=== PATIENT | female | born 1940 | race Caucasian/White ===

== ENCOUNTER → 2017-04-25 07:55 | Outpatient (CLI) | payer MEDICARE, OTHER, SELFPAY ==
--- NOTE | 2017-04-25 08:30 | RAD_ITS ---
PROCEDURE: Fluoroscopic guided Hip Injection DATE: April 25, 2017. INDICATION: Female, 77 years old. Chronic left hip pain. PHYSICIAN: Shade Lara M.D. MEDICATIONS: 6 mg of betamethasone and 3 cc of 1% lidocaine. 2% Lidocaine administered subcutaneously for local anesthesia. ACCESS SITE: Left hip. NEEDLE: 22-gauge spinal needle. FLUOROSCOPY TIME (if supplied): (0:23) minutes/seconds FINDINGS: The risks, benefits, and alternatives to the procedure were explained to the patient. The specific risks of bleeding, infection, and neurovascular injury were detailed and accepted. Witnessed informed consent was obtained. A 22-gauge spinal needle was positioned under right graphic fluoroscopic localization. Approximately 2 cc of Isovue-300 instilled for localization purposes. Medication was then injected. The patient tolerated the procedure well without any immediate complications. The patient was placed supine with head elevated and returned to the floor in stable condition. RAD/Fluoroscopy 1 Hr or Less IMPRESSION: 1. Successful fluoroscopic guided hip injection. Electronically Signed: Shade Lara MD at 9:02 EST Tel [phone], Service support ,
== END ==
PROVIDERS: Family Provider Internal Medicine; PCP Internal Medicine; Visit Provider Specialist
DX: M16.12 Unilateral primary osteoarthritis, left hip (principal); G89.29 Other chronic pain
CPT/HCPCS: 20610; 77002; 76000; J0702

== ENCOUNTER 2017-05-22 08:48 | Day surgery (SDC) | payer MEDICARE, OTHER, SELFPAY ==
[2017-05-22] VITALS (7 sets, daily range): BP systolic 95–115; BP diastolic 58–70; PULSE 67–83; RESP 16–18; TEMP 36.3–36.6; O2SAT 97–100; BMI 26.2
--- NOTE | 2017-05-22 10:11 | PCM.OPRPT ---
Problem List (1) Change in bowel habit Status: Acute Report of Operation Date of Procedure: 05/22/17 Pre-Operative Diagnosis: Change of bowel habit/severe constipation Post-Operative Diagnosis: Severe sigmoid diverticulosis Surgery/Procedure Performed:: Flexible sigmoidoscopy and rigid anoscopy Description of Surgical Findings:: Timeout and informed consent was obtained. 77-year-old female was taken to the endoscopy room. Because of multiple drug allergies she had monitored anesthesia care. She was placed in the left lateral decubitus position. In 2015 she had a complete colonoscopy. That was extraordinarily difficult secondary to her extensive diverticular disease. On this occasion we elected to perform a flexible sigmoidoscopy and anoscopy an attempt to explain her abdominal pain severe constipation and rectal pressure. Digital rectal exam performed. Very normal anal tone. No mass lesions. No blood. No palpable masses. Flexible colonoscope inserted in the rectum advanced to approximately 60 cm. There was severe tortuosity of the sigmoid colon and very extensive diverticular disease of the sigmoid and descending colon. I advanced the scope all the way to the splenic flexure at that point acute angulation was going to be technically difficult to transgress. As I had previously listed in the past that are her colonoscopy had been extraordinarily difficult I elected not to proceed with further attempt at this time due to the acute angulation and severe diverticular disease. I withdrew the scope. The tortuosity made inspection of the bowel wall difficult I did not see any gross lesions. The scope was retroflexed within the rectum minimal hemorrhoidal changes noted excess fluid and air was aspirated free. I then placed a rigid sigmoidoscope and took a very careful inspection of the anal rectal tissue. No significant abnormalities other than mild hemorrhoids. Impression Severe sigmoid and descending diverticulosis with severe tortuosity. No mass lesions or obstruction identified. No evidence for acute inflammation. Mild internal hemorrhoids. The patient is age 77. We will continue to recommend conservative measures for her constipation. If these do not resolve her issue then could consider a laparoscopic sigmoid colectomy or a laparoscopic left colectomy in order to treat her progressively severe constipation. Cc: Dr. Case Previous colonoscopy 2015. Next screening colonoscopy 2025. Simone Jeffers M.D., F.A.C.S. Scope was inserted 0959. This was a flexible sigmoidoscopy. Procedure was completed at 1008. Type of Anesthesia:: MAC Anesthesiologist: Eric Abel
== END 2017-05-22 11:05 | disposition home or self-care (01) ==
LOC: EN 08:49 → AC 08:51
PROVIDERS: Family Provider Internal Medicine; PCP Internal Medicine; Visit Provider Surgery
PROC: 0DJD8ZZ Inspection of Lower Intestinal Tract, Via Natural or Artificial Opening Endoscopic (ICD-10-PCS; CPT 45378; principal; 2017-05-22 09:55)
DX: K57.30 Diverticulosis of large intestine without perforation or abscess without bleeding (principal); K62.89 Other specified diseases of anus and rectum; K59.00 Constipation, unspecified; K64.8 Other hemorrhoids; I10 Essential (primary) hypertension; E04.1 Nontoxic single thyroid nodule; E03.9 Hypothyroidism, unspecified; L40.50 Arthropathic psoriasis, unspecified; E55.9 Vitamin D deficiency, unspecified; M85.80 Other specified disorders of bone density and structure, unspecified site; K21.9 Gastro-esophageal reflux disease without esophagitis; Z78.0 Asymptomatic menopausal state; Z79.82 Long term (current) use of aspirin; Z79.899 Other long term (current) drug therapy; Z96.641 Presence of right artificial hip joint; Z96.652 Presence of left artificial knee joint
CPT/HCPCS: 45330; J7120

== ENCOUNTER → 2017-07-19 13:10 | Outpatient (CLI) | payer MEDICARE, OTHER, SELFPAY ==
--- NOTE | 2017-07-19 13:14 | CT_ITS ---
STUDY: CT SOFT TISSUE NECK WITH CONTRAST REASON FOR EXAM: Female, 77 years old. Tender right-sided neck mass. RADIATION DOSAGE (If Supplied By Facility): CTDIvol = ( 15.59 ) mGy, DLP = ( 408.68 ) mGycm TECHNIQUE: The patient was scanned in a multi-detector CT scanner. High resolution transaxial imaging was performed following intravenous administration of 75 ml of Isovue 300 contrast material. Sagittal and coronal images were reconstructed. Individualized dose optimization techniques were used for this CT. COMPARISON: None. FINDINGS: Normal bilateral parotid glands. Normal bilateral hygiene assistant spaces. Normal bilateral parapharyngeal spaces. Normal bilateral carotid spaces. Normal bilateral sublingual and submandibular glands and spaces. Normal visualized nasopharynx. Normal retropharyngeal space. Normal perivertebral space. Normal visualized bilateral faucial tonsils. The visualized tongue, tongue base and oropharynx are normal. Shotty anterior cervical lymph nodes bilaterally. The largest lymph node on the right is 1.0 x 1.9 x 1.0 cm. The largest lymph node on the left is 1.9 x 0.8 x 0.5 cm. Small posterior cervical lymph nodes. Minimal submandibular lymph nodes. There is an asymmetrically large right external jugular vein on the surface of the sternocleidomastoid muscle. There is tortuosity of the carotid arteries. There is no aneurysm of the carotid arteries or stenosis. Normal epiglottis, bilateral vallecula and hypopharynx. The pre-epiglottic and paraglottic adipose spaces are normal. Normal visualized bilateral piriform sinuses, aryepiglottic folds, vocal cords, and arytenoid-cricoid articulations. Normal subglottic trachea. 3 mm densely calcified nodule of the right thyroid. Normal visualized pulmonary apices. Normal visualized paranasal sinuses. There is multilevel degenerative changes of the cervical spine. CT/Soft Tissue Neck WITH Contrast IMPRESSION: Shotty anterior cervical adenopathy bilaterally. Largest lymph node on the right is 1.0 x 1.9 x 1.0 cm. The largest lymph node on the left is 1.9 x 0.8 x 0.5 cm. Otherwise normal kaitlyn morphology. 3 mm densely calcified nodule of the right thyroid. Otherwise unremarkable thyroid. Asymmetrically large right external jugular vein. Carotid artery tortuosity without aneurysm or stenosis. Electronically Signed: Kiya Stover MD at 17:00 EDT , Service support ,
== END ==
PROVIDERS: Family Provider Internal Medicine; PCP Internal Medicine; Visit Provider Otolaryngology
DX: R22.1 Localized swelling, mass and lump, neck (principal)
CPT/HCPCS: 70491; Q9967

== ENCOUNTER → 2017-12-31 10:05 | Outpatient (CLI) | payer MEDICARE, OTHER, SELFPAY ==
--- NOTE | 2017-12-31 10:34 | BI_ITS ---
MAMMOGRAPHY - BILATERAL SCREENING REASON FOR EXAM: Female, 77 years old. Routine annual screening examination. PERTINENT HISTORY: Grandmother with breast cancer. Aunt with breast cancer. Remote left stereotactic breast biopsy and right excisional breast biopsy. TECHNIQUE: Digital bilateral breast kera (3D mammographic acquisition) in the CC and MLO projections. 2-D mediolateral oblique (MLO) and craniocaudad (CC) views of both breasts were obtained. CAD: Full Field Digital Mammography with Computer Added Detection was performed. COMPARISON: Comparison is made with prior study dated December 27, 2016 and December 27, 2015. FINDINGS: Breast Composition: The breasts are heterogeneously dense, which may obscure small masses. There are no dominant masses or suspicious calcifications. A tissue clip marker is once again seen in the deep upper outer portion of the left breast. Another tissue clip marker is seen in the deep slightly inferior medial portion of the left breast. This is unchanged. No other significant abnormalities are identified. There has been no significant change since the prior study. BI/SCREENING MAMM (CAD), BILAT IMPRESSION: Stable bilateral screening mammogram. Yearly follow-up mammogram recommended. (A) ASSESSMENT CATEGORY: BIRADS Category 2: Benign. A letter regarding these results will be sent to the patient by the facility within 30 days. Approximately 10% of breast cancers are not detected by mammography. A normal mammogram should not delay biopsy of a clinically suspicious abnormality. [id number] Electronically Signed: Shade Lara MD at 13:29 EST Tel [phone], Service support ,
== END ==
PROVIDERS: Family Provider Internal Medicine; PCP Internal Medicine
DX: Z12.31 Encounter for screening mammogram for malignant neoplasm of breast (principal)
CPT/HCPCS: 77063; 77067

== ENCOUNTER → 2018-06-25 20:03 | Outpatient (CLI) | payer MEDICARE, OTHER, SELFPAY | PROVIDERS: Family Provider Internal Medicine; PCP Internal Medicine | DX: G47.10 Hypersomnia, unspecified (principal); R53.83 Other fatigue | CPT/HCPCS: 95810 ==

== ENCOUNTER → 2018-08-22 15:39 | Outpatient (CLI) | payer MEDICARE, OTHER, SELFPAY ==
[2017-05-22 09:07] VITALS: BMI 26.2
== END ==
PROVIDERS: Family Provider Internal Medicine; PCP Internal Medicine; Referring Provider Specialist; Visit Provider Specialist
DX: S80.02XA Contusion of left knee, initial encounter (principal); X58.XXXA Exposure to other specified factors, initial encounter; Y93.9 Activity, unspecified; Y92.9 Unspecified place or not applicable; Y99.9 Unspecified external cause status
CPT/HCPCS: 87070; 87075; 87205

== ENCOUNTER → 2018-09-27 20:02 | Outpatient (CLI) | payer MEDICARE, OTHER, SELFPAY | PROVIDERS: Family Provider Internal Medicine; PCP Internal Medicine; Referring Provider Psychiatry & Neurology Neurology; Visit Provider Psychiatry & Neurology Neurology | DX: G47.33 Obstructive sleep apnea (adult) (pediatric) (principal) | CPT/HCPCS: 95811 ==

== ENCOUNTER 2019-01-01 08:30 | Outpatient (RCR) | payer MEDICARE, OTHER, SELFPAY ==
--- NOTE | 2018-12-04 16:04 | HP.PTEVAL_ITS ---
Patient's Visit Information VALENTIN BANGURA is a 78 year old F referred to Physical Therapy by Urban De Oliveira MD with a diagnosis of R shoulder pain. Date of Evaluation: 12/04/18 Physical Therapist: Wilfredo Mcnair PT, ATC - Visit Plan Frequency: 2-3x /Week Duration: 4 Weeks Plan: R shoulder strengthneing (rot cuff), stretching, scap stab ex's, UBE, DTR, US, and HEP - Subjective Findings: Pt reports she has had R shoulder pain for 2 weeks. Pt was carrying clothes on a metal ceiling hanger when her R shoulder became very sore. Pt reports her pain is located on the anterior aspect of her R shoulder. Pt reports she is R hand charlene nant. Pt denies any clicking/popping/locking up at this time. Pt reports she has had tingling and numbness in R had in the past, but none this date. No sleep difficulty at this time. Pt reports she has had xrays, but notes no sig findings as a result. 0/10 pain at rest, 6/10 at worst. Heavy lifting causes the most pain. - Pain R shoulder Pain Intensity (Out of 10): 0 Pain Intensity Range: 6 - Objective Neuro: B UE sensation is WNL to light touch. B bicepital reflex= 2/3. Palpation: Pt is tender along the LHB tendon. No obvious deformity. ROM: L shoulder flex= 160, abd= 155, ER= 65, IR= WNL. R shoulder flex= 140, abd= 125, ER= 65, IR= WNL. MMT: R shoulder is grossly 4-/5 and painful with all testing. L shoulder is 5/5. Special tests: no pos tests this date - Goals Goal 1:: Decrease R shoulder pain x 50% to aid with IADL's Goal Time Frame: 2-4 Weeks Goal 2:: Increase R shoujlder abd and flex ROM x 20 degrees to aid with overhead lifting activity Goal Time Frame: 4-6 Weeks Goal 3:: Increase R shoulder strength x 1 grade to aid with IADL's Goal Time Frame: 4-6 Weeks Goal 4:: I with HEP Goal Time Frame: 2-4 Weeks - Rehabilitation Potential Physical Therapy Diagnosis: Pt has R shoulder pain, weakness, and limited ROM secondary to R biceps tendonitis Rehabilitation Potential: Good - Anticipated Interventions Patient/Client Instruction: Educate patient on: Condition, Plan of Care For the Purpose of:: To improve self management Therapeutic Exercise to Include: Strength training, Endurance training, Flexib ilty training, Active ROM, Scapular Strength/Stabilization For the Purpose of:: To decrease pain, To increase ROM, To improve muscle performance and motor function Cryotherapy (ice pack, ice massage): Yes Ultrasound (thermal/non thermal): Yes For the Purpose of:: To decrease pain Thank you for the opportunity to evaluate your patient. For Medicare and Medicare HMO plans, please review the plan of care and approve it. It will need to be FAXED BACK to us at [phone] for Medicare purposes. For Medicare only, by signing this I certify the plan of care. Please let me know if there are questions or concerns regarding this plan of care. Physician Signature: Date:
--- NOTE | 2019-01-01 09:10 | HP.PTDCSUM ---
HP - PT D/C Summary It has been my pleasure to treat VALENTIN BANGURA under orders from Urban De Oliveira MD, for the diagnosis of R shoulder pain for a total of 8 visit(s). Discharge Date: Please see the following information for a summary of their discharge status. - Subjective Subjective: Pt reports she is I with HEP, but the pain has not changed - Pain R shoulder Pain Intensity (Out of 10): 4 - Objective Objective/Function: R shoulder pain 06/05. R shoulder ROM: flex= 155, abd= 165. R shoulder MMT: flex= 5/5, abd/ER/IR= 4/5. I with HEP. Pt has improved with both strength and ROM, but pain has remained unchanged - Goals Goal 1:: Decrease R shoulder pain x 50% to aid with IADL's Goal Progress: Not Progressing Goal 2:: Increase R shoujlder abd and flex ROM x 20 degrees to aid with overhead lifting activity Goal Progress: Progressing Goal 3:: Increase R shoulder strength x 1 grade to aid with IADL's Goal Progress: Goal Met Goal 4:: I with HEP Goal Progress: Goal Met - Plan Plan: Discontinue, RTD secondary to lack of progress with pain. - D/C Information If there are questions or concerns regarding this patient's physical therapy, please feel free to call me at [phone]. Thank you for the referral of this patient. Sincerely, Wilfredo Mcnair, PT, ATC
== END 2019-01-01 15:37 | disposition home or self-care (01) ==
LOC: PT 08:30
PROVIDERS: Family Provider Internal Medicine; PCP Internal Medicine; Referring Provider Specialist; Visit Provider Specialist
DX: M25.511 Pain in right shoulder (principal); S43.491D Other sprain of right shoulder joint, subsequent encounter
CPT/HCPCS: 97110; 97161; 97530

== ENCOUNTER → 2019-01-04 08:16 | Outpatient (CLI) | payer MEDICARE, OTHER, SELFPAY ==
[2017-05-22 09:07] VITALS: BMI 26.2
--- NOTE | 2019-01-04 08:21 | BI_ITS ---
MAMMOGRAPHY - BILATERAL SCREENING REASON FOR EXAM: Female, 78 years old. Routine annual screening examination. PERTINENT HISTORY: Sister with breast cancer. Grandmother with breast cancer. Aunts with breast cancer. TECHNIQUE: Digital bilateral breast shaina (3D mammographic acquisition) in the CC and MLO projections. 2-D mediolateral oblique (MLO) and craniocaudad (CC) views of both breasts were obtained. CAD: Full Field Digital Mammography with Computer Added Detection was performed. COMPARISON: Comparison is made with prior study dated December 31, 2017 and December 27, 2016. FINDINGS: Breast Composition: The breasts are heterogeneously dense, which may obscure small masses. There are no dominant masses or suspicious calcifications. 2 tissue markers are once again seen in the left breast. One is located in the deep upper outer portion of the left breast. The second is seen slightly inferior medial portion of the left breast. No other significant abnormalities are identified. There has been no significant change since the prior study. BI/SCREEN MAMM (CAD) W/SHAINA BILAT IMPRESSION: Stable bilateral screening mammogram. Yearly follow-up mammogram recommended. (A) ASSESSMENT CATEGORY: BIRADS Category 2: Benign. A letter regarding these results will be sent to the patient by the facility within 30 days. Approximately 10% of breast cancers are not detected by mammography. A normal mammogram should not delay biopsy of a clinically suspicious abnormality. [id number] Electronically Signed: Shade Lara, at 8:35 EST , Service support ,
== END ==
PROVIDERS: Family Provider Internal Medicine; PCP Internal Medicine; Referring Provider Obstetrics & Gynecology; Visit Provider Obstetrics & Gynecology
DX: Z12.31 Encounter for screening mammogram for malignant neoplasm of breast (principal)
CPT/HCPCS: 77063; 77067

== ENCOUNTER 2019-03-14 09:00 | Outpatient (RCR) | payer MEDICARE, OTHER, SELFPAY ==
--- NOTE | 2019-03-14 09:38 | HP.PTDCSUM ---
HP - PT D/C Summary It has been my pleasure to treat VALENTIN BANGURA under orders from Urban De Oliveira MD, for the diagnosis of R IT band syndrome for a total of 5 visit(s). Discharge Date: Please see the following information for a summary of their discharge status. - Subjective Subjective: R knee is very unstable today. Almost needed a cane today - Pain R lateral leg Pain Intensity (Out of 10): 2 - Overall Improvement % Improvement: 0 - Objective Objective/Function: R knee pain 2/10 currently, increases to 7/10 at worst. R knee ROM: 0-130 degrees. R knee MMT: 5/5 throughout. Pt is not making progress with pain, and continues to become progressively less stable with L knee. - Goals Goal 1:: Decrease R LE pain x 50% to aid with sleep Goal 2:: Increase R LE strength x 1 grade to aid with stair negotiation Goal 3:: I with HEP - Plan Plan: Discontinue, RTD - D/C Information If there are questions or concerns regarding this patient's physical therapy, please feel free to call me at [phone]. Thank you for the referral of this patient. Sincerely, Wilfredo Mcnair, PT, ATC
== END 2019-03-14 19:00 | disposition home or self-care (01) ==
LOC: PT 09:00
PROVIDERS: Family Provider Internal Medicine; PCP Internal Medicine; Referring Provider Specialist; Visit Provider Specialist
DX: M76.31 Iliotibial band syndrome, right leg (principal); M70.61 Trochanteric bursitis, right hip
CPT/HCPCS: 97110; 97140; 97161; 97164

== ENCOUNTER 2019-07-11 19:54 | Emergency (ER) | payer MEDICARE, OTHER, SELFPAY ==
[2019-07-11 19:55] VITALS: BP 154/83; PULSE 102; RESP 18; TEMP 36.5; O2SAT 96; BMI 28.3
--- NOTE | 2019-07-11 20:17 | ED.VISSUMM ---
- ER Visit Summary Date of Service: 07/11/19 Chief Complaint: Right leg pain and redness History of Present Illness: The patient is a 79 F who presents with pain and redness to her right leg that is been getting worse since yesterday. Patient had a recent total knee replacement 4 days ago. Patient states she has been doing well after this. Patient states she was ambulating with a cane. Patient states her pain is aching but stabbing at times. Patient states her pain is worse with movement and weightbearing. Patient denies any paresthesias or weakness. Patient admits to a low-grade fever of 99. Patient denies any discharge or drainage. Physical Examination: Vital signs are stable. Patient is afebrile. Patient is in no acute distress. Skin is warm dry. There is some mild erythema and warmth along the medial aspect of the distal thigh. There is some tenderness over the left knee and lower leg. There is some edema noted. There is no discharge or drainage from the incision. Range of motion was from 0 to approximately 20 degrees without pain. Sensation was intact light touch bilaterally in the lower extremities. Strength is 5/5 bilaterally in the lower extremities. Pedal pulses are equal bilaterally. Test Results: BC shows a mild anemia with a hemoglobin of 11.6 and hematocrit of 36.2. Basic metabolic profile showed a slightly elevated creatinine of 1.22 and a slightly elevated glucose of 123. X-rays of the right knee were obtained. There is soft tissue swelling but no evidence of osteomyelitis. Venous duplex of the right lower extremity was obtained. There is no evidence of DVT. Emergency Department Course and Treatment: Patient was given a dose of Ancef here. Patient was feeling better on reevaluation. Case was discussed with Dr. Johnson. He recommended discharging the patient home with antibiotics. Patient was given a prescription for Keflex. Patient was instructed to follow-up with Dr. De Oliveira in 3 to 5 days. Patient understood and was agreeable with the plan. All questions were answered. Disposition: Discharge home Impression: 1. Cellulitis right lower extremity This note was generated with [employer] software. It may contain incorrect words, spelling, and punctuation that were not noted in review of the chart prior to signing ED Disposition - Plan for ED Patient: Disposition: Home or Assisted Living Diagnosis: Cellulitis of right lower extremity Instructions: ED Cellulitis Prescriptions: Cephalexin [Keflex] 500 mg PO Q6 #40 cap Prescription Printed Referrals: Brinda Case MD [Primary Care Provider] - Urban De Oliveira MD [STAFF PHYSICIAN] - 3-5 Days
[2019-07-11] MEDS: Cefazolin 1 GM/50 ML BAG IV (20:50)
[2019-07-11 21:00] LABS: Absolute Lymphocyte Count 1.72 X10^3/uL (0.83-4.51); Absolute Neutrophil Count 6.4 X10^3/uL (2.0-7.7); Basophil# 0.05 X10^3/uL; Basophil% 0.5 % (0-1); Eosinophil# 0.75 X10^3/uL; Eosinophils% 7.8 % (0-5); Hematocrit 36.2 % (37-47); Hemoglobin 11.6 g/dL (12.0-15.0); Lymphocyte # 1.72 X10^3/ul (4.0); Lymphocyte % 17.9 % (19-41); Mean Corpuscular Hgb 29.3 pg (27.0-32.0); Mean Corpuscular Volume 91.4 fL (81-99); Mean Platelet Vol. 9.1 fl (6.2-12.0); Monocyte# 0.65 X10^3/uL; Monocyte% 6.8 % (0-10); NRBC Flagged by Analyzer 0 % (0-5); Neutrophil % 66.7 % (47-70); Platelet Count 302 K/mm3 (150-450); RBC Distribution Width CV 13.2 % (11.6-14.6); Red Blood Count 3.96 M/mm3 (4.2-5.4); White Blood Count 9.6 K/mm3 (4.4-11.0)
--- NOTE | 2019-07-11 21:00 | RAD_ITS ---
STUDY: X-RAY - RIGHT KNEE REASON FOR EXAM: Female, 79 years old. Total Rt knee replacement this past Sunday07/07/19. Increased swelling today. TECHNIQUE: 4 view(s) of the knee. COMPARISON: None. FINDINGS: Post surgical changes status post prosthesis placement which appears to be in anatomic alignment and position. Surgical nils are seen in the soft tissues. Prepatellar soft tissue swelling is observed... No evidence for acute fracture. No definitive evidence for osteomyelitis. RAD/Knee 4 or More Views IMPRESSION: Status post knee prosthesis placement. Diffuse soft tissue thickening without definitive evidence for acute osteomyelitis however if concern for infection three-phase bone scan or MRI would be useful for further evaluation Electronically Signed: Javed Newman MD at 21:31 EDT , Service support ,
[2019-07-11 21:18] LABS: Anion Gap 5 (5-15); BUN 15 mg/dL (7-18); BUN/Creat Ratio 12.3 RATIO (10-20); Calcium,Total 9.1 mg/dL (8.5-10.1); Chloride 105 mmol/L (98-107); Creatinine, Serum 1.22 mg/dL (0.55-1.02); EST Glomerular Filtration Rate 45 mL/min (>60); Est Glom Filt Rate - Afr Amer 55 mL/min (>60); Estimated Creatinine Clearance 30.06 ml/min; Glucose 123 mg/dL (74-106); Potassium 4.2 mmol/L (3.5-5.1); Sodium Level 139 mmol/L (136-145)
--- NOTE | 2019-07-11 21:21 | US_ITS ---
STUDY: VENOUS DOPPLER ULTRASOUND - RIGHT LOWER EXTREMITY REASON FOR EXAM: Female, 79 years old. RIGHT LEG PAIN TOTAL KNEE REPLACEMENT 07/07/2019 TECHNIQUE: Ultrasound evaluation of the deep vein system to include carranza-scale imaging and compression was performed. Carranza-scale imaging and Doppler sonographic evaluation, including duplex spectral analysis and qualitative color flow sonography, was performed. COMPARISON: None. FINDINGS: Less than optimal visualization of the calf veins due to edema. Common Femoral Vein: Normal compression, spontaneity and augmentation. Normal color Doppler. Common Femoral Vein/Greater Saphenous Junction: Normal compression, spontaneity and augmentation. Normal color Doppler. Deep Femoral Vein: Normal compression, spontaneity and augmentation. Normal color Doppler. Femoral Proximal: Normal compression, spontaneity and augmentation. Normal color Doppler. Femoral Middle: Normal compression, spontaneity and augmentation. Normal color Doppler. Femoral Distal: Normal compression, spontaneity and augmentation. Normal color Doppler. Popliteal Vein: Normal compression, spontaneity and augmentation. Normal color Doppler. Posterior Tibial Vein: Normal compression, spontaneity and augmentation. Normal color Doppler. Peroneal Vein: Normal compression, spontaneity and augmentation. Normal color Doppler. US/Venous Duplex Imag/Limited/Uni IMPRESSION: No definitive evidence for deep venous Doppler ultrasound of the lower extremity given less than optimal visualization of the calf veins. Electronically Signed: Javed Newman MD at 22:24 EDT , Service support ,
[2019-07-11] MEDS: 0.9% Normal Saline 1,000 ML 1000 ML IV (22:16)
[2019-07-11 22:18] LABS: Erythrocyte Sedimentation Rate 33 mm/hr (0-30)
[2019-07-11 22:28] VITALS: BP 123/68; PULSE 75; RESP 16; O2SAT 98
== END 2019-07-11 22:50 | disposition home or self-care (01) ==
LOC: ED 22:39
PROVIDERS: Emergency Provider Emergency Medicine; PCP Internal Medicine
DX: L03.115 Cellulitis of right lower limb (principal); E03.9 Hypothyroidism, unspecified; Z79.82 Long term (current) use of aspirin; Z79.899 Other long term (current) drug therapy
CPT/HCPCS: 73564; 80048; 85025; 85652; 86140; 87040; 93971; 96361; 96365; 99283; J7030; J7050

== ENCOUNTER → 2019-07-31 14:27 | Outpatient (CLI) | payer MEDICARE, OTHER, SELFPAY ==
[2019-07-11 19:55] VITALS: BMI 28.3
[2019-07-31 17:29] LABS: Absolute Lymphocyte Count 2.08 X10^3/uL (0.83-4.51); Basophil% 1.3 % (0-1); Eosinophil# 0.69 X10^3/uL; Eosinophils% 9.2 % (0-5); Hematocrit 39.8 % (37-47); Hemoglobin 12.2 g/dL (12.0-15.0); Lymphocyte # 2.08 X10^3/ul (4.0); Lymphocyte % 27.8 % (19-41); Mean Corp Hgb Conc 30.7 g/dL (32-36); Mean Corpuscular Hgb 28.6 pg (27.0-32.0); Mean Corpuscular Volume 93.2 fL (81-99); Mean Platelet Vol. 8.9 fl (6.2-12.0); Monocyte# 0.57 X10^3/uL; Monocyte% 7.6 % (0-10); NRBC Flagged by Analyzer 0 % (0-5); Neutrophil # 4.02 X10^3/uL (2.7-7.7); Platelet Count 453 K/mm3 (150-450); RBC Distribution Width CV 13.2 % (11.6-14.6); RBC Distribution Width SD 45.1 fl (35.1-43.9); Red Blood Count 4.27 M/mm3 (4.2-5.4); White Blood Count 7.5 K/mm3 (4.4-11.0)
[2019-07-31 17:37] LABS: Erythrocyte Sedimentation Rate 8 mm/hr (0-30)
[2019-07-31 17:41] LABS: CRP 8.51 mg/L (0.0-3.0)
== END ==
PROVIDERS: PCP Internal Medicine; Referring Provider Specialist; Visit Provider Specialist
DX: L03.115 Cellulitis of right lower limb (principal)
CPT/HCPCS: 36415; 85025; 85652; 86140

== ENCOUNTER → 2019-08-13 15:18 | Outpatient (CLI) | payer MEDICARE, OTHER, SELFPAY ==
--- NOTE | 2019-08-13 15:23 | RAD_ITS ---
STUDY: X-RAY - RIGHT FOOT CLINICAL: Female, 79 years old. PAIN TECHNIQUE: 3 view(s) of the foot. COMPARISON: None. FINDINGS: Normal talus, calcaneus, and tarsal bones. There are mild degenerative changes of the midfoot. Normal metatarsi. There is degenerative arthrosis of the metatarsophalangeal joint of the hallux with a hallux valgus deformity. Normal interphalangeal joint of the great toe. Normal phalanges of the great toe. Normal second through fifth metatarsophalangeal joints. There are degenerative changes of the interphalangeal joints of the lesser toes. The soft tissue structures are unremarkable. RAD/Foot min 3 Views IMPRESSION: Degenerative changes. Electronically Signed: Naina Wlid MD at 16:54 EDT Tel , Service support ,
== END ==
PROVIDERS: PCP Internal Medicine; Referring Provider Podiatrist; Visit Provider Podiatrist
DX: M77.41 Metatarsalgia, right foot (principal)
CPT/HCPCS: 73630

== ENCOUNTER → 2020-01-06 08:29 | Outpatient (CLI) | payer MEDICARE, OTHER, SELFPAY ==
--- NOTE | 2020-01-06 08:30 | BI_ITS ---
MAMMOGRAPHY - BILATERAL SCREENING REASON FOR EXAM: Female, 79 years old. Routine annual screening examination. PERTINENT HISTORY: Sister with breast cancer. Grandmother with breast cancer. Aunts with breast cancer. Remote left stereotactic breast biopsy and right excisional breast biopsies. TECHNIQUE: Digital bilateral breast shaina (3D mammographic acquisition) in the CC and MLO projections. 2-D mediolateral oblique (MLO) and craniocaudad (CC) views of both breasts were obtained. CAD: Full Field Digital Mammography with Computer Added Detection was performed. COMPARISON: Comparison is made with prior study dated 01/04/2019 and 12/31/2017. FINDINGS: Breast Composition: The breasts are heterogeneously dense, which may obscure small masses. There are no dominant masses or suspicious calcifications. 2 tissue clip markers are once again seen in the left breast. No other significant abnormalities are identified. There has been no significant change since the prior study. BI/SCREEN MAMM (CAD) W/SHAINA BILAT IMPRESSION: Stable bilateral screening mammogram. Yearly follow-up mammogram recommended. (A) ASSESSMENT CATEGORY: BIRADS Category 2: Benign. A letter regarding these results will be sent to the patient by the facility within 30 days. Approximately 10% of breast cancers are not detected by mammography. A normal mammogram should not delay biopsy of a clinically suspicious abnormality. [id number] Electronically Signed: Shade Lara, at 10:07 EST , Service support ,
== END ==
PROVIDERS: PCP Internal Medicine; Referring Provider Obstetrics & Gynecology; Visit Provider Obstetrics & Gynecology
DX: Z12.31 Encounter for screening mammogram for malignant neoplasm of breast (principal); Z80.3 Family history of malignant neoplasm of breast
CPT/HCPCS: 77063; 77067

== ENCOUNTER 2020-01-19 09:30 | Outpatient (RCR) | payer MEDICARE, OTHER, SELFPAY ==
--- NOTE | 2019-09-18 10:49 | HP.PTREVAL ---
Dr. Urban De Oliveira MD, It has been my pleasure to treat VALENTIN BANGURA over the last 18 visits for R TKA. Please see the progress note below for an update on the physical therapy plan of care! Subjective: i am sore all over today Objective/Function: R knee pain 2/10. R knee ROM: 0-3-120. R knee girth at joint line: 39 cm. R knee MMT: 4+/5. Pt is I with HEP. x goals achieved Plan Plan: Recheck pt in 4 weeks, or discharge Goals Goal 1:: Decrease R knee pain x 50% to aid with sleep Goal Time Frame: 4-6 Weeks Goal Progress: Goal Met Goal 2:: Increase R knee ROM x 50 degrees to aid with gait pattern Goal Time Frame: 4-6 Weeks Goal Progress: Goal Met Goal 3:: Increase R knee strength x 1 grade toa id with stair negotiation Goal Time Frame: 4-6 Weeks Goal Progress: Goal Met Goal 4:: I with HEP Goal Time Frame: 4-6 Weeks Goal Progress: Goal Met Anticipated Interventions Patient/Client Instruction: Educate patient on: Condition, Plan of Care For the Purpose of:: To improve self management Therapeutic Exercise to Include: Strength training, Endurance training, Balance training, Flexibilty training, Gait and locomotor training, Passive ROM, Active ROM, Dynamic Lumbar Stabilization For the Purpose of:: To decrease pain, To increase ROM, To improve muscle performance and motor function Cryotherapy (ice pack, ice massage): Yes For the Purpose of:: To decrease pain Please do not hesitate to contact me at [phone] by phone or if you have questions or concerns regarding this new plan of care! Sincerely, Wilfredo Mcnair, PT, ATC
--- NOTE | 2019-09-18 10:55 | HP.PTEVAL_ITS ---
Patient's Visit Information VALENTIN BANGURA is a 79 year old F referred to Physical Therapy by Dr. Urban De Oliveira MD with a diagnosis of R TKA. Date of Evaluation: 07/10/19 Physical Therapist: Wilfredo Mcnair PT, ATC - Visit Plan Frequency: 2-3x /Week Duration: 4-6 Weeks Plan: Recheck pt in 4 weeks, or discharge - Subjective DOS: 07/07/2019. Pt reports she had a R TKA performed at that time. Pt reports she has had R knee pain for a very long time. Pt reports she was scheduled to have her surgery prior to this but had to delay it secondary to COVID-19. Pt reports she is very sore and stiff today. Pt reports she notices her R knee is more straight now. Pt reports not tingling or numbness in R LE this date, but reports she has tingling in her feet. Pt reports sleep difficulty secondary to pain at this time. Pt reports she has not attempted to go up stairs at this time but notes she does have them in her house. Pt reports she is limited with all IADL's at this time. 3/10 pain at rest, 9/10 at worst (with any movement) - Pain R knee Pain Intensity (Out of 10): 2 Pain Intensity Range: 9 - Objective Neuro: B LE sensation is WNL to light touch. B achilles reflex= 1/3. Observation: Pt has mild redness on the medial aspect of R knee. No obvious signs of infection at this time. ROM: L knee 0-113 degrees. R knee 0-15-68. MMT: L knee 5/5 throughout. R knee 3/5 and painful. Girth at joint line: L knee 36 cm, R knee 42 cm - Goals Goal 1:: Decrease R knee pain x 50% to aid with sleep Goal Time Frame: 4-6 Weeks Goal 2:: Increase R knee ROM x 50 degrees to aid with gait pattern Goal Time Frame: 4-6 Weeks Goal 3:: Increase R knee strength x 1 grade toa id with stair negotiation Goal Time Frame: 4-6 Weeks Goal 4:: I with HEP Goal Time Frame: 4-6 Weeks - Rehabilitation Potential Physical Therapy Diagnosis: R knee pain, weakness, and limited ROM secondary to R TKA Rehabilitation Potential: Good - Anticipated Interventions Patient/Client Instruction: Educate patient on: Condition, Plan of Care For the Purpose of:: To improve self management Therapeutic Exercise to Include: Strength training, Endurance training, Balance training, Flexibilty training, Gait and locomotor training, Passive ROM, Active ROM, Dynamic Lumbar Stabilization For the Purpose of:: To decrease pain, To increase ROM, To improve muscle performance and motor function Cryotherapy (ice pack, ice massage): Yes For the Purpose of:: To decrease pain Thank you for the opportunity to evaluate your patient. For Medicare and Medicare HMO plans, please review the plan of care and approve it. It will need to be FAXED BACK to us at [phone] for Medicare purposes. For Medicare only, by signing this I certify the plan of care. Please let me know if there are questions or concerns regarding this plan of care. Physician Signature: Date:
--- NOTE | 2019-10-03 07:46 | HP.OTEVAL_ITS ---
Patient's Visit Information VALENTIN BANGURA is a 79 year old F, referred to Occupational Therapy by Dr. Urban De Oliveira MD, with a diagnosis of right tendonitis. Date of Evaluation: 09/29/19 Occupational Therapist: Lelia Qureshi, GODFREYR/Fam, CHT - Subjective This 79 year old female was seen for OT eval was dx with right wrist tenosynov itis. pt states she had right wrist pain started in July one month following a right TKR. pt had injection last and pt has felt better- pt states her wrist is not hurting - ROM Wrist: right 70/60 left 65/60 Opposition: right 10 left 10 - Strength Hogshead Weigher: right 45# left 35# Lateral Pinch: right 11# left 10# Tripod Pinch: right 10# left 10# - Quick DASH-Disab of Arm,Shoulder& Hand Quick DASH Score: 52.2725 - Goals Goal:: pt will demo a increase in right change management specialist strength by 15# or greater to return pt to PLOF by d/c Goal:: pt will demo right wrist ROM equal to unaffected UE to return pt to PLOF with ADLs and IADL by d/c Goal:: Pt will report pain no greater than 1/10 with use of affected hand with BADLs and IADLs by d/c. Goal:: Pt will demo understanding of joint protection and ergonomics when performing BADLs and IADLs by d/c. Pt will demo understanding of adaptive Equipment use to decrease stress on joints to allow pt to perform BADSL and IADLS at HELENE level. - Rehabilitation General Assessment: pts pain has inproved since the cortisone injection, but contineus to demo with limited right wrist and girp strenght. this limitation has increased need of assist with ADLs and IADLs. pt demo a need for skilled OT services 1-2x week for 4 weeks to return pt to PLOF. Today therapist ed. pt on need of brace for heavy work, ice/heat PRN will initiate eccentric strengthening at pt kush and progress to PRE. pt ed. on joint protection and ergo. of wrist and ad. eq. to assist with ADLs and IADls to limit stress on joints/tendons. pt demo understanding and agree to POC. Rehabilitation Potential: Good - Anticipated Interventions Modalities, Orthoses, Joint Protection/Energy Conservation, Ergonomic Education, Home Program - Visit Plan Frequency: 1x/Week Duration: 2 Weeks TEXT: Thank you for the opportunity to evaluate your patient. For Medicare and Medicare HMO plans, please review the plan of care and approve it. It will need to be FAXED BACK to us at [phone] for Medicare purposes. Please let me know if there are questions or concerns regarding this plan of care. Physician Signature: Date:
--- NOTE | 2019-11-18 15:10 | HP.PTREVAL ---
Dr. Urban De Oliveira MD, It has been my pleasure to treat VALENTIN BANGURA over the last 20 visits for R TKA. Please see the progress note below for an update on the physical therapy plan of care! Subjective: I am still in a lot of pain this date Objective/Function: R knee pain 5/10 with ambulation. R knee ROM: 0-4-123. R knee MMT: R knee flex= 4+/5, ext= 5/5. Gait: Pt was able to ambulate 640 feet until needing to rest Plan Plan: Cont with LE strengthening and gait training revolving around gym exercise routine. Goals Goal 1:: Decrease R knee pain x 50% to aid with sleep Goal Time Frame: 4-6 Weeks Goal Progress: Goal Met Goal 2:: Increase R knee ROM x 50 degrees to aid with gait pattern Goal Time Frame: 4-6 Weeks Goal Progress: Goal Met Goal 3:: Increase R knee strength x 1 grade toa id with stair negotiation Goal Time Frame: 4-6 Weeks Goal Progress: Goal Met Goal 4:: I with HEP Goal Time Frame: 4-6 Weeks Goal Progress: Goal Met Goal 5:: I with gym routine to aid with continued improvements in strength and decreased pain. Goal Time Frame: 2-4 Weeks Goal Progress: Progressing Anticipated Interventions Patient/Client Instruction: Educate patient on: Condition, Plan of Care For the Purpose of:: To improve self management Therapeutic Exercise to Include: Strength training, Endurance training, Balance training, Flexibilty training, Gait and locomotor training, Passive ROM, Active ROM, Dynamic Lumbar Stabilization For the Purpose of:: To decrease pain, To increase ROM, To improve muscle performance and motor function Cryotherapy (ice pack, ice massage): Yes For the Purpose of:: To decrease pain Please do not hesitate to contact me at [phone] by phone or if you have questions or concerns regarding this new plan of care! Sincerely, Wilfredo Mcnair, PT, ATC
--- NOTE | 2019-12-18 13:09 | HP.PTREVAL ---
Dr. Urban De Oliveira MD, It has been my pleasure to treat VALENTIN BANGURA over the last 28 visits for R TKA. Please see the progress note below for an update on the physical therapy plan of care! Subjective: No pain this date Objective/Function: R knee ROM 0-125 degrees. Pain ranges from 0/10-5/10. MMT: 4/5 throughout. Pt is progressing well toward Rx goals Plan Plan: Cont with R LE strengthening Goals Goal 1:: Decrease R knee pain x 50% to aid with sleep Goal Time Frame: 4-6 Weeks Goal Progress: Goal Met Goal 2:: Increase R knee ROM x 50 degrees to aid with gait pattern Goal Time Frame: 4-6 Weeks Goal Progress: Goal Met Goal 3:: Increase R knee strength x 1 grade toa id with stair negotiation Goal Time Frame: 4-6 Weeks Goal Progress: Goal Met Goal 4:: I with HEP Goal Time Frame: 4-6 Weeks Goal Progress: Goal Met Goal 5:: I with gym routine to aid with continued improvements in strength and decreased pain. Goal Time Frame: 2-4 Weeks Goal Progress: Progressing Goal 6:: Increase R knee strength to 5/5 toa id with IADL's Goal Time Frame: 2-4 Weeks Goal Progress: Progressing Anticipated Interventions Patient/Client Instruction: Educate patient on: Condition, Plan of Care For the Purpose of:: To improve self management Therapeutic Exercise to Include: Strength training, Endurance training, Balance training, Flexibilty training, Gait and locomotor training, Passive ROM, Active ROM, Dynamic Lumbar Stabilization For the Purpose of:: To decrease pain, To increase ROM, To improve muscle performance and motor function Cryotherapy (ice pack, ice massage): Yes For the Purpose of:: To decrease pain Please do not hesitate to contact me at [phone] by phone or if you have questions or concerns regarding this new plan of care! Sincerely, Wilfredo Mcnair, PT, ATC
--- NOTE | 2020-01-19 11:27 | HP.PTDCSUM ---
It has been my pleasure to treat VALENTIN BANGURA referred by Dr. Urban De Oliveira MD, with the diagnosis of R TKA for a total of 35 visit(s). Discharge Date: Please see the following information for a summary of their discharge status. Subjective: I dont have pain anymore R knee Pain Intensity (Out of 10): 0 % Improvement: 95 Objective/Function: R knee pain 0/10. R knee ROM: 0-124 degrees. R knee MMT: 5/5 throughout. Pt is I with HEP. Rx goals achieved Goal 1:: Decrease R knee pain x 50% to aid with sleep Goal Progress: Goal Met Goal 2:: Increase R knee ROM x 50 degrees to aid with gait pattern Goal Progress: Goal Met Goal 3:: Increase R knee strength x 1 grade toa id with stair negotiation Goal Progress: Goal Met Goal 4:: I with HEP Goal Progress: Goal Met Goal 5:: I with gym routine to aid with continued improvements in strength and decreased pain. Goal Progress: Goal Met Goal 6:: Increase R knee strength to 5/5 toa id with IADL's Goal Progress: Goal Met Plan: Discharge If there are questions or concerns regarding this patient's physical therapy, please feel free to call me at [phone]. Thank you for the referral of this patient. Sincerely, Wilfredo Mcnair, PT, ATC
== END 2020-01-19 19:00 | disposition home or self-care (01) ==
LOC: PT 09:30
PROVIDERS: PCP Internal Medicine; Referring Provider Specialist; Visit Provider Specialist
DX: M65.311 Trigger thumb, right thumb (principal)
CPT/HCPCS: 97110; 97140; 97161; 97164; 97166; 97530

== ENCOUNTER → 2020-05-19 12:19 | Outpatient (CLI) | payer MEDICARE, OTHER, SELFPAY ==
--- NOTE | 2020-05-19 14:00 | NEURO ---
NCS and/or EMG Patient Report Ordering Doctor: Robert Kaur DATE OF SERVICE: 05/19/20 Jennie Sánchez presents for electrodiagnostic testing of the left lower and left upper limb. She reports of burning sensation along with numbness and tingling in the hands and feet. Electrodiagnostic findings: Left median motor nerve demonstrates normal distal latency, amplitude and conduction velocity. Left ulnar motor responses within normal limits, including conduction across the elbow. Normal left peroneal and tibial motor studies. Left median, left ulnar, left tibial and left peroneal F waves are within normal limits H reflex normal bilaterally. There is prolonged distal latency of the left median sensory response at the wrist. Normal ulnar and radial sensory responses. There is a prolonged left sural latency. Normal left superficial peroneal and left medial plantar response. On needle EMG, all muscles tested in the left upper and left lower limb showed no evidence of denervation with normal motor unit action potentials. Electrodiagnostic impression: This is an abnormal study. 1. Electrodiagnostic findings demonstrate a left-sided median mononeuropathy. This is consistent with a mild left carpal tunnel syndrome. 2. Electrodiagnostic findings suggestive for a mild left sural neuropathy. 3. There is no electrodiagnostic evidence to suggest the presence of peripheral polyneuropathy. If there are any further questions, please do not hesitate to contact me.
== END ==
PROVIDERS: PCP Internal Medicine; Referring Provider Psychiatry & Neurology Sleep Medicine; Visit Provider Psychiatry & Neurology Sleep Medicine
DX: G62.9 Polyneuropathy, unspecified (principal); E04.1 Nontoxic single thyroid nodule; Z83.3 Family history of diabetes mellitus; R60.0 Localized edema
CPT/HCPCS: 95886; 95913

== ENCOUNTER 2020-05-21 15:05 | Emergency (ER) | payer MEDICARE, OTHER, SELFPAY ==
[2020-05-21 15:07] VITALS: BP 144/117; PULSE 100; RESP 15; TEMP 36.4; O2SAT 98; BMI 27.1
[2020-05-21] MEDS: 0.9% Normal Saline 1,000 ML 1000 ML IV (15:36)
[2020-05-21 15:49] LABS: Anion Gap 9 (5-15); BUN 19 mg/dL (7-18); BUN/Creat Ratio 21.1 RATIO (10-20); Calcium,Total 9.9 mg/dL (8.5-10.1); Chloride 105 mmol/L (98-107); EST Glomerular Filtration Rate 64 mL/min (>60); Est Glom Filt Rate - Afr Amer 78 mL/min (>60); Estimated Creatinine Clearance 40.09 ml/min; Glucose 99 mg/dL (74-106); Potassium 3.1 mmol/L (3.5-5.1); Sodium Level 141 mmol/L (136-145)
[2020-05-21 15:57] LABS: Absolute Neutrophil Count 4.3 X10^3/uL (2.0-7.7); Basophil# 0.04 X10^3/uL; Basophil% 0.6 % (0-1); Eosinophil# 0.17 X10^3/uL; Eosinophils% 2.5 % (0-5); Hematocrit 44.3 % (37-47); Hemoglobin 14.2 g/dL (12.0-15.0); Lymphocyte % 25.4 % (19-41); Mean Corp Hgb Conc 32.1 g/dL (32-36); Mean Corpuscular Hgb 27.9 pg (27.0-32.0); Mean Platelet Vol. 8.9 fl (6.2-12.0); Monocyte# 0.45 X10^3/uL; Monocyte% 6.7 % (0-10); NRBC Flagged by Analyzer 0 % (0-5); Neutrophil # 4.32 X10^3/uL (2.7-7.7); Neutrophil % 64.7 % (47-70); Platelet Count 298 K/mm3 (150-450); RBC Distribution Width CV 14.7 % (11.6-14.6); RBC Distribution Width SD 47.5 fl (35.1-43.9); Red Blood Count 5.09 M/mm3 (4.2-5.4); White Blood Count 6.7 K/mm3 (4.4-11.0)
--- NOTE | 2020-05-21 16:12 | ED.DCSUM_ITS ---
- ER Visit Summary Date of Service: 05/21/20 Chief Complaint: Vomiting/diarrhea History of Present Illness: The patient is a [address] Case. She reports that she has vomiting and diarrhea that began 2 days ago. She vomited multiple x2 days ago. She did vomit yesterday. She is vomited once today. She reports that she is having approximately 3 episodes of diarrhea per day. No blood in her stools or black tarry stools. Patient denies sick contacts. Has not been camping out of the country. No possible bad food exposure. Does not drink well water. No recent antibiotic use. Patient denies any abdominal pain. She denies any dysuria or frequency. She denies fever or chills. Physical Examination: Vitals: Stable. Afebrile. General: Well-nourished and well-developed. Head: Normocephalic atraumatic. Neck: Supple, no lymphadenopathy. No JVD. Nontender. Cardiovascular: Regular rate and rhythm. No murmurs. Respiratory: No respiratory distress. Clear to auscultation bilaterally. Abdominal: Soft, nontender, nondistended, normal bowel sounds. No guarding, rebound, or peritoneal signs. Back: Nontender. Extremities: Nontender, no edema. Skin: Normal color, no rash. Neurologic: Alert and oriented ?3. Cranial nerves II through XII are intact. Normal strength and sensation. Psych: Normal affect. Test Results: CBC is normal. Chem-7 shows potassium of 3.1 and BUN of 19. Emergency Department Course and Treatment: Patient had an IV placed. She was given 2 L of normal saline. She is given Zofran IV and potassium p.o. She did give a stool sample here and her C. difficile is still pending. Treatment Plan: Patient would like to go home to wait for the results of her C. difficile. She will be contacted with the results of this. Enteric pathogen will not come back today. She will be discharged with Zofran and potassium. Instructed to follow-up with her primary care physician in 1 to 2 days if not improving. Return to the emergency department for any worsening symptoms. Disposition: To home in improved and stable condition. Impression: 1. Vomiting/diarrhea. 2. Hypokalemia. This note was generated with myinfoQation software. It may contain incorrect words, spelling, and punctuation that were not noted in review of the chart prior to signing ED Disposition - Plan for ED Patient: Instructions: ED Vomiting and Diarrhea ... Prescriptions: Potassium Chloride Oral Tablet [K-Dur] 40 meq PO DAILY #10 tab Transmission Status: Received by JAM BOLIVAR RD Ondansetron [Zofran Odt] 4 mg PO Q8H PRN PRN #10 tablet PRN Reason: Nausea Transmission Status: Received by JAM BOLIVAR RD Referrals: Brinda Case MD [Primary Care Provider] - 1-2 Days if not improving
--- NOTE | 2020-05-21 17:02 | ED.RN ---
PT CALLED FOR UPDATE. VERBAL PERMISSION FROM PT OBTAINED PRIOR TO SPEAKING WITH ABOUT PT CARE VIA PHONE CALL.
[2020-05-21] MEDS: Ondansetron 4 MG/2 ML Vial IV (17:06)
[2020-05-21] MEDS: 0.9% Normal Saline 1,000 ML 999 ML IV (17:14)
[2020-05-21 17:17] VITALS: BP 137/77; PULSE 92; RESP 16; O2SAT 98
[2020-05-21] MEDS: Potassium Chloride Oral Soln 20 MEQ/15 ML UDC 40 MEQ PO (17:28)
[2020-05-21 18:31] VITALS: BP 136/95; PULSE 85; RESP 16; RESP 18; O2SAT 98
== END 2020-05-21 18:40 | disposition home or self-care (01) ==
LOC: ED 15:51
PROVIDERS: Emergency Provider Emergency Medicine; PCP Internal Medicine
DX: R11.10 Vomiting, unspecified (principal); R19.7 Diarrhea, unspecified; E87.6 Hypokalemia
CPT/HCPCS: 80048; 85025; 87493; 87506; 96361; 96374; 99285; J7030; A4216; J2405

== ENCOUNTER 2020-06-10 11:00 | Outpatient (RCR) | payer MEDICARE, OTHER, SELFPAY ==
--- NOTE | 2020-03-03 08:10 | HP.OTEVAL_ITS ---
Patient's Visit Information VALENTIN BANGURA is a 79 year old F, referred to Occupational Therapy by BARRIE TYLER, with a diagnosis of right DeQuervain's tenosynovitis. Date of Evaluation: 03/02/20 Occupational Therapist: Lelia Qureshi, OTR/Fam, CHT - Subjective This 79 year old female was seen for OT eval with a dx of Dequervain's Tenosynovitis. Pt has sx on 02/13/2020. pt reports no pain and full use of her right hand with ADLS and IADLs. pt states she feels her wrist is swollen but this is due to her arthritis issues. Pt would like to know what she needs to do to prevent scar adhesions. - ROM Wrist: right 60/45 left 50/55 ROM Comments: right RD/UD 15/[address]/UD 15/30 - Strength Skein Straightener: right 30# left 30# Lateral Pinch: right 10# left 8# Tripod Pinch: right 10# left 8# - Quick DASH-Disab of Arm,Shoulder& Hand Quick DASH Score: 43.1800 - Goals Goal:Daily scar massage when approriate: Yes Goal:Full use of affected hand in daily activities including: Yes Goal:Decrease scar hypersensitivity: Yes - Rehabilitation General Assessment: Pt is currently 2 weeks and 4 days s/p from sx and demo full ROM and strength. Pt demo with edema and slight scar adhesions. Pt would benefit from skilled OT services to ed pt on scar mtg, use of scar gel and edmea control demetri. Today theapist ed. pt and pt demo understanding and agree to HEP POC and follow up in 3- 4 weeks. Pt to call and schedule if pt has increase pain or swelling. Rehabilitation Potential: Good - Anticipated Interventions A/AAROM/PROM, Scar Care, Triggerpoint Release, Desensitization, Modalities, Joint Protection/Energy Conservation, Ergonomic Education - Visit Plan Frequency: Monthly Duration: 2 Months TEXT: Thank you for the opportunity to evaluate your patient. For Medicare and Medicare HMO plans, please review the plan of care and approve it. It will need to be FAXED BACK to us at [phone] for Medicare purposes. Please let me know if there are questions or concerns regarding this plan of care. Physician Signature: Date:
--- NOTE | 2020-03-24 10:46 | HP.OTDCSUM ---
It has been my pleasure to treat VALENTIN BANGURA under orders from BARRIE TYLER, for the diagnosis of right DeQuervain's tenosynovitis for a total of 2 visit(s). Please see the following information for a summary of their discharge status. % Improvement: 90 Objective/Function: pt demo with right wrist ROM at 70/60. pt demo a increase in ROM -. right harvesting manager 35# a increase from 30#. pt demo good scar mobility. NO scar motion with thumb ROM indicating no scar adhesions. Patient Goals: Use Hand/Wrist/Arm Normally Again Goal:Daily scar massage when approriate: Yes Goal:Full use of affected hand in daily activities including: Yes Goal:Decrease scar hypersensitivity: Yes Plan: D/C Discharge Comments: Pt was seen for OT eval and one follow up visit following a right wrist Dequervain's Tenosynovitis sx on 02/13/20. pt has regains her wrist ROM and strength and reports she has returned to IND. with ADLs and IADls. pt met goals in OT and is D/C from OT. If there are questions or concerns regarding this patient's occupational therapy, please fell free to call me at [phone]. Thank you for the referral of this patient. Sincerely, Lelia Qureshi, OTR/L, CHT
--- NOTE | 2020-03-24 14:05 | HP.PTEVAL_ITS ---
Patient's Visit Information VALENTIN BANGURA is a 80 year old F referred to Physical Therapy by BARRIE TYLER with a diagnosis of DDD. Date of Evaluation: 03/24/20 Physical Therapist: Wilfredo Mcnair, PT, ATC - Visit Plan Frequency: 2-3x /Week Duration: 4-6 Weeks Plan: B LE stretching and strengthening, balance and proprio, core stab ex's, gait training, and HEP - Subjective Pt reports she has had LBP chronically. Pt notes her pain has had an insidious onset in nature. Pt reports she has had a recent Xray, which revealed DDD throughout lumbar spine noting severe degenerative changes L1-S1. Pt reports she has had body pain throughout her entire body. Pt notes she has tingling in her feet which is painful and along the outside of her feet. Pt reports she has been diagnosed with polyneuropathy. Pt reports she has had a recent cortisone inection which did help to ease her LE pain. Pt reports she doesnt necessarily have a lot of back pain today, she just notes her legs are sore and she feels stiff. Pt reports she has significant difficulty with standing to sit secondary to pain. Pt also notes she has difficulty with sleeping if she doesnt take her pain meds secondary to pain. 0/10 at rest, 9/10 pain at worst (sitting to stand) - Pain LB and LE's Pain Intensity (Out of 10): 0 Pain Intensity Range: 9 - Objective Neuro: B LE sensation is WNL to light touch. B patellar reflex= 1/3. Palpation: Pt is sore along B greater trocanteric bursa. No obvious deformities. MMT: B hips are grossly 4/5 throughout. B knees are grossly 5.5 throughout. L/S ROM: WNL with all ROM except for extension which is severely limited. Gait: Pt is able to ambulate 340 feet until feeling too sore in hips and having to rest. Special testing: Pos trendelenberg test - Goals Goal 1:: Decrease LB and LE pain x 50 to aid with sleep Goal Time Frame: 4-6 Weeks Goal 2:: Increase core strength x 1 grade to aid with restoring a more painfree gait cycle Goal Time Frame: 4-6 Weeks Goal 3:: Increase B Hip strength x 1 grade to aid with sit to stand transfers Goal Time Frame: 4-6 Weeks Goal 4:: I with HEP Goal Time Frame: 4-6 Weeks - Rehabilitation Potential Physical Therapy Diagnosis: Pt has LE weakness, core weakness, and intolerance for ambulation secondary to L/S DDD Rehabilitation Potential: Good - Anticipated Interventions Patient/Client Instruction: Educate patient on: Condition, Plan of Care For the Purpose of:: To improve self management Therapeutic Exercise to Include: Strength training, Endurance training, Balance training, Gait and locomotor training, Dynamic Lumbar Stabilization For the Purpose of:: To decrease pain, To increase ROM, To improve muscle performance and motor function Thank you for the opportunity to evaluate your patient. For Medicare and Medicare HMO plans, please review the plan of care and approve it. It will need to be FAXED BACK to us at [phone] for Medicare purposes. For Medicare only, by signing this I certify the plan of care. Please let me know if there are questions or concerns regarding this plan of care. Physician Signature: Date:
--- NOTE | 2020-05-04 10:23 | HP.PTEVAL2 ---
Patient's Visit Information VALENTIN BANGURA is a 80 year old F referred to Physical Therapy by Dr. Jameson Robertson DO with a diagnosis of B shoulder impingement. Date of Evaluation: 05/04/20 Physical Therapist: Wilfredo Mcnair, PT, ATC - Visit Plan Frequency: 2-3x /Week Duration: 4-6 Weeks Plan: B dshoulder strengthening (rot cuff), scap stab ex's, overhead pulleys, UBE, and HEP. CP for pain - Subjective Subjective: Pt reports chronic B shoulder pain for decades, but the pain has worsened over the last 6 months when she was taken off medications. Pt reports she had injections 2 weeks ago which has really helped to decrease her pain. R shoulder pain had been worse than the left, but over the last several months they have been equal. Pt is R hand dominant. Pt notes she has sleep difficulty secondary to pain. Pt reports PMHx of B rotator cuff repair in the late nineties. Pt reports she is hving difficulty with yard activites due to shoulder pain. Pt reports she will occasionally feel a hot flash which will make her hands and feet tingle. Otherwise, no UE tingling or numbness. Pt has recently started taking a vit B sullplement which has eliminated the tingling. 0/10 pain in shoulders at rest since injections, 8/10 pain at worst (when she lifted a trash can the other day). - Pain B shoulders Intensity: 0 Pain Intensity Range: 8 - Objective Objective: Neuro: B UE sensation is WNL to light touch. B bicepital reflex= 2/3. Palpation: Pt is very tender along the supraspinatus region and LHB tendon. No obvious deformity. ROM: L shoulder flex= 160, abd= 150, ER= 65, IR WNL. R shoulder flex= 155, abd= 150, ER= 65, IR WNL. MMT: B shoulder IR 5/5, ER= 4-/5, abd and flex= 4/5. Special tests: minor pain with empty can and speeds test - Goals Goal 1:: Decrease B shoulder pain x 50% to aid with sleep Goal Time Frame: 4-6 Weeks Goal 2:: Increase B shoulder strength x 1-2 grades to aid with IADL's Goal Time Frame: 4-6 Weeks Goal 3:: Increase B shoulder flex and abd ROM x 15 degrees to aid with overhead activity Goal Time Frame: 4-6 Weeks Goal 4:: I with hep Goal Time Frame: 4-6 Weeks - Rehabilitation Potential Physical Therapy Diagnosis: Pt has B shoulder weakness, pain, and limited ROM secondary to B shoulder impingement Rehabilitation Potential: Good - Anticipated Interventions Patient/Client Instruction: Educate patient on: Condition, Plan of Care For the Purpose of:: To improve self management Therapeutic Exercise to Include: Strength training, Endurance training, Active ROM, Scapular Strength/Stabilization For the Purpose of:: To decrease pain, To increase ROM, To improve muscle performance and motor function Cryotherapy (ice pack, ice massage): Yes For the Purpose of:: To decrease pain Thank you for the opportunity to evaluate your patient. For Medicare and Medicare HMO plans, please review the plan of care and approve it. It will need to be FAXED BACK to us at [phone] for Medicare purposes. For Medicare only, by signing this I certify the plan of care. Please let me know if there are questions or concerns regarding this plan of care. Physician Signature: Date:
--- NOTE | 2020-05-11 10:00 | HP.PTREVAL ---
Dr. Jameson Robertson, DO, It has been my pleasure to treat VALENTIN BANGURA over the last 10 visits for DDD. Please see the progress note below for an update on the physical therapy plan of care! Subjective: Pt reports no pain today and believes its due to her steriod shot injections both her back and shoulders. I notice that functional activites at home like stairs are easier to do. Objective/Function: Pt reports occasional L hip pain, none today. R hip MMT: 5/5 throughout, L hip is grossly 4+/5. Gait: Pt still displays a trandelenburg gait pattern indicatin core weakness still present. Pt is progressing well toward Rx goals Plan Plan: B LE stretching and strengthening, balance and proprio, core stab ex's, gait training, and HEP Goals Goal 1:: Decrease LB and LE pain x 50 to aid with sleep Goal Time Frame: 4-6 Weeks Goal Progress: Goal Met Goal 2:: Increase core strength x 1 grade to aid with restoring a more painfree gait cycle Goal Time Frame: 4-6 Weeks Goal Progress: Progressing Goal 3:: Increase B Hip strength x 1 grade to aid with sit to stand transfers Goal Time Frame: 4-6 Weeks Goal 4:: I with HEP Goal Time Frame: 4-6 Weeks Anticipated Interventions Patient/Client Instruction: Educate patient on: Condition, Plan of Care For the Purpose of:: To improve self management Therapeutic Exercise to Include: Strength training, Endurance training, Balance training, Gait and locomotor training, Dynamic Lumbar Stabilization For the Purpose of:: To decrease pain, To increase ROM, To improve muscle performance and motor function Please do not hesitate to contact me at [phone] by phone or if you have questions or concerns regarding this new plan of care! Sincerely, Wilfredo Mcnair, PT, ATC
--- NOTE | 2020-06-10 12:16 | HP.PTDCS(2) ---
It has been my pleasure to treat VALENTIN BANGURA referred by Dr. Jameson Robertson DO, with the diagnosis of B shoulder impingement for a total of 8 visit(s). Discharge Date: Please see the following information for a summary of their discharge status. Subjective: Pt. is having a L hip replacement on 07/14/2020. My shoulders are hanging in there. They arent 100% but are doing well. % Improvement: 75 Objective/Function/Assessment: Pt tolerated sessionw well today and was able to do extra sets of her exercises. ROM: L shoulder flex: 0-0-152 degrees R shoulder flex: 0-0-158 L shoulder abd: 0-0-158 R shoulder abd: 0-0-160 degrees. MMT: L shoulder flex: 5/5 R shoulder flex: 5/5 L shoulder abd: 5/5 R shoulder abd: 5-/5 L IR: 5/5 L ER: 5-/5 R IR: 5/5 R ER: 5-/5. Pain: can sleep through the night but only after getting the injections Patient Goals: Improve Mobility, Improve Function, Decrease Pain, Sleep Normal Goal 1:: Decrease B shoulder pain x 50% to aid with sleep Goal Progress: Goal Met Goal 2:: Increase B shoulder strength x 1-2 grades to aid with IADL's Goal Progress: Goal Met Goal 3:: Increase B shoulder flex and abd ROM x 15 degrees to aid with overhead activity Goal Progress: Progressing Goal 4:: I with hep Goal Progress: Goal Met Plan: Increase shoulder girdle strength and maintain pain free ROM bilaterally. Cont to progress as tolerated. If there are questions or concerns regarding this patient's physical therapy, please feel free to call me at [phone]. Thank you for the referral of this patient. Sincerely, Wilfredo Mcnair, PT, ATC
== END 2020-06-10 13:12 | disposition home or self-care (01) ==
LOC: PT 11:00
PROVIDERS: PCP Internal Medicine; Referring Provider Internal Medicine Rheumatology; Visit Provider Internal Medicine Rheumatology
DX: M65.4 Radial styloid tenosynovitis [de Quervain] (principal); M75.41 Impingement syndrome of right shoulder; M75.42 Impingement syndrome of left shoulder
CPT/HCPCS: 97110; 97161; 97164; 97165; 97166; 97530

== ENCOUNTER 2020-07-14 12:30 | Observation (INO) | payer MEDICARE, OTHER, SELFPAY ==
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
[2020-07-14] VITALS (13 sets, daily range): BP systolic 99–122; BP diastolic 47–86; PULSE 60–100; RESP 16–18; TEMP 35.9–36.6; O2SAT 96–100; BMI 25.1
[2020-07-14] MEDS: Lactated Ringers 1,000 ML 100 ML IV ×2 (12:12→14:15)
[2020-07-14] MEDS: Celecoxib 200 MG Capsule 400 MG PO (12:24)
[2020-07-14] MEDS: Gabapentin 600 MG Tablet PO (12:24)
[2020-07-14] MEDS: Acetaminophen 500 MG Tablet 1000 MG PO ×2 (12:25→22:12)
[2020-07-14] MEDS: Lactated Ringers 1,000 ML 999 ML IV ×2 (12:26→16:07)
--- NOTE | 2020-07-14 12:34 | OP.PCM_ITS ---
Report of Operation Date of Procedure: 07/14/20 Pre-Operative Diagnosis: Left hip primary osteoarthritis Post-Operative Diagnosis: Left hip primary osteoarthritis Surgery/Procedure Performed:: Left minimally invasive direct anterior hip replacement Description of Surgical Findings:: Stable hip with equal leg lengths Surgeon: Urban De Oliveira java golden gate developer: Donovan Valenzuela Type of Anesthesia: Spinal Special Medications: 2 g Ancef, 1 g TXA at incision, 1 g TXA closure, 10 mg Decadron, joint cocktail (5 mg Duramorph, 30 mL of 0.5% Ropivicaine, 1000 units of epinephrine, 30 mg of Toradol) Specimen's removed: Bony cuts Estimated Blood Loss (mL): 400 Fluids Replaced: 1700 mL crystalloid Description of Procedure: Components used: 1. Accolade 2 Reymundo femoral stem size 5, 132 ? 2. Alpha trident 2 acetabular shell size 48 mm 3. Alpha X3 polyethylene D 4. Alpha Biolox delta 36 mm, minus 5 mm femoral head Brief history operative indications: 80yo female who failed conservative measures for their hip osteoarthritis. X- rays were consistent with osteoarthritis including joint space narrowing, osteophyte formation and subchondral cysts. Total hip replacement was discussed with the patient with risks and benefits including but not limited to blood loss, DVTs, PEs, neurovascular damage, dislocation, general risks of anesthesia including loss of life. Patient demonstrated an understanding medical clearance is obtained the patient was consented for surgery. Procedure: On the date of procedure the patient's L hip was marked in the preoperative area. Patient was then taken back to the operating room where anesthesia assumed control of the C-spine and airway and administered anesthetic. Patient was transferred to the operating table and placed in the supine position. The hips were placed at the break of the bed and a sacral bump was placed. L The lower extremity was then prepped out in a sterile fashion using chlorhexidine while the surgeon scrubbed. The PA was vital in the positioning of the patient. Upon reentering the room the left lower extremity was draped in the standard orthopedic fashion and the incision was marked. A timeout was called and everyone agreed upon the side, the site, the procedure be performed, antibody given, and patient's identity. At this time incision was made through skin, subcutaneous tissue, and fat down to fascia. The fascia was then incised and the TFL was retracted laterally. A retractor was placed on the lateral border of the femoral neck. Attention was directed to the inferior portion of the approach and all crossing vessels were identified and appropriately coagulated. A retractor was then placed on the medial portion of the femoral neck. The anterior capsule was then cleared of all soft tissue and then H shaped capsulotomy was made. The retractors were then placed inside the capsule. The femoral neck was identified and a cleanup cut was made. At this time a power corkscrew was used to remove the femoral head. Attention was then turned toward the acetabulum where the soft tissues were appropriately retracted and the acetabulum was sequentially reamed to 48 mm. A 48 mm cup was then selected and impacted into place. Acetabular liner was impacted into place and locking mechanism was verified. The position of the acetabular cup was then verified under live fluoroscopy. Attention was then turned to the femur. Soft tissue releases on the medial and lateral femoral neck were appropriately done, the leg was externally rotated and lateralized. A Skinner retractor was placed medially and proximally to the greater trochanter this allowed appropriate visualization and exposure of the femoral canal. Rongeour was then used to remove excess lateral bone. A canal finder and entry broach were used to open the proximal canal. Once we verified we were down the femoral canal we subsequently broached up to a size 5 femur. The appropriate neck was placed in the previously selected head was trialed with a -5 mm neck. Traction was pulled and the hip was reduced with internal rotation. Once it was appropriately reduced and stability was checked. There was minimal shuck, equal leg lengths and appropriate stability with hyperextension and external rotation as well as with 90? flexion and internal rotation. Fluoroscopy was then also used to verify the position of the components and leg lengths using the contralateral side for comparison. The trial components were then dislocated the proximal femur was again exposed and the components were removed from the wound. The final components were verified and opened. The wound was copiously irrigated out with normal saline. The acetabulum was checked for any residual debris. The final components were placed and impacted. Traction and internal rotation were again used to reduce the hip. After adequate reduction the hip remained stable with appropriate leg lengths. The final components were once again checked with live fluoroscopy and were found to be satisfactory. The wound was then copiously irrigated with normal saline once more, and hemostasis was obtained. Closure was then done using #1 Vicryl runner to close the fascia. A 2-0 vicryl interuppted sutures were used to close the subcutaneous skin. A 3-0 Monocryl and Steri-Strips were used for final skin closure. A Silverlon dressing was placed. Patient was awakened by anesthesia and transferred to the [facility]. Patient was then transferred to the PACU for recovery. Postoperative plan: Patient will get 24 hours postop antibiotics. Patient will get in-house physical therapy and will be weight-bear as tolerated. Patient will follow up in office in 2 weeks for a wound check and x-rays. Aspirin 81 mg twice daily. Complications No intraoperative complications Admit VTE Documentation VTE Present on Admission: No VTE Mechan Device Prophylaxis: SCD's and Thigh High JOSE Hose VTE Pharm Prophylaxis ordered?: Yes
[2020-07-14 12:40] LABS: Bedside Glucose 84 mg/dL (70-110)
[2020-07-14] MEDS: Cefazolin 2 GM in 0.9% Normal Saline 100 ML IV (13:39)
--- NOTE | 2020-07-14 14:15 | RAD_ITS ---
STUDY: X-RAY - PELVIS AND LEFT HIP REASON FOR EXAM: Left hip arthroplasty. TECHNIQUE: 3 intraoperative images of the pelvis and hip. COMPARISON: Radiographs 08/11/2013. FINDINGS: There is a left hip arthroplasty without evidence of complication. 6.1 seconds of fluoroscopy time was used. Electronically Signed: Jere Mccracken MD at 9:09 EDT Tel , Service support , RAD/Hip 1 view with Pelvis
--- NOTE | 2020-07-14 14:15 | FEM_PTH ---
PATIENT: VALENTIN BANGURA LOC: [facility]3 U#:[id number] AGE/SX: 80/F ROOM: KS314 RE07/14/[address]: Dr. Urban De Oliveira MD : 1940 BED: 1 DIS: 07/15/2020 SPEC #: [id number] RECD: 07/15/20 11:22 STATUS: EARLENE REJs #: [id number] BENITO: 07/14/20 14:[address]: Urban De Oliveira DEPT: SURGICAL PATHOLOGY RECD BY: Elizabeth Max ENTERED: 07/15/20 13:02 SP TYPE: FEM HEAD OTHR DR: Dr. Brinda Case MD Tissues: Femoral region, NOS Procedures: Decalcification bone/plaque Surgery Specimen Level V HEADER OPERATION: ERAS, total hip anterior approach PRE-OP DIAGNOSIS: Left hip primary osteoarthritis TISSUE SUBMITTED: Bone and tissue left hip MICROSCOPIC DIAGNOSIS Bone and soft tissue of left hip, total hip resection: Consistent with severe degenerative joint disease. Synovium with chronic inflammation. AM:jenny 07/21/2020 MICROSCOPIC DESCRIPTION Slides are reviewed. GROSS DESCRIPTION Received is one container labeled with the patient's name and designated bone and soft tissue hip, left. The specimen consists of a schmidt femoral head measuring 4.5 x 4.5 x 4 cm. Also present in the specimen container is a detached piece of bone most likely portion of femoral neck measuring 5 x 2.5 x 2 cm. The articular surface displays prominent osteophyte formation, eburnation and bone erosion. Also present in the specimen container are multiple irregular fragments soft tissue measuring in aggregate 10 x 9 x 3 cm. The specimen predominantly consists of bone reaming. Communications Field Technician sections are submitted in two cassettes after decalcification. / SJ:jenny 07/15/20 TC:5 CPT: 41439, 23649
[2020-07-14] MEDS: dexAMETHasone 10 MG/ML Vial IV (14:35)
--- NOTE | 2020-07-14 16:00 | RAD_ITS ---
STUDY: X-RAY - PELVIS AND LEFT HIP REASON FOR EXAM: Female, 80 years old. Post Op -- AP both hips on single carmelo/lateral of op hip PACU TECHNIQUE: 2 views of the pelvis and hip. COMPARISON: Pelvic x-ray dated AUGUST 11, 2013 FINDINGS: Status post surgical resection of the left femoral head and neck. The proximal one third femoral prosthetic component is well placed within the intramedullary cavity as well as the acetabular cup. Both prosthetic components demonstrate good bony contact and alignment. Expected postoperative changes of the overlying soft tissues including gas and swelling. Surgical nils are also present. Stable right hip prosthesis. RAD/Hip Min 2 Views (Portable) IMPRESSION: Status post total left hip arthroplasty Electronically Signed: Mejia Melchor MD at 16:36 EDT , Service support ,
[2020-07-14 16:21] LABS: Bedside Glucose 104 mg/dL (70-110)
[2020-07-14] MEDS: Lactated Ringers 1,000 ML 125 ML IV (16:35)
[2020-07-14] MEDS: proMETHazine 25 MG/ML Syringe 12.5 MG IM (18:42)
[2020-07-14] MEDS: Budesonide Respules 0.5 MG/2 ML AMPUL.NEB. INHALATION (19:13)
[2020-07-14] MEDS: Cefazolin 1 GM/50 ML BAG IV (22:11)
[2020-07-14] MEDS: Senna/Docusate Sodium 1 Tablet 2 TABLET PO (22:12)
[2020-07-14] MEDS: Celecoxib 200 MG Capsule PO (22:12)
[2020-07-14] MEDS: Aspirin 81 MG TAB.CHEW PO (22:12)
[2020-07-15] VITALS (7 sets, daily range): BP systolic 92–109; BP diastolic 37–59; PULSE 58–89; RESP 16–18; TEMP 36.6–37.1; O2SAT 96–100
[2020-07-15] MEDS: Acetaminophen 500 MG Tablet 1000 MG PO ×2 (05:58→13:11)
[2020-07-15] MEDS: Cefazolin 1 GM/50 ML BAG IV (05:59)
[2020-07-15] MEDS: Levothyroxine 75 MCG Tablet PO (05:59)
[2020-07-15 06:27] LABS: Hematocrit 29.4 % (37-47); Hemoglobin 9.4 g/dL (12.0-15.0); Mean Corpuscular Volume 90.7 fL (81-99); Mean Platelet Vol. 8.9 fl (6.2-12.0); Platelet Count 259 K/mm3 (150-450); RBC Distribution Width CV 13.9 % (11.6-14.6); RBC Distribution Width SD 45.9 fl (35.1-43.9); Red Blood Count 3.24 M/mm3 (4.2-5.4); White Blood Count 13.8 K/mm3 (4.4-11.0)
[2020-07-15 06:50] LABS: Anion Gap 3 (5-15); BUN 13 mg/dL (7-18); BUN/Creat Ratio 15.4 RATIO (10-20); Calcium,Total 8.9 mg/dL (8.5-10.1); Chloride 107 mmol/L (98-107); Creatinine, Serum 0.84 mg/dL (0.55-1.02); EST Glomerular Filtration Rate 69 mL/min (>60); Est Glom Filt Rate - Afr Amer 84 mL/min (>60); Estimated Creatinine Clearance 40.98 ml/min; Glucose 116 mg/dL (74-106); Potassium 4.1 mmol/L (3.5-5.1); Sodium Level 138 mmol/L (136-145)
--- NOTE | 2020-07-15 07:09 | PN.ORTHO_ITS ---
Subjective Subjective The patient was sitting in bedside chair upon examination. Patient denies any chest pain, shortness of breath, dizziness, lightheadedness, nausea or vomiting, or calf pain. Pain is controlled on medications for the left hip surgery. Patient also reports having posterior left hip/buttock pain. She does have hist ory of severe degenerative disc disease of the lumbar spine. She denies any numbness and tingling down her leg. She states she has increased pain in this area when trying to get up. She did have a spinal with her surgery yesterday. Patient also did have some nausea yesterday which was improved with medications Objective Data Objective Data Vital Signs: Vital Signs Temp Pulse Resp BP Pulse Ox 97.8 F 68 18 109/37 L 98 07/15/20 06:05 07/15/20 06:05 07/15/20 06:05 07/15/20 06:05 07/15/20 06:05 Oxygen Flow Rate (L/min) 2 Oxygen Delivery Method Room Air Weight: 62.3 kg Body Mass Index (BMI) 25.1 Intake & Output: Intake and Output for Last 24 Hours 07/13/20 07/14/20 07/15/20 23:59 23:59 23:59 Intake Total 4983.5 / 4983.5 1050 / 1050 Output Total 100 / 100 500 / 500 Balance 4883.5 / 4883.5 550 / 550 Lab / Micro Data Result Diagrams: 07/15/20 06:20 07/15/20 06:20 Labs: Laboratory Results - last 24 hr 07/14/20 07/14/20 07/14/20 12:22 12:23 16:17 WBC RBC Hgb Hct MCV MCH MCHC RDW Std Deviation RDW Coeff of Tuan Plt Count MPV Sodium Potassium Chloride Carbon Dioxide Anion Gap BUN Creatinine Estim Creat Clear Calc Est GFR (MDRD) Af Amer Est GFR (MDRD) Non-Af BUN/Creatinine Ratio Glucose Calcium Magnesium 2.0 POC Glucose 84 104 07/15/20 07/15/20 06:20 06:20 WBC 13.8 H RBC 3.24 L Hgb 9.4 L Hct 29.4 L MCV 90.7 MCH 29.0 MCHC 32.0 RDW Std Deviation 45.9 H RDW Coeff of Tuan 13.9 Plt Count 259 MPV 8.9 Sodium 138 Potassium 4.1 Chloride 107 Carbon Dioxide 28.0 Anion Gap 3 L BUN 13 Creatinine 0.84 Estim Creat Clear Calc 40.98 Est GFR (MDRD) Af Amer 84 Est GFR (MDRD) Non-Af 69 BUN/Creatinine Ratio 15.4 Glucose 116 H Calcium 8.9 Magnesium POC Glucose Micro: Microbiology 07/01/20 12:09 Interface Orders Nasal Screen MRSA/MSSA - Final Radiography Diagnostic Testing: Radiology Impression Hip X-Ray 07/14/20 16:00 IMPRESSION: Status post total left hip arthroplasty Electronically Signed: Mejia Melchor MD at 16:36 EDT , Service support , Physical Exam Narrative Vital signs stable and afebrile. Patient is able to plantarflex and dorsiflex actively. Sensation is intact to light touch to saphenous, sural, superficial and deep peroneal, and tibial distribution. Dressing is clean dry and intact. Patient does report pain in the posterior hip/buttock region and low back Negative Homans bilaterally, negative signs and symptoms of DVT. Const alert, oriented x3 and no apparent distress Assessment & Plan Assessment/Plan (1) History of total left hip arthroplasty: (2) Degenerative arthritis of lumbar spine: QUALIFIERS: Spinal osteoarthritis complication: without myelopathy or radiculopathy Qualified Code(s): M47.816 - Spondylosis without myelopathy or radiculopathy, lumbar region PLAN: 1. S/P left direct anterior total hip arthroplasty POD #1 2. Continue Pain Medications: Tylenol and Celebrex. Patient does not tolerate narcotics very well. There is tramadol on board for as needed pain. She states she usually gets significant nausea/vomiting with narcotics 3. DVT Prophylaxis: Take 81 mg aspirin twice daily for 4 weeks postoperatively for DVT prophylaxis 4. PT/OT: Weightbearing as tolerated 5. H & H: 9.4/29.4, asymptomatic. Postoperative anemia secondary to acute blood loss from surgery without any intra operative complications. 6. Encouraged Incentive Spirometry 7. Reactive leukocytosis: Currently 13.8, afebrile. Patient did receive Decadron intraoperatively 8. History of severe lumbar degenerative disc disease: This pain has been increased since the surgery. She is getting posterior hip/buttock pain. She did undergo a spinal for surgery. Patient denies any numbness and tingling. No loss of bowel or bladder control. Discussed with the patient that this will most likely need to be worked up on an outpatient basis. No current red flags. Discussed with patient that the surgery and laying down with the surgery can increase low back pain. 9. Disposition: Plan at this time will see how patient does with formal physical therapy today in the hospital. If she is doing very well and the pain is controlled plan may be for possible discharge home today. Patient may require an additional stay. Would like physical therapy to also be careful with her lumbar degenerative disc disease and exercises. Prescriptions will be E scribed to her primary pharmacy. She will follow-up per postop instructions. Patient will also be given a prescription for Zofran to take on an as-needed basis if she is having any nausea/vomiting. I have reviewed the [place] Automated Rx Reporting System (OARRS) report for this patient for refill pattern and other prescriber involvement as part of the appropriate surveillance for the provision of acute and chronic controlled medications. The report was requested and reviewed on the date of this entry and was considered in the prescribing process.
[2020-07-15] MEDS: Budesonide Respules 0.5 MG/2 ML AMPUL.NEB. INHALATION (07:11)
--- NOTE | 2020-07-15 07:17 | PCM.DC ---
Discharge Instructions Diet Discharge Diet: No restrictions Activity Discharge Activity: May Not Drive and May not drive while taking narcotic pain medications. May shower in (days): 1 (only if incision is dry and without drainage. Do NOT soak/submerge in tub/pool/peterson/stream/hot tub.)) Ice area for (Minutes): 20 (Every 1-2 hours while [address] barrier between ice and skin.) Weight Bearing Status: Weight bearing as tolerated Keep extremity elevated above heart level: Operative Extremity Dressing / Incision Call your doctor if your incision/area has: Continuous Slow Oozing, Sudden Increased Bleeding, Increased Pain/ Swelling, Increased Redness and Foul Smelling Discharge Call your doctor if you observe: Fever of 101 or Higher, Shortness of breath, Chest pain, Calf discomfort and Uncontrolled pain Remove Dressing in: 4 days (Okay to remove dressing on July 19, 2020) Additional Dressing/Incision Instructions:: Follow [facility] Post-op Instructions. Once postoperative dressing has been removed, only use gentle soap and water over the incision. Do not use any ointments, Neosporin, salves, alcohol pads over the incision for 6 weeks postoperatively. Do not submerge underwater for 6 weeks postoperatively. Continue with JOSE hose/elastic stockings for 2 weeks postoperatively. May remove at nighttime but needs to be placed back on the leg during the day. Do NOT use alcohol with narcotic pain medication. Do NOT make important decisions while taking narcotic medication. If you have problems with taking your medication (rash, itching, nausea, etc.) call the office at once. Follow Up Care Test Results: Test results from this visit will be discussed in further detail at your follow-up appointment, if applicable. Discharge Plan Admission Admit Date/Time: 07/14/20 12:30 Attending Provider: Urban De Oliveira Primary Care Provider: Brinda Case Discharge Orders/Prescriptions Prescriptions: New acetaminophen 500 mg Tablet 1,000 mg PO Q8 Qty: 100 RF: 0 tramadol 50 mg Tablet 50 - 100 mg PO Q6H PRN PRN (Reason: Pain Score 4-10) 7 Days Qty: 36 RF: 0 aspirin 81 mg Tablet,Chewable 81 mg PO BIDCM Qty: 60 RF: 0 ondansetron HCl [Zofran] 4 mg tablet 4 mg PO Q8H Qty: 30 RF: 0 Continued diclofenac sodium [Voltaren] 1 % gel 2 g TOPICAL BID RF: 0 cyclobenzaprine 10 mg tablet 10 mg PO PRN PRN (Reason: Pain) RF: 0 lansoprazole [Prevacid] 15 MG capsule 30 mg PO DAILY PRN PRN (Reason: Indigestion) RF: 0 sumatriptan succinate [Imitrex] 50 MG tablet 50 mg PO .X1 PRN RF: 0 levothyroxine 88 MCG tablet 75 mcg PO DAILY RF: 0 triamcinolone acetonide [Nasacort] 1 SPRAY aerosol,spray 1 spray NASAL DAILY RF: 0 epinastine 1 DROP drops 1 drp EACH EYE BID RF: 0 polyethylene glycol 3350 17 GM packet 17 gm PO DAILY PRN PRN (Reason: Constipation) RF: 0 beclomethasone dipropionate 80 mcg/actuation HFA aerosol inhaler 2 puff inhalation DAILY RF: 0 Otezla 30 MG tablet 30 mg PO BID RF: 0 celecoxib [Celebrex] 200 MG capsule 200 mg PO BID RF: 0 estradiol 0.01 % (0.1 mg/gram) Cream 1 applic VAGINAL DAILY RF: 0 Discontinued aspirin [Adult Aspirin Regimen] 81 mg tablet,delayed release (DR/EC) 81 mg PO DAILY RF: 0 acetaminophen 650 MG tablet extended release 650 mg PO Q8 PRN (Reason: Pain) RF: 0 Referrals / Follow Up: Brinda Case MD [Primary Care Provider] - Disposition Disposition (needs filled in before D/C Order can be placed): Home, self care
[2020-07-15] MEDS: Celecoxib 200 MG Capsule PO (07:50)
[2020-07-15] MEDS: Famotidine 20 MG Tablet PO (07:50)
[2020-07-15] MEDS: Aspirin 81 MG TAB.CHEW PO (07:50)
--- NOTE | 2020-07-15 10:55 | CASEMGMT ---
KELLI LANG Face to Face with patient for initial transition planning/care coordination assessment. RN CM introduced self and role at [facility]. Patient sitting in chair, alert and oriented. Patient willing to participate in assessment and is able to answer all questions appropriately. Care providers, pharmacy, and demographics verified. Patient wishes to discharge home and is setup with [facility] for outpatient therapy. Patient states she has no further needs or concerns at this time. CM to follow for discharge planning needs that may arise. 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 One step to enter the home. Patient was independent at home prior to surgery. Patient states she has daughter staying with her through the weekend. Transportation: daughter, [facility] D[facility]/HHC: Patient states she has shower chair, cane, walker, raised toilet, grab bars, and bipap at home. Patient denies previous HHC or SNF. Patient is setup with [facility] for outpatient therapy starting Sunday. Disposition Plan: Patient to discharge home with out patient therapy, family support, and follow-up plans in place. Kirsten HUBER, RN, CM
--- NOTE | 2020-07-15 12:58 | CASEMGMT ---
RN RICKEY NOTE: Intro role of CM to patient and [facility]LL form explained re: Observation status for treatment of Left anterior hip replacement. Explained hospitalization will be paid per her insurance policy for Outpatient billing and condition will continue to be evaluated for Inpt necessity. Also let pt know that [facility] sends paper in the billing packet with their phone number if questions arise. Discussed Pharmacy section of [facility]LL form and self administered medication guideline. Pt verbalizes understanding and does not have further questions. Form signed, copy made and placed in chart, and original given to pt. Ryan HUBER RN CM
[2020-07-15] MEDS: 0.9% Saline Lock 10 ML Syringe IV (15:27)
== END 2020-07-15 16:40 | disposition home or self-care (01) ==
LOC: MS3 07-15 07:25 → SDC 07-15 08:43 → MS3 07-15 08:43
PROVIDERS: Admitting Provider Specialist; PCP Internal Medicine; Referring Provider Specialist; Visit Provider Specialist
PROC: (CPT 27284; principal; 2020-07-14 13:50)
DX: M16.12 Unilateral primary osteoarthritis, left hip (principal); G47.30 Sleep apnea, unspecified; K58.9 Irritable bowel syndrome, unspecified; I10 Essential (primary) hypertension; I47.1 Supraventricular tachycardia; G43.909 Migraine, unspecified, not intractable, without status migrainosus; M47.816 Spondylosis without myelopathy or radiculopathy, lumbar region; L40.50 Arthropathic psoriasis, unspecified; K21.9 Gastro-esophageal reflux disease without esophagitis; E03.9 Hypothyroidism, unspecified; M35.00 Sjogren syndrome, unspecified; Z79.899 Other long term (current) drug therapy; Z79.82 Long term (current) use of aspirin
CPT/HCPCS: 01214; 27130; 73501; 73502; 76000; 80048; 82962; 83735; 85027; 87081; 88307; 88311; 94640; 94762; 96361; 96365; 96366; 96372; 97110; 97162; 97166; 97530; 97535; 99218; 99251; C1776; J7040; J7120; A4216; G0378; G0379; G0463; J2405; J3475

== ENCOUNTER 2020-10-11 12:30 | Outpatient (RCR) | payer MEDICARE, OTHER, SELFPAY ==
[2020-07-14 18:26] VITALS: BMI 25.1
--- NOTE | 2020-07-19 12:19 | HP.PTEVAL_ITS ---
Patient's Visit Information VALENTIN BANGURA is a 80 year old F referred to Physical Therapy by Jessee Valenzuela PA-C with a diagnosis of L DESIRAE 07/14/20 anterior. Date of Evaluation: 07/19/20 Physical Therapist: Wilfredo Mcnair, PT, ATC - Visit Plan Frequency: 2-3x /Week Duration: 4-6 Weeks Plan: L hip stretching and strengthening, balance and proprio, core stab ex's, nustep, and HEP - Subjective DOS: 07/14/20. Pt reports she had a R DESIRAE anterior approach performed. Pt reports she is glad she had the surgery at this time as she was bone on bone prior. Pt reports her pain today is getting better overall. Pt notes sleep difficulty at this time secondary to pain. Pt reports she is able to put her shoes and socks on at this time. Pt reports her major limitation at this time is having to lift her L leg upwards. Pt reports she has stairs at home, but has not needed to negotiate them at this time. Pt reports no tingling or numbness in L LE at this time. Pt notes she has been walking around her house with the use of a quad cane. 2/10 pain at rest, 10/10 pain at worst (with bed transfers) - Pain L hip Pain Intensity (Out of 10): 2 Pain Intensity Range: 10 - Objective Neuro: B LE sensation is WNL to light touch. ROM: R hip flex= 65, ext= 0; L hip flex= 45, ext= 0. MMT: R hip flex= 13.5, ext= 16.5; L hip flex= 3.4, ext= 10.9. Gait: Pt is able to ambulate 340 feet with WW and CGAx1 until needing to rest secondary to fatigue. TU sec - Goals Goal 1:: Increase L hip strength x 5-10 #'s to aid with stair negotiation Goal Time Frame: 4-6 Weeks Goal 2:: Decrease L hip pain x 50% to aid with sleep Goal Time Frame: 4-6 Weeks Goal 3:: Pt will be able to ambulate greater than 600 feet with LRD to aid with community ambulation Goal Time Frame: 4-6 Weeks Goal 4:: I with HEP Goal Time Frame: 4-6 Weeks - Rehabilitation Potential Physical Therapy Diagnosis: Pt has L hip pain, weakness, and limited ROM secondary to L DESIRAE Rehabilitation Potential: Good - Anticipated Interventions Patient/Client Instruction: Educate patient on: Condition, Plan of Care For the Purpose of:: To improve self management Therapeutic Exercise to Include: Strength training, Endurance training, Balance training, Flexibilty training, Dynamic Lumbar Stabilization For the Purpose of:: To decrease pain, To increase ROM, To improve muscle performance and motor function Cryotherapy (ice pack, ice massage): Yes For the Purpose of:: To decrease pain Thank you for the opportunity to evaluate your patient. For Medicare and Medicare HMO plans, please review the plan of care and approve it. It will need to be FAXED BACK to us at [phone] for Medicare purposes. For Medicare only, by signing this I certify the plan of care. Please let me know if there are questions or concerns regarding this plan of care. Physician Signature: Date:
--- NOTE | 2020-09-13 10:34 | HP.PTREVAL_ITS ---
Jessee Valenzuela PA-C, It has been my pleasure to treat VALENTIN BANGURA over the last 11 visits for L DESIRAE 07/14/20 anterior. Please see the progress note below for an update on the physical therapy plan of care! Subjective: I have been through a whirlwind time since seeing you last. Pt notes she has cardiac issues that she is dealing with. Objective/Function: L hip flex= 20#F, ext= 11#F. L hip pain 03/07. Pt is able to ambulate 680 feet without difficulty. 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 Goals Goal 1:: Increase L hip strength x 5-10 #'s to aid with stair negotiation Goal Time Frame: 4-6 Weeks Goal Progress: Goal Met Goal 2:: Decrease L hip pain x 50% to aid with sleep Goal Time Frame: 4-6 Weeks Goal Progress: Goal Met Goal 3:: Pt will be able to ambulate greater than 600 feet with LRD to aid with community ambulation Goal Time Frame: 4-6 Weeks Goal Progress: Goal Met Goal 4:: I with HEP Goal Time Frame: 4-6 Weeks Goal Progress: Goal Met Anticipated Interventions Patient/Client Instruction: Educate patient on: Condition, Plan of Care For the Purpose of:: To improve self management Therapeutic Exercise to Include: Strength training, Endurance training, Balance training, Flexibilty training, Dynamic Lumbar Stabilization For the Purpose of:: To decrease pain, To increase ROM, To improve muscle performance and motor function Cryotherapy (ice pack, ice massage): Yes For the Purpose of:: To decrease pain Please do not hesitate to contact me at [phone] by phone or if you have questions or concerns regarding this new plan of care! Sincerely, Wilfredo Mcnair, PT, ATC
== END 2020-10-11 19:00 | disposition home or self-care (01) ==
LOC: PT 12:30
PROVIDERS: PCP Internal Medicine; Referring Provider Physician Assistant Surgical; Visit Provider Physician Assistant Surgical
DX: M16.12 Unilateral primary osteoarthritis, left hip (principal)
CPT/HCPCS: 97110; 97116; 97161; 97164; 97530

== ENCOUNTER → 2020-10-12 08:30 | Outpatient (CLI) | payer MEDICARE, OTHER, SELFPAY ==
[2020-09-30 10:52] VITALS: BMI 25.4
--- NOTE | 2020-10-12 08:32 | ECHOD_ITS ---
Reason For Study: Arrhythmia Procedure This was a 2D Doppler, Color Flow transthoracic echocardiogram. The exam was of adequate technical quality. Exam performed in department. Left Ventricle Normal LV size. Left ventricular systolic function is normal. The estimated ejection fraction is 55 %. Diastolic function is indeterminate. No regional wall motion abnormalities noted. Right Ventricle Normal RV size. Normal systolic function. Atria Normal left atrium. Normal right atrium. No doppler evidence for ASD. Mitral Valve There is no mitral annular calcification. Mild diffuse mitral valve thickening. Mild mitral valve prolapse, posterior leaflet. Mild-Moderate (1-2+) mitral valve insufficiency. Tricuspid Valve Normal tricuspid valve. Mild to moderate (1-2+) tricuspid valve insufficiency. Right ventricular systolic pressure estimated to be 27 mmHg. Aortic Valve Trisinus/trileaflet aortic valve. Mild diffuse aortic valve thickening. Pulmonic Valve The pulmonic valve is not well visualized. Great Vessels Normal sized aortic root. Pericardium/Pleural Trivial pericardial effusion. There are no echocardiographic indications of cardiac tamponade. MMode/2D Measurements & Calculations LVIDd: 4.7 cm IVSd: 1.3 cm Ao root diam: 3.3 cm LVIDs: 3.6 cm LVPWd: 1.1 cm RVDd: 3.1 cm FS: 22.1 % LAV(MOD-bp): 37.1 ml LA A4 area: 16.7 cm2 RA A4 area: 13.7 cm2 LAV(MOD-bp) Indexed: 23.4 ml/m2 LAV(MOD-sp2): 31.8 ml LAV(MOD-sp4): 41.9 ml Time Measurements MV dec time: 0.26 sec Doppler Measurements & Calculations MV E max jairo: 70.1 cm/sec Lat Peak E' Jairo: 3.7 cm/sec Med Peak E' Jairo: 12.4 cm/sec MV A max jairo: 104.4 cm/sec E/E' lat: 18.9 E/E' med: 5.7 MV E/A: 0.67 MV V2 max: 117.2 cm/sec MV P1/2t max jairo: 85.4 cm/sec Ao V2 max: 114.5 cm/sec MV max P.5 mmHg MV P1/2t: 100.8 msec Ao max P.2 mmHg MV V2 mean: 57.4 cm/sec MV dec slope: 248.0 cm/sec2 MV mean P.6 mmHg MVA(P1/2t): 2.2 cm2 MV V2 VTI: 34.0 cm LV V1 max: 78.7 cm/sec PA V2 max: 67.7 cm/sec TR max jairo: 242.4 cm/sec LV V1 max P.5 mmHg TR max P.5 mmHg ECHO/Echo Complete Interpretation Summary Left ventricular systolic function is normal. The estimated ejection fraction is 55 %. Mild mitral valve prolapse, posterior leaflet Mild diffuse mitral valve thickening. Mild-Moderate (1-2+) mitral valve insufficiency. Mild to moderate (1-2+) tricuspid valve insufficiency. Mild diffuse aortic valve thickening. Trivial pericardial effusion. There are no echocardiographic indications of cardiac tamponade. Right ventricular systolic pressure estimated to be 27 mmHg. Diastolic function is indeterminate. Ordering Physician: Bong Cortez Referring Physician: Brinda Case M.D. Performed By: Chris Caban RCS
== END ==
PROVIDERS: PCP Internal Medicine; Referring Provider Internal Medicine Cardiovascular Disease; Visit Provider Internal Medicine Cardiovascular Disease
DX: Q24.4 Congenital subaortic stenosis (principal); I10 Essential (primary) hypertension; I34.0 Nonrheumatic mitral (valve) insufficiency; I34.1 Nonrheumatic mitral (valve) prolapse; I44.1 Atrioventricular block, second degree; I47.1 Supraventricular tachycardia; I47.2 Ventricular tachycardia; I49.3 Ventricular premature depolarization; R55 Syncope and collapse
CPT/HCPCS: 93306

== ENCOUNTER 2020-10-26 07:56 | Day surgery (SDC) | payer MEDICARE, OTHER, SELFPAY ==
[2020-09-30 10:52] VITALS: BMI 25.4
--- NOTE | 2020-10-08 08:19 | RAD_ITS ---
INDICATION: VT EXAMINATION/TECHNIQUE: X-RAY - XR Chest 2 Views COMPARISON: PA and lateral views of the chest dated 12/21/2011. FINDINGS: LINES/DEVICES: None. LUNGS: No consolidation, edema or effusion. No pneumothorax. MEDIASTINUM AND CARDIOVASCULAR STRUCTURES: Cardiac silhouette not enlarged. Central airways and mediastinal contour are unremarkable. BONES AND SOFT TISSUES: Dense degenerative endplate sclerosis and osteophytosis. Note of a surgical clip base of the right neck. RAD/Chest PA and Lateral IMPRESSION: No radiographic evidence of acute cardiopulmonary disease. Electronically Signed: John Suazo DO at 20:37 EDT Tel , Service support ,
[2020-10-08 08:38] LABS: Absolute Lymphocyte Count 1.95 X10^3/uL (0.83-4.51); Absolute Neutrophil Count 3.7 X10^3/uL (2.0-7.7); Basophil# 0.04 X10^3/uL; Basophil% 0.6 % (0-1); Eosinophil# 0.27 X10^3/uL; Eosinophils% 4.2 % (0-5); Hematocrit 43.8 % (37-47); Hemoglobin 13.5 g/dL (12.0-15.0); Lymphocyte # 1.95 X10^3/ul (0.83-4.51); Lymphocyte % 30.3 % (19-41); Mean Corp Hgb Conc 30.8 g/dL (32-36); Mean Corpuscular Hgb 27.1 pg (27.0-32.0); Mean Corpuscular Volume 87.8 fL (81-99); Mean Platelet Vol. 9.1 fl (6.2-12.0); Monocyte# 0.44 X10^3/uL; Monocyte% 6.8 % (0-10); NRBC Flagged by Analyzer 0 % (0-5); Neutrophil # 3.73 X10^3/uL (2.7-7.7); Neutrophil % 57.9 % (47-70); Platelet Count 346 K/mm3 (150-450); RBC Distribution Width SD 44.6 fl (35.1-43.9); Red Blood Count 4.99 M/mm3 (4.2-5.4); White Blood Count 6.4 K/mm3 (4.4-11.0)
[2020-10-08 09:02] LABS: Anion Gap 2 (5-15); BUN 24 mg/dL (7-18); BUN/Creat Ratio 25.3 RATIO (10-20); Calcium,Total 10.2 mg/dL (8.5-10.1); Chloride 106 mmol/L (98-107); Creatinine, Serum 0.95 mg/dL (0.55-1.02); EST Glomerular Filtration Rate 60 mL/min (>60); Est Glom Filt Rate - Afr Amer 73 mL/min (>60); Glucose 92 mg/dL (74-106); Sodium Level 141 mmol/L (136-145)
[2020-10-08 09:13] LABS: Prothrombin Time (Protime)PT. 12.5 SECONDS (11.7-14.9)
[2020-10-08 09:14] LABS: Partial Thromboplast Time 32.9 Seconds (24.1-36.2)
[2020-10-25 08:29] VITALS: BMI 25.4
--- NOTE | 2020-10-25 17:10 | PCM.HP.BLA ---
History and Physical Date of Admission: 10/26/20 [facility] [id number] [place], [place] [id number] OFFICE VISITDate of Service: 10/14/20 MR#:[id number]: VALENTIN BANGURARep #:[id number] Provider: DAILY Mina RoofAge/Sex: 80/F [facility] HPI History of Present Illness Details: This is a 80-year-old white female who presents today for outpatient cardiovascular consultation based upon concerns of syncope and an underlying abnormal [facility] event monitor suggesting findings of PACs, PVCs, second-degree AV block Mobitz 2, PSVT, and PVT, superimposed upon a history of mitral valve prolapse and mitral and tricuspid valve insufficiency. She states she has been followed by [facility] cardiology for quite some time. It appears her last outpatient cardiovascular visit was on 06-21-2020. Based upon that evaluation there was a comment SVT, labile hypertension, and ROBERT. She was seen in preoperative evaluation. It appeared they did not believe she required additional evaluation or care at that time. Patient expresses concerns regarding symptoms and waiting for heart catheterization 10/26/2020. She was asked to present to the office to help answer questions as well as review previous test. She states episodes of chest twinge. This occurred after going from her restroom to sitting on the edge of her bed (6 feet away). This lasted for few minutes. This was sharp. She states her hand was feeling something. She states SOB at rest, but more noticeable with activity. She does acknowledge multiple medication concerns due to history of psoriatic arthritis. Intake Vital Signs 10/14/20 10:27 Height 5 ft 1 in Weight: 135 lb BMI 25.4 BP 135/82 H Blood Pressure Location Lt brachial Position Sitting Respiration 18 Pulse 76 Pulse Source Monitor Pulse Oximetry (%) 99 Intake Visit Reasons: PER M.S. Emissions Repair Technician Required: No Accompanied by: None Is patient in pain?: Yes Allergies adhesive Allergy (Verified 10/14/20 10:28) Rash benzocaine Allergy (Verified 10/14/20 10:28) Other estrogens, conjugated [From Premarin] Allergy (Verified 10/14/20 10:28) Shortness of breath gluten Allergy (Verified 10/14/20 10:28) Other hydroxychloroquine sulfate [From Plaquenil] Allergy (Verified 10/14/20 10:28) Rash lanolin Allergy (Verified 10/14/20 10:28) Rash meloxicam [From Mobic] Allergy (Verified 10/14/20 10:28) Other minocycline [Minocycline] Allergy (Verified 10/14/20 10:28) Other palm oil Allergy (Verified 10/14/20 10:28) Hives codeine Adverse Reaction (Verified 10/14/20 10:28) Nausea/Vom/Diarrhea esomeprazole magnesium [From Nexium] Adverse Reaction (Verified 10/14/20 10:28) Other metoprolol Adverse Reaction (Verified 10/14/20 10:) NEEDS FOLLOW-UP omeprazole [From Prilosec] Adverse Reaction (Verified 10/14/20 10:28) Other omeprazole magnesium [From Prilosec] Adverse Reaction (Verified 10/14/20 10:28) Other sulindac [From Clinoril] Adverse Reaction (Verified 10/14/20 10:28) Rash Narcotics Adverse Reaction (Uncoded 07/14/20 12:14) Vomiting Opiods Adverse Reaction (Uncoded 07/14/20 12:14) Vomiting PFSH Medical History (Reviewed 10/14/20 @ 13:47 by Lino Barragan PACKAGING MATERIALS INSPECTOR, PACKAGING MATERIALS INSPECTOR-C) BiPAP (biphasic positive airway pressure) dependence Cervical spondylosis 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 Degenerative disc disease Elevated serum creatinine Esophageal reflux Family history of breast cancer in female Fatty infiltration of liver GERD (gastroesophageal reflux disease) Hearing loss, left Hearing loss, right Hypertension Hypothyroidism Inflammatory arthritis Irregular heart beat Mobitz type 2 second degree AV block Multiple thyroid nodules MVP (mitral valve prolapse) Non-rheumatic mitral regurgitation ROBERT treated with BiPAP Osteopenia Post-menopausal Premature ventricular contraction Psoriatic arthritis Psoriatic arthritis Sicca syndrome Sleep apnea SVT (supraventricular tachycardia) Syncope Ventricular tachycardia Vitamin D deficiency Wears glasses Surgical History (Reviewed 10/14/20 @ 13:47 by Lino Barragan PACKAGING MATERIALS INSPECTOR, PACKAGING MATERIALS INSPECTOR-C) History of total left hip arthroplasty Hx of carpal tunnel repair Hx of hand surgery Hx of parathyroidectomy Hx of total knee replacement S/P arthroscopic knee surgery S/P cataract surgery S/P colonoscopy S/P tonsillectomy Status post right hip replacement Status post total knee replacement, left Family History (Reviewed 10/14/20 @ 13:47 by Lino Barragan PACKAGING MATERIALS INSPECTOR, PACKAGING MATERIALS INSPECTOR-C) Mother CHF (congestive heart failure) Hypertension Graves disease Father Diabetes Hypertension Social History Smoking Status: Never smoker second hand exposure: No alcohol intake: never substance use type: does not use caffeine: Yes what type of physical activity do you participate in: none frequency: does not exercise seatbelt use: always ROS Const Const: Negative for fatigue, weakness, body ache, fever(s) or chills ENT ENT: Negative for dizziness or Nosebleed/epistaxis Cardio Chest Pain: Yes Palpitations: No Edema: None Muscle aches with walking: None Resp Respiratory: Positive for SOB with activity; Negative for SOB at rest, SOB orthopnea\SOB lying down, Cough or paroxysmal nocturnal dyspnea GI GI: Negative nausea, vomiting blood/hematemesis, bright, red blood in stools or black,tarry stools : Negative for hematuria or frequent nighttime urination/ nocturia Musc Musc: Negative for muscle aches/ myalgia Skin Skin: Negative non-healing lesions or rash Neuro Neuro: Negative for dizziness, lightheadedness, near syncope, syncope, orthostatic symptoms or weakness Endo Endo: Negative for fatigue Allergy Allergy/Immunology: Negative for rash Cardiology Exam Const Appearance: cooperative, healthy appearing, comfortable and no acute distress Nutritional Appearance: average body habitus and well nourished Orientation: alert, awake and oriented x3 Head Head: normal to inspection Ears: hearing grossly normal bilaterally Nose: external nose normal Face and Sinus: face symmetric Mouth: oral mucosae normal Eyes General: appearance normal, both eyes and all related structures Eyelids: eyelids normal EOM: EOM intact bilaterally Neck Neck: normal visual inspection and no JVD Carotids: normal carotid upstroke Chest Chest inspection: normal inspection of the chest, symmetric chest movement and normal respiratory effort; Negative cough Auscultation: Bilateral: Clear to Auscultation Cardio Rate: regular rate Rhythm: regular rhythm and ectopic beats Heart sounds: S1 normal and S2 normal; Negative rub, gallop or murmur GI GI: normal to inspection Neuro General: patient alert, patient awake, patient oriented x3 and CN's II-XI intact bilaterally Skin Skin: no rashes or lesions noted Extremities Pulses: Normal: Right Posterior Tibial Pulse, Left Posterior Tibial Pulse, Right Radial Pulse and Left Radial Pulse Lower Extremity Edema: None: Bilateral Psych Psychological: normal affect Assessment and Plan Assessment and Plan (1) Ventricular tachycardia: Status: Acute Orders: Orders: 12 Lead EKG performed by [facility] Today Gi Barragan PACKAGING MATERIALS INSPECTOR, PACKAGING MATERIALS INSPECTOR-C: Patient's 14-day monitor with [facility] system showed paroxysmal supraventricular tachycardia and one episode of paroxysmal ventricular tachycardia lasting 19 beats. She did not tolerate beta-norma therapy previously. No atrial fibrillation was noted. It is unclear if patient's symptoms are related to ventricular tachycardia or other dysrhythmia. She is scheduled to undergo a heart catheterization on 10/26/2020 to further rule out coronary artery disease component. Her EKG today in office continue to show sinus rhythm with frequent PACs and thus her symptoms may be ectopy related. At this time, she is agreeable to continue ongoing observation and continue with heart catheterization. She will also be referred to radial drill operator for input regarding 14-day event monitor findings. She was reassured given her most recent echocardiogram result findings showing a preserved ejection fraction and no wall motion abnormalities. Her valvular disease. Stable compared to previous echocardiogram. (2) Syncope: Status: Acute Qualifiers: Syncope type: unspecified Qualified Code(s): R55 - Syncope and collapse Orders: Orders: 12 Lead EKG performed by [facility] Today Gi - Lino Barragan PACKAGING MATERIALS INSPECTOR, PACKAGING MATERIALS INSPECTOR-C: The exact etiology of this is unclear. Her 14-day monitor may lead to possible rhythm component. She will proceed with heart catheterization to rule out coronary artery disease component. Her heart rate and blood pressure are well controlled today. She is not on blood pressure or rate limiting medication. At this time, we will continue to monitor. Based on heart catheterization and electrophysiology recommendation, further recommendation be made. Plan Details Additional Comments: Thank you for allowing us to participate in the patients plan of care, if you have any questions please do not hesitate to call. This note was generated using a voice recognition system and there may be incorrect words, spelling or punctuation that were not noted when reviewing the office note prior to saving. Coding Level of Care Code Off vis,est,level 3 Diagnoses Ventricular tachycardia I47.2 Syncope R55 Syncope type: unspecified Coding Level of Care Code Off vis,est,level 3 Diagnoses Ventricular tachycardia I47.2 Syncope R55 Syncope type: unspecified Supplemental Info Supplemental Information Echocardiogram from 10/12/2020: Interpretation Summary Left ventricular systolic function is normal. The estimated ejection fraction is 55 %. Mild mitral valve prolapse, posterior leaflet Mild diffuse mitral valve thickening. Mild-Moderate (1-2+) mitral valve insufficiency. Mild to moderate (1-2+) tricuspid valve insufficiency. Mild diffuse aortic valve thickening. Trivial pericardial effusion. There are no echocardiographic indications of cardiac tamponade. Right ventricular systolic pressure estimated to be 27 mmHg. Diastolic function is indeterminate. She did have another [facility] primary care visit on 08-06-2020. This led to her 14-day event monitor. According to the event monitor report she had evidence of sinus rhythm, PACs, PVCs, second-degree AV block Mobitz 2, PSVT, and episodes of PVT lasting up to approximately 19 beats in duration. It appears that she has undergone previous [facility] noninvasive evaluation as well in the past. This included an echocardiogram performed in August 2019. At that time per the report the left ventricle was normal with an LVEF being reported at 65% with mild left atrial enlargement and mild to moderate MR and mild TR. She also had a pharmacologic stress nuclear imaging study performed through the [facility] system in January 2011. At that time she had no evidence of ischemia or infarction. Her left ventricle was thought to be normal. She states she had undergone diagnostic cardiac catheterization many years ago. To the best of her knowledge it was performed in [place], [place]. She states it was unremarkable at the time. Labs: No Data to Display Diagnostics: Electrocardiogram Echocardiogram Chest X-Ray Pulmonary: No Data to Display 10/14/20 [id number]<Electronically signed by Lino Barragan NP, NP-C>Date Lino AMBROSIO Cosigner Signature:Date (if applicable) CC: Dr. Brinda Case MD ~ Assessment & Plan Addt'l Comments I have re-examined the patient. There are no clinical changes since date of exam.
--- NOTE | 2020-10-26 10:26 | CL.D_ITS ---
Patient Name: VALENTIN BANGURA Study Date: 10/26/2020 Performing: Bong Cortez MD Ht: 61.02 inches 155 cm : 1940 Wt: 134.48 lbs 61 kg Age: 80 Gender: female BSA: 1.6 PROCEDURE(S) PERFORMED PF58-AQL/COR/LV CLINICAL PROFILE AND INDICATIONS Indications: Cardiac Arrythmia, Valvular Disease, Syncope Heart Failure: None Stress/Imaging Stress/Image Study Performed: No Angina Classification Anginal Classification w/in 2 Weeks: No symptoms CAD Presentations: Other: syncope CONCLUSIONS Elevated Left Ventricular End Diastolic Pressure (mild) Normal LV size, wall motion,and systolic function LVEF: by LV gram 65 % Single vessel CAD of the LAD: mild luminal irregularities Aortic Root Calcified Mitral Valve Prolapse Moderate RECOMMENDATIONS Risk factor modification Medical therapy EP consultation: for cardiac dysrhythmia DESCRIPTION OF PROCEDURE The patient arrived to the procedure lab. The risks and benefits of the procedure as well as a full d escription of our services here and current unavailability of surgical backup were fully explained to the patient and/or their significant other prior to the catheterization. The Timeout was completed, verifying the correct patient and procedure. The patient's procedural site was prepped and draped in the usual fashion. Local anesthetic was given subcutaneously to right radial region with Lidocaine 2% . Using a modified Seldinger technique, arterial access was obtained via the right radial artery, a 6 Fr sheath was inserted. Left Coronary Artery selective angiography was performed in multiple views u sing a 5 Fr. 4.0 [place] catheter. Right Coronary Artery selective angiography was then performed in mu ltiple views using a 5 Fr. 4.0 [place] catheter. Left Ventriculography was performed in HENRY projection using a 5 Fr. Pigtail catheter. LV to AO pullback pressures were then recorded.The arterial sheath was pulled and a TR Band was applied for hemostasis CORONARY ANGIOGRAPHY DOMINANCE: Left Dominant LEFT HEART ASSESSMENT Left Ventricular Ejection Fraction: by LV Gram 65 % Normal LV wall motion Elevated Left Ventricular End Diastolic Pressure LVEDP: 17 mmHg LEFT MAIN: Angiographically normal LEFT ANTERIOR DESCENDING ARTERY: MID LAD: Mild luminal irregularities CIRCUMFLEX ARTERY: Angiographically normal RIGHT CORONARY ARTERY: Angiographically normal VALVE FINDINGS: Mitral Valve Prolapse Moderate AORTIC ROOT: Calcified COMPLICATIONS No Complications PROCEDURE MEDICATIONS Versed 1 mg IV Versed 1 mg IV Oxygen: 2 L/min via nasal cannula Heparin given IA 10/26/2020 09:26:20 Verapamil 2.5mg, Ntg 100mcgs, 3000 units of Heparin given IA 10/26/2020 09:26:20 SUMMARY OF HEMODYNAMIC DATA Time AIR REST ECG 08:19:28 Art 153/57 (87) 09:34:56 AO 106/60 (80) SA 09:41:48 LV 133/-9, 18 09:48:13 LV 130/-7, 17 09:48:17 LV 129/-5, 21 09:49:06 LV 130/-9, 17 09:49:12 LVp 131/-7, 17 09:49:21 AOp 133/53 (88) 09:49:26 Signed By Bong Cortez MD On 10/26/2020 10:25:46 Bong Cortez MD
== END 2020-10-26 12:21 | disposition home or self-care (01) ==
LOC: CLSP 07:57
PROVIDERS: PCP Internal Medicine; Referring Provider Internal Medicine Cardiovascular Disease; Visit Provider Internal Medicine Cardiovascular Disease
DX: I25.10 Atherosclerotic heart disease of native coronary artery without angina pectoris (principal); I08.1 Rheumatic disorders of both mitral and tricuspid valves; I47.2 Ventricular tachycardia; G47.33 Obstructive sleep apnea (adult) (pediatric); L40.50 Arthropathic psoriasis, unspecified; K21.9 Gastro-esophageal reflux disease without esophagitis; I10 Essential (primary) hypertension; Q24.4 Congenital subaortic stenosis; I44.1 Atrioventricular block, second degree; I34.0 Nonrheumatic mitral (valve) insufficiency; R55 Syncope and collapse; I49.3 Ventricular premature depolarization; I34.1 Nonrheumatic mitral (valve) prolapse
CPT/HCPCS: 36415; 71046; 80048; 85025; 85610; 85730; 93458; 99152; 99153; J7040; Q9967; C1769; C1894

== ENCOUNTER 2020-11-11 10:57 | Day surgery (SDC) | payer MEDICARE, OTHER, SELFPAY ==
[2020-11-09 16:23] LABS: Mucous, Urine 0 SEEN /hpf (<or=2+)
[2020-11-09 17:11] LABS: Color, Urine Yellow (Yellow); Glucose, Dipstick Normal (Normal); Ketone-Dipstick Negative (Negative); Leukocyte Esterase-Dipstick 500 /ul (Negative); Nitrite-Dipstick Negative (Negative); Occult Blood-Urine Negative /ul (Negative); Protein-Dipstick Negative (Negative); Urine Bilirubin Dipstick Negative (Negative); Urine Clarity Clear (Clear); Urine Urobilinogen Normal (Normal)
[2020-11-09 17:19] LABS: Hematocrit 40.3 % (37-47); Hemoglobin 12.9 g/dL (12.0-15.0); Mean Corpuscular Hgb 27.6 pg (27.0-32.0); Mean Corpuscular Volume 86.1 fL (81-99); Mean Platelet Vol. 9.4 fl (6.2-12.0); Platelet Count 268 K/mm3 (150-450); Prothrombin Time (Protime)PT. 12.5 SECONDS (11.7-14.9); RBC Distribution Width CV 14.9 % (11.6-14.6); RBC Distribution Width SD 47.1 fl (35.1-43.9); Red Blood Count 4.68 M/mm3 (4.2-5.4); White Blood Count 7.8 K/mm3 (4.4-11.0)
[2020-11-09 17:32] LABS: Anion Gap 4 (5-15); BUN 25 mg/dL (7-18); Calcium,Total 9.3 mg/dL (8.5-10.1); Chloride 106 mmol/L (98-107); Creatinine, Serum 1.56 mg/dL (0.55-1.02); EST Glomerular Filtration Rate 34 mL/min (>60); Est Glom Filt Rate - Afr Amer 41 mL/min (>60); Glucose 91 mg/dL (74-106); Sodium Level 139 mmol/L (136-145)
[2020-11-09 17:35] LABS: Bacteria 1+ /hpf (None Seen); Red Blood Cells-Urine 0-5 SEEN /hpf (0-5); Squamous Epithelial Cells - UA 5-10 SEEN /hpf (5-10); White Blood Cells 10-25 SEEN /hpf (0-5)
[2020-11-10 09:11] VITALS: BMI 25.4
--- NOTE | 2020-11-10 09:42 | HP.PCM_ITS ---
History and Physical Date of Admission: 11/11/20 [facility] [id number] [place], [place] [id number] OFFICE VISITDate of Service: 10/14/20 MR#:[id number]: VALENTIN BANGURARep #:[id number] Provider: DAILY Mina RoofAge/Sex: 80/F [facility] HPI HPI History of Present Illness Details: This is a 80-year-old white female who presents today for outpatient cardiovascular consultation based upon concerns of syncope and an underlying abnormal [facility] event monitor suggesting findings of PACs, PVCs, second-degree AV block Mobitz 2, PSVT, and PVT, superimposed upon a history of mitral valve prolapse and mitral and tricuspid valve insufficiency. She states she has been followed by [facility] cardiology for quite some time. It appears her last outpatient cardiovascular visit was on 06-21-2020. Based upon that evaluation there was a comment SVT, labile hypertension, and ROBERT. She was seen in preoperative evaluation. It appeared they did not believe she required additional evaluation or care at that time. Patient expresses concerns regarding symptoms and waiting for heart catheterization 10/26/2020. She was asked to present to the office to help answer questions as well as review previous test. She states episodes of chest twinge. This occurred after going from her restroom to sitting on the edge of her bed (6 feet away). This lasted for few minutes. This was sharp. She states her hand was feeling something. She states SOB at rest, but more noticeable with activity. She does acknowledge multiple medication concerns due to history of psoriatic arthritis. Intake Vital Signs 10/14/20 10:27 Height 5 ft 1 in Weight: 135 lb BMI 25.4 BP 135/82 H Blood Pressure Location Lt brachial Position Sitting Respiration 18 Pulse 76 Pulse Source Monitor Pulse Oximetry (%) 99 Intake Visit Reasons: PER M.S. Personnel Associate Required: No Accompanied by: None Is patient in pain?: Yes Allergies adhesive Allergy (Verified 10/14/20 10:28) Rash benzocaine Allergy (Verified 10/14/20 10:28) Other estrogens, conjugated [From Premarin] Allergy (Verified 10/14/20 10:28) Shortness of breath gluten Allergy (Verified 10/14/20 10:28) Other hydroxychloroquine sulfate [From Plaquenil] Allergy (Verified 10/14/20 10:28) Rash lanolin Allergy (Verified 10/14/20 10:28) Rash meloxicam [From Mobic] Allergy (Verified 10/14/20 10:28) Other minocycline [Minocycline] Allergy (Verified 10/14/20 10:28) Other palm oil Allergy (Verified 10/14/20 10:28) Hives codeine Adverse Reaction (Verified 10/14/20 10:28) Nausea/Vom/Diarrhea esomeprazole magnesium [From Nexium] Adverse Reaction (Verified 10/14/20 10:28) Other metoprolol Adverse Reaction (Verified 10/14/20 10:) NEEDS FOLLOW-UP omeprazole [From Prilosec] Adverse Reaction (Verified 10/14/20 10:28) Other omeprazole magnesium [From Prilosec] Adverse Reaction (Verified 10/14/20 10:28) Other sulindac [From Clinoril] Adverse Reaction (Verified 10/14/20 10:28) Rash Narcotics Adverse Reaction (Uncoded 07/14/20 12:14) Vomiting Opiods Adverse Reaction (Uncoded 07/14/20 12:14) Vomiting PFSH Medical History (Reviewed 10/14/20 @ 13:47 by Lino Barragan FAMILY REUNIFICATION SPECIALIST, FAMILY REUNIFICATION SPECIALIST-C) BiPAP (biphasic positive airway pressure) dependence Cervical spondylosis 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 Degenerative disc disease Elevated serum creatinine Esophageal reflux Family history of breast cancer in female Fatty infiltration of liver GERD (gastroesophageal reflux disease) Hearing loss, left Hearing loss, right Hypertension Hypothyroidism Inflammatory arthritis Irregular heart beat Mobitz type 2 second degree AV block Multiple thyroid nodules MVP (mitral valve prolapse) Non-rheumatic mitral regurgitation ROBERT treated with BiPAP Osteopenia Post-menopausal Premature ventricular contraction Psoriatic arthritis Psoriatic arthritis Sicca syndrome Sleep apnea SVT (supraventricular tachycardia) Syncope Ventricular tachycardia Vitamin D deficiency Wears glasses Surgical History (Reviewed 10/14/20 @ 13:47 by Lino Barragan FAMILY REUNIFICATION SPECIALIST, FAMILY REUNIFICATION SPECIALIST-C) History of total left hip arthroplasty Hx of carpal tunnel repair Hx of hand surgery Hx of parathyroidectomy Hx of total knee replacement S/P arthroscopic knee surgery S/P cataract surgery S/P colonoscopy S/P tonsillectomy Status post right hip replacement Status post total knee replacement, left Family History (Reviewed 10/14/20 @ 13:47 by Lino Barragan FAMILY REUNIFICATION SPECIALIST, FAMILY REUNIFICATION SPECIALIST-C) Mother CHF (congestive heart failure) Hypertension Graves disease Father Diabetes Hypertension Social History Smoking Status: Never smoker second hand exposure: No alcohol intake: never substance use type: does not use caffeine: Yes what type of physical activity do you participate in: none frequency: does not exercise seatbelt use: always ROS Const Const: Negative for fatigue, weakness, body ache, fever(s) or chills ENT ENT: Negative for dizziness or Nosebleed/epistaxis Cardio Chest Pain: Yes Palpitations: No Edema: None Muscle aches with walking: None Resp Respiratory: Positive for SOB with activity; Negative for SOB at rest, SOB orthopnea\SOB lying down, Cough or paroxysmal nocturnal dyspnea GI GI: Negative nausea, vomiting blood/hematemesis, bright, red blood in stools or black,tarry stools : Negative for hematuria or frequent nighttime urination/ nocturia Musc Musc: Negative for muscle aches/ myalgia Skin Skin: Negative non-healing lesions or rash Neuro Neuro: Negative for dizziness, lightheadedness, near syncope, syncope, orthostatic symptoms or weakness Endo Endo: Negative for fatigue Allergy Allergy/Immunology: Negative for rash Cardiology Exam Const Appearance: cooperative, healthy appearing, comfortable and no acute distress Nutritional Appearance: average body habitus and well nourished Orientation: alert, awake and oriented x3 Head Head: normal to inspection Ears: hearing grossly normal bilaterally Nose: external nose normal Face and Sinus: face symmetric Mouth: oral mucosae normal Eyes General: appearance normal, both eyes and all related structures Eyelids: eyelids normal EOM: EOM intact bilaterally Neck Neck: normal visual inspection and no JVD Carotids: normal carotid upstroke Chest Chest inspection: normal inspection of the chest, symmetric chest movement and normal respiratory effort; Negative cough Auscultation: Bilateral: Clear to Auscultation Cardio Rate: regular rate Rhythm: regular rhythm and ectopic beats Heart sounds: S1 normal and S2 normal; Negative rub, gallop or murmur GI GI: normal to inspection Neuro General: patient alert, patient awake, patient oriented x3 and CN's II-XI intact bilaterally Skin Skin: no rashes or lesions noted Extremities Pulses: Normal: Right Posterior Tibial Pulse, Left Posterior Tibial Pulse, Right Radial Pulse and Left Radial Pulse Lower Extremity Edema: None: Bilateral Psych Psychological: normal affect Assessment and Plan Assessment and Plan (1) Ventricular tachycardia: Status: Acute Orders: Orders: 12 Lead EKG performed by [facility] Today Gi Barragan FAMILY REUNIFICATION SPECIALIST, FAMILY REUNIFICATION SPECIALIST-C: Patient's 14-day monitor with [facility] system showed paroxysmal supraventricular tachycardia and one episode of paroxysmal ventricular tachycardia lasting 19 beats. She did not tolerate beta-norma therapy previously. No atrial fibrillation was noted. It is unclear if patient's symptoms are related to ventricular tachycardia or other dysrhythmia. She is scheduled to undergo a heart catheterization on 10/26/2020 to further rule out coronary artery disease component. Her EKG today in office continue to show sinus rhythm with frequent PACs and thus her symptoms may be ectopy related. At this time, she is agreeable to continue ongoing observation and continue with heart catheterization. She will also be referred to manager nursing for input regarding 14-day event monitor findings. She was reassured given her most recent echocardiogram result findings showing a preserved ejection fraction and no wall motion abnormalities. Her valvular disease. Stable compared to previous echocardiogram. (2) Syncope: Status: Acute Qualifiers: Syncope type: unspecified Qualified Code(s): R55 - Syncope and collapse Orders: Orders: 12 Lead EKG performed by [facility] Today Gi - Lino Barragan FAMILY REUNIFICATION SPECIALIST, FAMILY REUNIFICATION SPECIALIST-C: The exact etiology of this is unclear. Her 14-day monitor may lead to possible rhythm component. She will proceed with heart catheterization to rule out coronary artery disease component. Her heart rate and blood pressure are well controlled today. She is not on blood pressure or rate limiting medication. At this time, we will continue to monitor. Based on heart catheterization and electrophysiology recommendation, further recommendation be made. Plan Details Additional Comments: Thank you for allowing us to participate in the patients plan of care, if you have any questions please do not hesitate to call. This note was generated using a voice recognition system and there may be incorrect words, spelling or punctuation that were not noted when reviewing the office note prior to saving. Coding Level of Care Code Off vis,est,level 3 Diagnoses Ventricular tachycardia I47.2 Syncope R55 Syncope type: unspecified Coding Level of Care Code Off vis,est,level 3 Diagnoses Ventricular tachycardia I47.2 Syncope R55 Syncope type: unspecified Supplemental Info Supplemental Information Echocardiogram from 10/12/2020: Interpretation Summary Left ventricular systolic function is normal. The estimated ejection fraction is 55 %. Mild mitral valve prolapse, posterior leaflet Mild diffuse mitral valve thickening. Mild-Moderate (1-2+) mitral valve insufficiency. Mild to moderate (1-2+) tricuspid valve insufficiency. Mild diffuse aortic valve thickening. Trivial pericardial effusion. There are no echocardiographic indications of cardiac tamponade. Right ventricular systolic pressure estimated to be 27 mmHg. Diastolic function is indeterminate. She did have another [facility] primary care visit on 08-06-2020. This led to her 14-day event monitor. According to the event monitor report she had evidence of sinus rhythm, PACs, PVCs, second-degree AV block Mobitz 2, PSVT, and episodes of PVT lasting up to approximately 19 beats in duration. It appears that she has undergone previous [facility] noninvasive evaluation as well in the past. This included an echocardiogram performed in August 2019. At that time per the report the left ventricle was normal with an LVEF being reported at 65% with mild left atrial enlargement and mild to moderate MR and mild TR. She also had a pharmacologic stress nuclear imaging study performed through the [facility] system in January 2011. At that time she had no evidence of ischemia or infarction. Her left ventricle was thought to be normal. She states she had undergone diagnostic cardiac catheterization many years ago. To the best of her knowledge it was performed in [place], [place]. She states it was unremarkable at the time. Labs: No Data to Display Diagnostics: Electrocardiogram Echocardiogram Chest X-Ray Pulmonary: No Data to Display 10/14/20 4813<Electronically signed by Lino Barragan NP, NP-C>Date Lino AMBROSIO Cosigner Signature:Date (if applicable) CC: Dr. Brinda Case MD ~ Addendum: The patient has undergone additional cardiovascular evaluation at [facility]. An echocardiogram on 10-12-2020 was noted as: Interpretation Summary Left ventricular systolic function is normal. The estimated ejection fraction is 55 %. Mild mitral valve prolapse, posterior leaflet Mild diffuse mitral valve thickening. Mild-Moderate (1-2+) mitral valve insufficiency. Mild to moderate (1-2+) tricuspid valve insufficiency. Mild diffuse aortic valve thickening. Trivial pericardial effusion. There are no echocardiographic indications of cardiac tamponade. Right ventricular systolic pressure estimated to be 27 mmHg. Diastolic function is indeterminate. A cardiac catheterization on 10-26-2020 was noted as: CONCLUSIONS Elevated Left Ventricular End Diastolic Pressure (mild) Normal LV size, wall motion,and systolic function LVEF: by LV gram 65 % Single vessel CAD of the LAD: mild luminal irregularities Aortic Root Calcified Mitral Valve Prolapse Moderate RECOMMENDATIONS Risk factor modification Medical therapy EP consultation: for cardiac dysrhythmia DESCRIPTION OF PROCEDURE The patient arrived to the procedure lab. The risks and benefits of the procedure as well as a full description of our services here and current unavailability of surgical backup were fully explained to the patient and/or their significant other prior to the catheterization. The Timeout was completed, verifying the correct patient and procedure. The patient's procedural site was prepped and draped in the usual fashion. Local anesthetic was given subcutaneously to right radial region with Lidocaine 2%. Using a modified Seldinger technique, arterial access was obtained via the right radial artery, a 6Fr sheath was inserted. Left Coronary Artery selective angiography was performed in multiple views using a 5 Fr. 4.0 Hermitage catheter. Right Coronary Artery selective angiography was then performed in multiple views using a 5 Fr. 4.0 Hermitage catheter. Left Ventriculography was performed in HENRY projection using a 5 Fr. Pigtail catheter. LV to AO pullback pressures were then recorded.The arterial sheath was pulled and a TR Band was applied for hemostasis CORONARY ANGIOGRAPHY DOMINANCE: Left Dominant LEFT HEART ASSESSMENT Left Ventricular Ejection Fraction: by LV Gram 65 % Normal LV wall motion Elevated Left Ventricular End Diastolic Pressure LVEDP: 17 mmHg LEFT MAIN: Angiographically normal LEFT ANTERIOR DESCENDING ARTERY: MID LAD: Mild luminal irregularities CIRCUMFLEX ARTERY: Angiographically normal RIGHT CORONARY ARTERY: Angiographically normal VALVE FINDINGS: Mitral Valve Prolapse Moderate AORTIC ROOT: Calcified The patient underwent [facility] electrophysiology consultation on 11-09-2020. Per the [facility] electrophysiology evaluation the patient was recommended, based upon her diagnosis of syncope and underlying conduction system disease, for dual-chamber permanent pacemaker placement. This is scheduled to be performed on 11-11-[address] [facility] by Dr. Araiza from [facility] electrophysiology. Assessment & Plan Addt'l Comments I have re-examined the patient. There are no clinical changes since date of exam.
--- NOTE | 2020-11-11 13:37 | OP.PCM_ITS ---
Operative Report Date of Procedure: 11/11/20 Diagnosis: Abrupt recurrent syncope with MObitz II block Preoperative diagnosis implantation of dual chamber pacemaker Postoperative diagnosis same as above After informed consent and IV antibiotics the patient was brought to the [place] catheterization laboratory. The leftr side of the chest was prepped and draped in the usual sterile manner. The patient was sedated with intermittent boluses of IV Versed and fentanyl as well as subcutaneous 1% lidocaine. An incision was made inferior to the clavicle to accommodate the size of the hardware device. The pocket was created using blunt and Bovie dissection. Hemostasis was obtained. Using the Seldinger technique the axillary vein was cannulated twice and a guidewire was advanced under fluoroscopic guidance. Over the guidewire a sheath was advanced. Through this sheath, the electrode was positioned under fluoroscopic guidance into the right ventricle and then the right atrium and both were actively fixated. Once actively fixated, the leads were tested to check for proper sensing, capture threshold, impedance and to exclude diaphragmatic stimulation. Once the leads were implanted and all electrical parameters were confirmed to be functioning normally with appropriate values, the leads were then sutured to the pectoralis muscle with 2-0 silk on the Silastic collar ?2. The sponge and needle count were correct. Hemostasis was obtained. Antibiotic solution was used to flush the pocket. The new device was brought to the field. The lead was placed in the appropriate position of the header of the device and were secured by the setscrews and confirmed by the tug test. The device and the leads were then placed in the pocket. Pocket was closed with a deep layer of running 2-0 Vicryl, superficial layer of running 4-0 Vicryl and skin with Steri- Strips that were covered with a rolled 4 x 4's and Tegaderm. The patient left the lab with the device programmed to chronic parameters. There were no complications. Implanted system is a dual Embedded [employer] pacermaker - MRI conditional Lead and device serial and model numbers are available in the chart documents provided by the device company scheduling representative procedure summary.
--- NOTE | 2020-11-11 15:50 | RAD_ITS ---
History: do within 2-4 hours of procedure EXAMINATION/TECHNIQUE: XR Chest 1 View: Portable COMPARISON: October 08, 2020 FINDINGS: LINES/DEVICES: Interval placement of atrial and ventricular pacemaker wires. LUNGS: No consolidation, edema or effusion. No pneumothorax. MEDIASTINUM AND CARDIOVASCULAR STRUCTURES: Cardiac silhouette not enlarged. Central airways and mediastinal contour are unremarkable. BONES AND SOFT TISSUES: Unremarkable. RAD/Chest 1 View (Portable) IMPRESSION: No radiographic evidence of acute cardiopulmonary disease. Satisfactory pacemaker wire placement. at 1811 Reported and signed by: Anson Mc MD Electronically Signed: Anson Mc MD at 18:10 EDT Tel , Service support ,
--- NOTE | 2020-11-11 19:06 | PN.CARD_ITS ---
Subjective Subjective The patient is now status post permanent pacemaker placement. She appears to be resting comfortably at this time. Objective Data Vital Signs: Weight: 135 lb Body Mass Index (BMI) 25.4 Lab / Micro Data Result Diagrams: 11/09/20 16:22 11/09/20 16:22 Cardiology Labs/Tests Operative Report Date of Procedure: 11/11/20 Diagnosis: Abrupt recurrent syncope with MObitz II block Preoperative diagnosis implantation of dual chamber pacemaker Postoperative diagnosis same as above After informed consent and IV antibiotics the patient was brought to the [place] catheterization laboratory. The leftr side of the chest was prepped and draped in the usual sterile manner. The patient was sedated with intermittent boluses of IV Versed and fentanyl as well as subcutaneous 1% lidocaine. An incision was made inferior to the clavicle to accommodate the size of the hardware device. The pocket was created using blunt and Bovie dissection. Hemostasis was obtained. Using the Seldinger technique the axillary vein was cannulated twice and a guidewire was advanced under fluoroscopic guidance. Over the guidewire a sheath was advanced. Through this sheath, the electrode was positioned under fluoroscopic guidance into the right ventricle and then the right atrium and both were actively fixated. Once actively fixated, the leads were tested to check for proper sensing, capture threshold, impedance and to exclude diap hragmatic stimulation. Once the leads were implanted and all electrical parameters were confirmed to be functioning normally with appropriate values, the leads were then sutured to the pectoralis muscle with 2-0 silk on the Silastic collar ?2. The sponge and needle count were correct. Hemostasis was obtained. Antibiotic solution was used to flush the pocket. The new device was brought to the field. The lead was placed in the appropriate position of the header of the device and were secured by the setscrews and confirmed by the tug test. The device and the leads were then placed in the pocket. Pocket was closed with a deep layer of running 2-0 Vicryl, superficial layer of running 4-0 Vicryl and skin with Steri- Strips that were covered with a rolled 4 x 4's and Tegaderm. The patient left the lab with the device programmed to chronic parameters. There were no complications. Implanted system is a dual [employer] pacermaker - MRI conditional Lead and device serial and model numbers are available in the chart documents provided by the device company livestock sales representative procedure summary. 11/11/20 1341 <Electronically signed by Jaylen Araiza MD> Physical Exam Const alert, oriented x3, no apparent distress and healthy appearing Orientation / Consciousness: awake HEENT normocephalic, head/scalp atraumatic and hearing grossly normal bilaterally Eyes PERRL and EOMs intact bilaterally Neck full ROM, supple and no JVD Chest Chest Narrative: Surgical dressing: Dry Chest: left pectoral incision Resp normal respiratory effort and clear to auscultation bilaterally Cardio regular rate, regular rhythm, S1 normal heart sound and S2 normal heart sound GI normal to inspection, nondistended, normoactive bowel sounds Extremity no pedal edema Skin no rashes or lesions noted Psych mental status grossly normal Assessment & Plan Assessment/Plan (1) Syncope: QUALIFIERS: Syncope type: unspecified Qualified Code(s): R55 - Syncope and collapse PLAN: The patient has had syncope. She has had Mobitz 2 second-degree AV block. She has been evaluated by electrophysiology. She has been recommended for further evaluation with permanent pacemaker placement. (2) Mobitz type 2 second degree AV block: PLAN: The patient has been found on her previous studies to have evidence of Mobitz 2 second-degree AV block. There is concern this is a contributing factor to her syncope. She was recommended for further evaluation with permanent pacemaker placement. (3) S/P placement of cardiac pacemaker: PLAN: The patient did undergo permanent pacemaker placement earlier this day. She appears to be resting comfortably at this time. She will continue to be monitored overnight. She will have appropriate laboratory studies, ECG, radiologic studies, and pacemaker follow-up in the a.m. Hopefully if she remains stable she will be able to be released home tomorrow for continued outpatient cardiovascular follow-up. Addt'l Comments This note was generated using a voice recognition system and there may be incorrect words, spelling or punctuation that were not noted when reviewing the office note prior to saving.
--- NOTE | 2020-11-12 07:00 | RAD_ITS ---
STUDY: X-RAY CHEST REASON FOR EXAM: Female, 80 years old. EXPR VW -- S/P PACEMAKER INSERT TECHNIQUE: Single AP portable view of the chest. COMPARISON: 11/12/2020 FINDINGS: Left subclavian dual-lead pacemaker which is unchanged. The lungs are clear and expanded. There is no demonstrated pleural abnormality. There is moderate cardiac enlargement. Normal mediastinum and pedro. Normal visualized pulmonary arteries. Normal visualized aortic arch and descending thoracic aorta. Normal visualized thoracic spine. Normal visualized ribs, clavicles, and shoulders. There is no demonstrated abnormality of the visualized soft tissue structures of the upper abdomen. RAD/Chest 1 View IMPRESSION: No active disease. Electronically Signed: Nicholas Barrett MD at 9:24 EDT Tel , Service support ,
[2020-11-12 07:14] LABS: Absolute Neutrophil Count 8.8 X10^3/uL (2.0-7.7); Basophil# 0.04 X10^3/uL; Basophil% 0.3 % (0-1); Eosinophil# 0.02 X10^3/uL; Eosinophils% 0.2 % (0-5); Hematocrit 37.6 % (37-47); Hemoglobin 11.8 g/dL (12.0-15.0); Lymphocyte % 20.4 % (19-41); Mean Corp Hgb Conc 31.4 g/dL (32-36); Mean Corpuscular Hgb 27.2 pg (27.0-32.0); Mean Corpuscular Volume 86.6 fL (81-99); Mean Platelet Vol. 9.5 fl (6.2-12.0); Monocyte# 0.83 X10^3/uL; Monocyte% 6.8 % (0-10); NRBC Flagged by Analyzer 0 % (0-5); Neutrophil % 71.9 % (47-70); Platelet Count 237 K/mm3 (150-450); RBC Distribution Width CV 15.2 % (11.6-14.6); RBC Distribution Width SD 47.9 fl (35.1-43.9); Red Blood Count 4.34 M/mm3 (4.2-5.4); White Blood Count 12.2 K/mm3 (4.4-11.0)
--- NOTE | 2020-11-12 08:40 | RAD_ITS ---
STUDY: X-RAY CHEST REASON FOR EXAM: Female, 80 years old. Post permanant Pacemaker -- inspiration/expiration. Arms Down. Wet read to MD TECHNIQUE: PA and lateral views of the chest. COMPARISON: 11/11/2020 FINDINGS: Left subclavian dual-lead pacemaker which is unchanged. The lungs are clear and expanded. There is no demonstrated pleural abnormality. There is moderate cardiac enlargement. Normal mediastinum and pedro. Normal visualized pulmonary arteries. There is atherosclerotic tortuosity of the aortic arch and descending thoracic aorta. Normal visualized thoracic spine. Normal visualized ribs, clavicles, and shoulders. There is no demonstrated abnormality of the visualized soft tissue structures of the upper abdomen. RAD/Chest PA and Lateral IMPRESSION: No active disease. Electronically Signed: Nicholas Barrett MD at 9:26 EDT Tel , Service support ,
--- NOTE | 2020-11-12 08:41 | PCM.DC ---
Discharge Instructions Diet Discharge Diet: Low fat / Low cholesterol Activity Discharge Activity: - (Please follow post pacemaker written instructions) Lifting Restrictions: Please follow post pacemaker written instructions Dressing / Incision Call your doctor if your incision/area has: Continuous Slow Oozing, Sudden Increased Bleeding, Increased Pain/ Swelling, Increased Redness, Foul Smelling Discharge and Swelling at the incision site Call your doctor if you observe: Fever of 101 or Higher, Shortness of breath, Fainting spells, Chest pain, Increased palpitations (irregular heartbeat) and Uncontrolled pain Additional Dressing/Incision Instructions:: Please follow post pacemaker written instructions Follow Up Care Please Follow Up With: Melida Rose When: 11/18/2020 @ 10:30 AM Test Results: Test results from this visit will be discussed in further detail at your follow-up appointment, if applicable. Discharge Plan Admission Primary Reason for Your Visit: Permanent pacemaker placement Attending Provider: Bong Cortez Primary Care Provider: Brinda Case Discharge Orders/Prescriptions Prescriptions: No Action cyclobenzaprine 10 mg tablet 10 mg PO PRN PRN (Reason: Pain) RF: 0 diclofenac sodium [Voltaren] 1 % gel 2 g TOPICAL BID RF: 0 aspirin 81 mg tablet,chewable 81 mg PO DAILY RF: 0 halobetasol propionate 0.05 % cream 1 applic topical DAILY RF: 0 acetaminophen 325 mg tablet 650 mg PO BID PRN (Reason: Pain, Mild) RF: 0 Systane (propylene glycol) 0.4-0.3 % drops 1 drp ophthalmic (eye) DAILY RF: 0 levothyroxine 75 mcg tablet 75 mcg PO DAILY RF: 0 diphenhydramine HCl [Allergy Relief(diphenhydramin)] 25 mg tablet 50 mg PO .COMPLEX Qty: 4 RF: 0 famotidine [Pepcid] 20 mg tablet 20 mg PO .COMPLEX Qty: 2 RF: 0 prednisone 20 mg tablet 60 mg PO .COMPLEX Qty: 9 RF: 0 lansoprazole [Prevacid] 15 MG capsule 30 mg PO DAILY PRN PRN (Reason: Indigestion) RF: 0 sumatriptan succinate [Imitrex] 50 MG tablet 50 mg PO .X1 PRN RF: 0 beclomethasone dipropionate 80 mcg/actuation HFA aerosol inhaler 2 puff inhalation DAILY RF: 0 Otezla 30 mg tablet 30 mg PO BID RF: 0 celecoxib [Celebrex] 200 MG capsule 200 mg PO BID RF: 0 estradiol 0.01 % (0.1 mg/gram) cream 1 applic VAGINAL .3XW RF: 0 sulfamethoxazole-trimethoprim [Bactrim DS] 800-160 mg tablet 1 tab PO BID Qty: 6 RF: 0 Referrals / Follow Up: Brinda Case MD [Primary Care Provider] - Bong Cortez MD [STAFF PHYSICIAN] - Disposition Disposition (needs filled in before D/C Order can be placed): Home, Self Care
[2020-11-12 08:55] VITALS: BP 137/84; PULSE 60; RESP 16; TEMP 36.7; O2SAT 98
--- NOTE | 2020-11-12 09:02 | DS.PCM_ITS ---
Providers Primary Care Physician: Dr. Brinda Case MD Reason For Visit: SYNCOPE Diagnosis Discharge Diagnosis (1) Syncope: Status: Acute Code(s): R55 - Syncope and collapse Qualifiers: Syncope type: unspecified Qualified Code(s): R55 - Syncope and collapse (2) Mobitz type 2 second degree AV block: Status: Acute Code(s): I44.1 - Atrioventricular block, second degree (3) S/P placement of cardiac pacemaker: Status: Acute Code(s): Z95.0 - Presence of cardiac pacemaker Medications at Discharge Home Medications lansoprazole [Prevacid] 30 mg PO DAILY PRN PRN 07/31/13 sumatriptan succinate [Imitrex] 50 mg PO .X1 PRN 07/31/13 cyclobenzaprine 10 mg tablet 10 mg PO PRN PRN tab 05/09/17 beclomethasone dipropionate 2 puff INHALATION DAILY 07/11/19 celecoxib [Celebrex] 200 mg PO BID 05/21/20 acetaminophen 325 mg tablet 650 mg PO BID PRN tab 09/28/20 halobetasol propionate 0.05 % topical cream 1 applic TOPICAL DAILY 09/28/20 peg 400-propylene glycol 0.4 %-0.3 % eye drops 1 drp OPHTHALMIC (EYE) DAILY 09/28/20 apremilast 30 mg tablet 30 mg PO BID tab 09/30/20 aspirin 81 mg chewable tablet 81 mg PO DAILY tab 09/30/20 diclofenac sodium 1 % topical gel 2 g TOPICAL BID 09/30/20 estradiol 1 applic VAGINAL .3XW g 09/30/20 levothyroxine 75 mcg tablet 75 mcg PO DAILY 09/30/20 diphenhydramine HCl 25 mg tablet 50 mg PO .COMPLEX #4 tab 11/10/20 famotidine 20 mg tablet 20 mg PO .COMPLEX #2 tab 11/10/20 prednisone 20 mg tablet 60 mg PO .COMPLEX #9 tab 11/10/20 sulfamethoxazole 800 mg-trimethoprim 160 mg tablet 1 tab PO BID #6 tab 11/10/20 Hospital Course Procedures - (Permanent pacemaker placement) Summary of Care Provided Minutes Spent on Discharge: 45 Hospital Course: The patient presented to [facility] based upon concerns of syncope and underlying conduction system disease with second-degree AV block Mobitz 2 for permanent pacemaker placement. She underwent permanent p acemaker placement on 11-11-[address] Araiza of [facility]. She was monitored overnight. She appeared to be symptomatically and hemodynamically stable. On this day was felt she could be released home for continued outpatient cardiovascular follow-up. Physical Exam Const alert, oriented x3 and no apparent distress General Appearance: cooperative, comfortable, well kempt and well developed HEENT normocephalic, head/scalp atraumatic and hearing grossly normal bilaterally Eyes PERRL, EOMs intact bilaterally and conjunctivae normal Neck full ROM Chest Chest: left pectoral incision Resp normal respiratory effort Effort and Inspection: symmetric chest movement Auscultation: clear to auscultation bilaterally Cardio regular rate, regular rhythm, S1 normal heart sound and S2 normal heart sound GI normal to inspection, nondistended, normoactive bowel sounds Extremity no pedal edema Skin Skin Narrative: Left pectoral area: Surgical dressing: Intact Neuro oriented x3, moves all extremities, no focal motor deficits and no sensory deficits noted Psych mental status grossly normal Weight / BMI Weight Weight: 135 lb Body Mass Index (BMI) 25.4 ABG / Lab / Microbiology Data Result Diagrams: 11/12/20 07:00 11/09/20 16:22 Laboratory: Laboratory Results - last 24 hr 11/12/20 07:00: WBC 12.2 H, RBC 4.34, Hgb 11.8 L, Hct 37.6, MCV 86.6, MCH 27.2, MCHC 31.4 L, RDW Std Deviation 47.9 H, RDW Coeff of Tuan 15.2 H, Plt Count 237, MPV 9.5, Immature Gran % (Auto) 0.400, Neut % (Auto) 71.9 H, Lymph % (Auto) 2 0.4, [place] % (Auto) 6.8, Eos % (Auto) 0.2, Baso % (Auto) 0.3, Absolute Neuts (auto) 8.8 H, Absolute Lymphs (auto) 2.50, Nucleated RBC % 0 ECG: Sinus rhythm/PACs; no acute ECG changes Chest x-ray: Preliminary evaluation: Permanent pacemaker placement: No obvious acute post pacemaker placement adverse events/findings (final report pending) Post PPM implant check: Reported as RV threshold high at 2.0 V / 0.4 ms with recommendations for a subsequent wound check/PPM check on 11-18-2020 at 10:30 AM D/C Instructions Discharge Diet: Low fat / Low cholesterol Call your doctor if your incision/area has: Continuous Slow Oozing, Sudden Increased Bleeding, Increased Pain/ Swelling, Increased Redness, Foul Smelling Discharge and Swelling at the incision site Call your doctor if you observe: Fever of 101 or Higher, Shortness of breath, Fainting spells, Chest pain, Increased palpitations (irregular heartbeat) and Uncontrolled pain Additional Dressing/Incision Instructions: Please follow post pacemaker written instructions Please Follow Up With: Melida Rose When: 11/18/2020 @ 10:30 AM Meaningful Use Info Meaningful Use Diagnoses (Choose all that apply): None applicable Discharge Plan Admission Primary Reason for Your Visit: Permanent pacemaker placement Attending Provider: Bong Cortez Primary Care Provider: Brinda Case Discharge Orders/Prescriptions Prescriptions: No Action cyclobenzaprine 10 mg tablet 10 mg PO PRN PRN (Reason: Pain) RF: 0 diclofenac sodium [Voltaren] 1 % gel 2 g TOPICAL BID RF: 0 aspirin 81 mg tablet,chewable 81 mg PO DAILY RF: 0 halobetasol propionate 0.05 % cream 1 applic topical DAILY RF: 0 acetaminophen 325 mg tablet 650 mg PO BID PRN (Reason: Pain, Mild) RF: 0 Systane (propylene glycol) 0.4-0.3 % drops 1 drp ophthalmic (eye) DAILY RF: 0 levothyroxine 75 mcg tablet 75 mcg PO DAILY RF: 0 diphenhydramine HCl [Allergy Relief(diphenhydramin)] 25 mg tablet 50 mg PO .COMPLEX Qty: 4 RF: 0 famotidine [Pepcid] 20 mg tablet 20 mg PO .COMPLEX Qty: 2 RF: 0 prednisone 20 mg tablet 60 mg PO .COMPLEX Qty: 9 RF: 0 lansoprazole [Prevacid] 15 MG capsule 30 mg PO DAILY PRN PRN (Reason: Indigestion) RF: 0 sumatriptan succinate [Imitrex] 50 MG tablet 50 mg PO .X1 PRN RF: 0 beclomethasone dipropionate 80 mcg/actuation HFA aerosol inhaler 2 puff inhalation DAILY RF: 0 Otezla 30 mg tablet 30 mg PO BID RF: 0 celecoxib [Celebrex] 200 MG capsule 200 mg PO BID RF: 0 estradiol 0.01 % (0.1 mg/gram) cream 1 applic VAGINAL .3XW RF: 0 sulfamethoxazole-trimethoprim [Bactrim DS] 800-160 mg tablet 1 tab PO BID Qty: 6 RF: 0 Referrals / Follow Up: Brinda Case MD [Primary Care Provider] - Bong Cortez MD [STAFF PHYSICIAN] - Disposition Disposition (needs filled in before D/C Order can be placed): Home, Self Care
== END 2020-11-12 09:45 | disposition home or self-care (01) ==
PROVIDERS: PCP Internal Medicine; Referring Provider Internal Medicine Cardiovascular Disease; Visit Provider Internal Medicine Cardiovascular Disease
DX: I44.1 Atrioventricular block, second degree (principal); I47.1 Supraventricular tachycardia; I47.2 Ventricular tachycardia; I34.1 Nonrheumatic mitral (valve) prolapse; I25.10 Atherosclerotic heart disease of native coronary artery without angina pectoris; I10 Essential (primary) hypertension; E03.9 Hypothyroidism, unspecified; E55.9 Vitamin D deficiency, unspecified; L40.50 Arthropathic psoriasis, unspecified; K21.9 Gastro-esophageal reflux disease without esophagitis; G47.33 Obstructive sleep apnea (adult) (pediatric); Z95.0 Presence of cardiac pacemaker; Z79.82 Long term (current) use of aspirin; Z79.899 Other long term (current) drug therapy
CPT/HCPCS: 33208; 36415; 71045; 71046; 80048; 81001; 85025; 85027; 85610; 93005; 99152; 99153; J7040; J7050; C1894; J2405

== ENCOUNTER → 2021-01-19 13:34 | Outpatient (CLI) | payer MEDICARE, OTHER, SELFPAY ==
--- NOTE | 2021-01-19 13:36 | BI_ITS ---
MAMMOGRAPHY - BILATERAL SCREENING 3-D TOMOSYNTHESIS REASON FOR EXAM: Female, 80 years old. Routine screening PERTINENT HISTORY: Significant family history: Grandmother, sister, aunt TECHNIQUE: 2-D mammograms and 3-D Tomosynthesis of the breast (s) were performed. CAD was performed. COMPARISON: 01/06/2020 FINDINGS: The breast composition is heterogeneously dense that can obscure small breast masses. Scattered benign calcifications are seen. No dense spiculated masses or suspicious microcalcifications are identified. No architectural distortion is identified. There is no skin thickening or retraction. There has been no significant change since the prior study. BI/SCRN MAMM (CAD)W/SHAINA BILAT IMPRESSION: No mammographic signs of malignancy. Routine yearly mammograms recommended. ASSESSMENT CATEGORY: BIRADS Category 2: Benign. A letter regarding these results will be sent to the patient by the facility within 30 days. FOLLOW UP RECOMMENDATION: Yearly follow up mammogram recommended. (A) Approximately 10% of breast cancers are not detected by mammography. A normal mammogram should not delay biopsy of a clinically suspicious abnormality. Electronically Signed: Yaya Flores MD at 14:28 EST , Service support ,
== END ==
PROVIDERS: PCP Internal Medicine; Referring Provider Obstetrics & Gynecology; Visit Provider Obstetrics & Gynecology
DX: Z12.31 Encounter for screening mammogram for malignant neoplasm of breast (principal); Z80.3 Family history of malignant neoplasm of breast
CPT/HCPCS: 77063; 77067

== ENCOUNTER → 2021-01-21 12:39 | Outpatient (CLI) | payer MEDICARE, OTHER, SELFPAY ==
[2021-01-21 13:15] LABS: CREATININE FINGERSTICK 0.7 mg/dL (0.55-1.02); EGFR FINGERSTICK > 60.0000 mL/min (>60)
--- NOTE | 2021-01-21 13:15 | CT_ITS ---
INDICATION: TINNITUS EXAMINATION: CT BRAIN WITH AND WITHOUT CONTRAST - CT Head or Brain WO/W Contrast Injection TECHNIQUE: Multiple axial images were obtained of the brain with and without IV contrast. A radiation dose optimization technique was used for this scan. IV Contrast dosage and agent: COMPARISON: None. FINDINGS: BRAIN PARENCHYMA: No intra- or extra-axial hemorrhage. No evidence of acute infarct. No intracranial mass or mass effect. There is preservation of the pereira/white matter interface. POST CONTRAST SEQUENCES: Mild arterial atherosclerotic disease in the supraclinoid internal cerebral arteries. Otherwise, the [place] of [place] is patent with no flow limiting stenosis. The right anterior inferior cerebellar artery appears to enter the right internal auditory canal (series 3, 50). CSF SPACES: Appropriate for age. No hydrocephalus. Basal cisterns are patent. BONES/SOFT TISSUES: No acute calvarial fracture. SINUSES/MASTOID AIR CELLS: Patent. ORBITS: Unremarkable. CT/CTA Head W/WO Contrast IMPRESSION: 1. Right anterior inferior cerebellar artery appears to enter the right internal auditory canal. 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 2. No other acute findings in the remainder of the exam. Electronically Signed: Amadou Tellez MD at 14:44 EST Tel , Service support ,
== END ==
PROVIDERS: PCP Internal Medicine; Referring Provider Otolaryngology; Visit Provider Otolaryngology
DX: H93.A1 Pulsatile tinnitus, right ear (principal)
CPT/HCPCS: 70496; Q9967

== ENCOUNTER 2021-01-27 12:00 | Outpatient (RCR) | payer MEDICARE, OTHER, SELFPAY ==
--- NOTE | 2020-12-21 11:06 | HP.PTEVAL ---
Patient's Visit Information VALENTIN BANGURA is a 80 year old F referred to Physical Therapy by Dr. Urban De Oliveira MD with a diagnosis of L IT band syndrome. Date of Evaluation: 12/21/20 Physical Therapist: Wilfredo Mcnair, PT, ATC - Visit Plan Frequency: 2x /Week Duration: 4-6 Weeks Plan: L LE strengthening, core stab ex's, balance and proprio, nustep, and HEP - Subjective Pt had a L DESIRAE performed . Pt began PT afterwards and was doing well until she began to experience syncope and falling episodes. Pt reports after seeing a credit and collection manager, she had to have a pace make installed. Pt reports she is feeling much better to regards to her cardiac issues, but notes she still feels weak in her L hip at this time. Pt denies any tingling or numbness in L LE at this time. Pt reports she still has pain secondary to IT band syndrome. Pt reports she is always the most sore in the morning that she attributes to her psoriatic arthritis. Pt reports she has been on a restriction of lifting no more that 10# until she sees the next . No tingling or numbness in L LE. Pt reports she has been limited with going on walks at night like she used to secondary to pain and weakness in L hip. 0/10 pain while she is sitting down, 8/10 with sit to stand transfers. Occasional sleep difficulty secondary to pain - Pain L hip Pain Intensity (Out of 10): 0 Pain Intensity Range: 8 - Objective Neuro: B LE sensation is WNL to light touch. B patellar reflex= 2/3. ROM: B LE's are WFL at this time. MMT: R LE is grossly 4/5 while L LE is 4-/5 throughout. Gait: Pt ambulates with trendelengurg gait pattern at this time. Mild limp of the L LE. SLS: Pt displays obvious trendelenburg stance with L LE indicating core weakness throughout - Balance/Special Test Scores Lower Extremity Functional Score: 30 - Goals Goal 1:: Decrease L hip pain to aid with sit to stand transfers Goal Time Frame: 4-6 Weeks Goal 2:: Increase L hip strength x 1 grade to aid with increasing tolerance for ambulation Goal Time Frame: 4-6 Weeks Goal 3:: Increase core strength x 1 grade to aid with restoring a more normalized gait pattern Goal Time Frame: 4-6 Weeks Goal 4:: I with HEP Goal Time Frame: 4-6 Weeks - Rehabilitation Potential Physical Therapy Diagnosis: Pt has L hip weakness, pain, and limited flexibility secondary to L IT band syndrome Rehabilitation Potential: Excellent - Anticipated Interventions Patient/Client Instruction: Educate patient on: Condition, Plan of Care For the Purpose of:: To improve self management Therapeutic Exercise to Include: Strength training, Endurance training, Balance training, Gait and locomotor training, Active ROM, Dynamic Lumbar Stabilization For the Purpose of:: To decrease pain, To increase ROM, To improve muscle performance and motor function Cryotherapy (ice pack, ice massage): Yes For the Purpose of:: To decrease pain Thank you for the opportunity to evaluate your patient. For Medicare and Medicare HMO plans, please review the plan of care and approve it. It will need to be FAXED BACK to us at [phone] for Medicare purposes. For Medicare only, by signing this I certify the plan of care. Please let me know if there are questions or concerns regarding this plan of care. Physician Signature: Date:
--- NOTE | 2021-01-27 13:16 | HP.PTDCSUM ---
It has been my pleasure to treat VALENTIN BANGURA referred by Dr. Urban De Oliveira MD, with the diagnosis of L IT band syndrome for a total of 9 visit(s). Discharge Date: Please see the following information for a summary of their discharge status. Subjective: Pt reports her L hip has improved a lot since beginning PT L hip Pain Intensity (Out of 10): 5 % Improvement: 50 Objective/Function: Pain: L hip pain is now 5/10. Pt now ambulates this a normalized gait pattern. Pt is I with HEP. Pt is able to ambulate 340 feet until requesting to sit and rest Goal 1:: Decrease L hip pain to aid with sit to stand transfers Goal Progress: Goal Met Goal 2:: Increase L hip strength x 1 grade to aid with increasing tolerance for ambulation Goal Progress: Goal Met Goal 3:: Increase core strength x 1 grade to aid with restoring a more normalized gait pattern Goal Progress: Goal Met Goal 4:: I with HEP Goal Progress: Goal Met Plan: Discharge to [facility] at this time If there are questions or concerns regarding this patient's physical therapy, please feel free to call me at [phone]. Thank you for the referral of this patient. Sincerely, Wilfredo Mcnair, PT, ATC Balance/Gait/Functional tests - Balance/Special Test Scores Lower Extremity Functional Score: 49
== END 2021-01-27 13:34 | disposition home or self-care (01) ==
LOC: PT 12:00
PROVIDERS: PCP Internal Medicine; Referring Provider Specialist; Visit Provider Specialist
DX: M76.32 Iliotibial band syndrome, left leg (principal)
CPT/HCPCS: 97110; 97161; 97164

== ENCOUNTER → 2021-12-14 | Outpatient (CLI) | payer MEDICARE, OTHER, SELFPAY ==
--- NOTE | 2021-12-14 07:50 | ECHOD_ITS ---
Reason For Study: MITRAL VALVE PROLAPSE Procedure This was a 2D Doppler, Color Flow transthoracic echocardiogram. The study was technically difficult. Exam performed in department. Left Ventricle Normal LV size. Left ventricular systolic function is normal. The estimated ejection fraction is 55 %. No evidence for diastolic dysfunction. No regional wall motion abnormalities noted. Right Ventricle Normal right ventricle. ICD or pacer leads identified within the right ventricle. Normal systolic function. Atria Normal left atrium. Normal right atrium. ICD or pacer leads identified within the right atrium. No doppler evidence for ASD. Mitral Valve There is no mitral annular calcification. Mild mitral valve prolapse, posterior leaflet. Mild (1+) mitral valve insufficiency. Tricuspid Valve Normal tricuspid valve. Mild tricuspid valve insufficiency. Right ventricular systolic pressure estimated to be 25 mmHg. Aortic Valve Trisinus/trileaflet aortic valve. Normal aortic valve. Trivial aortic valve insufficiency. Pulmonic Valve The pulmonic valve is not well visualized. Great Vessels Normal aortic root. Pericardium/Pleural Trivial pericardial effusion. There are no echocardiographic indications of cardiac tamponade. MMode/2D Measurements & Calculations LVIDd: 5.1 cm IVSd: 0.78 cm Ao root diam: 2.9 cm LVIDs: 3.7 cm LVPWd: 0.78 cm RVDd: 2.8 cm FS: 28.3 % LAV(MOD-bp): 36.0 ml LVAd ap4: 32.2 cm2 SV(MOD-sp4): 62.2 ml LAV(MOD-bp) Indexed: 22.5 ml/m2 LVLd ap4: 7.5 cm LAV(MOD-sp2): 32.7 ml EDV(MOD-sp4): 112.4 ml LAV(MOD-sp4): 38.2 ml EDV(sp4-el): 117.8 ml LVAs ap4: 20.4 cm2 LVLs ap4: 6.9 cm ESV(MOD-sp4): 50.2 ml ESV(sp4-el): 51.5 ml EF(MOD-sp4): 55.4 % EF(sp4-el): 56.3 % SV(sp4-el): 66.3 ml LA A4 area: 15.5 cm2 LA dimension(2D): 3.1 cm RA A4 area: 12.4 cm2 Time Measurements MV dec time: 0.20 sec Doppler Measurements & Calculations MV E max jairo: 49.2 cm/sec Lat Peak E' Jairo: 3.6 cm/sec Med Peak E' Jairo: 5.0 cm/sec MV A max jairo: 92.6 cm/sec E/E' lat: 13.7 E/E' med: 9.8 MV E/A: 0.53 Ao V2 max: 115.5 cm/sec LV V1 max: 75.5 cm/sec PA V2 max: 65.6 cm/sec Ao max P.3 mmHg LV V1 max P.3 mmHg TR max jairo: 234.5 cm/sec TR max P.0 mmHg ECHO/Echo Complete Interpretation Summary Left ventricular systolic function is normal. The estimated ejection fraction is 55 %. Mild mitral valve prolapse, posterior leaflet Mild (1+) mitral valve insufficiency. Mild tricuspid valve insufficiency. Trivial aortic valve insufficiency. Trivial pericardial effusion. There are no echocardiographic indications of cardiac tamponade. Right ventricular systolic pressure estimated to be 25 mmHg. No evidence for diastolic dysfunction. ICD or pacer leads identified within the right atrium ICD or pacer leads identified within the right ventricle. Ordering Physician: Umu Villagran Referring Physician: GINI AGUILAR Performed By: Jennifer Virgen RDCS
== END | disposition home or self-care (01) ==
LOC: CVS 07:49
PROVIDERS: PCP Internal Medicine; Referring Provider Nurse Practitioner Gerontology; Visit Provider Nurse Practitioner Gerontology
DX: I34.1 Nonrheumatic mitral (valve) prolapse (principal); I34.0 Nonrheumatic mitral (valve) insufficiency
CPT/HCPCS: 93306

== ENCOUNTER → 2022-01-05 | Outpatient (CLI) | payer MEDICARE, OTHER, SELFPAY ==
--- NOTE | 2022-01-05 13:55 | CT_ITS ---
EXAM: CT MAXILLOFACIAL WITHOUT INTRAVENOUS CONTRAST CLINICAL INDICATION: CHRONIC SINUSITIS TECHNIQUE: Helically acquired images were obtained of the face without intravenous contrast. This CT exam was performed using one or more of the following dose reduction techniques: automated exposure control, adjustment of the mA and/or kV according to patient size, and/or use of iterative reconstruction technique. This report was created using [employer] report generation technology. COMPARISON: None. FINDINGS: BONES/JOINTS: Normal. No displaced fracture. No discrete lytic or blastic abnormalities. SOFT TISSUES: Normal. No focal subcutaneous swelling. No discrete fluid collections. ORBITS: Normal. Both globes are unremarkable. Extraocular muscles are normal. Retrobulbar fat appears unremarkable. SINUSES: Left ethmoid air cell opacification. Paranasal sinuses are otherwise clear. No billy bullosa. MASTOID AIR CELLS: Unremarkable as visualized. Clear. DENTAL: No acute findings. No periodontal osseous erosion. NASAL CAVITY/SEPTUM: Nasal septum is mildly deviated to the right of midline. CT/Sinus/Facial Bone IMPRESSION: Focal left ethmoid air cell opacification. Nasal septal deviation Electronically Signed: Anson Mc MD at 14:51 EST ,
== END | disposition home or self-care (01) ==
LOC: CT 13:44
PROVIDERS: PCP Internal Medicine; Visit Provider Otolaryngology
DX: J32.8 Other chronic sinusitis (principal)
CPT/HCPCS: 70486

== ENCOUNTER → 2022-01-25 | Outpatient (CLI) | payer MEDICARE, OTHER, SELFPAY ==
--- NOTE | 2022-01-25 08:51 | BI_ITS ---
MAMMOGRAPHY - BILATERAL SCREENING REASON FOR EXAM: Female, 81 years old. Routine annual screening examination. PERTINENT HISTORY: Grandmother with breast cancer. Aunts with breast cancer. History of prior right excisional breast biopsy and left stereotactic breast biopsies. TECHNIQUE: Digital bilateral breast shaina (3D mammographic acquisition) in the CC and MLO projections. 2-D mediolateral oblique (MLO) and craniocaudad (CC) views of both breasts were obtained. CAD: Full Field Digital Mammography with Computer Added Detection was performed. COMPARISON: Comparison is made with prior study dated 01/19/2021 and 01/06/2020. FINDINGS: Breast Composition: The breasts are heterogeneously dense, which may obscure small masses. There are no dominant masses or suspicious calcifications. Once again, 2 tissue markers are seen in the left breast in the upper and lower aspects. A pacemaker battery pack is seen in the left axillary region. No other significant abnormalities are identified. There has been no significant change since the prior study. BI/SCRN MAMM (CAD)W/SHAINA BILAT IMPRESSION: Stable bilateral screening mammogram. Yearly follow-up mammogram recommended. (A) ASSESSMENT CATEGORY: BIRADS Category 2: Benign. A letter regarding these results will be sent to the patient by the facility within 30 days. Approximately 10% of breast cancers are not detected by mammography. A normal mammogram should not delay biopsy of a clinically suspicious abnormality. [id number] Electronically Signed: Shade Lara MD at 9:39 EST ,
== END | disposition home or self-care (01) ==
LOC: OPBI 08:50
PROVIDERS: PCP Internal Medicine; Visit Provider Obstetrics & Gynecology
DX: Z12.31 Encounter for screening mammogram for malignant neoplasm of breast (principal)
CPT/HCPCS: 77063; 77067

== ENCOUNTER → 2022-01-26 | Outpatient (CLI) | payer MEDICARE, OTHER, SELFPAY ==
--- NOTE | 2022-01-26 10:59 | MRI_ITS ---
STUDY: MRI LUMBAR SPINE WITHOUT CONTRAST REASON FOR EXAM: Female, 81 years old. SPINAL STENOSIS. Leg weakness with lying down. TECHNIQUE: Standardized fat and water weighted pulse sequences were obtained in the sagittal and axial planes. COMPARISON: No relevant priors. FINDINGS: No fracture or acute osseous abnormality. Sagittal alignment anatomic. Mild left scoliosis centered at L3. Mildly heterogenous marrow signal probably blood marrow reconversion or other benign etiology. Multilevel disc space loss and degenerative endplate irregularity and signal changes. Pseudoarticulation between the spinous processes of L3-4 and L4-5 and associated degenerative changes. CONUS terminates the level of the L2 superior endplate with normal contour and signal. At L1-2, diffuse disc bulge and moderate facet degeneration causes only mild spinal canal narrowing. Disc and osteophyte extend into and moderately narrows the left foramen. Only mild right foraminal narrowing. At L2-3, diffuse disc bulge with underlying osteophytes and moderate bilateral facet degeneration with degenerative buckling of the ligamentum flavum causes only mild narrowing of the spinal canal and foramina. At L3-4, larger diffuse disc bulge and marked bilateral facet degeneration with degenerative buckling of the ligamentum flavum causes moderate narrowing of the spinal canal with crowding of the cauda equina. Disc and osteophyte extend into and, combining with scoliotic curvature, cause moderate to severe narrowing of the right foramen with mild mass effect upon the exiting right L4 nerve root. At L4-5, diffuse disc bulge and moderate bilateral facet degeneration causes only mild narrowing of the spinal canal and foramina. At L5-S1, diffuse disc bulge and mild facet degeneration causes only mild narrowing of the spinal canal. Disc and osteophyte extend into and causes mild right and moderate left foraminal narrowing with mild mass effect upon the exiting left L5 nerve root. The paraspinal soft tissues show no acute finding. 2.9 cm cyst in the liver is benign and does not require follow-up. MRI/Spine Lumbar (Routine) IMPRESSION: Extensive multilevel degenerative changes. Diffuse severe disc and facet degeneration throughout the lumbar spine could cause discogenic or facet type pain. Pseudoarticulation between the spinous processes at L4-5 and L5-S1 can also cause pain (Durham''s disease). Potential sources for radiculopathy include L3-4 where there is moderate spinal canal narrowing with crowding of the cauda equina and moderate narrowing of the right foramen with some mass effect upon the exiting right L4 nerve root. At L5-S1 there is moderate narrowing of the exiting left L5 nerve root in the left foramen. Electronically Signed: To Mckeon MD at 0:33 EST ,
[2022-01-26 12:17] VITALS: BP 126/71; PULSE 82; RESP 14; O2SAT 95
[2022-01-26 12:32] VITALS: BP 117/63; PULSE 84; RESP 16; O2SAT 93
== END | disposition home or self-care (01) ==
LOC: MRI 10:50
PROVIDERS: PCP Internal Medicine; Visit Provider Orthopaedic Surgery
DX: M48.061 Spinal stenosis, lumbar region without neurogenic claudication (principal); M51.36 Other intervertebral disc degeneration, lumbar region; M47.816 Spondylosis without myelopathy or radiculopathy, lumbar region
CPT/HCPCS: 72148

== ENCOUNTER → 2022-02-21 | Outpatient (CLI) | payer MEDICARE, OTHER, SELFPAY | END | disposition home or self-care (01) | LOC: LABSPEC 15:22 | PROVIDERS: PCP Internal Medicine; Referring Provider Otolaryngology Otolaryngology/Facial Plastic Surgery; Visit Provider Otolaryngology Otolaryngology/Facial Plastic Surgery | DX: J32.8 Other chronic sinusitis (principal) | CPT/HCPCS: 87070; 87077; 87186; 87205 ==

== ENCOUNTER 2022-02-22 11:00 | Outpatient (RCR) | payer MEDICARE, OTHER, SELFPAY ==
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
--- NOTE | 2022-05-25 11:10 | HP.PT.NRP ---
VALENTIN BANGURA was seen in my office for initial evaluation on 02/01/22. The following Plan of Care was established for this patient: Initial Frequency: 2-3x /Week Initial Duration: 4-6 Weeks Patient/Client Instruction: Educate patient on: Condition, Plan of Care, Risk Factors For the Purpose of:: To improve self management Therapeutic Exercise to Include: Strength training, Body mechanics, Postural training, Flexibilty training, Gait and locomotor training, Neuromotor development, In an aquatic setting, Dynamic Lumbar Stabilization For the Purpose of:: To decrease pain, To improve muscle performance and motor function, To increase tolerance to activity/condition/position, To improve ability of physical actions for home/community/work/leisure, To improve gait and locomotor functions This patient was last seen in our office 03/01/22. Pertinent comments regarding their Physical therapy will appear below: This patient has not returned to Physical Therapy and is appropriate to return to MD for further follow-up as needed. At this point I will be discontinuing this patient from physical therapy. I would be happy to see this patient again in the future if found appropriate by the physician. Thank you! Shila Medina, PT, Cert MDT Balance/Gait/Functional tests - Balance/Special Test Scores Oswestry Low Back Score: 21 TUG Test Time Seconds: 13.28 Tug Test: <20 sec.=mostly independent 30 Second Chair Rise Test Seconds: 9
== END 2022-02-22 19:00 | disposition home or self-care (01) ==
LOC: PT 11:00
PROVIDERS: PCP Internal Medicine; Referring Provider Orthopaedic Surgery; Visit Provider Orthopaedic Surgery
DX: M48.061 Spinal stenosis, lumbar region without neurogenic claudication (principal); M47.816 Spondylosis without myelopathy or radiculopathy, lumbar region
CPT/HCPCS: 97162; 97530

== ENCOUNTER 2024-08-24 23:22 | Emergency (ER) | payer MEDICARE, OTHER, SELFPAY ==
[2024-08-24 23:23] VITALS: BP 97/81; PULSE 66; RESP 13; TEMP 36.6; O2SAT 100; BMI 25.4
[2024-08-24 23:30] VITALS: BP 107/57
[2024-08-24 23:38] VITALS: BP 107/57; BP 115/64; BP 120/59; PULSE 72; PULSE 85
--- NOTE | 2024-08-25 00:15 | CT_ITS ---
PROCEDURE: BRAIN/HEAD WITHOUT CONTRAST 08/25/2024 REASON FOR EXAM: DIZZINESS TECHNIQUE: BRAIN/HEAD WITHOUT CONTRAST Coronal and Sagittal reconstruction series were provided. One or more dose reduction techniques were used (e.g., Automated exposure control, adjustment of the mA and/or kV according to patient size, use of iterative reconstruction technique. RADIATION DOSE SUMMARY: CTDlvol: 45 mGy DLP: 813 mGycm COMPARISON: No FINDINGS: Diffuse atrophy. Very mild white matter change. No acute abnormal brain densities. No intracranial hemorrhage. No hydrocephalus or midline shift. No acute scalp or skull pathology. Bilateral lens replacement. Small sinus opacification. Clear mastoid air cells and middle ear cavities. CT/Brain/Head without Contrast IMPRESSION: No acute intracranial findings. Reading Location: [place] [id number]
--- NOTE | 2024-08-25 00:15 | EKG12_ITS ---
Test Reason : DYSRHYTHMIA Blood Pressure : */* mmHG Vent. Rate : 69 BPM Atrial Rate : 69 BPM P-R Int : 196 ms QRS Dur : 104 ms QT Int : 450 ms P-R-T Axes : 38 -62 65 degrees QTcB Int : 482 ms Normal sinus rhythm Left axis deviation Low voltage QRS Incomplete right bundle branch block Abnormal ECG Confirmed by BURAK LESLIE, LEANNE ([id number]), supervising editor news reel ZAK ADAMES ([id number]) on 08/26/2024 6:36:08 AM Referred By: Confirmed By: LEANNE SUMNER MD
--- NOTE | 2024-08-25 00:17 | EDS_ITS ---
HPI History of Present Illness Chief Complaint: Dizziness Detail of Chief Complaint: Dizziness Informant: patient Narrative Narrative: Patient presents with dizziness that started around 8 PM. Patient states that she had eaten dinner and 1 sat watching TV. She tried to stand up and felt slightly dizzy. She sat back down for about 10 minutes and try to stand up again and felt dizzy. She thinks maybe things were spinning. The third time she tried to get up to go to the bed and felt like she might pass out. She got nauseated and felt like she might pass out but did not. Patient has a pacemaker. She denied any palpitations or racing heart. She had a tinges of chest discomfort when she moves her right arm but then that resolved. She is visiting here from [place] and is scheduled to go back tomorrow. She flew here last week. 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 Degenerative disc disease Elevated serum creatinine Esophageal reflux Family history of breast cancer in female Fatty infiltration of liver GERD (gastroesophageal reflux disease) Hearing loss, left Hearing loss, right Hypertension Hypothyroidism Inflammatory arthritis Irregular heart beat Mobitz type 2 second degree AV block Multiple thyroid nodules Non-rheumatic mitral regurgitation Nonrheumatic mitral (valve) prolapse ROBERT treated with BiPAP (~12/08/21) Osteopenia Post-menopausal Premature ventricular contraction Presence of permanent cardiac pacemaker (~11/11/20) Psoriatic arthritis Psoriatic arthritis Sicca syndrome Sleep apnea SVT (supraventricular tachycardia) Syncope Ventricular tachycardia Vitamin D deficiency Wears glasses Home Medications ?Medication ?Instructions ?Recorded ?Last Taken ?Type sumatriptan succinate 50 mg tablet 50 mg PO .X1 PRN mi graine 07/31/13 Unknown History (Imitrex) cyclobenzaprine 10 mg tablet 10 mg PO PRN PRN Pain Unknown History celecoxib 200 mg capsule (Celebrex) 200 mg PO BID 04/27 08/16 Unknown History acetaminophen 325 mg tablet 650 mg PO BID PRN Pain, Mi ld 09/28/20 Unknown History halobetasol propionate 0.05 % 1 applic topical DAILY 0 09/28/20 Unknown History topical cream peg 400-propylene glycol 0.4 %-0.3 1 drp ophthalmic (e ye) DAILY 09/28/20 Unknown History % eye drops (Systane (propylene glycol)) apremilast 30 mg tablet (Otezla) 30 mg PO BID 09/30/20 Unknown History aspirin 81 mg chewable tablet 81 mg PO DAILY 09/30/20 10/26/20 History diclofenac sodium 1 % topical gel 2 g topical BID 07/16 Unknown History (Voltaren) estradiol 0.01% (0.1 mg/gram) 1 applic vaginal .3XW Unknown History vaginal cream famotidine 20 mg tablet (Pepcid) 20 mg PO DAILY Unknown History beclomethasone dipropionate 80 2 inh inhalation DAILY PRN 01/26/21 Unknown History mcg/actuation nasal HFA inhaler levothyroxine 50 mcg tablet 50 mcg PO DAILY 01/26/22 U nknown History verapamil 120 mg tablet,extended 120 mg PO DAILY #90 t abs 01/30/22 Unknown Rx release spironolactone 25 mg tablet 25 mg PO DAILY 08/08/22 Un known History meclizine 25 mg tablet 25 mg PO TID PRN dizziness # 14 tabs 08/25/24 Unknown Rx ondansetron 4 mg disintegrating 4 mg PO Q8H PRN PRN Na usea #10 tabs 08/25/24 Unknown Rx tablet Allergy/AdvReac Type Severity Reaction Status Date / Time adhesive Allergy Rash Verified 08/24/24 23:27 benzocaine Allergy Other Verified 08/24/24 23:27 estrogens, conjugated (From Allergy Shortness Verified 08/24/24 23:27 Premarin) of breath gluten Allergy Other Verified 08/24/24 23:27 hydroxychloroquine sulfate Allergy Rash Verified 08/24/24 23:27 (From Plaquenil) lanolin Allergy Rash Verified 08/24/24 23:27 meloxicam (From Mobic) Allergy Other Verified 08/24/24 23:27 minocycline (Minocycline) Allergy Other Verified 08/24/24 23:27 palm oil Allergy Hives Verified 08/24/24 23:27 codeine AdvReac Nausea/Vom/ Verified 08/24/24 23:27 Diarrhea esomeprazole magnesium (From AdvReac Other Verified 08/24/24 23:27 Nexium) metoprolol AdvReac Rash-itch, Verified 08/24/24 23:27 [place] omeprazole (From Prilosec) AdvReac Other Verified 08/24/24 23:27 omeprazole magnesium (From AdvReac Other Verified 08/24/24 23:27 Prilosec) Opioids - Morphine Analogues AdvReac Vomiting Verified 08/24/24 23:27 sulindac (From Clinoril) AdvReac Rash Verified 08/24/24 23:27 Family History (Reviewed 08/08/22 @ 11:25 by Lino Barragan OCCUPATIONAL THERAPIST PER DIEM, OCCUPATIONAL THERAPIST PER DIEM-C) Mother CHF (congestive heart failure) Hypertension Graves disease Father Diabetes Hypertension Surgical History (Reviewed 08/08/22 @ 11:25 by Lino Barragan OCCUPATIONAL THERAPIST PER DIEM, OCCUPATIONAL THERAPIST PER DIEM-C) History of left heart catheterization (LHC) (~10/26/20) History of total left hip arthroplasty Hx of carpal tunnel repair Hx of hand surgery Hx of parathyroidectomy Hx of total knee replacement S/P arthroscopic knee surgery S/P cataract surgery S/P colonoscopy S/P placement of cardiac pacemaker (~11/11/20) S/P tonsillectomy Status post right hip replacement Status post total knee replacement, left Social History Smoking Status: Never smoker second hand exposure: No alcohol intake: never substance use type: does not use caffeine: Yes what type of physical activity do you participate in: none frequency: does not exercise seatbelt use: always ROS ROS ED Review of Systems ROS Unobtainable: other Constitutional Constitutional ED: Reports lethargy; Denies chills, fever(s), sweats or weight loss Eyes Eyes: Denies blurry vision, change in vision or diplopia ENT ENT ED: Denies rhinorrhea or sore throat Cardiovascular Cardiovascular: Denies chest pain, orthopnea or racing heartbeat Respiratory/Chest Respiratory/Chest: Denies cough, dyspnea, dyspnea on exertion, orthopnea or sputum Gastrointestinal Gastrointestinal: Denies abdominal pain, diarrhea, nausea or vomiting Genitourinary Genitourinary ED: Denies dysuria, hematuria or urinary frequency Musculoskeletal Musculoskeletal: Denies arthralgias, back pain, myalgias or neck pain Integumentary Denies abscess, Abrasions or rash Neurologic Neurologic: Reports other Details: Dizziness ; Denies headache(s) or weakness Psychiatric Psychiatric: Denies anxiety, depression or suicidal thoughts Endocrine Endocrinology: Denies polydipsia, polyphagia or polyuria Hematologic/Lymphatic Hematologic/Lymphatic: Denies easy bleeding, easy bruising or lymphadenopathy Allergic/Immunologic Allergic/Immunologic ED: Denies mouth swelling, tongue swelling or urticaria EXAM Physical Exam Const Vital Signs: 08/24/24 23:23 08/24/24 23:30 08/24/24 23:38 Temperature 97.9 F Temperature Source Oral Pulse Rate 66 Pulse Rate [Sitting (for 1 minute prior to obtaining)] 72 Pulse Rate [Standing (for 1 minute prior to obtaining)] 85 Respiratory Rate 13 Blood Pressure 97/81 H 107/57 L Blood Pressure [Lying] 107/57 L Blood Pressure [Sitting (for 1 minute prior to obtaining)] 115/64 Blood Pressure [Standing (for 1 minute prior to obtaining)] 120/59 L Blood Pressure Mean 86 73 Blood Pressure Mean [Lying] 73 Blood Pressure Mean [Sitting (for 1 minute prior to obtaining)] 81 Blood Pressure Mean [Standing (for 1 minute prior to obtaining)] 79 Pulse Ox 100 Oxygen Delivery Method Room Air 08/25/24 01:22 Temperature Temperature Source Pulse Rate 72 Pulse Rate [Sitting (for 1 minute prior to obtaining)] Pulse Rate [Standing (for 1 minute prior to obtaining)] Respiratory Rate 15 Blood Pressure 106/57 L Blood Pressure [Lying] Blood Pressure [Sitting (for 1 minute prior to obtaining)] Blood Pressure [Standing (for 1 minute prior to obtaining)] Blood Pressure Mean 73 Blood Pressure Mean [Lying] Blood Pressure Mean [Sitting (for 1 minute prior to obtaining)] Blood Pressure Mean [Standing (for 1 minute prior to obtaining)] Pulse Ox 93 Oxygen Delivery Method Room Air Positive well nourished and well developed General Appearance ED: well developed and NAD HEENT Reports TM's clear and moist mucous membranes normocephalic and atraumatic; Negative for trauma or tenderness Tympanic Membrane ED: Yes TM's clear Eyes PERRL and EOMs intact bilaterally General Eye ED: Negative for pale conjunctiva or scleral icterus Neck no lymphadenopathy, supple and no JVD General: Negative for tenderness Chest Wall inspection of chest normal and palpation of chest normal Chest: Negative for tenderness Resp normal respiratory effort and clear to auscultation bilaterally Effort and Inspection: Negative for respiratory distress or pain with movement Auscultation: Negative for rhonchi, wheezes or diminished lung sounds Cardio regular rate, regular rhythm, S1 normal heart sound, S2 normal heart sound and no murmurs Peripheral Pulses: pulses 2+ throughout GI normal to inspection, nondistended, normoactive bowel sounds, soft to palpation, non-tender, non-distended and no masses Back/Spine no CVA tenderness and no thoracic nor lumbar tenderness Extremity normal to inspection General Extremety ED: Negative for edema General Extremity: Negative for edema Neuro oriented x3, CN's II-XII intact bilaterally, no sensory deficits noted and gait normal Neuro Narrative: [id number] and [id number] testing within normal limits, negative Romberg, negative pronator drift. Patient was Hallpike and there was no nystagmus but she was nauseated with sitting up. Sensorium / Orientation: awake, alert, oriented to person, oriented to place and oriented to time Motor Exam: strength 5/5 throughout and strength abnormal Psych mental status grossly normal Skin no rashes or lesions noted and no wounds MDM MDM MDM Narrative Medical decision making narrative: Patient presents with dizziness and some symptoms of vertigo that are made worse with standing. Clinically looks well on arrival. EKG obtained on arrival shows sinus rhythm with rate of 69 bpm with incomplete right bundle branch block and no acute ST segment changes. CBC with differential shows a white count of 7.8 with hemoglobin 12.5 and platelet count of 299. Chemistries unremarkable. Troponin was normal at 8. Urinalysis was normal. CT scan of the brain without contrast was unremarkable. While in department she received Antivert and Zofran. Patient's symptoms essentially resolved. She was able to walk to the bathroom without difficulty. She had orthostatic vital signs on arrival that were negative. At this point I suspect likely peripheral vertigo as the etiology of her symptoms. Will write her a prescription for Antivert and Zofran. Advised to follow-up with her primary care physician within next 3 to 5 days Lab Data Attestation: I reviewed the patient's lab results. Labs: Laboratory Results - last 24 hr 08/24/24 08/25/24 23:35 01:04 WBC 7.8 RBC 3.96 L Hgb 12.5 Hct 36.5 L MCV 92.2 MCH 31.6 MCHC 34.2 RDW Std Deviation 48.4 H RDW Coeff of Tuan 14.6 Plt Count 299 MPV 9.4 Immature Gran % (Auto) 0.400 Neut % (Auto) 63.8 Lymph % (Auto) 28.2 [place] % (Auto) 5.0 Eos % (Auto) 1.8 Baso % (Auto) 0.8 Absolute Neuts (auto) 5.0 Absolute Lymphs (auto) 2.20 Nucleated RBC % 0 D-Dimer Quant (PE/DVT) 0.45 Sodium 140 Potassium 3.5 Chloride 101 Carbon Dioxide 22.5 Anion Gap 17 H BUN 20 H Creatinine 1.00 Estim Creat Clear Calc 35.72 L Est GFR (MDRD) Non-Af 56 L BUN/Creatinine Ratio 19.6 Glucose 94 Calcium 10.1 Troponin T High Sens 8 Urine Color Yellow Urine Clarity Clear Urine pH 7.0 Ur Specific [place] 1.010 Urine Protein 15 H Urine Glucose (UA) Normal Urine Ketones 15 H Urine Occult Blood Negative Urine Nitrite Negative Urine Bilirubin Negative Urine Urobilinogen Normal Ur Leukocyte Esterase Negative Urine RBC 0 SEEN Urine WBC 0-5 SEEN Ur Squamous Epith Cells 0 SEEN Urine Bacteria RARE Urine Mucus 0 SEEN Radiography Diagnostic Testing: Clinical Impression(s) from Imaging Studies Brain CT 08/25/24 00:15 IMPRESSION: No acute intracranial findings. Reading Location: [place] [id number] EKG Initial EKG: Attestation: I personally reviewed and interpreted this EKG as follows: Comments: Sinus rhythm with rate of 69 bpm with incomplete right bundle branch block Discharge Plan Triage Chief Complaint: Dizziness ED Provider: Amanda Lewis Dx/Rx/DC Orders Clinical Impression: BPV (benign positional vertigo) Instructions: BPPV Prescriptions: New meclizine 25 mg tablet 25 mg PO TID PRN (Reason: dizziness) Qty: 14 0RF ondansetron 4 mg tablet,disintegrating 4 mg PO Q8H PRN PRN (Reason: Nausea) Qty: 10 0RF No Action cyclobenzaprine 10 mg tablet 10 mg PO PRN PRN (Reason: Pain) diclofenac sodium [Voltaren] 1 % gel 2 g TOPICAL BID aspirin 81 mg tablet,chewable 81 mg PO DAILY halobetasol propionate 0.05 % cream 1 applic topical DAILY acetaminophen 325 mg tablet 650 mg PO BID PRN (Reason: Pain, Mild) Systane (propylene glycol) 0.4-0.3 % drops 1 drp ophthalmic (eye) DAILY famotidine [Pepcid] 20 mg tablet 20 mg PO DAILY levothyroxine 50 mcg tablet 50 mcg PO DAILY spironolactone 25 mg tablet 25 mg PO DAILY sumatriptan succinate [Imitrex] 50 MG tablet 50 mg PO .X1 PRN Patient Comments: migraine Otezla 30 mg tablet 30 mg PO BID beclomethasone dipropionate 80 mcg/actuation HFA aerosol inhaler 2 inh inhalation DAILY PRN celecoxib [Celebrex] 200 MG capsule 200 mg PO BID estradiol 0.01 % (0.1 mg/gram) cream 1 applic VAGINAL .3XW verapamil 120 mg tablet extended release 120 mg PO DAILY Qty: 90 3RF Primary Care Provider: Brinda Case Referrals: Brinda Case MD [Primary Care Provider] - Activity Restrictions/Additional Instructions: Follow-up with your primary care physician within next 3 to 5 days Print Language: Italian Disposition Disposition: Home, Self Care
[2024-08-25 00:46] LABS: Basophil# 0.06 X10^3/uL; Basophil% 0.8 % (0-1); Eosinophil# 0.14 X10^3/uL; Eosinophils% 1.8 % (0-5); Hematocrit 36.5 % (37-47); Hemoglobin 12.5 g/dL (12.0-15.0); Lymphocyte % 28.2 % (19-41); Mean Corp Hgb Conc 34.2 g/dL (32-36); Mean Corpuscular Hgb 31.6 pg (27.0-32.0); Mean Corpuscular Volume 92.2 fL (81-99); Mean Platelet Vol. 9.4 fl (6.2-12.0); Monocyte# 0.39 X10^3/uL; NRBC Flagged by Analyzer 0 % (0-5); Neutrophil # 4.98 X10^3/uL (2.7-7.7); Neutrophil % 63.8 % (47-70); Platelet Count 299 K/mm3 (150-450); RBC Distribution Width CV 14.6 % (11.6-14.6); RBC Distribution Width SD 48.4 fl (35.1-43.9); Red Blood Count 3.96 M/mm3 (4.2-5.4); White Blood Count 7.8 K/mm3 (4.4-11.0)
[2024-08-25 00:50] LABS: D-Dimer Quantitative (DVT/PE) 0.45 FEU/ug/m (0.27-0.49)
[2024-08-25] MEDS: Ondansetron 4 MG/2 ML Vial IV (00:57)
[2024-08-25] MEDS: 0.9% Normal Saline (1000mL) 1,000 ML 150 ML IV (00:57)
[2024-08-25] MEDS: Meclizine HCl 25 MG Tablet PO (01:00)
[2024-08-25 01:04] LABS: Anion Gap 17 (5-15); BUN 20 mg/dL (4-19); BUN/Creat Ratio 19.6 RATIO (10-20); Calcium,Total 10.1 mg/dL (7.6-11.0); Carbon Dioxide 22.5 mmol/L (21.0-32.0); Chloride 101 mmol/L (98-108); EST Glomerular Filtration Rate 56 (>60); Estimated Creatinine Clearance 35.72 ml/min (50-250); Glucose 94 mg/dL (70-99); Potassium 3.5 mmol/L (3.3-5.1); Sodium Level 140 mmol/L (133-145)
[2024-08-25 01:10] LABS: Mucous, Urine 0 SEEN /hpf (<or=2+); Red Blood Cells-Urine 0 SEEN /hpf (0-5); Squamous Epithelial Cells - UA 0 SEEN /hpf (5-10)
[2024-08-25 01:15] LABS: Troponin T High Sensitivity 8 ng/L (<=14)
[2024-08-25 01:22] VITALS: BP 106/57; PULSE 72; RESP 15; O2SAT 93
--- OUTSIDE RECORDS SUMMARY | 2024-08-25 01:29 | XMS RPT_ITS | CCD ---
Author Organization [facility] CliniSyal Care Team Providers Care City 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 Name Role Phone Simone Jeffers MD Unavailable [phone] JENNIFER MARGARITA Unavailable Unavailable JENNIFER, MARGARITA Unavailable Unavailable TALAMPAS, GINI Unavailable Unavailable JENNIFER, MARGARITA Unavailable Unavailable JENNIFER, MARGARITA Unavailable Unavailable TALAMPAS, GINI Unavailable Unavailable Melissa, Adán K Unavailable Unavailable Melissa, Adán K Unavailable Unavailable No Doctor Assigned, Nodr Unavailable Unavail able Gentry Liu Unavailable Unavailable Melissa, Adán Gtz Unavailable Unavailable Talampas, Gini Unavailable Unavailable JAYLEN TO Attending Unavailable LAUREN, GINI Primary Care Unavailable BONG CORTEZ Referring Unavailable Nikos Cordova MD Unavailable Gini Aguilar MD Primary Care Provider Vincent Cruz MD, William J Unavailable Gini Aguilar MD Primary Care Provider Vincent Cruz MD, William J Unavailable Dr. Gini Aguilar Primary Care Provider Dr. Gini Aguilar Referring Provider Dr. Bong Cortez Attending Provider Tyshawn PERKINS, DAILY Sanz Attending Provider Vincent Cruz MD, William J Unavailable Dr. Gini Aguilar Primary Care Provider Dr. Gini Aguilar Referring Provider Dr. Bong Cortez Attending Provider Tyshawn FORM TAMPER OPERATOR, FORM TAMPER OPERATORRaphaelC Umu Attending Provider Gini Aguilar MD Primary Care Provider Vincent Cruz MD, Robert Malin Unavailable Melida Rose Attending Provider Unavailable Yung FORM TAMPER OPERATOR, FORM TAMPER OPERATOR-C Lino Mina Attending Provider Dr. Gini Aguilar Primary Care Provider Dr. Gini Aguilar Referring Provider Dana, Dr. Woody Attending Provider Lauren, Dr. Gini Monique Primary Care Provider Lauren, Dr. Gini Monique Referring Provider Dana, Dr. Woody Attending Provider Yung FORM TAMPER OPERATOR, DAILY Mina Attending Provider Melida Rose Attending Provider Unavailable Gini Aguilar Primary Care Provider [phone] Gini Aguilar Primary Care Provider [phone] EL PEREZ Attending Unavailable GINI AGUILAR Primary Care Unavailable Dennis Bowens MD Primary Care Provider NATHALIE BOURNE Referring Unavailable DENNIS BOWENS Primary Care Unavailable DENNIS BOWENS Primary Care Unavailable Amanda Lewis Attending Unavailable Gini Aguilar Primary Care Unavailable Allergies Allergy Classification Reported Allergen(s) Allergy Type Date of Onset Reaction(s) Facility (20 sources) Adhesive Tape; Translations: [ADHESIVE TAPE (ROSINS)] Propensity to adverse reactions (disorder) 04-10-19 06 Rash [facility] Repository (20 sources) benzocaine; Translations: [BENZOCAINE] Drug Allergy 08-19-19 06 Intolerance [facility] Repository (20 sources) codeine; Translations: [CODEINE] Drug Allergy 04-05-19 12 GI Upset [facility]ository (20 sources) EPINEPHrine; Translations: [EPINEPHRINE] Drug Allergy 12-15-19 05 [facility] (20 sources) esomeprazole; Translations: [ESOMEPRAZOLE MAGNESIUM] Drug Allergy 09-13-19 11 Other: See Comments [facility] (20 sources) hydroxychloroquine; Translations: [HYDROXYCHLOROQUINE SULFATE] Drug Allergy 12-15-19 05 Rash [facility] (20 sources) lanolin; Translations: [LANOLIN] Drug Allergy 12-15-19 05 rash [facility] (20 sources) meloxicam; Translations: [MELOXICAM] Drug Allergy 01-05-20 05 Other [facility] (20 sources) minocycline; Translations: [MINOCYCLINE] Drug Allergy 12-15-19 05 dizzy, Other [facility] (20 sources) omeprazole; Translations: [OMEPRAZOLE MAGNESIUM] Drug Allergy 09-13-19 11 Other: See Comments [facility] (20 sources) pantoprazole; Translations: [PANTOPRAZOLE SODIUM] Drug Allergy 09-13-19 11 Other: See Comments [facility] (20 sources) Seasonal allergy; Translations: [SEASONAL ALLERGIES] Propensity to adverse reactions (disorder) 04-01-19 15 Other: See Comments [facility] (20 sources) sulindac; Translations: [SULINDAC] Drug Allergy 12-15-19 05 Rash [facility] (20 sources) CONJUGATED ESTROGENS; Translations: [CONJUGATED ESTROGENS] Propensity to adverse reactions (disorder) 12-15-19 05 [facility] (20 sources) OPIOIDS - MORPHINE ANALOGUES; Translations: [OPIOIDS - MORPHINE ANALOGUES] Propensity to adverse reactions (disorder) 09-25-19 14 Vomiting [facility] Repository (10 sources) SHEEP/OVINE CONTAINING PRODUCTS; Translations: [SHEEP/OVINE CONTAINING PRODUCTS] Propensity to adverse reactions (disorder) 01-05-20 05 [facility] (2 sources) OTHER; Translations: [OTHER] Propensity to adverse reactions (disorder) 01-05-20 05 [facility] (4 sources) Adhesive Tape; Translations: [TAPE] allergy to substance 12-18-19 14 [facility] Work Phone: (2 sources) Codeine Drug Allergy 12-18-19 14 vomiting [facility] Work Phone: (2 sources) Esomeprazole Drug Allergy 12-18-19 14 [facility] Work Phone: (2 sources) Estrogens, Conjugated (LONG-TERM) Drug Allergy 12-18-19 14 wheeze [facility] Work Phone: (2 sources) Hydroxychloroquine Drug Allergy 12-18-19 14 liver reaction [facility] Work Phone: (2 sources) meloxicam Drug Allergy 12-18-19 14 liver reaction [facility] Work Phone: (2 sources) Omeprazole Drug Allergy 12-18-19 14 [facility] Work Phone: (5 sources) Opioid Agonists drug allergy 04-01-19 16 Vomiting [facility] Work Phone: (2 sources) Seasonal allergy; Translations: [SEASONAL] allergy to substance 12-18-19 14 [facility] Work Phone: (2 sources) Sulindac Drug Allergy 12-18-19 14 liver reaction [facility] Work Phone: (20 sources) Metoprolol; Translations: [METOPROLOL] Drug Allergy 11-11-19 20 Rash, GI Upset [facility] Work Phone: (20 sources) Palm Oil; Translations: [PALM OIL] Drug Allergy 05-18-19 21 Intolerance [facility] (20 sources) horse serum [Other] Propensity to adverse reactions 01-05-20 05 [facility] Work Phone: (6 sources) Adhesive agent; Translations: [adhesive] Allergy to substance 12-09-19 22 Rash [facility] (5 sources) Estrogens, Conjugated (LONG-TERM) Drug Allergy 12-09-19 22 Shortness of breath [facility] (7 sources) Omeprazole Drug Allergy 09-13-19 11 Other [facility] (5 sources) Wheat gluten extract Drug Allergy 12-09-19 22 Other [facility] (3 sources) Opiods Propensity to adverse reactions 12-09-19 22 Vomiting [facility] Work Phone: (18 sources) Sheep/Ovine/Mina Containing Products; Translations: [SHEEP/OVINE/MINA CONTAINING PRODUCTS] Propensity to adverse reactions 01-05-20 05 [facility] Work Phone: (2 sources) Esomeprazole Drug Allergy 09-13-19 11 [facility] [employer] (2 sources) Gluten Allergy to substance 01-02-20 [facility] (2 sources) Hydroxychloroquine Drug Allergy 12-15-19 05 [facility] (2 sources) Meperidine Drug Allergy 01-02-20 [facility] (2 sources) nabumetone Drug Allergy 06-28-19 23 [facility] (2 sources) pantoprazole Drug Allergy 09-13-19 11 [facility] (2 sources) Hydrogenated Palm Oil Glycerides Allergy to substance 05-18-19 [facility] [employer] (1 source) Estrogens, Conjugated (LONG-TERM) Drug Allergy 08-25-19 [facility] Repository (1 source) Gluten Drug allergy (disorder) 08-25-19 [facility] Repository (1 source) Omeprazole Drug Allergy 08-25-19 [facility] Repository (1 source) palm oil Drug allergy (disorder) 08-25-19 [facility] Repository Medications Current Medications Medication Drug Class(es) Dates Sig (Normalized) Sig (Original) acetaminophen 325 mg oral tablet (20 sources) Start: 09-28-2020 take 650 mg by mouth twice daily Acetaminophen Active 650 MG PO TWICE A DAY September 28, 2020 12:00am Start: 07-15-2020 End: 09-28-2020 take 3000 mg by mouth every eight hours Acetaminophen Discontinued 1000 MG PO EVERY 8 HOURS July 15, 2020 12:00am September 28, 2020 1:19pm Do not take more than 3000 mg Tylenol in a 24-hour period. Start: 08-13-2013 End: 07-15-2020 take 650 mg by mouth every eight hours Acetaminophen Discontinued 650 MG PO EVERY 8 HOURS May 17, 2017 11:23am July 15, 2020 7:19am take 650 mg by mouth twice daily ACETAMINOPHEN (TYLENOL 8 HOUR ORAL) Take 650 mg by mouth twice daily. 0 Active Comment on above: Take 650 mg by mouth twice daily. apremilast 30 mg oral tablet (20 sources) Start: 09-30-2020 take 1 tablet by mouth twice daily Apremilast (Otezla) 30 mg tablet Active 30 MG PO TWICE A DAY September 30, 2020 11:00am Start: 09-28-2020 End: 09-30-2020 take 1 tablet by mouth once daily Apremilast (Otezla) 30 mg tablet Discontinued 30 MG PO DAILY September 28, 2020 1:18pm September 30, 2020 11:04am Start: 08-28-2019 take 2 tablets by mo uth once daily, then take 1 tablet by mouth in the morning, then take 1 tablet by mouth in the evening OTEZLA 30 mg tablet Take 2 tablets by mouth once daily. Takes 1 tablet in am and 1 tablet in pm 0 08/28/2019 Active Start: 12-17-2013 End: 09-28-2020 take 1 tablet by mouth twice daily Apremilast (Otezla) 30 MG tablet Discontinued 30 MG PO TWICE A DAY July 11, 2019 12:00am September 28, 2020 1:22pm apremilast (Otez la) 30 MG tablet every 12 hours. 0 Active Comment on above: Take 2 tablets by mo uth once daily. Take 2 tablets by mo uth once daily. Takes 1 tablet in am and 1 tablet in pm aspirin 81 mg chewable tablet (20 sources) Platelet Aggregation Inhibitor, Nonsteroidal Anti-inflammatory Drug Start: 09-30-2020 take 81 mg by mouth once daily Aspirin Active 81 MG PO DAILY September 30, 2020 11:01am Start: 07-15-2020 End: 09-30-2020 take 81 mg by mouth twice daily at mealtime Aspirin Discontinued 81 MG PO TWICE DAILY WITH MEALS 60 July 15, 2020 12:00am September 30, 2020 11:04am Take 81 mg aspirin twice daily for 4 weeks postoperatively for DVT prophylaxis Start: 05-09-2017 End: 07-15-2020 take 1 tablet by mouth once daily Aspirin (Adult Aspirin Regimen) 81 mg tablet,delayed release (DR/EC) Discontinued 81 MG PO DAILY May 09, 2017 12:00am July 15, 2020 7:19am Start: 07-31-2013 End: 08-13-2013 take 81 mg by mouth once daily Aspirin Discontinued 81 MG PO DAILY@0800 July 31, 2013 12:00am August 13, 2013 11:13am Start: 12-14-2004 ASPIRIN 81 MG TAB Take one (1) tablet daily . 0 12/14/2004 Active Comment on above: Take one (1) tablet daily . beclomethasone dipropionate 0.08 mg/actuat metered dose nasal spray (20 sources) Corticosteroid Start: 08-02-19 take 2 spray(s) nasal route once daily Qnasl 80 MCG/ACT aerosol solution Administer 2 sprays into each nostril daily. 0 08/01/2022 Active Start: 12-30-2020 End: 01-26-2021 Beclomethasone Dipropionate Active 2 INH INHALATION DAILY January 26, 2021 11:32am Start: 07-11-2019 End: 12-30-2020 take 1 puff(s) by inhalation once daily Beclomethasone Dipropionate Discontinued 2 PUFF INHALATION DAILY July 11, 2019 12:00am December 30, 2020 11:30am Comment on above: Use in each nostril. diclofenac sodium 0.01 mg/mg topical gel (20 sources) Nonsteroidal Anti-inflammatory Drug Start: 10-14-2019 VOLTAREN 1 % GEL as needed as directed DICLOFENAC SODIUM [id number] Xenia Pradhan LPN Start: 08-15-2017 diclofenac sod ium (VOLTAREN) 1 % topical gel Apply moderate amount to painful areas on hands (2g) & knees (4g) up to three times daily as needed. Don't exceed a total of 32g daily. 1 Tube 11 08/15/2017 Active Start: 05-09-2017 End: 09-30-2020 apply 2 g topically twice daily Diclofenac Sodium (Vol tushar) 1 % gel Active 2 GM TOPICAL TWICE A DAY September 30, 2020 11:02am Comment on above: Apply moderate amoun t to painful areas on hands (2g) & knees (4g) up to three times daily as needed. Don't exceed a total of 32g daily. fluticasone propionate 0.05 mg/actuat metered dose nasal spray (2 sources) Corticosteroid Start: 06-02-202 3 take 2 spray(s) nasal route once daily fluticasone (Flonase) 50 MCG/ACT nasal spray Administer 2 sprays into each nostril daily. 0 07/28/2022 Active folic acid 1 mg oral tablet (18 sources) Start: 3 take 1 tablet by mouth once daily folic acid (Folvite) 1 MG tablet take 2 tablets by mouth once daily 0 05/10/2022 Active Start: 12-27-2021 take 2 tablets by [facility] once daily folic acid 1 mg tablet Take 2 tablets by mouth once daily. 180 tablet 3 12/27/2021 Active Comment on above: Take 2 tablets by [facility] once daily. halobetasol propionate 0.5 mg/ml topical cream (20 sources) Corticosteroid Start: 09-28-2020 Halobetasol Propionate Active 1 APPLIC TOPICAL DAILY September 28, 2020 12:00am Start: 08-22-2017 Halobetasol Pr opionate (ULTRAVATE) 0.05 % cream Apply selectively to spots//plaques of eczema and possible psoriasis on elbows and hands twice per day for up to 4-6 weeks or less as needed until clear and then try to stop or taper off to a bland emollient cream such as CeraVe cream or Cetaphil cream applied twice per day to other dry skin. 15 g 3 08/22/2017 Active Comment on above: Apply selectively to spots//plaques of eczema and possible psoriasis on elbows and hands twice per day for up to 4-6 weeks or less as needed until clear and then try to stop or taper off to a bland emollient cream such as CeraVe cream or Cetaphil cream applied twice per day to other dry skin. polyethylene glycol 400 4 mg/ml / propylene glycol 3 mg/ml ophthalmic solution (20 sources) Start: 09-28-2020 Peg 400-Propylene Glycol (Systane (Propylene Glycol)) 0.4-0.3 % drops Active 1 DRP OPHTHALMIC DAILY September 28, 2020 12:00am Start: 12-17-2013 SYSTANE SOLN b oth eyes as needed as directed POLYETHYL GLYCOL-PROPYL GLYCOL SOLN [id number] Xenia Pradhan LPN Start: 04-10-2005 SYSTANE 0.4 %- 0.3 % EYE DROPS daily as directed 0 0 04/10/2005 Active Comment on above: daily as directed predniSONE 5 mg oral tablet (20 sources) Start: 12-08-2021 take 2.5 mg by mouth every other day Prednisone Active 2.5 MG PO every other day December 08, 2021 12:00am Start: 11-23-2021 End: 06-26-2022 take 2.5 mg by mouth every other day predniSONE (DELTASONE) 5 mg tablet Take 2.5 mg by mouth every other day. 0 11/23/2021 06/26/2022 Discontinued Start: 10-06-2020 End: 12-30-2020 take 3 tablets by mouth once daily Prednisone Discontinued 60 MG PO .COMPLEX October 06, 2020 4:47pm November 10, 2020 10:13am Take 3 tablets PO at noon the day before your heart cath Take 3 tablets PO at bedtime the night before your cath. Take 3 tablets PO the morning of your cath predniSONE (Delt asone) 5 MG tablet 1-2 tabs 0 Active Comment on above: Take 2.5 mg by mouth every other day. Completed/Discontinued Medications Medication Drug Class(es) Dates Sig (Normalized) Sig (Original) benzonatate 100 mg oral capsule (20 sources) Non-narcotic Antitussive Start: 02-05-2018 take 1 capsule by mouth every eight hours as needed benzonatate (TESSALON PERLE) 100 mg capsule Take 1 capsule by mouth three times daily as needed. 21 capsule 2 02/05/2018 Active Comment on above: Take 1 capsule by [facility] three times daily as needed. CALCIUM CARBONATE-VITAMIN D TABS (6 sources) Vitamin D Start: 12-17-2013 CALCIUM CARBONATE-VITAMIN D TABS 1 tablet daily CALCIUM CARBONATE-VITAMIN D TABS [id number] Xenia Pradhan LPN Start: 07-31-2013 End: 05-09-2017 Calcium Carbonate-Vitamin D3 Discontinued 1 EACH PO TWICE A DAY July 31, 2013 12:00am May 09, 2017 12:40pm CALCIUM CARBONATE-VITAMIN D TABS (1 source) Start: 12-17-2013 CALCIUM CARBONATE-VITAMIN D TABS 1 tablet daily CALCIUM CARBONATE-VITAMIN D TABS [id number] Xenia Pradhan LPN celecoxib 200 mg oral capsule (20 sources) Nonsteroidal Anti-inflammatory Drug Start: 05-21-2020 celecoxib (CELEBREX) 200 mg capsule Indications: Primary osteoarthritis of right knee , Generalized osteoarthrosis , Psoriatic arthritis (HCC) Take 1 capsule by mouth as directed. one or 2 times daily. 180 capsule 3 05/24/2021 Active Start: 12-17-2013 CELEBREX 200 M G CAPS 1 capsule 1-2 times daily CELECOXIB [id number] Xenia Carolynn UNIX ARCHITECT Start: 08-13-2013 End: 05-09-2017 take 200 mg by mouth twice daily at mealtime Celecoxib Discontinued 200 MG PO TWICE DAILY WITH MEALS 60 August 13, 2013 12:00am May 09, 2017 12:40pm Start: 07-31-2013 End: 08-13-2013 take 200 mg by mouth once daily Celecoxib Discontinued 200 MG PO DAILY July 31, 2013 12:00am August 13, 2013 11:14am Comment on above: Take 1 capsule by [facility] as directed. one or 2 times daily. Cimetidine (20 sources) Histamine-2 Receptor Antagonist cimetidine (TAGAMET ORAL) Take by mouth. 0 Active Comment on above: Take by mouth. clobetasol propionate 0.5 mg/ml topical cream (2 sources) Corticosteroid Start: 014 CLOBETASOL PROPIONATE 0.05 % CREA as directed CLOBETASOL PROPIONATE [id number] Xenia Carolynn [employer] COMPOUNDED PRESCRIPTION (20 sources) Start: 016 COMPOUNDED PRESCRIPTION Citracal slow release 1200 (2 caplets daily = 1000 IU vitamin D, 1200 mg calcium, 80 mg magnesium) 0 11/24/2015 Active Comment on above: Citracal slow releas e 1200 (2 caplets daily = 1000 IU vitamin D, 1200 mg calcium, 80 mg magnesium) cyclobenzaprine hydrochloride 10 mg oral tablet (20 sources) Muscle Relaxant Start: 018 take 0.5-1 tablets by mouth twice daily as needed cyclobenzaprine (FLEXERIL) 10 mg tablet Indications: Neck pain, chronic Take 0.5-1 tablets by mouth twice daily as needed. 60 tablet 1 11/26/2018 Active Comment on above: Take 0.5-1 tablets b y mouth twice daily as needed. diphenhydrAMINE hydrochloride 25 mg oral tablet (15 sources) Histamine-1 Receptor Antagonist Start: 021 End: 021 take 2 tablets by mouth at bedtime Diphenhydramine Hcl (Allergy Relief(Diphenhydramin )) 25 mg tablet Discontinued 50 MG PO .COMPLEX 4 October 06, 2020 4:48pm November 10, 2020 10:13am Take 2 tablets PO at bedtime the night before heart cath Take 2 tablets PO the morning of your heart cath epinastine hydrochloride 0.5 mg/ml ophthalmic solution (7 sources) Histamine-1 Receptor Inhibitor, Adrenergic Receptor Agonist Start: 014 End: 021 Epinastine Discontinued 1 DRP EACH EYE TWICE A DAY July 31, 2013 12:00am September 28, 2020 1:22pm estradiol 0.1 mg/ml vaginal cream (20 sources) Estrogen Start: 023 estradiol (Estrace) 0.1 MG/GM vaginal cream Start: 02-04-2021 End: 08-09-2022 estradiol (ESTRACE) 0.01 % ( 0.1 mg/gram) vaginal cream Indications: Vaginal atrophy APPLY A PEA-SIZED AMOUNT TO LOWER VAGINA AT BEDTIME 3 TIMES PER WEEK 42.5 g 1 08/10/2022 Active Start: 09-30-2020 Estradiol Acti ve 1 APPLIC VAGINAL .3XW September 30, 2020 11:02am Start: 06-30-2020 End: 09-30-2020 Estradiol Discontinued 1 BANDAR LIC VAGINAL DAILY June 30, 2020 12:00am September 30, 2020 11:04am Start: 12-17-2013 ESTRADIOL CREA 3 times a week ESTRADIOL CREA [id number] Xenia Pradhan LPN Comment on above: APPLY A PEA-SIZED AM OUNT TO LOWER VAGINA AT BEDTIME 3 TIMES PER WEEK famotidine 20 mg oral tablet (20 sources) Histamine-2 Receptor Antagonist Start: 1 End: take 1 tablet by mouth at bedtime Famotidine (Pepcid) 20 mg tablet Discontinued 20 MG PO .COMPLEX 2 October 06, 2020 4:48pm November 10, 2020 10:13am Take 1 tablet PO at bedtime the night before your heart cath; Take 1 tablet PO the morning of your heart cath famotidine (PEPC ID ORAL) Take by mouth. 0 Active Comment on above: Take by mouth. 4 ml golimumab 12.5 mg/ml injection (9 sources) Tumor Necrosis Factor Norma Start: 12-08-2021 End: 01-26-2022 Golimumab (Simponi Aria) 12.5 mg/mL solution Discontinued MG .Route December 08, 2021 12:00am January 26, 2022 11:05am Every 2 months Start: 09-24-2021 End: 04-25-2022 golimumab (SIMPONI ARIA INTR AVENOUS) Start: 09-24-2021 golimumab (SIM PONI ARIA INTRAVENOUS) hydroCHLOROthiazide 25 mg oral tablet (5 sources) Thiazide Diuretic Start: 07-31-2013 End: 05-09-2017 take 25 mg by mouth once daily Hydrochlorothiazide Discontinued 25 MG PO DAILY July 31, 2013 12:00am May 09, 2017 12:43pm ivermectin 10 mg/ml topical cream (20 sources) Antiparasitic, Pediculicide Start: 02-04-2020 SOOLANTRA 1 % CREA apply to face as needed for rosacea IVERMECTIN [id number] Nikos Cordova MD ivermectin (SOOL ANTRA TOPICAL) Apply to affected area. 0 Active Comment on above: Apply to affected ar ea. 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 Adjust dose as indicated by labs. Take on empty stomach. 180 tablet 1 10/16/2022 Active Start: 09-04-2022 End: 10-11-2022 SYNTHROID 50 mcg tablet Has been taking 1/4 pill daily along with 25 mcg tablet once daily 0 09/04/2022 10/11/2022 Discontinued (Dosage adjustment) Start: 08-02-2022 End: 10-09-2022 take 1 tablet by mouth once daily for thyroid dysfunction levothyroxine (SYNTHROID) 25 mcg tablet Take 1 tablet by mouth once daily. Take on empty stomach. For thyroid. 90 tablet 3 08/02/2022 10/09/2022 Discontinued Start: 05-24-2021 End: 08-02-2022 take 1 tablet by mouth once daily SYNTHROID 50 mcg tablet Take 1 tablet by mouth once daily. 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 (taking 50mcg Sunday through Sunday) 90 tablet 3 05/29/2021 06/26/2022 Discontinued Start: 09-28-2020 End: 09-30-2020 take 75 ug by mouth once daily Levothyroxine Discontin ued 75 MCG PO DAILY September 28, 2020 12:00am September 30, 2020 11:04am Start: 12-17-2013 SYNTHROID 75 M CG TABS 1 tablet daily LEVOTHYROXINE SODIUM [id number] Xenia Pradhan LPN Start: 07-31-2013 End: 09-28-2020 take 75 ug by mouth once daily Levothyroxine Discontin ued 75 MCG PO DAILY July 31, 2013 12:00am September 28, 2020 1:17pm Comment on above: Take 1 tablet by [facility] once daily. Sunday through Sunday Take 1 tablet by [facility] every Sunday. (taking 50mcg Sunday through Sunday) Take 1 tablet by [facility] once daily. Sunday through Sunday or as directed Take 1 tablet by [facility] once daily. Take on empty stomach. For thyroid. Has been taking 1/4 pill daily along with 25 mcg tablet once daily Take 25 mcg daily ex cept 2 days per week take 50 mcg (may take 2 pills on Sunday and Sunday and 1 pill the other 5 days of the week). Adjust dose as indicated by labs. Take on empty stomach. methotrexate 2.5 mg oral tablet (5 sources) Folate Analog Metabolic Inhibitor Start: End: take 10 mg by mouth every week Methotrexate Sodium Discontinued 10 MG PO Q7D July 31, 2013 12:00am August 13, 2013 11:15am metoprolol tartrate 25 mg oral tablet (1 source) beta-Adrenergic Norma Start: METOPROLOL TARTRATE 25 MG TABS one tablet daily METOPROLOL TARTRATE [id number] Nikos Cordova MD metroNIDAZOLE 0.01 mg/mg topical gel (5 sources) Nitroimidazole Antimicrobial Start: End: Metronidazole (Metrogel) 1 % gel Discontinued 1 APPLIC TOPICAL DAILY September 28, 2020 12:00am September 30, 2020 11:03am Multivitamin capsule (20 sources) take 1 capsule by mouth once daily Multivitamin capsule Take 1 capsule by mouth once daily. 0 Active Comment on above: Take 1 capsule by mo [facility] once daily. Drug Treatment Unknown - unknown (2 sources) No information available. ondansetron 4 mg oral tablet (5 sources) Serotonin-3 Receptor Antagonist Start: End: take 1 tablet by mouth every eight hours Ondansetron Hcl (Zofran) 4 mg tablet Discontinued 4 MG PO Q8H 30 July 15, 2020 12:00am September 28, 2020 1:22pm polyethylene glycol 3350 29109 mg powder for oral solution (5 sources) Osmotic Laxative Start: End: take 17 g by mouth once daily as needed Polyethylene Glycol 3350 Discontinued 17 GM PO DAILY NEEDED May 17, 2017 12:00am September 28, 2020 1:22pm rivaroxaban 10 mg oral tablet (5 sources) Factor Xa Inhibitor Start: End: take 10 mg by mouth once daily Rivaroxaban Discontinued 10 MG PO DAILY@0600 20 August 13, 2013 12:00am May 09, 2017 12:41pm spironolactone 25 mg oral tablet (16 sources) Aldosterone Antagonist Start: take 1 tablet by mouth once daily spironolactone (ALDACTONE) 25 mg tablet Indications: Bilateral lower extremity edema Take 1 tablet by mouth once daily. 90 tablet 3 04/25/2022 Active Comment on above: Take 1 tablet by paul once daily. sulfamethoxazole 800 mg / trimethoprim 160 mg oral tablet (5 sources) Dihydrofolate Reductase Inhibitor Antibacterial, Sulfonamide Antimicrobial Start: End: take 1 tablet by mouth twice daily Sulfamethoxazole-Tri methoprim (Bactrim Ds) 800-160 mg tablet Discontinued 1 TABLET PO TWICE A DAY November 10, 2020 12:00am December 30, 2020 11:30am 1 tablet by mouth twice daily for 3 days SUMAtriptan 50 mg oral tablet (20 sources) Serotonin-1b and Serotonin-1d Receptor Agonist Start: 014 End: take 1 tablet by mouth every two hours SUMAtriptan (IMITREX) 50 mg tablet Indications: Encounter for long-term current use of medication Take 1 tablet by mouth. at onset of migraine. Repeat after 2 hours if needed. 27 tablet 3 03/13/2022 Active Comment on above: Take 1 tablet by paul . at onset of migraine. Repeat after 2 hours if needed. traMADol hydrochloride 50 mg oral tablet (10 sources) Opioid Agonist Start: End: take 50-100 mg by mouth every six hours as needed Tramadol Discontinued 50 - 100 MG PO EVERY 6 HOURS NEEDED 36 July 15, 2020 12:00am September 28, 2020 1:22pm Start: 08-13-2013 End: 05-09-2017 take 50-100 mg by mouth every six hours as needed Tramadol Discontinued 50 - 100 MG PO EVERY 6 HOURS NEEDED August 13, 2013 12:00am May 09, 2017 12:41pm triamcinolone acetonide 1 mg/ml topical lotion (7 sources) Corticosteroid Start: 12-17-2013 TRIAMCINOLONE ACETONIDE 0.1 % LOTN applies 2 times a day as needed TRIAMCINOLONE ACETONIDE [id number] Xenia Flores BAHMAN Start: 07-31-2013 End: 09-28-2020 Triamcinolone Acetonide (Anders acort) 1 SPRAY aerosol,spray Discontinued 1 SPRAY NASAL DAILY July 31, 2013 12:00am September 28, 2020 1:22pm Turmeric Root Extract (5 sources) Start: 09-28-2020 End: 09-30-2020 take 500 mg by mouth twice daily Turmeric Root Extract Discontinued 500 MG PO TWICE A DAY September 27, 2020 11:00pm September 30, 2020 10:04am Start: 09-28-2020 End: 09-30-2020 take 500 mg by mouth twice daily Turmeric Root Extract Discontinued 500 MG PO TWICE A DAY September 28, 2020 12:00am September 30, 2020 11:04am verapamil hydrochloride 120 mg extended release oral tablet (20 sources) Calcium Channel Norma Start: 01-14-2021 End: 01-14-2021 take 120 mg by mouth once daily Verapamil Discontinued 120 MG PO DAILY January 14, 2021 5:28pm January 14, 2021 5:29pm Start: 01-14-2021 End: 01-30-2022 take 1 tablet by mouth once daily verapamil SR (CALAN SR, ISOPTIN SR) 120 mg CR tablet Take 120 mg by mouth once daily. 0 09/26/2021 Active Comment on above: Take 120 mg by mouth once daily. 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] 05-22-2017 Chronic Cardiac dysrhythmias (20 sources) Supraventricular tachycardia; Translations: [Supraventricular tachycardia] Onset: 0 09-01-2019 Chronic Cataract (2 sources) Cataract; Translations: [Unspecified cataract] Onset: 7 01-01-2017 Chronic Chronic kidney disease (20 sources) Chronic kidney disease stage 3A ; Translations: [Stage 3a chronic kidney disease] Onset: 2 05-20-2021 Chronic Complications of surgical procedures or medical care (6 sources) History of subtotal thyroidectomy; Translations: [Postprocedural hypothyroidism] 09-30-2020 Chronic Conditions associated with dizziness or vertigo (2 sources) Dizziness; Translations: [Dizziness and giddiness] 02-03-2022 Episodic Conduction disorders (20 sources) H/O: cardiac pacemaker in situ; Translations: [Presence of cardiac pacemaker] Onset: 1 07-21-2021 Chronic Esophageal disorders (20 sources) Gastroesophageal reflux disease; Translations: [Gastro-esophageal reflux disease without esophagitis] Onset: 8 11-04-2007 Chronic Essential hypertension (8 sources) Hypertensive disorder; Translations: [Essential (primary) hypertension] Onset: 7 01-01-2017 Chronic Headache; including migraine (1 source) Headache disorder; Translations: [Other complicated headache syndrome] Episodic Heart valve disorders (20 sources) Mitral valve prolapse; Translations: [Nonrheumatic mitral (valve) prolapse] 01-04-2016 Chronic Immunizations and screening for infectious disease (7 sources) Patient encounter status; Translations: [Encounter for immunization] Episodic Malaise and fatigue (1 source) Fatigue; Translations: [Other fatigue] Episodic Menopausal disorders (1 source) Atrophy of vagina; Translations: [Postmenopausal atrophic vaginitis] Chronic Nonspecific chest pain (9 sources) Chest pain; Translations: [Chest pain, unspecified] Episodic Nutritional deficiencies (20 sources) Vitamin D deficiency; Translations: [Vitamin D deficiency, unspecified] Onset: 6 05-24-2015 Chronic Osteoarthritis (20 sources) Osteoarthritis; Translations: [Degenerative joint disease involving multiple joints] Onset: 7 01-01-2017 Chronic Other connective tissue disease (5 sources) History of repair of hip joint; Translations: [Presence of right artificial hip joint] 09-28-2020 Chronic Other connective tissue disease (5 sources) History of total knee arthroplasty; Translations: [Presence of left artificial knee joint] 09-28-2020 Chronic Other connective tissue disease (5 sources) History of total hip arthroplasty; Translations: [Presence of left artificial hip joint] 09-28-2020 Chronic Other gastrointestinal disorders (20 sources) Irritable bowel syndrome with diarrhea; Translations: [Irritable bowel syndrome with diarrhea] Onset: 8 11-13-2017 Chronic Other gastrointestinal disorders (2 sources) Alteration in bowel elimination; Translations: [Change in bowel habit] Episodic Other gastrointestinal disorders (3 sources) Altered bowel function; Translations: [Change in bowel habit] 05-22-2017 Episodic Other inflammatory condition of skin (4 sources) Psoriasis with arthropathy; Translations: [Arthropathic psoriasis, unspecified] Onset: 5 01-01-2017 Chronic Other inflammatory condition of skin (20 sources) Psoriatic arthritis; Translations: [Arthropathic psoriasis, unspecified] Onset: 2 02-13-2012 Chronic Other inflammatory condition of skin (20 sources) Psoriasis; Translations: [Psoriasis, unspecified] Onset: 8 11-13-2017 Chronic Other liver diseases (20 sources) Chronic nonalcoholic liver disease; Translations: [Other specified diseases of liver] Onset: 6 11-04-2007 Chronic Other liver diseases (5 sources) Steatosis of liver; Translations: [Fatty (change of) liver, not elsewhere classified] 05-22-2017 Chronic Other nervous system disorders (3 sources) Carpal tunnel syndrome; Translations: [Carpal tunnel syndrome, right upper limb] Onset: 5 01-12-2015 Chronic Other non-traumatic joint disorders (1 source) Pain in right hip joint; Translations: [Pain in right hip] 08-11-2022 Episodic Other non-traumatic joint disorders (2 sources) Pain in right hip; Translations: [Pain in right hip] Onset: 3 Episodic Other nutritional; endocrine; and metabolic disorders (1 source) History of primary hyperparathyroidism; Translations: [Personal history of other endocrine, nutritional and metabolic disease] 08-14-2022 Episodic Other screening for suspected conditions (not mental disorders or infectious disease) (5 sources) Serum creatinine raised; Translations: [Other specified abnormal findings of blood chemistry] 05-22-2017 Episodic Other skin disorders (7 sources) Skin lesion; Translations: [Disorder of the skin and subcutaneous tissue, unspecified] Episodic Residual codes; unclassified (20 sources) Obstructive sleep apnea syndrome; Translations: [Obstructive sleep apnea (adult) (pediatric)] Onset: 9 04-02-2019 Chronic Residual codes; unclassified (2 sources) Obstructive sleep apnea (adult) (pediatric); Translations: [Obstructive sleep apnea (adult) (pediatric)] Onset: 3 Chronic Residual codes; unclassified (5 sources) History of colonoscopy; Translations: [Other specified postprocedural states] 09-28-2020 Episodic Residual codes; unclassified (2 sources) Bilateral lower limb edema; Translations: [Localized edema] Episodic Skin and subcutaneous tissue infections (5 sources) Cellulitis of lower limb; Translations: [Cellulitis of right lower limb] 07-12-2019 Episodic Spondylosis; intervertebral disc disorders; other back problems (10 sources) Cervical spondylosis; Translations: [Spondylosis without myelopathy or radiculopathy, cervical region] 05-22-2017 Chronic Syncope (12 sources) Syncope; Translations: [Syncope and collapse] Episodic Systemic lupus erythematosus and connective tissue disorders (20 sources) Sjogren's syndrome; Translations: [Sicca syndrome, unspecified] Onset: 5 01-01-2017 Chronic Thyroid disorders (20 sources) Hypothyroidism; Translations: [Hypothyroidism, unspecified] Onset: 6 01-01-2017 Chronic Unclassified (7 sources) Family history of malignant neoplasm of breast; Translations: [Family history of malignant neoplasm of breast] Onset: 7 01-01-2017 Episodic Unclassified (1 source) Unknown / UNK(Unknown) Onset: 8 Unclassified (1 source) Localized swelling, mass and lump, neck / R22.1(ICD-10) Onset: 8 Unclassified (1 source) Facial pain; Translations: [Facial pain] Onset: 4 Past or Other Problems Problem Classification Problem Date Documented Date Episodic/Chronic Heart valve disorders (2 sources) Heart murmur; Translations: [Cardiac murmur, unspecified] Onset: 7 01-01-2017 Episodic Other aftercare (20 sources) Long-term current use of immunosuppressive drug; Translations: [Other assisted (current) drug therapy] Onset: 7 09-26-2016 Episodic Other bone disease and musculoskeletal deformities (20 sources) Osteopenia; Translations: [Other specified disorders of bone density and structure, unspecified site] Onset: 7 11-21-2017 Episodic Other circulatory disease (20 sources) Labile systemic arterial hypertension; Translations: [Other specified symptoms and signs involving the circulatory and respiratory systems] Onset: 0 12-22-2019 Episodic Other connective tissue disease (2 sources) Radial styloid tenosynovitis; Translations: [Radial styloid tenosynovitis [de Quervain]] Onset: 0 10-16-2019 Episodic Other connective tissue disease (2 sources) Tendon contracture; Translations: [Contracture of muscle, unspecified site] Onset: 6 12-02-2015 Episodic Other connective tissue disease (2 sources) Triggering of digit; Translations: [Trigger finger, right middle finger] Onset: 5 01-12-2015 Episodic Unclassified (2 sources) Problem Results Test Name Value Interpretation Reference Range Facility CRP SerPl-mCncon 10-08-2023 CRP [Mass/Vol] mg/L Normal <0.9 [facility] Comment on above: Order Comment: Iveth sotelo Type: BLOOD SPECIMEN Ordering Facility: External Submitter Address: , , Performed By: #### 3 016-3, 1987-06, 0, 3023-08 #### [facility] CLIA [id number] [address] [place] [address] [place] ESR Westergren method (Bld) [Velocity]on 10-08-2023 ESR (Bld) [Velocity] 10 mm/h Normal 0-20 [facility] Comment on above: Order Comment: Iveth sotelo Type: BLOOD SPECIMEN Ordering Facility: External Submitter Address: , , Performed By: #### 4 537-7 #### [facility] IA [id number] [address] [place] [address] [place] T3Free SerPl-mCncon 10-08-19 24 Free T3 [Mass/Vol] 2.9 pg/mL Normal 2.3-4.1 [facility] Comment on above: Order Comment: Iveth sotelo Type: BLOOD SPECIMEN Ordering Facility: External Submitter Address: , , Performed By: #### 3 016-3, 1987-06, 0, 3023-08 #### [facility] CLIA [id number] [address] [place] [address] [place] T4 Free SerPl-mCncon 024 Free T4 [Mass/Vol] 1.4 ng/dL Normal 0.9-1.7 [facility] Comment on above: Order Comment: Iveth sotelo Type: BLOOD SPECIMEN Ordering Facility: External Submitter Address: , , Performed By: #### 3 016-3, 1987-06, , 3023-08 #### [facility] CLIA [id number] [facility] [place] [address] [place] THYROID STIMULATING IMMUNOGL OBULIN BLOODon 10-08-2023 Thyroid stimulating immunoglobulins actual/normal (S) [Relative mass conc] % Normal <0.55 [facility] Comment on above: Order Comment: Iveth sotelo Type: BLOOD SPECIMENOrdering Facility: External Submitter Address: , , Result Comment: Thyr oid Stimulating Immunoglobulin test is used as an aid in diagnosis of autoimmune hyperthyroidism especially in patients with Grave's orbitopathy and dermopathy. Low positive TSH receptor stimulating antibody levels may occasionally be found in patients with autoimmune hypothyroidism. Clinical correlation is required. Performed By: #### T SIGIM ####[facility] [id number] [address] [place] TSI QUALITATIVE Negative Normal Negative [facility] Comment on above: Order Comment: Iveth sotelo Type: BLOOD SPECIMENOrdering Facility: External Submitter Address: , , Performed By: #### T SIGIM ####[facility] [id number] [place] [address] [place] TSH SerPl-aCncon 10-08-2023 TSH Qn 0.951 m[IU]/L Normal 0.270-4.200 [facility] Comment on above: Order Comment: Iveth sotelo Type: BLOOD SPECIMEN Ordering Facility: External Submitter Address: , , Performed By: #### 3 016-3, 1987-06, , 3023-08 #### [facility] CLIA [id number] [facility] Rafa 03-29-2023 CNPN Telephone (INTMWS) -------- JENNIE BANGURA ([id number]) 1940 F Date Time Provider Department 03/29/23 DENNIS BOWENS INTMWS During your visit today, we recorded the following information about you: Loretta De La Rosa LPN 03/29/2023 4:45 PM Signed Spoke with patient and she has a new doctor where she lives now. I have put the new doctor in. She also has a Structural [employer] E[employer] Dr. Ashley Eastman. Pt reports she thinks she will be okay till her apt in May to get refills on Synthroid. She wanted to Thank you for everything. No call back needed. BAHMAN Alexandra Laurie Lynn, LPN 04/03/2023 9:45 AM Signed Closed encounter. 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 CLINORIL (SULINDAC) 12/14/2004 Comments: liver reaction, rash and very ill CODEINE 04/05/2011 8 - GI Upset EPINEPHRINE 12/14/2004 Comments: bradycardia horse serum [Other] 01/04/2005 Comments: wheezing LANOLIN 12/14/2004 Comments: allergy to sheep=rash MINOCYCLINE 12/14/2004 Comments: vertigo MOBIC (MELOXICAM) 01/04/2005 Comments: liver reaction NEXIUM (ESOMEPRAZOLE MAGNESIUM) 09/12/2010 14 - Other: See Comments Comments: Headaches; only tolerates Prevacid OPIOIDS - MORPHINE ANALOGUES 09/24/2013 11 - Vomiting Comments: Can tolerate Ultram PALM OIL 05/17/2020 5 - Intolerance PLAQUENIL (HYDROXYCHLOROQUINE SUL*12/14/2004 Comments: liver reaction, rash and very ill PREMARIN (CONJUGATED ESTROGENS) 12/14/2004 Comments: allergy to horses=wheezing PRILOSEC (OMEPRAZOLE MAGNESIUM) 09/12/2010 14 - Other: See Comments Comments: headaches; only tolerates Prevacid PROTONIX (PANTOPRAZOLE SODIUM) 09/12/2010 14 - Other: See Comments Comments: headache; only tolerates Prevacid SHEEP/OVINE/MINA CONTAINING PRODU*01/04/2005 Comments: rash Date Reviewed: 06/26/2022 Reviewed by: Mayda Garvin LPN - Fully Assessed Reason for Visit: Patient Update [1234] Prescriptions as of 04/03/2023 - SYNTHROID 25 mcg tablet Take 25 mcg daily except 2 days per week take 50 mcg (may take 2 pills on Sunday and Sunday and 1 pill the other 5 days of the week). Adjust dose as indicated by labs. Take on empty stomach. - estradiol (ESTRACE) 0.01 % (0.1 mg/gram) vaginal cream APPLY A PEA-SIZED AMOUNT TO LOWER VAGINA AT BEDTIME 3 TIMES PER WEEK - spironolactone (ALDACTONE) 25 mg tablet Take 1 tablet by mouth once daily. - SUMAtriptan (IMITREX) 50 mg tablet Take 1 tablet by mouth. at onset of migraine. Repeat after 2 hours if needed. - folic acid 1 mg tablet Take 2 tablets by mouth once daily. - verapamil SR (CALAN SR, ISOPTIN SR) 120 mg CR tablet Take 120 mg by mouth once daily. - cimetidine (TAGAMET ORAL) Take by mouth. - celecoxib (CELEBREX) 200 mg capsule Take 1 capsule by mouth as directed. one or 2 times daily. - famotidine (PEPCID ORAL) Take by mouth. - Multivitamin capsule Take 1 capsule by mouth once daily. - ivermectin (SOOLANTRA TOPICAL) Apply to affected area. - OTEZLA 30 mg tablet Take 2 tablets by mouth once daily. Takes 1 tablet in am and 1 tablet in pm - cyclobenzaprine (FLEXERIL) 10 mg tablet Take 0.5-1 tablets by mouth twice daily as needed. - benzonatate (TESSALON PERLE) 100 mg capsule Take 1 capsule by mouth three times daily as needed. - Halobetasol Propionate (ULTRAVATE) 0.05 % cream Apply selectively to spots//plaques of eczema and possible psoriasis on elbows and hands twice per day for up to 4-6 weeks or less as needed until clear and then try to stop or taper off to a bland emollient cream such as CeraVe cream or Cetaphil cream applied twice per day to other dry skin. - diclofenac sodium (VOLTAREN) 1 % topical gel Apply moderate amount to painful areas on hands (2g) AND knees (4g) up to three times daily as needed. Don't exceed a total of 32g daily. - ACETAMINOPHEN (TYLENOL 8 HOUR ORAL) Take 650 mg by mouth twice daily. - beclomethasone dipropionate 80 mcg/actuation Use in each nostril. - COMPOUNDED PRESCRIPTION Citracal slow release 1200 (2 caplets daily = 1000 IU vitamin D, 1200 mg calcium, 80 mg magnesium) - SYSTANE 0.4 %-0.3 % EYE DROPS daily as directed - ASPIRIN 81 MG TAB Take one (1) tablet daily . Problem List As Of Date 03/29/2023 Noted Resolved Sicca syndrome (HCC) [M35.00] 05/20/2021 Congenital subaortic stenosis [Q24.4] 08/12/2018 MVP (mitral valve prolapse) [I34.1] Essential hypertension [I10] 11/06/2018 Hypothyroidism [E03.9] 03/16/2005 Cervical spondylosis without myelopathy [M47.81*04/03/2005 11/06/2018 Cervicalgia [M54.2] 0 (more content not included)... Normal [facility] Rafa 03-23-2023 ROHITN Telephone (INTMWS) -------- JENNIE BANGURA ([id number]) 1940 F Date Time Provider Department 03/23/23 GINI AGUILAR INTMWS During your visit today, we recorded the following information about you: Araceli ClayhBAHMAN 03/23/2023 4:[address] [facility] [place] calling asking for orders to be faxed for thyroid testing for the patient. Patient thought she had standing orders for the lab work. Patient said she does not have Endocrinology appt until May. Hoping PCP would give her orders for every 2 months. Pending orders if wanted, needs diagnosis checked. Fax number for [facility] in [place] is [phone]. Patient aware PCP is seeing patients can not get this taken care right away. Will have to return to get lab work done at later time. Last labs were done in December. Please advise Gini Aguilar MD 03/23/2023 6:14 PM Signed I have standing orders here. We sent a one time order in December. Standing order printed to fax Linnea Montanez MA 03/26/2023 12:17 PM Signed Faxed as requested. 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 CLINORIL (SULINDAC) 12/14/2004 Comments: liver reaction, rash and very ill CODEINE 04/05/2011 8 - GI Upset EPINEPHRINE 12/14/2004 Comments: bradycardia horse serum [Other] 01/04/2005 Comments: wheezing LANOLIN 12/14/2004 Comments: allergy to sheep=rash MINOCYCLINE 12/14/2004 Comments: vertigo MOBIC (MELOXICAM) 01/04/2005 Comments: liver reaction NEXIUM (ESOMEPRAZOLE MAGNESIUM) 09/12/2010 14 - Other: See Comments Comments: Headaches; only tolerates Prevacid OPIOIDS - MORPHINE ANALOGUES 09/24/2013 11 - Vomiting Comments: Can tolerate Ultram PALM OIL 05/17/2020 5 - Intolerance PLAQUENIL (HYDROXYCHLOROQUINE SUL*12/14/2004 Comments: liver reaction, rash and very ill PREMARIN (CONJUGATED ESTROGENS) 12/14/2004 Comments: allergy to horses=wheezing PRILOSEC (OMEPRAZOLE MAGNESIUM) 09/12/2010 14 - Other: See Comments Comments: headaches; only tolerates Prevacid PROTONIX (PANTOPRAZOLE SODIUM) 09/12/2010 14 - Other: See Comments Comments: headache; only tolerates Prevacid SHEEP/OVINE/MINA CONTAINING PRODU*01/04/2005 Comments: rash Date Reviewed: 06/26/2022 Reviewed by: Mayda Garvin LPN - Fully Assessed Reason for Visit: Orders [681] thyroid lab orders [Other] Primary Visit Diagnosis: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 Adjust dose as indicated by labs. Take on empty stomach. - estradiol (ESTRACE) 0.01 % (0.1 mg/gram) vaginal cream APPLY A PEA-SIZED AMOUNT TO LOWER VAGINA AT BEDTIME 3 TIMES PER WEEK - spironolactone (ALDACTONE) 25 mg tablet Take 1 tablet by mouth once daily. - SUMAtriptan (IMITREX) 50 mg tablet Take 1 tablet by mouth. at onset of migraine. Repeat after 2 hours if needed. - folic acid 1 mg tablet Take 2 tablets by mouth once daily. - verapamil SR (CALAN SR, ISOPTIN SR) 120 mg CR tablet Take 120 mg by mouth once daily. - cimetidine (TAGAMET ORAL) Take by mouth. - celecoxib (CELEBREX) 200 mg capsule Take 1 capsule by mouth as directed. one or 2 times daily. - famotidine (PEPCID ORAL) Take by mouth. - Multivitamin capsule Take 1 capsule by mouth once daily. - ivermectin (SOOLANTRA TOPICAL) Apply to affected area. - OTEZLA 30 mg tablet Take 2 tablets by mouth once daily. Takes 1 tablet in am and 1 tablet in pm - cyclobenzaprine (FLEXERIL) 10 mg tablet Take 0.5-1 tablets by mouth twice daily as needed. - benzonatate (TESSALON PERLE) 100 mg capsule Take 1 capsule by mouth three times daily as needed. - Halobetasol Propionate (ULTRAVATE) 0.05 % cream Apply selectively to spots//plaques of eczema and possible psoriasis on elbows and hands twice per day for up to 4-6 weeks or less as needed until clear and then try to stop or taper off to a bland emollient cream such as CeraVe cream or Cetaphil cream applied twice per day to other dry skin. - diclofenac sodium (VOLTAREN) 1 % topical gel Apply moderate amount to painful areas on hands (2g) AND k (more content not included)... [facility] JENNIE BANGURA ([id number]) 1940 F Date Time Provider Department 01/04/23 GINI AGUILAR INTMWS During your visit today, we recorded the following information about you: Yoli Rasmussen RN 01/04/2023 4:03 PM Signed Patient calls and states that she had thyroid labs done at [facility] in [place]. Patient wanted provider aware of this so provider can look for results. 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 CLINORIL (SULINDAC) 12/14/2004 Comments: liver reaction, rash and very ill CODEINE 04/05/2011 8 - GI Upset EPINEPHRINE 12/14/2004 Comments: bradycardia horse serum [Other] 01/04/2005 Comments: wheezing LANOLIN 12/14/2004 Comments: allergy to sheep=rash MINOCYCLINE 12/14/2004 Comments: vertigo MOBIC (MELOXICAM) 01/04/2005 Comments: liver reaction NEXIUM (ESOMEPRAZOLE MAGNESIUM) 09/12/2010 14 - Other: See Comments Comments: Headaches; only tolerates Prevacid OPIOIDS - MORPHINE ANALOGUES 09/24/2013 11 - Vomiting Comments: Can tolerate Ultram PALM OIL 05/17/2020 5 - Intolerance PLAQUENIL (HYDROXYCHLOROQUINE SUL*12/14/2004 Comments: liver reaction, rash and very ill PREMARIN (CONJUGATED ESTROGENS) 12/14/2004 Comments: allergy to horses=wheezing PRILOSEC (OMEPRAZOLE MAGNESIUM) 09/12/2010 14 - Other: See Comments Comments: headaches; only tolerates Prevacid PROTONIX (PANTOPRAZOLE SODIUM) 09/12/2010 14 - Other: See Comments Comments: headache; only tolerates Prevacid SHEEP/OVINE/MINA CONTAINING PRODU*01/04/2005 Comments: rash Date Reviewed: 06/26/2022 Reviewed by: Mayda Garvin LPN - Fully Assessed Reason for Visit: Results [95] Prescriptions as of 01/08/2023 - SYNTHROID 25 mcg tablet Take 25 mcg daily except 2 days per week take 50 mcg (may take 2 pills on Sunday and Sunday and 1 pill the other 5 days of the week). Adjust dose as indicated by labs. Take on empty stomach. - estradiol (ESTRACE) 0.01 % (0.1 mg/gram) vaginal cream APPLY A PEA-SIZED AMOUNT TO LOWER VAGINA AT BEDTIME 3 TIMES PER WEEK - spironolactone (ALDACTONE) 25 mg tablet Take 1 tablet by mouth once daily. - SUMAtriptan (IMITREX) 50 mg tablet Take 1 tablet by mouth. at onset of migraine. Repeat after 2 hours if needed. - folic acid 1 mg tablet Take 2 tablets by mouth once daily. - verapamil SR (CALAN SR, ISOPTIN SR) 120 mg CR tablet Take 120 mg by mouth once daily. - cimetidine (TAGAMET ORAL) Take by mouth. - celecoxib (CELEBREX) 200 mg capsule Take 1 capsule by mouth as directed. one or 2 times daily. - famotidine (PEPCID ORAL) Take by mouth. - Multivitamin capsule Take 1 capsule by mouth once daily. - ivermectin (SOOLANTRA TOPICAL) Apply to affected area. - OTEZLA 30 mg tablet Take 2 tablets by mouth once daily. Takes 1 tablet in am and 1 tablet in pm - cyclobenzaprine (FLEXERIL) 10 mg tablet Take 0.5-1 tablets by mouth twice daily as needed. - benzonatate (TESSALON PERLE) 100 mg capsule Take 1 capsule by mouth three times daily as needed. - Halobetasol Propionate (ULTRAVATE) 0.05 % cream Apply selectively to spots//plaques of eczema and possible psoriasis on elbows and hands twice per day for up to 4-6 weeks or less as needed until clear and then try to stop or taper off to a bland emollient cream such as CeraVe cream or Cetaphil cream applied twice per day to other dry skin. - diclofenac sodium (VOLTAREN) 1 % topical gel Apply moderate amount to painful areas on hands (2g) AND knees (4g) up to three times daily as needed. Don't exceed a total of 32g daily. - ACETAMINOPHEN (TYLENOL 8 HOUR ORAL) Take 650 mg by mouth twice daily. - beclomethasone dipropionate 80 mcg/actuation Use in each nostril. - COMPOUNDED PRESCRIPTION Citracal slow release 1200 (2 caplets daily = 1000 IU vitamin D, 1200 mg calcium, 80 mg magnesium) - SYSTANE 0.4 %-0.3 % EYE DROPS daily as directed - ASPIRIN 81 MG TAB Take one (1) tablet daily . 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 Normal [facility] CNPNon 12-27-2022 CNPN Telephone (INTMWS) -------- JENNIE BANGURA ([id number]) 1940 F Date Time Provider Department 12/27/22 GINI AGUILAR INTMWS During your visit today, we recorded the following information about you: Loretta De La Rosa LPN 12/27/2022 3:47 PM Signed Pt called in and she is getting lab work done at [facility] where they live. Results will come to Dr. Aguilar. PH: [phone] FAX: [phone] Done. Also updated pharmacy at pt's request. Fannie Fernandez LPN, RN 01/01/2023 3:14 PM Signed Patient is calling to request thyroid lab orders be sent to [facility]. . KELLI Hurtado Liza D, MD 01/01/2023 6:20 PM Signed Printed orders Fax to number below In case results cannot be seen on Epic or Care Everywhere, requested results be faxed Gini Aguilar MD 01/01/2023 6:20 PM Signed Addended by: GINI AGUILAR on: 01/01/2023 06:20 PM Modules accepted: Orders Ana Luisa Kincaid LPN 01/02/2023 11:28 AM Signed Printed orders have been faxed to [facility]. Ana Luisa Kincaid LPN 01/02/2023 11:30 AM Signed Patient aware of same. 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 CLINORIL (SULINDAC) 12/14/2004 Comments: liver reaction, rash and very ill CODEINE 04/05/2011 8 - GI Upset EPINEPHRINE 12/14/2004 Comments: bradycardia horse serum [Other] 01/04/2005 Comments: wheezing LANOLIN 12/14/2004 Comments: allergy to sheep=rash MINOCYCLINE 12/14/2004 Comments: vertigo MOBIC (MELOXICAM) 01/04/2005 Comments: liver reaction NEXIUM (ESOMEPRAZOLE MAGNESIUM) 09/12/2010 14 - Other: See Comments Comments: Headaches; only tolerates Prevacid OPIOIDS - MORPHINE ANALOGUES 09/24/2013 11 - Vomiting Comments: Can tolerate Ultram PALM OIL 05/17/2020 5 - Intolerance PLAQUENIL (HYDROXYCHLOROQUINE SUL*12/14/2004 Comments: liver reaction, rash and very ill PREMARIN (CONJUGATED ESTROGENS) 12/14/2004 Comments: allergy to horses=wheezing PRILOSEC (OMEPRAZOLE MAGNESIUM) 09/12/2010 14 - Other: See Comments Comments: headaches; only tolerates Prevacid PROTONIX (PANTOPRAZOLE SODIUM) 09/12/2010 14 - Other: See Comments Comments: headache; only tolerates Prevacid SHEEP/OVINE/MINA CONTAINING PRODU*01/04/2005 Comments: rash Date Reviewed: 06/26/2022 Reviewed by: Mayda Garvin LPN - Fully Assessed Reason for Visit: fax lab orders to outside [Other] Primary Visit Diagnosis: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 Adjust dose as indicated by labs. Take on empty stomach. - estradiol (ESTRACE) 0.01 % (0.1 mg/gram) vaginal cream APPLY A PEA-SIZED AMOUNT TO LOWER VAGINA AT BEDTIME 3 TIMES PER WEEK - spironolactone (ALDACTONE) 25 mg tablet Take 1 tablet by mouth once daily. - SUMAtriptan (IMITREX) 50 mg tablet Take 1 tablet by mouth. at onset of migraine. Repeat after 2 hours if needed. - folic acid 1 mg tablet Take 2 tablets by mouth once daily. - verapamil SR (CALAN SR, ISOPTIN SR) 120 mg CR tablet Take 120 mg by mouth once daily. - cimetidine (TAGAMET ORAL) Take by mouth. - celecoxib (CELEBREX) 200 mg capsule Take 1 capsule by mouth as directed. one or 2 times daily. - famotidine (PEPCID ORAL) Take by mouth. - Multivitamin capsule Take 1 capsule by mouth once daily. - ivermectin (SOOLANTRA TOPICAL) Apply to affected area. - OTEZLA 30 mg tablet Take 2 tablets by mouth once daily. Takes 1 tablet in am and 1 tablet in pm - cyclobenzaprine (FLEXERIL) 10 mg tablet Take 0.5-1 tablets by mouth twice daily as needed. - benzonatate (TESSALON PERLE) 100 mg capsule Take 1 capsule by mouth three times daily as needed. - Halobetasol Propionate (ULTRAVATE) 0.05 % cream Apply selectively to spots//plaques of eczema and possible psoriasis on elbows and hands twice per day for up to 4-6 weeks or less as needed until clear and then try to stop or taper off to a bland emollient cream such as CeraVe cream or Cetaphil cream applied twice per day to other dry skin. - diclofenac sodium (VOLTAREN) 1 % topical gel Apply moderate amount to painful areas on hands (2g) AND knees (4g) up to three times daily as needed. Don't exceed a total of 32g daily. - ACETAMINOPHEN (TY (more content not included)... Normal [facility] CNPNon 11-14-2022 CNPN Telephone (INTMWS) -------- JENNIE BANGURA ([id number]) 1940 F Date Time Provider Department 11/14/22 GINI AGUILAR INTMWS During your visit today, we recorded the following information about you: Ama Deluna RN 11/14/2022 3:34 PM Signed Patient reports she and her have moved to [place] to be with their daughter. States she has found a new PCP, however would like Dr. Aguilar to still assist her with her thyroid until she can see Endo there, for the immediate time being, if agreeable. Patient also states she had wonderful care by Dr. Aguilar and it will take 10 people to replace her. KELLI Zelaya Liza D, MD 11/23/2022 5:36 PM Signed Noted. Can continue to help manage her care till establishes with chainstitch pants outseamer. Is there anything she needs at this time? Appreciate her kind words. Dara Bowen RN 11/24/2022 9:23 AM Signed Phoned patient and given provider's message below. Patient reports she has plenty of synthroid right now, but will call back if needing anything. Reports she has appt with endo in [place] in April. Wants pcp to know the 25 mcg day and 50 mcg 2 days a week is doing well for her. Wanted pcp to know her will be having large hernia repair in Nov. 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 No needs at this time, but wants pcp to know she appreciates you. Gini Aguilar MD 11/24/2022 6:13 PM Signed Glad she is doing well from thyroid standpoint. Wish she hadn't needed hospitalized for the anaphylactic reaction--okay if needing prednisone for now. Noted having surgery. Will give refills if/when needed prior to appointment with chainstitch pants outseamer. 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 CLINORIL (SULINDAC) 12/14/2004 Comments: liver reaction, rash and very ill CODEINE 04/05/2011 8 - GI Upset EPINEPHRINE 12/14/2004 Comments: bradycardia horse serum [Other] 01/04/2005 Comments: wheezing LANOLIN 12/14/2004 Comments: allergy to sheep=rash MINOCYCLINE 12/14/2004 Comments: vertigo MOBIC (MELOXICAM) 01/04/2005 Comments: liver reaction NEXIUM (ESOMEPRAZOLE MAGNESIUM) 09/12/2010 14 - Other: See Comments Comments: Headaches; only tolerates Prevacid OPIOIDS - MORPHINE ANALOGUES 09/24/2013 11 - Vomiting Comments: Can tolerate Ultram PALM OIL 05/17/2020 5 - Intolerance PLAQUENIL (HYDROXYCHLOROQUINE SUL*12/14/2004 Comments: liver reaction, rash and very ill PREMARIN (CONJUGATED ESTROGENS) 12/14/2004 Comments: allergy to horses=wheezing PRILOSEC (OMEPRAZOLE MAGNESIUM) 09/12/2010 14 - Other: See Comments Comments: headaches; only tolerates Prevacid PROTONIX (PANTOPRAZOLE SODIUM) 09/12/2010 14 - Other: See Comments Comments: headache; only tolerates Prevacid SHEEP/OVINE/MINA CONTAINING PRODU*01/04/2005 Comments: rash Date Reviewed: 06/26/2022 Reviewed by: Mayda Garvin LPN - Fully Assessed Reason for Visit: Patient Update [1234] Visit Diagnosis: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 Adjust dose as indicated by labs. Take on empty stomach. - estradiol (ESTRACE) 0.01 % (0.1 mg/gram) vaginal cream APPLY A PEA-SIZED AMOUNT TO LOWER VAGINA AT BEDTIME 3 TIMES PER WEEK - spironolactone (ALDACTONE) 25 mg tablet Take 1 tablet by mouth once daily. - SUMAtriptan (IMITREX) 50 mg tablet Take 1 tablet by mouth. at onset of migraine. Repeat after 2 hours if needed. - folic acid 1 mg tablet Take 2 tablets by mouth once daily. - verapamil SR (CALAN SR, ISOPTIN SR) 120 mg CR tablet Take 120 mg by mouth once daily. - cimetidine (TAGAMET ORAL) Take by mouth. - celecoxib (CELEBREX) 200 mg capsule Take 1 capsule by mouth as directed. one or 2 times daily. - famotidine (PEPCID ORAL) Take by mouth. - Multivitamin capsule Take 1 capsule by mouth once daily. - ivermectin (SOOLANTRA TOPICAL) Apply to affected area. - OTEZLA 30 mg tablet Take 2 tablets by mouth once daily. Takes 1 tablet in am and 1 tablet in pm - cyclobenzaprine (FLEXERIL) 10 mg tablet Take 0.5-1 tablets by mouth twice daily as needed. - benzonatate (TESSALON PERLE) 100 mg capsule Take 1 capsule by mouth three times daily as needed. - Halobetasol Propionate (ULTRAVATE) 0.05 % cream Apply selectively to spots//pl (more content not included)... Normal [facility] 36on 10-04-2022 36 Medical records requ est was sent to [facility]. [facility] 36 Name of caller: Jennie Contact phone number: [phone] Relationship to Patient: patient Provider: Sam LESLIE Practice: [facility] Neurology [place] Chief Complaint/Reason for Call: Pt states she found a new provider and will need her medical records sent over to [facility] . Pt and her has moved out of state and have found new providers. Pt demographics have also been updated in chart. Please advise Best time of day caller can be reached: Any Patient advised that office/PCP has 24-48 business hours to return their call: N/A Normal [facility] Office Visiton 08-11-2022 Follow-up visit [id number] Araceli Bangura 1940 F Date Provider Department Center 08/11/2022 [id number] PEREZ [facility] None Family History Family Status - Relation Status Age at Mother Father Level of Service:25863 NC OFFICE/OUTPATIENT ESTABLISHED LOW MDM 20-29 MIN Reason for Visit and Comments: Follow-up [403379] Sleep Apnea [348] Normal [facility] Progress Noteon 08-11-2022 Progress Note [facility] [address] [facility] [address] Dept: [phone] Dept Loc: [phone] Visit type: Established Patient Reason for Visit: Follow-up and Sleep Apnea Assessment and Plan 1. Obstructive sleep apnea 2. Right hip pain Subjective HPI: Per report today, the patient is wearing the positive airway pressure every night. The mask is not leaking. The patient is sleeping through the night with the mask on. The patient reports that the mask is providing refreshing sleep. I reviewed the on-line data from the patient's device today.Sveta Jennie 05/03/2022 - 08/09/2022 : 1940 Age: 82 years [place] [id number] [facility], [address] [facility], [address] Email: [email or web address] Compliance Report Compliance Payor Standard Usage 05/03/2022 - 08/09/2022 Usage days 99/99 days (100%) >= 4 hours 92 days (93%) < 4 hours 7 days (7%) Usage hours 664 hours 2 minutes Average usage (total days) 6 hours 42 minutes Average usage (days used) 6 hours 42 minutes Median usage (days used) 7 hours 2 minutes Total used hours (value since last reset - 08/09/2022) 10,633 hours [employer] 10 S Serial number [id number] Mode Spont IPAP 16.4 cmH2O EPAP 11.4 cmH2O Easy-Breathe On Therapy Leaks - L/min Median: 3.6 95th percentile: 35.9 Maximum: 77.1 Events per hour AI: 2.7 HI: 0.2 AHI: 2.9 Apnea Index Central: 0.3 Obstructive: 2.2 Unknown: 0.1 She had periods of bilateral leg weakness. She ended up being treated by Dr. Nelson for lumbar spinal stenosis with epidurals with some assistance. She has pain in the right hip where her total hip was done before. REVIEW OF SYSTEMS: Review of Systems Constitutional: Negative for appetite change, chills, diaphoresis, fever and unexpected weight change. HENT: Negative for dental problem and mouth sores. Eyes: Negative for discharge and itching. Respiratory: Negative for chest tightness. Cardiovascular: Negative for chest pain and leg swelling. Gastrointestinal: Negative for rectal pain and vomiting. Endocrine: Negative for polydipsia, polyphagia and polyuria. Genitourinary: Negative for decreased urine volume, flank pain and genital sores. Musculoskeletal: Negative for arthralgias. Skin: Negative for color change. Allergic/Immunologic: Negative for food allergies and immunocompromised state. Neurological: Positive for weakness. Hypersomnia Hematological: Negative for adenopathy. Does not bruise/bleed easily. Psychiatric/Behavioral: Negative for agitation, behavioral problems, decreased concentration, sleep disturbance and suicidal ideas. Allergies Allergen Reactions Benzocaine Other reaction(s): Intolerance, methemglobinemia, Other probable methemoglobinemia Codeine Other reaction(s): GI Upset, Nausea/Vom/Diarrhea, Unknown, Vomiting Conjugated Estrogens Other reaction(s): Shortness of breath, wheeze allergy to horses=wheezing Esomeprazole Other reaction(s): Other, Other: See Comments Headaches; only tolerates Prevacid Hydroxychloroquine Other reaction(s): liver reaction, Rash, Unknown liver reaction, rash and very ill liver reaction, rash and very ill Lanolin Other reaction(s): Rash allergy to sheep=rash Metoprolol Rash Other reaction(s): GI Upset, NEEDS FOLLOW-UP, Rash-itch, two falls Nausea,falling down, itchy rash Minocycline Other reaction(s): dizzy, Other vertigo Omeprazole Other reaction(s): Other, Other: See Comments headaches; only tolerates Prevacid Sulindac Other reaction(s): liver reaction, Rash, Unknown liver reaction, rash and very ill Tape Other reaction(s): Rash, Unknown Epinephrine bradycardia Gluten Meal Other reaction(s): Other, Other (See Comments) Hydrogenated Palm Oil Glycerides Other reaction(s): Hives, Hives, Intolerance Meloxicam liver reaction Meperidine Other reaction(s): Nausea/Vom/Diarrhea Nabumetone Other reaction(s): stomach upset Pantoprazole Other reaction(s): Other: See Comments headache; only tolerates Prevacid Current Outpatient Medications: apremilast (Otezla) 30 MG tablet, every 12 hours., Disp: , Rfl: aspirin 81 MG chewable tablet, Chew 81 mg in the morning., Disp: , Rfl: celecoxib (CeleBREX) 200 MG capsule, Take 200 mg by mouth 2 times daily., Disp: , Rfl: estradiol (Estrace) 0.1 MG/GM vaginal cream, , Disp: , Rfl: famotidine (Pepcid) 20 MG tablet, 1 tab(s), Disp: , Rfl: fluticasone (Flonase) 50 MCG/ACT nasal spray, Administer 2 sprays into each nostril daily., Disp: , Rfl: folic acid (Folvite) 1 MG tablet, take 2 tablets by mouth once daily, Disp: , Rfl: predniSONE (Deltasone) 5 MG tablet, 1-2 tabs, Disp: , Rfl: Qnasl 80 MCG/ACT aerosol solution, Administer 2 sprays into each nostril daily., Disp: , Rfl: spironolactone (Aldactone) 25 MG tablet, Take 25 mg by mouth daily., Disp: , Rfl: SUMAtriptan (Imitrex) 50 MG (more content not included)... Normal [facility] 36on 06-30-2022 36 Spoke with chloe and all questions have been answered [facility] 36 Lm for Chloe to call the office back, please transfer her to the office when she does. Normal [place] [address] Name of caller: Chloe Contact phone number: [phone] Relationship to Patient: [facility] Provider: Dr Perez Practice: neuro edin Chief Complaint/Reason for Call: [facility] is calling asking if pts referral and info can be faxed to them at F#[phone] Best time of day caller can be reached: AM Patient advised that office/PCP has 24-48 business hours to return their call: Yes [facility] 36on 06-29-2022 36 Referrals have been faxed [facility] 36 Spoke with Jennie and let her know, her and El would need an MIRANDA on file for us to be able to send the records, she understood miranda being mailed to patient home address and will be mailed back to us. Please advise on the referral needed [facility] 36 Name of caller: Kiara Contact phone number: [phone] Relationship to Patient: patient and spouse/SO Provider: Sam Practice: neuro Chief Complaint/Reason for Call: the patient and their El Bangura 05/20/1937 need their records from 2 to 3 years and referrals for both sent to [facility] address is [address] [place] [address] the patient and their are both Dr Perez's patients and they are moving to [place] to be close to their daughter. Patient would like a callback once the referrals and records have been faxed over so they can call the new neurology department to sent up appointments for them both. The patient states they are not moving until the end of July. Please advise and thank you Fax number [phone] Phone number [phone] Best time of day caller can be reached: any Patient advised that office/PCP has 24-48 business hours to return their call: Yes [facility] 36on 06-15-2022 36 Name of caller: Jennie Bangura Contact phone number: [phone] Relationship to Patient: Patient Provider: Sam Practice: [facility] Neuro Chief Complaint/Reason for Call: Pt is calling in stating that she received an email from the office but seems to have deleted it. I asked her if maybe it was a mychart message since most offices do not use email, she said it might have been a mychart message. However I do not see that anything was sent to patient, please advise. Best time of day caller can be reached: Any Patient advised that office/PCP has 24-48 business hours to return their call: Yes [facility] 36on 06-14-2022 36 Message released to patient as written. Patient verbalized understanding. Patient's further questions if applicable: N/A Were all questions from office addressed or relayed to the patient from encounter: N/A [facility] 36 Referral and notes faxed. [facility] [address] Elder brown personally, I just searched for someone close to [place] who is both board certified in sleep medicine and neurology [facility] 36on 06-13-2022 36 Does she know much a bout this doctor? I do not see that he is Board Certified in Sleep Medicine. If she is going to be more in the [place] area there is a Dr. Allen who is like me board certified in neurology and sleep medicine. Ask her what she knows about Dr. Pacheco and if she will be on the [place] side [facility] or the [facility] 36 Name of caller: Jennie Relationship to patient: Patient Contact phone number: [phone] Speciality referral requested for: Pt is moving out of state in August and is asking for a referral for Dr John Corrales. to continue her treatment for her Sleep Apnea. Diagnosis or reason for referral: Establishing with new Neurologist out of State. Name of specialist: Dr. Corrales Name of group/practice: Neurology Patient verified insurance covers referral: Yes Patient insurance: [employer] Has patient seen this specialist in the past: No Estimated time/date patient last saw the specialist: NA [facility] Comprehensive metabolic 2000 panelon 05-08-2022 Albumin [Mass/Vol] 4.5 g/dL 3.9 - 4.9 g/dL [facility] ALP [Catalytic activity/Vol] 89 U/L 34 - 123 U/L [facility] ALT [Catalytic activity/Vol] 14 U/L 7 - 38 U/L [facility] Anion gap [Moles/Vol] 11 mmol/L 9 - 18 mmol/L [facility] AST [Catalytic activity/Vol] 21 U/L 13 - 35 U/L [facility] Bilirubin [Mass/Vol] 0.4 mg/dL 0.2 - 1 .3 mg/dL [facility] Calcium [Mass/Vol] 10.4 mg/dL High 8.5 - 10. 2 mg/dL [facility] Chloride [Moles/Vol] 99 mmol/L 97 - 10 5 mmol/L [facility] CO2 [Moles/Vol] 28 mmol/L 22 - 30 mmol/L [facility] Creatinine [Mass/Vol] 1.39 mg/dL High 0.58 - 0.96 mg/dL [facility] Estimated Glomerular Filtration Rate 38 mL/min/1.73m Low >=60 mL/min/1.73 m [facility] Glucose [Mass/Vol] 93 mg/dL 74 - 99 mg/dL [facility] Potassium [Moles/Vol] 4.1 mmol/L 3.7 - 5.1 mmol/L [facility] Protein [Mass/Vol] 6.8 g/dL 6.3 - 8.0 g/dL [facility] Sodium [Moles/Vol] 138 mmol/L 136 - 144 mmol/L [facility] Urea nitrogen [Mass/Vol] 25 mg/dL High 7 - 21 mg/dL [facility] T3 FREE [facility] 05-08-2022 Free T3 [Mass/Vol] 3.1 pg/mL 2.3 - 4.1 pg/mL [facility] T4 FREE/FREE THYROXon 2022 Free T4 [Mass/Vol] 1.3 ng/dL 0.9 - 1.7 ng/dL [facility] TSH [facility] 05-08-2022 TSH Qn 0.861 m[IU]/L 0.270 - 4.200 mIU/L [facility] VITAMIN D 25 HYDROXYon 05-08 25-hydroxyvitamin D3 [Mass/Vol] 73.8 ng/mL 31.0 - 80.0 ng/mL [facility] No Panel InformationOrdered By: Dr. Torres on 02-24-2022 Nasopharyngeal Culture Staphylococcus aureus [facility] Gram stain for investigation of transfusion reactionOrdered By: Dr. Torres on 02-22-2022 Microscopic observation Gram stain Nom (Unsp spec) [facility] CNPCristin 01-07-2021 CNPN Telephone (TLM Com) -------- MONTSERRATLITTLEJENNIE ALDRICH ([id number]) 1940 F Date Time Provider Department 01/07/21 DINAH HANNA During your visit today, we recorded the following information about you: Allergies As of Date: 01/07/2021 Noted Allergy Reaction SEASONAL ALLERGIES 04/01/2014 14 - Other: See Comments Comments: Sinus infections ADHESIVE TAPE (ROSINS) 04/10/2005 2 - Rash BENZOCAINE 08/18/2005 5 - Intolerance Comments: probable methemoglobinemia CLINORIL (SULINDAC) 12/14/2004 Comments: liver reaction, rash and very ill CODEINE 04/05/2011 8 - GI Upset EPINEPHRINE 12/14/2004 Comments: bradycardia horse serum [Other] 01/04/2005 Comments: wheezing LANOLIN 12/14/2004 Comments: allergy to sheep=rash MINOCYCLINE 12/14/2004 Comments: vertigo MOBIC (MELOXICAM) 01/04/2005 Comments: liver reaction NEXIUM (ESOMEPRAZOLE MAGNESIUM) 09/12/2010 14 - Other: See Comments Comments: Headaches; only tolerates Prevacid OPIOIDS - MORPHINE ANALOGUES 09/24/2013 11 - Vomiting Comments: Can tolerate Ultram PALM OIL 05/17/2020 5 - Intolerance PLAQUENIL (HYDROXYCHLOROQUINE SUL*12/14/2004 Comments: liver reaction, rash and very ill PREMARIN (CONJUGATED ESTROGENS) 12/14/2004 Comments: allergy to horses=wheezing PRILOSEC (OMEPRAZOLE MAGNESIUM) 09/12/2010 14 - Other: See Comments Comments: headaches; only tolerates Prevacid PROTONIX (PANTOPRAZOLE SODIUM) 09/12/2010 14 - Other: See Comments Comments: headache; only tolerates Prevacid SHEEP/OVINE CONTAINING PRODUCTS 01/04/2005 Comments: rash TOPROL XL (METOPROLOL) 11/11/2019 2 - Rash 8 - GI Upset Comments: Nausea,falling down, itchy rash Date Reviewed: 01/06/2021 Reviewed by: Kassidy Talamantes APRN.COORDINATOR OF HEALTH SERVICES - Fully Assessed Reason for Visit: Results [95] Prescriptions as of 10/01/2021 - SYNTHROID 50 mcg tablet Take 1 tablet by mouth once daily. Sunday through Sunday or as directed - cimetidine (TAGAMET ORAL) Take by mouth. - celecoxib (CELEBREX) 200 mg capsule Take 1 capsule by mouth as directed. one or 2 times daily. - SYNTHROID 75 mcg tablet Take 1 tablet by mouth every Sunday. (taking 50mcg Sunday through Sunday) - SUMAtriptan (IMITREX) 50 mg tablet Take 1 tablet by mouth. at onset of migraine. Repeat after 2 hours if needed. - estradiol (ESTRACE) 0.01 % (0.1 mg/gram) vaginal cream APPLY A PEA-SIZED AMOUNT TO LOWER VAGINA AT BEDTIME 3 TIMES PER WEEK - famotidine (PEPCID ORAL) Take by mouth. - Multivitamin capsule Take 1 capsule by mouth once daily. - ivermectin (SOOLANTRA TOPICAL) Apply to affected area. - OTEZLA 30 mg tablet Take 2 tablets by mouth once daily. - cyclobenzaprine (FLEXERIL) 10 mg tablet Take 0.5-1 tablets by mouth twice daily as needed. - benzonatate (TESSALON PERLE) 100 mg capsule Take 1 capsule by mouth three times daily as needed. - Halobetasol Propionate (ULTRAVATE) 0.05 % cream Apply selectively to spots//plaques of eczema and possible psoriasis on elbows and hands twice per day for up to 4-6 weeks or less as needed until clear and then try to stop or taper off to a bland emollient cream such as CeraVe cream or Cetaphil cream applied twice per day to other dry skin. - diclofenac sodium (VOLTAREN) 1 % topical gel Apply moderate amount to painful areas on hands (2g) AND knees (4g) up to three times daily as needed. Don't exceed a total of 32g daily. - ACETAMINOPHEN (TYLENOL 8 HOUR ORAL) Take 650 mg by mouth twice daily. - beclomethasone dipropionate (QNASL) 80 mcg/actuation HFAA Use in each nostril. - COMPOUNDED PRESCRIPTION Citracal slow release 1200 (2 caplets daily = 1000 IU vitamin D, 1200 mg calcium, 80 mg magnesium) - SYSTANE 0.4 %-0.3 % EYE DROPS daily as directed - ASPIRIN 81 MG TAB Take one (1) tablet daily . 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] 08/12/2018 MVP (mitral valve prolapse) [I34.1] Essential hypertension [I10] 11/06/2018 Hypothyroidism [E03.9] 03/16/2005 Cervical spondylosis without myelopathy [M47.81*04/03/2005 11/06/2018 Cervicalgia [M54.2] 04/03/2005 11/22/2016 Unspecified constipation [K59.00] 11/24/2015 Acute gastritis without mention of hemorrhage [* 11/24/2015 Hemorrhage of gastrointestinal tract, unspecifi* 11/24/2015 FATTY INFILTRATION LIVER [K76.89] 02/13/2006 Lumbago [M54.50] 03/05/2006 11/22/2016 MASS IN BREAST [N63.0] 05/28/2006 11/24/2015 Osteopenia [M85.80] 07/25/2006 Migraine with aura [G43.109] 11/04/2007 11/22/2016 ESOPHAGEAL REFLUX [K21.9] 11/04/2007 Urgency of urination [R39.15] 04/28/2008 08/07/2011 Uterovaginal prolapse, incomplete [N81.2] 04/28/2008 11/22/2016 Cystocele, midline [N81.11] 04/28/2008 11/22/2016 Multiple thyroid nodules [E04.2] 05/07/2008 Symptomatic menopausal or female climacteric st*07/16/2009 08/07/2011 GERD (gastroesophageal reflu (more content not included)... Normal [facility] ALLIED HEALTHon 11-30-2020 ALLIED HEALTH HNO ID: [id number] Author: DANYELLE Malik Service: Radiology Author Type: Clinical Signs And Displays Salesperson Type: Allied Health Filed: 11/30/2020 1:40 PM Note Text: Radiology Service Progress Note PATIENT NAME: Jennie Bangura DATE OF SERVICE: November 30, 2020 TIME: 1:40 PM PATIENT IDENTITY VERIFICATION COMPLETED USING TWO (2) IDENTIFIERS: Name and Date of confirmed by patient verbally. FALL SCREENING: Has the patient had 2 falls in the last year or 1 fall with injury or currently using an Ambulatory Assistive Device (Walker, Cane, Wheelchair, Crutches, etc.)? No PATIENT GENDER DATA: Female. status: : No status: NO. PATIENT RELEVANT IMPLANT DATA REVIEWED: Not Applicable RADIOLOGY DEPARTMENT: Ultrasound PERIPHERAL IV DATA: Not applicable SIGNED BY: DANYELLE Malik November 30, 2020 1:40 PM Normal [facility] CYTOLOGYon 11-30-2020 CYTOLOGY ADDENDUM PRESENT Specimen originated from [facility] Specimen #: [id number] Submitting Physician: MELQUIADES ROD D.O. SPECIMEN SUBMITTED A: THYROID, RIGHT LOBE, LOWER POLE, FINE NEEDLE ASPIRATE FINAL DIAGNOSIS A. THYROID, RIGHT LOBE, LOWER POLE, FINE NEEDLE ASPIRATE Non-diagnostic aspirate sample. Insufficient follicular epithelium for evaluation. Maricrzu Herrera M.D. (Electronic Signature) ADDENDUM Date Ordered: 01/06/2021 Date Reported: 01/07/2021 A cell block was prepared and evaluated to aid in the diagnosis of this case. Addendum Pathologist: Hollie Dejesus MD Electronic Signature CLINICAL DATA Right lower pole densely calcified thyroid nodule, LMP: N/A GROSS DESCRIPTION 30cc clear, pale pink CytoLyt with particles STAINS A: THYROID, RIGHT LOBE, LOWER POLE, FINE NEEDLE ASPIRATE THIN PREP [facility], CELL BLOCK, H&E, Initial Date of Report: 12/01/2020 Date of Procedure: 11/30/2020 Date of Receipt: 11/30/2020 Submitted by: MELQUIADES ROD D.O. Location: [facility] Diagnostic interpretation performed at [facility], [address] [place] [address]. CLIA Number: [id number] [facility] US FNA THYROID WO CORE BXon 11-30-2020 US FNA THYROID WO CORE BX * * *Final Report* * * DATE OF EXAM: Nov 30 2020 1:35PM MDU 1236 - US FNA THYROID WO CORE BX / PROCEDURE REASON: rt lower lobe thyroid nodule * * * * Physician Interpretation * * * * PROCEDURE PERFORMED: ULTRASOUND GUIDED FINE NEEDLE ASPIRATION BIOPSY OF RIGHT THYROID NODULE INDICATION FOR PROCEDURE: 80 years old Female with rt lower lobe thyroid nodule STAFF RADIOLOGIST: Dr. Meqluiades Rod CONSENT: The risks, benefits, treatment options, potential complications and personnel involved were discussed with the patient. All questions were answered and consent was obtained. The patient indicated she was willing to proceed. The staff physician personally verified consent. TIME OUT: A time out was performed immediately prior to procedure start with the nursing and interventional team, correctly identifying the patient name, date of , procedure, anatomy (including marking of site and side), patient position, procedure consent form, relevant diagnostic and radiology test results, antibiotic administration, safety precautions, and procedure-specific equipment needs. RESULT: PROCEDURE: After performing the time out, the RIGHT lower pole densely calcified thyroid nodule was localized with ultrasound. The densely calcified thyroid nodule corresponds with a coarse calcification on outside hospital CT 07/19/2017. This calcification has been present since ultrasound 04/18/2007. The dense calcification is immediately adjacent to the jugular vein and common carotid artery. Anterior lower neck was prepped and draped in the usual sterile fashion. Under ultrasound guidance, multiple attempts at fine needle aspiration biopsy of the density calcified RIGHT lower pole thyroid nodule were made using multiple 25 gauge needles. The calcification was difficult to penetrate. A total of 5 passes were made. Local anesthesia was achieved utilizing 2 mL 1% percent lidocaine. START TIME/TIMEOUT TIME: 1311 END TIME: 1527 PATIENT MONITORING: I personally supervised and directed an independent trained observer who assisted in monitoring the patient?s level of consciousness and physiological status throughout the procedure. COMPLICATIONS: None SIGN-OUT DISCUSSION: Completed ESTIMATED BLOOD LOSS: None SPECIMENS: 5 FNA specimens were placed in Cytolyt solution and sent for surgical pathology. BIOPSY DEVICE: Multiple 25-gauge needles. IMPRESSION: Ultrasound-guided fine-needle aspiration biopsy of densely calcified RIGHT lower pole thyroid nodule as described. The densely calcified nodule corresponds with the coarse calcification seen on outside hospital CT 07/19/2017 and has been present since 04/18/2007 ultrasound. [employer] Diver Net: DIAN Transcribe Date/Time: Nov 30 2020 1:49P Dictated by : MELQUIADES ROD DO This examination was interpreted and the report reviewed and electronically signed by: MELQUIADES ROD DO on Nov 30 2020 1:57PM EST [id number] [facility] 05-19-2020 [facility] Telephone (RYBA) -------- JENNIE BANGURA ([id number]) 1940 F Date Time Provider Department 05/19/20 ROBERT KAUR JR During your visit today, we recorded the following information about you: Loretta De La Rosa LPN 05/19/2020 3:40 PM Signed Pt called to let you know her EMG was done today. She would like your office to call her when you get results and to schedule a follow up apt. She can be reached at her cell phone [phone]. Loretta Clay LPN 05/21/2020 8:16 AM Signed Patient calling had EMG done Sunday at [facility], she is hoping results have been sent to the office. Robert Kuar MD 05/21/2020 8:56 AM Signed I do not yet have results for review. MD Mayda Lugo LPN 05/21/2020 5:03 PM Signed Report Via docusign to Dr Kaur to review.Mayda De La Rosa LPN 05/25/2020 1:48 PM Signed Pt calling back and would like to get results of EMG and what to do next. She would like to have and apt also with Dr. Kaur to discuss the problem she way him for. Please advise pt . Please call her on her cell phone. Robert Kaur MD 05/25/2020 3:57 PM Signed The EMG/NCV per report showed mild carpal tunnel syndrome and a possible sural n neuropathy but did not show evidence of a peripheral polyneuropathy per report. Please determine if patient's symptoms have changed, and pt's opinions regarding treatment of symptoms with medication. Thank you, MD Silvia Lugo RN 05/26/2020 10:16 AM Signed Pt called, verified by name and birthdate. Patient notified of results and provider's instructions. Patient verbalizes understanding. Call transferred to PSR. Pt states her symptoms have changed a lot. Pt would not talk in detail about them. Pt wanted to speak with Dr. Kaur about the changes. ALEX Vázquez RN 05/26/2020 10:29 AM Signed Scheduled patient for first available appointment on 10/04/20. Patient states that she is having tremors, which she didn't have before. She states that the tingling isn't happening as frequently. She states that the left side is weaker than the right side of her body. She feels as though she has been abandoned. Please assist. ALEX Barrett MD 05/26/2020 10:57 AM Signed If patient is having weakness of one side of body > than other, needs evaluation in ER. These findings of focal weakness may suggest stroke. Please clarify with pt. MD Mayda Lugo LPN 05/27/2020 11:29 AM Signed Patient aware of provider recommendations. States that at office visit with Dr Kaur, she was told that her Left side is weaker. The patient was actually experiencing tingling in upper body and all extremities. Her main complaint at this time is involuntary movements or tremors of the left hand. She can stop the movement when it starts, but it does not always remain stopped. Patient also experiencing diarrhea and vomiting since having MRI done. Ended up in the ER and recieved 2 L fluids/electrolites. Just now feeling confident enough to start eating again. Please advise concerning the tremors. Mayda Kaur MD 05/27/2020 12:47 PM Signed Tremor is definitely something new. Sounds similar to a resting tremor by description. Will try to get in to movement specialist KESHIA for evaluation. MD Mayda Lugo LPN 05/28/2020 3:57 PM Signed Patient aware of Provider response and recommendations.Agrees to follow up with movement specialist. Will have PSS call patient with movement specialist providers as close in vicinity as possible. Mayda Garvin LPN Allergies As of Date: 05/19/2020 Noted Allergy Reaction SEASONAL ALLERGIES 04/01/2014 14 - Other: See Comments Comments: Sinus infections ADHESIVE TAPE (ROSINS) 04/10/2005 2 - Rash BENZOCAINE 08/18/2005 5 - Intolerance Comments: probable methemoglobinemia CLINORIL (SULINDAC) 12/14/2004 Comments: liver reaction, rash and very ill CODEINE 04/05/2011 8 - GI Upset EPINEPHRINE 12/14/2004 Comments: bradycardia horse serum [Other] 01/04/2005 Comments: wheezing LANOLIN 12/14/2004 Comments: allergy to sheep=rash MINOCYCLINE 12/14/2004 Comments: vertigo MOBIC (MELOXICAM) 01/04/2005 Comments: liver reaction NEXIUM (ESOMEPRAZOLE MAGNESIUM) 09/12/2010 14 - Other: See Comments Comments: Headaches; only tolerates Prevacid OPIOIDS - MORPHINE ANALOGUES 09/24/2013 11 - Vomiting Comments: Can tolerate Ultram PALM OIL 05/17/2020 5 - Intolerance PLAQUENIL (HYDROXYCHLOROQUINE SUL*12/14/2004 Comments: liver reaction, rash and very ill PREMARIN (CONJUGATED ESTROGENS) 12/14/2004 Comments: allergy to horses=wheezing PRILOSEC (OMEPRAZOLE MAGNESIUM) 09/12/2010 14 - Other: See Comments Comments: headaches; only tolerates Prevacid PROTONIX (PANTOPRAZOLE SODIUM) 09/12/2010 14 - Other: See Comments Comments: headache; only tolerates Prevacid SHEEP/OVINE CONTAINING PRODUCTS 01/04/2005 Comments: rash TOPROL XL (METOPROLOL) 11/11/2019 2 - Rash 8 - GI Upset Comments: Nausea,falling down, itchy rash Date Reviewed: 05/17/2020 Reviewed by: Kimi Smith LPN - Fully Assessed Reason for Visit: Asking for EMG results/apt [Other] Primary Visit Diagnosis:Action tremor [G25.2] Other Visit Diagnosis:Tremor [R25.1] Order(s):CONSULT TO NEUROLOGY [9019] Order #: [id number]: 1 FUTURE Prescriptions as of 05/19/2020 Sig: SYNTHROID 75 MCG TABLET Take one tablet daily by mout* SOOLANTRA TOPICAL Apply to affected area. OTEZLA 30 MG TABLET Take 1 tablet by mouth once d* CELECOXIB 200 MG CAPSULE Take 1 capsule by mouth as di* SUMATRIPTAN 50 MG TABLET Take 1 tablet by mouth. at on* ESTRADIOL 0.01% (0.1 MG/GRAM)* small pea-sized amount to low* CYCLOBENZAPRINE 10 MG TABLET Take 0.5-1 tablets by mouth t* BENZONATATE 100 MG CAPSULE Take 1 capsule by mouth three* TURMERIC ROOT EXTRACT 500 MG * Take by mouth. Takes bid HALOBETASOL PROPIONATE 0.05 %* Apply selectively to spots//p* DICLOFENAC 1 % TOPICAL GEL Apply moderate amount to pain* TYLENOL 8 HOUR ORAL Take 650 mg by mouth twice da* BECLOMETHASONE DIPROPIONATE 8* Use in each nostril. ANTIHISTAMINE NASAL DECONGEST* Take by mouth. COMPOUNDED PRESCRIPTION Citracal slow release 1200 (2* * METRONIDAZOLE 1 % TOPICAL GEL Apply to face rosacea area (e* * COMPOUNDED PRESCRIPTION Allergy injections for mold a* * SYSTANE (PROPYLENE GLYCOL) 0.* daily as directed * ASPIRIN 81 MG TABLET Take one (1) tablet daily . 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] 08/12/2018 MVP (mitral valve prolapse) [I34.1] Essential hypertension [I10] 11/06/2018 Hypothyroidism [E03.9] 03/16/2005 Cervical spondylosis without myelopathy [M47.81*04/03/2005 11/06/2018 Cervicalgia [M54.2] 04/03/2005 11/22/2016 Unspecified constipation [K59.00] 11/24/2015 Acute gastritis without mention of hemorrhage [* 11/24/2015 Hemorrhage of gastrointestinal tract, unspecifi* 11/24/2015 FATTY INFILTRATION LIVER [K76.89] 02/13/2006 Lumbago [M54.5] 03/05/2006 11/22/2016 MASS IN BREAST [N63.0] 05/28/2006 11/24/2015 Osteopenia [M85.80] 07/25/2006 Migraine with aura [G43.109] 11/04/2007 11/22/2016 ESOPHAGEAL REFLUX [K21.9] 11/04/2007 Urgency of urination [R39.15] 04/28/2008 08/07/2011 Uterovaginal prolapse, incomplete [N81.2] 04/28/2008 11/22/2016 Cystocele, midline [N81.11] 04/28/2008 11/22/2016 Multiple thyroid nodules [E04.2] 05/07/2008 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] 11/03/2010 11/22/2016 Anemia [D64.9] 04/05/2011 04/28/2013 Sebaceous cyst [L72.3] 08/07/2011 11/24/2015 Polyarthritis [M13.0] 11/24/2015 Psoriatic arthritis [L40.50] 02/13/2012 Hip pain [M25.559] 02/13/2013 11/22/2016 Hypercalcemia [E83.52] 10/31/2013 11/03/2014 Labial abscess [N76.4] 02/23/2015 11/24/2015 Vitamin D deficiency [E55.9] 05/24/2015 Fibrocystic breast [N60.19] 12/31/2015 11/22/2016 Long-term use of immunosuppressant medication [*09/26/2016 Generalized osteoarthrosis [M15.9] 12/06/2016 Diverticulosis of large intestine [K57.30] 06/06/2017 11/06/2018 Psoriasis [L40.9] 11/13/2017 Irritable bowel syndrome with diarrhea [K58.0] 11/13/2017 Sjogren syndrome (HCC) [M35.00] 11/06/2018 ROBERT treated with BiPAP [G47.33] 11/06/2018 SVT (supraventricular tachycardia) (HCC) [I47.1]09/01/2019 Dyspnea on exertion [R06.00] 09/01/2019 12/01/2019 Labile hypertension [R09.89] 12/22/2019 Encounter Status:Closed by MAYDA GARVIN LPN on 05/28/20 [facility] 04-05-2020 [facility]HEL[facility] Telephone (LOGAN) -------- JENNIE BANGURA ([id number]) 1940 F Date Time Provider Department 04/05/20 ROBERT KAUR JR During your visit today, we recorded the following information about you: Loretta De La Rosa LPN 04/05/2020 9:48 AM Signed Melissa with [facility] calling to get a different code for pt to have the EMG nerve conduction study done. You have sent of a code which is not specific. Please review and she reports code : other specific Polyneuropathies G62.89 would be covered. Please advise Melissa. Loretta Garvin LPN 04/05/2020 3:20 PM Signed Melissa from [facility] aware of approved changes. Mayda Garvin LPN Allergies As of Date: 04/05/2020 Noted Allergy Reaction SEASONAL ALLERGIES 04/01/2014 14 - Other: See Comments Comments: Sinus infections ADHESIVE TAPE (ROSINS) 04/10/2005 2 - Rash BENZOCAINE 08/18/2005 5 - Intolerance Comments: probable methemoglobinemia CLINORIL (SULINDAC) 12/14/2004 Comments: liver reaction, rash and very ill CODEINE 04/05/2011 8 - GI Upset EPINEPHRINE 12/14/2004 Comments: bradycardia horse serum [Other] 01/04/2005 Comments: wheezing LANOLIN 12/14/2004 Comments: allergy to sheep=rash MINOCYCLINE 12/14/2004 Comments: vertigo MOBIC (MELOXICAM) 01/04/2005 Comments: liver reaction NEXIUM (ESOMEPRAZOLE MAGNESIUM) 09/12/2010 14 - Other: See Comments Comments: Headaches; only tolerates Prevacid OPIOIDS - MORPHINE ANALOGUES 09/24/2013 11 - Vomiting Comments: Can tolerate Ultram PLAQUENIL (HYDROXYCHLOROQUINE SUL*12/14/2004 Comments: liver reaction, rash and very ill PREMARIN (CONJUGATED ESTROGENS) 12/14/2004 Comments: allergy to horses=wheezing PRILOSEC (OMEPRAZOLE MAGNESIUM) 09/12/2010 14 - Other: See Comments Comments: headaches; only tolerates Prevacid PROTONIX (PANTOPRAZOLE SODIUM) 09/12/2010 14 - Other: See Comments Comments: headache; only tolerates Prevacid SHEEP/OVINE CONTAINING PRODUCTS 01/04/2005 Comments: rash TOPROL XL (METOPROLOL) 11/11/2019 2 - Rash 8 - GI Upset Comments: Nausea,falling down, itchy rash Date Reviewed: 12/22/2019 Reviewed by: Jayda Black - Fully Assessed Reason for Visit: clarification on code for EMG [Other] Primary Visit Diagnosis: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 OTEZLA 30 MG TABLET Take 1 tablet by mouth once d* CELECOXIB 200 MG CAPSULE Take 1 capsule by mouth as di* SUMATRIPTAN 50 MG TABLET Take 1 tablet by mouth. at on* ESTRADIOL 0.01% (0.1 MG/GRAM)* small pea-sized amount to low* CYCLOBENZAPRINE 10 MG TABLET Take 0.5-1 tablets by mouth t* BENZONATATE 100 MG CAPSULE Take 1 capsule by mouth three* TURMERIC ROOT EXTRACT 500 MG * Take by mouth. Takes bid HALOBETASOL PROPIONATE 0.05 %* Apply selectively to spots//p* DICLOFENAC 1 % TOPICAL GEL Apply moderate amount to pain* TYLENOL 8 HOUR ORAL Take 650 mg by mouth twice da* BECLOMETHASONE DIPROPIONATE 8* Use in each nostril. ANTIHISTAMINE NASAL DECONGEST* Take by mouth. COMPOUNDED PRESCRIPTION Citracal slow release 1200 (2* * METRONIDAZOLE 1 % TOPICAL GEL Apply to face rosacea area (e* * COMPOUNDED PRESCRIPTION Allergy injections for mold a* * SYSTANE (PROPYLENE GLYCOL) 0.* daily as directed * ASPIRIN 81 MG TABLET Take one (1) tablet daily . 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 Essential hypertension [I10] 11/06/2018 Hypothyroidism [E03.9] 03/16/2005 Cervical spondylosis without myelopathy [M47.81*04/03/2005 11/06/2018 Cervicalgia [M54.2] 04/03/2005 11/22/2016 Unspecified constipation [K59.00] 11/24/2015 Acute gastritis without mention of hemorrhage [* 11/24/2015 Hemorrhage of gastrointestinal tract, unspecifi* 11/24/2015 FATTY INFILTRATION LIVER [K76.89] 02/13/2006 Lumbago [M54.5] 03/05/2006 11/22/2016 MASS IN BREAST [N63.0] 05/28/2006 11/24/2015 Osteopenia [M85.80] 07/25/2006 More... Migraine with aura [G43.109] 11/04/2007 11/22/2016 ESOPHAGEAL REFLUX [K21.9] 11/04/2007 Urgency of urination [R39.15] 04/28/2008 08/07/2011 Uterovaginal prolapse, incomplete [N81.2] 04/28/2008 11/22/2016 Cystocele, midline [N81.11] 04/28/2008 11/22/2016 Multiple thyroid nodules [E04.2] 05/07/2008 More... 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] 11/03/2010 11/22/2016 Anemia [D64.9] 04/05/2011 04/28/2013 Sebaceous cyst [L72.3] 08/07/2011 11/24/2015 Polyarthritis [M13.0] 11/24/2015 Psoriatic arthritis [L40.50] 02/13/2012 Hip pain [M25.559] 02/13/2013 11/22/2016 Hypercalcemia [E83.52] 10/31/2013 11/03/2014 Labial abscess [N76.4] 02/23/2015 11/24/2015 Vitamin D deficiency [E55.9] 05/24/2015 Fibrocystic breast [N60.19] 12/31/2015 11/22/2016 Long-term use of immunosuppressant medication [*09/26/2016 Generalized osteoarthrosis [M15.9] 12/06/2016 Diverticulosis of large intestine [K57.30] 06/06/2017 11/06/2018 Psoriasis [L40.9] 11/13/2017 Irritable bowel syndrome with diarrhea [K58.0] 11/13/2017 Sjogren syndrome (HCC) [M35.00] 11/06/2018 ROBERT treated with BiPAP [G47.33] 11/06/2018 More... SVT (supraventricular tachycardia) (HCC) [I47.1]09/01/2019 Dyspnea on exertion [R06.00] 09/01/2019 12/01/2019 Labile hypertension [R09.89] 12/22/2019 Encounter Status:Closed by ROBERT KAUR on 04/05/20 [facility] Clinical Summary: HMSPatient IDon 02-04-2020 SOP Invalid Interpretation Code [facility] Work Phone: Clinical Summary: HMSPatient IDon 10-16-2019 SOP Invalid Interpretation Code [facility] Work Phone: Office Visit: New Complaint, Rm: 7on 10-16-2019 NEGATED: Highlighted rowxray history of the right wrist on 09/18/2019 at [facility] Invalid Interpretation Code [facility] Work Phone: CNPNon 10-14-2019 CNPN Telephone (AGCARDPOB ) -------- SVETAJENNIE A ([id number]) 1940 F Date Time Provider Department 10/14/19 JAYDA BLACK AGCARDPOFran During your visit today, we recorded the following information about you: Loretta Lorena De La Rosa LPN 10/14/2019 12:00 PM Signed Ptr is not feeling good. Would like the doctor to call her on her cell phone. She has had not results on testing and her apt for 11/2019 is too far out. She is having problems with BP and pulse being to high. Loretta Hines Ma 10/14/2019 2:24 PM Signed Phone call to patient for further questions. Patient expressed great concern for echo results as previous Dr. Monge's nursing did. Patient denies chest pain, SOB, syncope, TIAs. Unsure if having palpitations, but reports I think I am because with a heart rate of 105 I have to be. Has concern over blood pressure and heart rates: See below. 10/13 140/72 78 10/12 130/77 100 10/10 150/92 95 10/09 126/80 104 10/05 115/77 84 10/04 182/82 105 Patient asking what she needs to do. Informed patient that I will forward information to Dr. Black. If patient feels she cannot wait, she is to report to ED. Patient agreeable and verbalized understanding. Linnea Black MD 10/14/2019 6:54 PM Signed Spoke to patient and reviewed her echocardiogram results. I also discussed her blood pressure and heart rate management. Add Toprol 25 mg once daily to her medical regimen. She will contact the office next week with an update regarding her blood pressure and heart rate. Side effects were reviewed with the patient in detail. Allergies As of Date: 10/14/2019 Noted Allergy Reaction SEASONAL ALLERGIES 04/01/2014 14 - Other: See Comments Comments: Sinus infections ADHESIVE TAPE (ROSINS) 04/10/2005 2 - Rash BENZOCAINE 08/18/2005 5 - Intolerance Comments: probable methemoglobinemia CLINORIL (SULINDAC) 12/14/2004 Comments: liver reaction, rash and very ill CODEINE 04/05/2011 8 - GI Upset EPINEPHRINE 12/14/2004 Comments: bradycardia horse serum [Other] 01/04/2005 Comments: wheezing LANOLIN 12/14/2004 Comments: allergy to sheep=rash MINOCYCLINE 12/14/2004 Comments: vertigo MOBIC (MELOXICAM) 01/04/2005 Comments: liver reaction NEXIUM (ESOMEPRAZOLE MAGNESIUM) 09/12/2010 14 - Other: See Comments Comments: Headaches; only tolerates Prevacid OPIOIDS - MORPHINE ANALOGUES 09/24/2013 11 - Vomiting Comments: Can tolerate Ultram PLAQUENIL (HYDROXYCHLOROQUINE SUL*12/14/2004 Comments: liver reaction, rash and very ill PREMARIN (CONJUGATED ESTROGENS) 12/14/2004 Comments: allergy to horses=wheezing PRILOSEC (OMEPRAZOLE MAGNESIUM) 09/12/2010 14 - Other: See Comments Comments: headaches; only tolerates Prevacid PROTONIX (PANTOPRAZOLE SODIUM) 09/12/2010 14 - Other: See Comments Comments: headache; only tolerates Prevacid SHEEP/OVINE CONTAINING PRODUCTS 01/04/2005 Comments: rash Date Reviewed: 09/01/2019 Reviewed by: Jayda Black - Fully Assessed Reason for Visit: Results [95] Cmt: Echo results and blood pressure issues Primary Visit Diagnosis:SVT (supraventricular tachycardia) (HCC) [I47.1] Other Visit Diagnosis:Essential hypertension [I10] Order(s):metoprolol succinate ER (TOPROL XL) 25 mg 24 hr tabletTake 1 tablet by mouth once daily.Disp: 30 tabletRfl: 11 BASIC METABOLIC PNL [SQBMP] Order #: [id number] FUTURE Prescriptions as of 10/14/2019 Sig: METOPROLOL SUCCINATE ER 25 MG* Take 1 tablet by mouth once d* OTEZLA 30 MG TABLET Take 1 tablet by mouth once d* DOXYCYCLINE MONOHYDRATE 100 M* Take 1 capsule by mouth once * PERFLUTREN LIPID MICROSPHERES* Inject 1.3 mL intravenously a* CELECOXIB 200 MG CAPSULE Take 1 capsule by mouth as di* SUMATRIPTAN 50 MG TABLET Take 1 tablet by mouth. at on* SYNTHROID 75 MCG TABLET Take 1 tablet by mouth once d* LEUCOVORIN CALCIUM 5 MG TABLET Take 1 tablet by mouth once e* ESTRADIOL 0.01% (0.1 MG/GRAM)* small pea-sized amount to low* CYCLOBENZAPRINE 10 MG TABLET Take 0.5-1 tablets by mouth t* FOLIC ACID 1 MG TABLET Take 2 tablets by mouth once * BENZONATATE 100 MG CAPSULE Take 1 capsule by mouth three* TURMERIC ROOT EXTRACT 500 MG * Take by mouth. Takes bid HALOBETASOL PROPIONATE 0.05 %* Apply selectively to spots//p* DICLOFENAC 1 % TOPICAL GEL Apply moderate amount to pain* TYLENOL 8 HOUR ORAL Take 650 mg by mouth twice da* BECLOMETHASONE DIPROPIONATE 8* Use in each nostril. ANTIHISTAMINE NASAL DECONGEST* Take by mouth. COMPOUNDED PRESCRIPTION Citracal slow release 1200 (2* * METRONIDAZOLE 1 % TOPICAL GEL Apply to face rosacea area (e* * CYCLOSPORINE 0.05 % EYE DROPS* twice daily both eyes * COMPOUNDED PRESCRIPTION Allergy injections for mold a* * SYSTANE (PROPYLENE GLYCOL) 0.* daily as directed * ASPIRIN 81 MG TABLET Take one (1) tablet daily . 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 Essential hypertension [I10] 11/06/2018 Hypothyroidism [E03.9] 03/16/2005 Cervical spondylosis without myelopathy [M47.81*04/03/2005 11/06/2018 Cervicalgia [M54.2] 04/03/2005 11/22/2016 Unspecified constipation [K59.00] 11/24/2015 Acute gastritis without mention of hemorrhage [* 11/24/2015 Hemorrhage of gastrointestinal tract, unspecifi* 11/24/2015 FATTY INFILTRATION LIVER [K76.89] 02/13/2006 Lumbago [M54.5] 03/05/2006 11/22/2016 MASS IN BREAST [N63.0] 05/28/2006 11/24/2015 Osteopenia [M85.80] 07/25/2006 More... Migraine with aura [G43.109] 11/04/2007 11/22/2016 ESOPHAGEAL REFLUX [K21.9] 11/04/2007 Urgency of urination [R39.15] 04/28/2008 08/07/2011 Uterovaginal prolapse, incomplete [N81.2] 04/28/2008 11/22/2016 Cystocele, midline [N81.11] 04/28/2008 11/22/2016 Multiple thyroid nodules [E04.2] 05/07/2008 More... 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] 11/03/2010 11/22/2016 Anemia [D64.9] 04/05/2011 04/28/2013 Sebaceous cyst [L72.3] 08/07/2011 11/24/2015 Polyarthritis [M13.0] 11/24/2015 Psoriatic arthritis [L40.50] 02/13/2012 Hip pain [M25.559] 02/13/2013 11/22/2016 Hypercalcemia [E83.52] 10/31/2013 11/03/2014 Labial abscess [N76.4] 02/23/2015 11/24/2015 Vitamin D deficiency [E55.9] 05/24/2015 Fibrocystic breast [N60.19] 12/31/2015 11/22/2016 Long-term use of immunosuppressant medication [*09/26/2016 Inflammatory arthritis [M19.90] 12/06/2016 Generalized osteoarthrosis [M15.9] 12/06/2016 Diverticulosis of large intestine [K57.30] 06/06/2017 11/06/2018 Psoriasis [L40.9] 11/13/2017 Irritable bowel syndrome with diarrhea [K58.0] 11/13/2017 Sjogren syndrome (HCC) [M35.00] 11/06/2018 ROBERT treated with BiPAP [G47.33] 11/06/2018 More... SVT (supraventricular tachycardia) (HCC) [I47.1]09/01/2019 Dyspnea on exertion [R06.00] 09/01/2019 Prescriptions ordered this encounter Disp Refills Start End METOPROLOL SUCCINATE ER 25 MG TABLET* 30 t* 11 10/14/2019 Route: ORAL Sig: Take 1 tablet by mouth once daily. Encounter Status:Closed by JAYDA BLACK on 10/14/19 Normal [facility] .Auto Diffon 07-08-2019 Ammonia (P) [Mass/Vol] 0.60 10 3/mcL Normal 0.15-1.00 [facility] ([place]) Comment on above: Performed By: #### C BC, AFIA ANEU, GFR #### [place] [address] #### BMP #### [address] [address] Basophils (Bld) [#/Vol] 0.00 10 3/mcL Normal 0.00-0.19 [facility] ([place]) Comment on above: Performed By: #### C BC, ADABHAY ANEU, GFR #### [place] [address] #### BMP #### [address] [address] Basophils/100 WBC (Bld) 0.2 % Normal 0.0-2.5 [facility] ([place]) Comment on above: Performed By: #### C BC, ADIFF, ANEU, GFR #### [place] [address] #### BMP #### [address] [address] Eosinophils (Bld) [#/Vol] 0.00 10 3/mcL Normal 0.00-0.40 [facility] ([place]) Comment on above: Performed By: #### C BC, ADIFF ANEU, GFR #### [place] [address] #### BMP #### [address] [address] Eosinophils/100 WBC (Bld) 0.0 % Normal 0.0-7.0 [facility] ([place]) Comment on above: Performed By: #### C BC, ADIFF, ANEU, GFR #### [address] [address] #### BMP #### [address] [address] Lymphocytes (Bld) [#/Vol] 1.00 10 3/mcL Normal 0.77-3.85 [facility] ([place]) Comment on above: Performed By: #### C BC, ADIFF, ANEU, GFR #### [place] [address] #### BMP #### [address] [address] Lymphocytes/100 WBC (Bld) 8.4 % Low 10.0-50.0 [facility] ([place]) Comment on above: Performed By: #### C BC, ADIFF, ANEU, GFR #### [place] [address] #### BMP #### [address] [address] Monocytes/100 WBC (Bld) 5.3 % Normal 1.7-13.0 [facility] ([place]) Comment on above: Performed By: #### C BC, ADIFF, ANEU, GFR #### [place] [address] #### BMP #### [address] [address] Neutrophils/100 WBC (Bld) 86.1 % High 37.0-80.0 [facility] ([place]) Comment on above: Performed By: #### C BC, ADIFF, ANEU, GFR #### [address] [address] #### BMP #### [address] [address] .GFRon 07-08-2019 GFR Non- 54 ml/min/1.73sqm Normal [facility] ([place]) Comment on above: Result Comment: GFR Population mean for , Non- Americans Ages 20-29 = 116 mL/min/1.73 sq.m. Ages 30-39 = 107 mL/min/1.73 sq.m. Ages 40-49 = 99 mL/min/1.73 sq.m. Ages 50-59 = 93 mL/min/1.73 sq.m. Ages 60-69 = 85 mL/min/1.73 sq.m. Ages 70+ = 75 mL/min/1.73 sq.m. Chronic Kidney Disease: Less than 60 mL/min/1.73 square meters End Stage Renal Disease: Less than 15 mL/min/1.73 square meters Performed By: #### C AFIA AGEE, ANEU #### Emir [address] [address] #### BMP, GFR #### [place] [address] GFR 65 ml/min/1.73sqm Normal [facility] ([place]) Comment on above: Result Comment: GFR Population mean for , Non- Americans Ages 20-29 = 116 mL/min/1.73 sq.m. Ages 30-39 = 107 mL/min/1.73 sq.m. Ages 40-49 = 99 mL/min/1.73 sq.m. Ages 50-59 = 93 mL/min/1.73 sq.m. Ages 60-69 = 85 mL/min/1.73 sq.m. Ages 70+ = 75 mL/min/1.73 sq.m. Chronic Kidney Disease: Less than 60 mL/min/1.73 square meters End Stage Renal Disease: Less than 15 mL/min/1.73 square meters Performed By: #### C BCAFIA, ANEU #### [address] [address] #### BMP, GFR #### [place] [address] .NEUABSon 07-08-2019 Neutrophils (Bld) [#/Vol] 10.30 10 3/mcL High 2.85-6.16 [facility] ([place]) Comment on above: Performed By: #### C BC, ADIFF, ANEU, GFR #### [address] [address] #### BMP #### [address] [address] BMPon 07-08-2019 Calcium [Mass/Vol] 8.9 mg/dL Normal 8.4-10.2 [facility] ([place]) Comment on above: Performed By: #### C BC, ADIFF, ANEU, GFR #### [place] [address] #### BMP #### [place] [address] Chloride [Moles/Vol] 107 mmol/L Normal 98-107 [facility] ([place]) Comment on above: Performed By: #### C BC, ADIFF, ANEU, GFR #### [place] [address] #### BMP #### [place] [address] CO2 [Moles/Vol] 28 mmol/L Normal 23-31 [facility] ([place]) Comment on above: Performed By: #### C BC, ADIFF, ANEU, GFR #### [place] [address] #### BMP #### [place] [address] Creatinine [Mass/Vol] 1.00 mg/dL Normal 0.55-1.02 [facility] ([place]) Comment on above: Performed By: #### C BC, ADIFF, ANEU, GFR #### [place] [address] #### BMP #### [place] [address] Electrolyte Balance 8.0 mEq/L Normal [facility] ([place]) Comment on above: Performed By: #### C BC, ADIFF, ANEU, GFR #### [address] [address] #### BMP #### [address] [address] Glucose [Mass/Vol] 116 mg/dL High 83-110 [facility] ([place]) Comment on above: Performed By: #### C BC, ADIFF, ANEU, GFR #### [address] [address] #### BMP #### [address] [address] Potassium [Moles/Vol] 4.4 mmol/L Normal 3.5-5.1 [facility] ([place]) Comment on above: Performed By: #### C BC, ADIFF, ANEU, GFR #### [address] [address] #### BMP #### [address] [address] Sodium [Moles/Vol] 143 mmol/L Normal 136-145 [facility] ([place] Comment on above: Performed By: #### C BC, ADIFF, ANEU, GFR #### [address] [address] #### BMP #### [address] [address] Urea nitrogen [Mass/Vol] 15 mg/dL Normal 7-18 [facility] ([place] Comment on above: Performed By: #### C BC, ADIFF, ANEU, GFR #### [address] [address] #### BMP #### [address] [address] Urea nitrogen/Creatinine [Mass ratio] 15 ratio Normal 7-27 [facility] ([place] Comment on above: Performed By: #### C BC, ADIFF, ANEU, GFR #### [address] [address] #### BMP #### [address] [address] CBCon 07-08-2019 Erythrocyte distribution width (RBC) [Ratio] 13.4 % Normal 11.5-14.5 [facility] ([place]) Comment on above: Performed By: #### C BC, ADIFF, ANEU, GFR #### [place] [address] #### BMP #### [place] [address] Hematocrit (Bld) [Volume fraction] 36.0 % Low 37.0-47.0 [facility] ([place] Comment on above: Performed By: #### C BC, ADIFF, ANEU, GFR #### [place] [address] #### BMP #### [place] [address] Hemoglobin (Bld) [Mass/Vol] 11.6 G/dL Low 12.0-16.0 [facility] ([place] Comment on above: Performed By: #### C BC, ADIFF, ANEU, GFR #### [place] [address] #### BMP #### [place] [address] MCH (RBC) [Entitic mass] 29.4 pg Normal 27.0-31.2 [facility] ([place] Comment on above: Performed By: #### C BC, ADIFF, ANEU, GFR #### [place] [address] #### BMP #### [place] [address] MCHC (RBC) [Mass/Vol] 32.4 G/dL Low 33.0-37.0 [facility] ([place] Comment on above: Performed By: #### C BC, ADIFF, ANEU, GFR #### [place] [address] #### BMP #### [place] [address] MCV (RBC) [Entitic vol] 91.0 fL Normal 80.0-94.0 [facility] ([place]) Comment on above: Performed By: #### C BC, ADIFF, ANEU, GFR #### [address] [address] #### BMP #### [address] [address] Platelet mean volume (Bld) [Entitic vol] 7.1 fL Low 7.4-10.4 [facility] ([place] Comment on above: Performed By: #### C BC, ADIFF, ANEU, GFR #### [place] [address] #### BMP #### [address] [address] Platelets (Bld) [#/Vol] 249 10 3/mcL Normal 130-400 [facility] ([place] Comment on above: Performed By: #### C BC, ADIFF, ANEU, GFR #### [place] [address] #### BMP #### [address] [address] RBC (Bld) [#/Vol] 3.96 10 6/mcL Low 4.20-5.40 [facility] ([place] Comment on above: Performed By: #### C BC, ADIFF, ANEU, GFR #### [place] [address] #### BMP #### [address] [address] WBC (Bld) [#/Vol] 12.00 10 3/mcL High 4.60-10.80 [facility] ([place] Comment on above: Performed By: #### C BC, ADIFF, ANEU, GFR #### [place] [address] #### BMP #### [address] [address] XR KNEE 1 OR 2 VIEWS RIGHTon 07-08-2019 XR KNEE 1 OR 2 VIEWS RIGHT ORIGINAL XR KNEE 1 OR 2 VIEWS RIGHT CLINICAL STATEMENT: Status Post Arthroplasty. COMPARISON: None FINDINGS: Skin nils overlie the operative site. There is some joint and soft tissue air present from the surgery. The prosthetic components appear well seated and there is no adjacent fracture seen. IMPRESSION: Expected postoperative findings. Interpreted By: John Shoemaker MD Preliminary Report By: John Shoemaker MD Electronically Signed By: John Shoemaker MD Dictated Date: 07/08/2019 9:52:07 AM Prelim Date: 07/08/2019 9:52:07 AM Sign Date: 07/08/2019 9:52:27 AM Ordering Provider:[place] [employer] [facility] ([place]) .Auto Diffon 05-02-2019 Ammonia (P) [Mass/Vol] 0.30 10 3/mcL Normal 0.15-1.00 [facility] ([place] Comment on above: Performed By: #### C AFIA AGEE, ANEU #### [place] [address] #### BMP, GFR #### [address] [address] Basophils (Bld) [#/Vol] 0.10 10 3/mcL Normal 0.00-0.19 [facility] ([place] Comment on above: Performed By: #### C BCAFIA, ANEU #### [place] [address] #### BMP, GFR #### [address] [address] Basophils/100 WBC (Bld) 0.6 % Normal 0.0-2.5 [facility] ([place]) Comment on above: Performed By: #### C BC ADIFF, ANEU #### [place] [address] #### BMP, GFR #### [address] [address] Eosinophils (Bld) [#/Vol] 0.00 10 3/mcL Normal 0.00-0.40 [facility] ([place]) Comment on above: Performed By: #### C BC ADIFF, ANEU #### [place] [address] #### BMP, GFR #### [address] [address] Eosinophils/100 WBC (Bld) 0.0 % Normal 0.0-7.0 [facility] ([place]) Comment on above: Performed By: #### C BC, ADIFF, ANEU #### [address] [address] #### BMP, GFR #### [address] [address] Lymphocytes (Bld) [#/Vol] 0.90 10 3/mcL Normal 0.77-3.85 [facility] ([place]) Comment on above: Performed By: #### C BC, ADIFF, ANEU #### [address] [address] #### BMP, GFR #### [address] [address] Lymphocytes/100 WBC (Bld) 8.5 % Low 10.0-50.0 [facility] ([place]) Comment on above: Performed By: #### C BC, ADIFF, ANEU #### [address] [address] #### BMP, GFR #### [address] [address] Monocytes/100 WBC (Bld) 3.0 % Normal 1.7-13.0 [facility] ([place]) Comment on above: Performed By: #### C BC, ADIFF, ANEU #### [address] [address] #### BMP, GFR #### [address] [address] Neutrophils/100 WBC (Bld) 87.9 % High 37.0-80.0 [facility] ([place]) Comment on above: Performed By: #### C BC, ADIFF, ANEU #### [address] [address] #### BMP, GFR #### [address] [address] .GFRon 05-02-2019 GFR 68 ml/min/1.73sqm Normal [facility] ([place] Comment on above: Result Comment: GFR Population mean for , Non- Americans Ages 20-29 = 116 mL/min/1.73 sq.m. Ages 30-39 = 107 mL/min/1.73 sq.m. Ages 40-49 = 99 mL/min/1.73 sq.m. Ages 50-59 = 93 mL/min/1.73 sq.m. Ages 60-69 = 85 mL/min/1.73 sq.m. Ages 70+ = 75 mL/min/1.73 sq.m. Chronic Kidney Disease: Less than 60 mL/min/1.73 square meters End Stage Renal Disease: Less than 15 mL/min/1.73 square meters Performed By: #### C AFIA AGEE, ANEU #### [address] [address] #### BMP, GFR #### [place] [address] GFR Non- 56 ml/min/1.73sqm Normal [facility] ([place]) Comment on above: Result Comment: GFR Population mean for , Non- Americans Ages 20-29 = 116 mL/min/1.73 sq.m. Ages 30-39 = 107 mL/min/1.73 sq.m. Ages 40-49 = 99 mL/min/1.73 sq.m. Ages 50-59 = 93 mL/min/1.73 sq.m. Ages 60-69 = 85 mL/min/1.73 sq.m. Ages 70+ = 75 mL/min/1.73 sq.m. Chronic Kidney Disease: Less than 60 mL/min/1.73 square meters End Stage Renal Disease: Less than 15 mL/min/1.73 square meters Performed By: #### C BCAFIA, ANEU #### [address] [address] #### BMP, GFR #### [place] [id number] .NEUABSon 05-02-2019 Neutrophils (Bld) [#/Vol] 9.60 10 3/mcL High 2.85-6.16 [facility] ([place]) Comment on above: Performed By: #### C BC, ADIFF, ANEU #### [address] [address] #### BMP, GFR #### [address] [address] BMPon 05-02-2019 Calcium [Mass/Vol] 10.3 mg/dL High 8.4-10.2 [facility] ([place]) Comment on above: Performed By: #### C BC, ADIFF, ANEU #### [address] [address] #### BMP, GFR #### [address] [address] Chloride [Moles/Vol] 103 mmol/L Normal 98-107 [facility] ([place]) Comment on above: Performed By: #### C BC, ADIFF, ANEU #### [place] [address] #### BMP, GFR #### [address] [address] CO2 [Moles/Vol] 25 mmol/L Normal 23-31 [facility] ([place] Comment on above: Performed By: #### C BC, ADIFF, ANEU #### [place] [address] #### BMP, GFR #### [address] [address] Creatinine [Mass/Vol] 0.96 mg/dL Normal 0.55-1.02 [facility] ([place]) Comment on above: Performed By: #### C BC, ADIFF, ANEU #### [place] [address] #### BMP, GFR #### [address] [address] Electrolyte Balance 12.0 mEq/L Normal [facility] ([place]) Comment on above: Performed By: #### C BC, ADIFF, ANEU #### [place] [address] #### BMP, GFR #### [address] [address] Glucose [Mass/Vol] 117 mg/dL High 83-110 [facility] ([place]) Comment on above: Performed By: #### C BC, ADIFF, ANEU #### [address] [address] #### BMP, GFR #### [address] [address] Potassium [Moles/Vol] 4.1 mmol/L Normal 3.5-5.1 [facility] ([place]) Comment on above: Performed By: #### C BC, ADIFF, ANEU #### [address] [address] #### BMP, GFR #### [address] [address] Sodium [Moles/Vol] 140 mmol/L Normal 136-145 [facility] ([place]) Comment on above: Performed By: #### C BC, ADIFF, ANEU #### [address] [address] #### BMP, GFR #### [address] [address] Urea nitrogen [Mass/Vol] 22 mg/dL High 7-18 [facility] ([place]) Comment on above: Performed By: #### C BC, ADIFF, ANEU #### [address] [address] #### BMP, GFR #### [address] [address] Urea nitrogen/Creatinine [Mass ratio] 23 ratio Normal 7-27 [facility] ([place]) Comment on above: Performed By: #### C BC, ADIFF, ANEU #### [address] [address] #### BMP, GFR #### [address] [address] CBCon 05-02-2019 Erythrocyte distribution width (RBC) [Ratio] 13.9 % Normal 11.5-14.5 [facility] ([place]) Comment on above: Performed By: #### C BC, ADIFF, ANEU #### [address] [address] #### BMP, GFR #### [address] [address] Hematocrit (Bld) [Volume fraction] 43.0 % Normal 37.0-47.0 [facility] ([place]) Comment on above: Performed By: #### C BC, ADIFF, ANEU #### [address] [address] #### BMP, GFR #### [address] [address] Hemoglobin (Bld) [Mass/Vol] 14.1 G/dL Normal 12.0-16.0 [facility] ([place]) Comment on above: Performed By: #### C BC, ADIFF, ANEU #### [place] [address] #### BMP, GFR #### [address] [address] MCH (RBC) [Entitic mass] 30.3 pg Normal 27.0-31.2 [facility] ([place]) Comment on above: Performed By: #### C BC, ADIFF, ANEU #### [place] [address] #### BMP, GFR #### [address] [address] MCHC (RBC) [Mass/Vol] 32.8 G/dL Low 33.0-37.0 [facility] ([place]) Comment on above: Performed By: #### C BC, ADIFF, ANEU #### [place] [address] #### BMP, GFR #### [address] [address] MCV (RBC) [Entitic vol] 92.3 fL Normal 80.0-94.0 [facility] ([place]) Comment on above: Performed By: #### C BC, ADIFF, ANEU #### [address] [address] #### BMP, GFR #### [address] [address] Platelet mean volume (Bld) [Entitic vol] 7.6 fL Normal 7.4-10.4 [facility] ([place]) Comment on above: Performed By: #### C BC, ADIFF, ANEU #### [place] [id number] #### BMP, GFR #### [address] [address] Platelets (Bld) [#/Vol] 322 10 3/mcL Normal 130-400 [facility] ([place]) Comment on above: Performed By: #### C BC, ADIFF, ANEU #### [place] [address] #### BMP, GFR #### [address] [address] RBC (Bld) [#/Vol] 4.66 10 6/mcL Normal 4.20-5.40 [facility] ([place]) Comment on above: Performed By: #### C BC, ADIFF, ANEU #### [place] [id number] #### BMP, GFR #### [address] [address] WBC (Bld) [#/Vol] 11.00 10 3/mcL High 4.60-10.80 [facility] ([place]) Comment on above: Performed By: #### C BC, ADIFF, ANEU #### [place] [id number] #### BMP, GFR #### [address] [address] [address] KNEE W/O CONTRAST RIGHTon 05-02-2019 CT KNEE W/O CONTRAST RIGHT ORIGINAL CT KNEE W/O CONTRAST RIGHT CLINICAL STATEMENT: VALGUS DEFORMITY COMPARISON: None FINDINGS: This exam was performed according to our departmental dose-optimization program which includes automated exposure control, adjustment of the mA and/or kVp according to patient size and/or use of iterative reconstruction technique where applicable. Mild medial tibiofemoral compartment joint space loss seen. There is mild lateral tibiofemoral and patellofemoral compartment joint space loss and spurring. A small to moderate joint effusion visualized. Chondrocalcinosis noted. Survey images of the RIGHT hip demonstrate a RIGHT hip arthroplasty. The acetabular component is noted to be directed posteriorly. No aggressive lesions seen on the survey images of the ankle IMPRESSION: 1. Mild chondrocalcinosis. Degenerative changes in knee, as above 2. Small to moderate joint effusion in the knee Interpreted By: Mina Leavitt MD Preliminary Report By: Mina Leavitt MD Electronically Signed By: Mina Leavitt MD Dictated Date: 05/02/2019 1:35:06 PM Prelim Date: 05/02/2019 1:35:06 PM Sign Date: 05/02/2019 1:38:05 PM Ordering Provider:Urban De Oliveira [facility] ([place]) Initial Visit (Otolaryngolog y)on 08-24-2017 Initial Visit (Otolaryngology) Chief ComplaintConsultation for a neck mass History of Present IllnessThis 77-year-old lady is seen at the request of a local colleague for an opinion and possible management of a right neck mass. A few months ago this patient had an acute episode of significant discomfort on the right side of her face in at the same time seem to have had a neck mass. She was treated with a course of Z-Bogdan in the discomfort went away completely. However she was found to have a residual neck mass. The patient still feels that there is something there. She has not had any recurrence of her discomfort. I personally reviewed the scan that was done on 07/19/17. It does show a small adenopathy in the right level II. He has a nice hilum. It really is not a suspicious adenopathy. Review of SystemsThe past medical history and review of system is negative except for psoriatic arthritis, cataracts, high blood pressure, and hypothyroidism. Her prior surgeries in present medications are documented in the chart. She does have multiple allergies that are also documented in the chart. The family history shows parents that at the very late age both of heart failure. Father was diabetic. The patient never smoked. She drinks minimally. She is . 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 She is here today with a friend. Current Meds Celecoxib 100 MG Oral Capsule;Therapy: 30Nov2016 to Recorded Dispense: 30 Days ; #:30 CAPS; Refill: 0; LATASHA = N; Record; Last Updated By: Emilie Neal; 08/23/2017 10:27:30 AM Clobetasol Propionate 0.05 % External Liquid;Therapy: 24Aug2017 to Recorded Dispense: 0 Days ; #: Sufficient ML; Refill: 0; LATASHA = N; Record; Last Updated By: Emilie Neal; 08/24/2017 9:41:41 AM Dexamethasone 0.5 MG/5ML Oral Elixir;Therapy: 25Jan2017 to Recorded Dispense: 30 Days ; #:300 ELIX; Refill: 0; LATASHA = N; Record; Last Updated By: Emilie Neal; 08/23/2017 10:27:30 AM Dexamethasone 0.5 MG/5ML Oral Elixir;Therapy: 25Jan2017 to Recorded Dispense: 30 Days ; #:300 ELIX; Refill: 0; LATASHA = N; Record; Last Updated By: Emilie Neal; 08/23/2017 10:27:30 AM Diclofenac Sodium 1 % Transdermal Gel;Therapy: 07Dec2016 to Recorded Dispense: 4 Days ; #:100 GEL; Refill: 0; LATASHA = N; Record; Last Updated By: Emilie Neal; 08/23/2017 10:27:30 AM Estradiol 0.1 MG/GM Vaginal Cream;Therapy: 15Aug2017 to Recorded Dispense: 30 Days ; #:42 CREA; Refill: 0; LATASHA = N; Record; Last Updated By: Emilie Neal; 08/23/2017 10:27:30 AM Fluconazole 100 MG Oral Tablet;Therapy: 01Jan2017 to Recorded Dispense: 6 Days ; #:6 TABS; Refill: 0; LATASHA = N; Record; Last Updated By: Emilie Neal; 08/23/2017 10:27:30 AM Leucovorin Calcium 5 MG Oral Tablet;Therapy: 30Nov2016 to Recorded Dispense: 28 Days ; #:4 TABS; Refill: 0; LATASHA = N; Record; Last Updated By: Emilie Neal; 08/23/2017 10:27:30 AM Methotrexate Sodium 50 MG/2ML Injection Solution;Therapy: 03Oct2016 to Recorded Dispense: 112 Days ; #:8 SOLN; Refill: 0; LATASHA = N; Record; Last Updated By: Emilie Neal; 08/23/2017 10:27:30 AM Tpyraxtp-Zywckeirj-Nyepf eth 3.5-97123-2.1 Ophthalmic Suspension;Therapy: 28Mar2017 to Recorded Dispense: 33 Days ; #:5 SUSP; Refill: 0; LATASHA = N; Record; Last Updated By: Emilie Neal; 08/23/2017 10:27:30 AM Qnasl 80 MCG/ACT Nasal Aerosol Solution;Therapy: 16Oct2016 to Recorded Dispense: 30 Days ; #:9 AERS; Refill: 0; LATASHA = N; Record; Last Updated By: Emilie Neal; 08/23/2017 10:27:30 AM Qnasl 80 MCG/ACT Nasal Aerosol Solution;Therapy: 16Oct2016 to Recorded Dispense: 30 Days ; #:9 AERS; Refill: 0; LATASHA = N; Record; Last Updated By: Emilie Neal; 08/23/2017 10:27:30 AM Spironolactone 25 MG Oral Tablet;Therapy: 27Oct2016 to Recorded Dispense: 90 Days ; #:180 TABS; Refill: 0; LATASHA = N; Record; Last Updated By: Emilie Neal; 08/23/2017 10:27:30 AM SUMAtriptan Succinate 50 MG Oral Tablet;Therapy: 12Mar2017 to Recorded Dispense: 14 Days ; #:27 TABS; Refill: 0; LATASHA = N; Record; Last Updated By: Emilie Neal; 08/23/2017 10:27:30 AM SUMAtriptan Succinate 50 MG Oral Tablet;Therapy: 12Mar2017 to Recorded Dispense: 14 Days ; #:27 TABS; Refill: 0; LATASHA = N; Record; Last Updated By: Emilie Neal; 08/23/2017 10:27:30 AM Synthroid 88 MCG Oral Tablet;Therapy: 27Oct2016 to Recorded Dispense: 90 Days ; #:60 TABS; Refill: 0; LATASHA = Y; Record; Last Updated By: Emilie Neal; 08/23/2017 10:27:30 AM Synthroid 88 MCG Oral Tablet;Therapy: [id number] to Recorded Dispense: 90 Days ; #:60 TABS; Refill: 0; LATASHA = Y; Record; Last Updated By: Emilie Neal; 08/23/2017 10:27:30 AM Vitals Vital Signs Recorded: 24Aug2017 09:26AMHeart [id number] be84Sehnlv5 ft 2 ptBjiupt764 lb 5 ozBMI Lksqgihozi96.4BSA Calculated1.66 Physical ExamThe patient is alert and oriented. Examination of the external ears, ear canals, and eardrums, is within normal limits. Examination of the anterior and external nose is negative. Examination of the oral cavity and oropharynx is normal. There is no evidence of any mucosal lesions. There is good mobility of the tongue and palate. There is good mandibular excursion. Palpation of the parotid, neck, and thyroid field fails to show any worrisome masses or adenopathies. She does have a little puffiness in regards to the right level II. It seems to correspond to a prominent carotid bulb. The mass that the patient feels corresponds to the submandibular gland.A flexible laryngoscopy was carried out. Under topical Xylocaine and James-Synephrine the scope was introduced through the nostril. The nasopharynx, base of tongue, hypopharynx, and larynx are visualized. The vocal cords are normally mobile. There is no pooling of secretions in the piriform sinuses. There is no evidence of any mucosal lesions. Diagnoses/Problems Neck mass (784.2) (R22.1) Provider ImpressionsRight neck mass which I cannot appreciate clinically today. On the CT scan that was done more than a month ago there was a small adenopathy that did not look suspicious. I do not believe that we need to pursue that any further at this point. I recommended that she follows up with her physician at home.I will see her on a when necessary basis. Patient Discussion/SummaryRight neck mass which I cannot appreciate clinically today. On the CT scan that was done more than a month ago there was a small adenopathy that did not look suspicious. I do not believe that we need to pursue that any further at this point. I recommended that she follows up with her physician at home.I will see her on a when necessary basis. End of Encounter MedsCelecoxib 100 MG Oral Capsule;Therapy: 30Nov2016 to RecordedClobetasol Propionate 0.05 % External Liquid;Therapy: 24Aug2017 to RecordedDexamethasone 0.5 MG/5ML Oral Elixir;Therapy: 25Jan2017 to RecordedDexamethasone 0.5 MG/5ML Oral Elixir;Therapy: 25Jan2017 to RecordedDiclofenac Sodium 1 % Transdermal Gel;Therapy: 07Dec2016 to RecordedEstradiol 0.1 MG/GM Vaginal Cream;Therapy: 15Aug2017 to RecordedFluconazole 100 MG Oral Tablet;Therapy: 01Jan2017 to RecordedLeucovorin Calcium 5 MG Oral Tablet;Therapy: 30Nov2016 to RecordedMethotrexate Sodium 50 MG/2ML Injection Solution;Therapy: 03Oct2016 to RecordedNeomycin-Polymyx in-Dexameth 3.5-52686-7.1 Ophthalmic Suspension;Therapy: 28Mar2017 to RecordedQnasl 80 MCG/ACT Nasal Aerosol Solution;Therapy: 16Oct2016 to RecordedQnasl 80 MCG/ACT Nasal Aerosol Solution;Therapy: 16Oct2016 to RecordedSpironolactone 25 MG Oral Tablet;Therapy: 27Oct2016 to RecordedSUMAtriptan Succinate 50 MG Oral Tablet;Therapy: 12Mar2017 to RecordedSUMAtriptan Succinate 50 MG Oral Tablet;Therapy: 12Mar2017 to RecordedSynthroid 88 MCG Oral Tablet (Levothyroxine Sodium);Therapy: 27Oct2016 to RecordedSynthroid 88 MCG Oral Tablet (Levothyroxine Sodium);Therapy: 27Oct2016 to Recorded Signatures Electronically signed by : Gentry Liu MD; Aug 24 2017 9:56AM EST (Author) Normal Yolto US Head/Neck Soft Tissueon 0 08-02-2017 US Head/Neck Soft Tissue Exam Date/Time:08/02/2017 10:05 EDTReason for Exam:RIGHT NECK MASSReportSTUDY:US Head/Neck Soft Tissue; 08/02/2017 10:05 amINDICATION:RIGHT NECK MASS.COMPARISON:None.ACC ESSION NUMBER(S):[id number] 67ORDERING CLINICIAN:Adán MathurTECHNIQUE:Multiple grayscale ultrasonographic images were obtained through the right neck.FINDINGS:Within segment 1 B, there is a well-defined lymph node identified, measuring at up to 2.1 x 1.5 x 0.7 cm. This demonstrates a large fatty hilum and a thin cortex, which measures at up to 2 mm in thickness.Within segment 3, there is a well-defined lymph node identified, measuring at up to 2.3 x 1.0 x 0.4 cm. This demonstrates a large fatty hilum and a thin cortex, which measures up to 2 mm in thickness.No abnormally enlarged lymph nodes are identified.IMPRESSION:We ll-defined lymph nodes with thin cortices within the right neck, as described above. No abnormal appearing lymph nodes are identified. FINAL REPORT Dictated: 08/02/2017 10:55 am Luis Flor MD CSigned (Electronic Signature): 08/02/2017 10:55 amSigned by: Luis Flor MD Technologist: [facility] Office Visit: yearly breast checkon 01-01-2017 Documentation of current medications (procedure) Done Invalid Interpretation Code [facility] Work Phone: Fall risk assessment No Invalid Interpretation Code [facility] Work Phone: Tobacco smoking status NHIS Never Invalid Interpretation Code [facility] Work Phone: Tobacco use [facility] Never smoker Invalid Interpretation Code [facility] Work Phone: Gram stain for investigation of transfusion reaction Microscopic observation Gram stain Nom (Unsp spec) [facility] Work Phone: No Panel Information Nasopharyngeal Culture Staphylococcus aureus [facility] Work Phone: Vital Signs Date Time Vital Sign Value Performing Clinician Facility 08-11-2022 10:21-0400 Body mass index (BMI) [Ratio] 23.96 kg/m2 El Perez MD Work Phone: [facility] 08-11-2022 10:21-0400 Body weight 59.42 kg El Perez MD Work Phone: [facility] 08-11-2022 10:21-0400 Diastolic blood pressure 73 mm[Hg] El Perez MD Work Phone: [facility] 08-11-2022 10:21-0400 Heart rate 74 /min El Perez MD Work Phone: [facility] 08-11-2022 10:21-0400 Systolic blood pressure 120 mm[Hg] El Perez MD Work Phone: [facility] 06-26-2022 10:45-0400 Body temperature 97.59 [degF] Gini Aguilar MD Work Phone: [facility] 06-26-2022 10:45-0400 Body weight 62.14 kg Gini Aguilar MD Work Phone: [facility] 06-26-2022 10:45-0400 Diastolic blood pressure 62 mm[Hg] Gini Aguilar MD Work Phone: [facility] 06-26-2022 10:45-0400 Heart rate 85 /min Gini Aguilar MD Work Phone: [facility] 06-26-2022 10:45-0400 Respiratory rate 18 /min Gini Aguilar MD Work Phone: [facility] 06-26-2022 10:45-0400 SaO2% (BldA) [Mass fraction] 98 % Gini Aguilar MD Work Phone: [facility] 06-26-2022 10:45-0400 Systolic blood pressure 98 mm[Hg] Gini Aguilar MD Work Phone: [facility] 04-25-2022 18:23-0500 Body temperature 96.6 [degF] Gini Aguilar MD Work Phone: [facility] 04-25-2022 18:23-0500 Body weight 63.5 kg Gini Aguilar MD Work Phone: [facility] 04-25-2022 18:23-0500 Diastolic blood pressure 72 mm[Hg] Gini Aguilar MD Work Phone: [facility] 04-25-2022 18:23-0500 Heart rate 83 /min Gini Aguilar MD Work Phone: [facility] 04-25-2022 18:23-0500 Respiratory rate 18 /min Gini Aguilar MD Work Phone: [facility] 04-25-2022 18:23-0500 SaO2% (BldA) [Mass fraction] 96 % Gini Aguilar MD Work Phone: [facility] 04-25-2022 18:23-0500 Systolic blood pressure 118 mm[Hg] Gini Aguilar MD Work Phone: [facility] 01-26-2022 12:32-0500 Diastolic blood pressure 63 mm[Hg] Dr. Gini Aguilar Work Phone: [facility] 01-26-2022 12:32-0500 Heart rate 84 /min Dr. Gini Aguilar Work Phone: [facility] 01-26-2022 12:32-0500 Respiratory rate 16 /min Dr. Gini Aguilar Work Phone: [facility] 01-26-2022 12:32-0500 SaO2% (BldA) [Mass fraction] 93 % Dr. Gini Aguilar Work Phone: [facility] 01-26-2022 12:32-0500 Systolic blood pressure 117 mm[Hg] Dr. Gini Aguilar Work Phone: [facility] 01-26-2022 10:08-0500 Body height 154.[address] Gini Aguilar Work Phone: [facility] 01-26-2022 10:08-0500 Body mass index (BMI) [Ratio] 26 kg/m2 Dr. Gini Aguilar Work Phone: [facility] 01-26-2022 10:08-0500 Body weight 62.[address] Gini Aguilar Work Phone: [facility] 01-26-2022 10:08-0500 Diastolic blood pressure 65 mm[Hg] Dr. Gini Aguilar Work Phone: [facility] 01-26-2022 10:08-0500 Heart rate 74 /min Dr. Gini Aguilar Work Phone: [facility] 01-26-2022 10:08-0500 Respiratory rate 18 /min Dr. Gini Aguilar Work Phone: [facility] 01-26-2022 10:08-0500 SaO2% (BldA) [Mass fraction] 100 % Dr. Gini Aguilar Work Phone: [facility] 01-26-2022 10:08-0500 Systolic blood pressure 95 mm[Hg] Dr. Gini Aguilar Work Phone: [facility] 12-27-2021 11:23-0400 Body weight 62.14 kg Gini Aguilar MD Work Phone: [facility] 12-27-2021 11:23-0400 Diastolic blood pressure 82 mm[Hg] Gini Aguilar MD Work Phone: [facility] 12-27-2021 11:23-0400 Heart rate 72 /min Gini Aguilar MD Work Phone: [facility] 12-27-2021 11:23-0400 SaO2% (BldA) [Mass fraction] 98 % Gini Aguilar MD Work Phone: [facility] 12-27-2021 11:23-0400 Systolic blood pressure 136 mm[Hg] Gini Aguilar MD Work Phone: [facility] 12-08-2021 13:22-0400 Body height 154.[address] Gini Aguialr Work Phone: [facility] Work Phone: 12-08-2021 13:22-0400 Body mass index (BMI) [Ratio] 25.9 kg/m2 Dr. Gini Aguilar Work Phone: [facility] Work Phone: 12-08-2021 13:22-0400 Body weight 62.[address] Gini Aguilar Work Phone: [facility] Work Phone: 12-08-2021 13:22-0400 Diastolic blood pressure 75 mm[Hg] Dr. Gini Aguilar Work Phone: [facility] Work Phone: 12-08-2021 13:22-0400 Heart rate 84 /min Dr. Gini Aguilar Work Phone: [facility] Work Phone: 12-08-2021 13:22-0400 Respiratory rate 18 /min Dr. Gini Aguilar Work Phone: [facility] Work Phone: 12-08-2021 13:22-0400 SaO2% (BldA) [Mass fraction] 97 % Dr. Gini Aguilar Work Phone: [facility] Work Phone: 12-08-2021 13:22-0400 Systolic blood pressure 130 mm[Hg] Dr. Gini Aguilar Work Phone: [facility] Work Phone: 08-26-2021 08:57-0400 Body weight 60.33 kg Luz Marquez [employer] T[employer]ER [employer]IVER[employer] Work Phone: [facility] 08-26-2021 08:57-0400 Diastolic blood pressure 62 mm[Hg] Luz Marquez [employer] TANKER DRIVER[employer]GOPHERMAN Work Phone: [facility] 08-26-2021 08:57-0400 Heart rate 68 /min Luz Marquez HAZMAT TANKER DRIVER.GOPHERMAN Work Phone: [facility] 08-26-2021 08:57-0400 Respiratory rate 14 /min Luz Marquez HAZMAT TANKER DRIVER.GOPHERMAN Work Phone: [facility] 08-26-2021 08:57-0400 Systolic blood pressure 120 mm[Hg] Luz Marquez HAZMAT TANKER DRIVEREnriqueGOPHERMAN Work Phone: [facility] 01-01-2017 12:51-0500 BMI (Body Mass Index) 24.16 kg/m2 Simone Jeffers MD [facility] Work Phone: 01-01-2017 12:51-0500 Body Temperature 98 [degF] Simone Jeffers MD [facility] Work Phone: 01-01-2017 12:51-0500 Height 163.83 cm Simone Jeffers MD [facility] Work Phone: 01-01-2017 12:51-0500 Pulse (Heart Rate) 91 /min Simone Jeffers MD [facility] Work Phone: 01-01-2017 12:51-0500 Respiratory Rate 20 /min Simone Jeffers MD [facility] Work Phone: 01-01-2017 12:51-0500 Weight 64.86 kg Simone Jeffers MD [facility] Work Phone: NEGATED: Highlighted [id number] 09:38-0500 Body height 157.48 cm [facility] Work Phone: NEGATED: Highlighted [id number] 09:38-0500 Body height 157 cm [facility] Work Phone: NEGATED: Highlighted [id number] 09:38-0500 Body mass index (BMI) [Ratio] 26.07 kg/m2 [facility] Work Phone: NEGATED: Highlighted [id number] 09:38-0500 Body weight 64.41 kg [facility] Work Phone: NEGATED: Highlighted [id number] 09:38-0500 Body weight 65 kg [facility] Work Phone: NEGATED: Highlighted [id number] 07:57-0400 Body height 157.48 cm Michelle Wild LPN [facility] Work Phone: NEGATED: Highlighted [id number] 07:57-0400 Body height 157 cm Michelle Wild LPN [facility] Work Phone: NEGATED: Highlighted [id number] 07:57-0400 Body mass index (BMI) [Ratio] 26.43 kg/m2 Michelle Wild [employer] [facility] Work Phone: NEGATED: Highlighted [id number] 07:57-0400 Body weight 65.32 kg Michelle Wild [employer] ARCH[employer] [facility] Work Phone: NEGATED: Highlighted [id number] 07:57-0400 Body weight 65 kg Michelle Wild [employer] [facility] Work Phone: Encounters Encounter Date Encounter Type Care Provider Facility Start: 08-24-2024 ambulatory Amanda Lewis Facility:[facility] Start: 10-08-2023 End: 10-08-2023 ambulatory NATHALIE BOURNE Facility:[facility] Start: 10-04-2023 ambulatory DENNIS BOWENS Facili ty:[facility] Start: 03-29-2023 Telephone encounter Dennis Bowens MD Work Phone: [facility] [place] Comment on above: Patient Update Start: 12-27-2022 Chart abstracting Gini hopkins MD Work Phone: [facility] Start: 12-27-2022 Telephone encounter Gini perez MD Work Phone: [facility] [place] Comment on above: fax lab orders to ou alaina Start: 11-14-2022 Telephone encounter Gini perez MD Work Phone: [facility] Comment on above: Patient Update Start: 10-16-2022 Refill Gini chan MD Work Phone: [facility] [place] Comment on above: Refill Request Start: 10-09-2022 Refill Gini chan MD Work Phone: [facility] Comment on above: Medication Problem; Refill Request; Consult Start: 10-04-2022 Telephone encounter El garcia MD Work Phone: [facility] Comment on above: medical records Start: 09-28-2022 Telephone encounter Gini perez MD Work Phone: [facility] [place] Comment on above: mailed copy of thyro id lab results Start: 08-11-2022 End: 08-11-2022 ambulatory EL PEREZ [facility] Start: 08-11-2022 End: 08-11-2022 Office outpatient visit 15 minutes El Perez MD Work Phone: [facility] Comment on above: Obstructive sleep ap gemini (Primary Dx); Right hip pain Start: 08-09-2022 Refill Julissa Monique Work Phone: OB/Gynecology Comment on above: Refill Request Referral Request Start: 08-02-2022 Refill Gini chan MD Work Phone: [facility] [place] Start: 06-29-2022 ambulatory Gini chan MD Work Phone: [facility] Start: 06-29-2022 Patient encounter procedure Gini Aguilar MD Work Phone: [facility] Comment on above: Endocrinology Referr al Start: 06-29-2022 Telephone encounter Hanna Tootie [facility] Comment on above: records; Referral Start: 06-26-2022 ambulatory Gini chan MD Work Phone: [facility] [place] Comment on above: Kidney function Start: 06-26-2022 E-mail encounter fro m caregiver Gini Aguilar MD Work Phone: [facility] Start: 06-26-2022 End: 06-26-2022 Office outpatient visit 40 minutes Gini Aguilar MD Work Phone: [facility] Comment on above: 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 Gini Aguilar Work Phone: [facility] Work Phone: Start: 02-22-2022 End: 02-22-[address] Gini Aguilar Work Phone: [facility] Start: 02-22-[address] Gini Aguilar Work Phone: [facility] Start: 02-21-2022 End: 02-21-[address] Gini Aguilar Work Phone: [facility] Work Phone: Start: 02-21-2022 End: 02-21-[address] [facility] [facility]atory, Specimen Start: 02-01-[address] Gini Aguilar Work Phone: [facility]Physical Therapy Start: 01-26-2022 End: 01-26-[address] Gini Aguilar Work Phone: [facility] - [facility] Start: 01-25-2022 End: 01-25-[address] Gini Aguilar Work Phone: [facility] Start: 01-25-2022 End: 01-25-[address] Gini Aguilar Work Phone: [facility] Work Phone: Start: 01-25-2022 End: 01-25-[address] Gini Aguilar Work Phone: [facility]-Outpatient Breast Imaging Start: 01-05-2022 End: 01-05-[address] Gini Aguilar Work Phone: [facility] Work Phone: Start: 01-05-2022 End: 01-05-[address] 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 Libby Aguilar Work Phone: [facility] Start: 12-14-2021 End: 12-14-[address] Gini Aguilar Work Phone: [facility] Work Phone: Start: 12-14-2021 End: 12-14-[address] Gini Aguilar Work Phone: [facility]Cardiovascula [facility] Services Start: 12-08-2021 End: 12-08-[address] Gini Aguilar Work Phone: [facility] Start: 11-08-2021 End: 11-08-2021 Nursing evaluation of patient and report Mi Nurse Work Phone: [facility] [place] Comment on above: Need for COVID-19 va ccine (Primary Dx) Start: 11-01-2021 End: 11-01-2021 Orders Only Gini Aguilar MD Work Phone: Internal [facility] Comment on above: Need for vaccination (Primary Dx) Encounter for immuni zation (Primary Dx) Start: 10-12-2021 End: 10-12-[address] 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; Gastroesophageal reflux disease, unspecified whether esophagitis present; Skin lesion; Carpal tunnel syndrome, unspecified laterality Start: 08-15-2021 Refill Gini chan MD Work Phone: Internal [facility] Comment on above: Refill Request FYI-No Action Needed (bruise on abdomen) Start: 08-05-2021 Telephone encounter Luz garibay APRN.GOPHERMAN Work Phone: [facility] [place] Comment on above: Results (US) Start: 08-04-2021 End: 08-04-2021 Subsequent hospital visit by physician [facility] Work Phone: Radiology Comment on above: Skin lesion [L98.9] Start: 01-07-2021 Telephone encounter Dinah Hanna MD Work Phone: [place] Provider Adult Comment on above: Results Start: 11-09-2020 ambulatory JAYLEN G ZULEIKA Facility: [facility] Start: 06-21-2020 Patient encounter status Us 2 Work Phone: [facility] Work Phone: Start: 02-04-2018 [facility] Start: 08-24-2017 Ambulatory Gentry Liu Facility :[facility] Start: 08-02-2017 End: 08-03-2017 Ambulatory Adán Trores Facility:[facility] Start: 08-02-2017 Patient encounter Facil [id number] Start: 06-04-2017 End: 06-04-2017 Ambulatory MARGARITA JENNIFER Facility:[facility] Procedures Date Procedure Procedure Detail Performing Clinician Start: 09-21-2022 Thyrotropin [Units/volume] in Serum or Plasma El Perez MD Work Phone: Start: 07-31-2022 Thyrotropin [Units/volume] in Serum or Plasma El Perez MD Work Phone: Start: 06-26-2022 PFIZER-BIONTECH COVID-19 BIVALENT VACCINE, AGE 12+ YR Gini Aguilar MD Work Phone: Start: 01-26-2022 MRI of lumbar spine Dr. Gini Aguilar Work Phone: Start: 01-25-2022 Screening mammography Eneida Aguilar Work Phone: Start: 01-05-[address] Gini mckinney Work Phone: Start: 11-08-2021 PFIZER-BIONTECH COVID-19 BIVALENT BOOSTER VACCINE, AGE 12+ YR Gini Aguilar MD Work Phone: Start: 11-01-2021 INFLUENZA SEASONAL QUADRIVALENT HIGH DOSE AGE 65+ Gini Aguilar MD Work Phone: Start: 08-04-2021 Us abdominal real ti me w/image limited Luz Marquez HAZMAT TANKER DRIVER.GOPHERMAN Work Phone: Start: 07-21-2021 Adult depression screening assessment Us 2 Work Phone: Start: 02-04-2020 End: 02-04-2020 BP scrn no perf at interval Nikos Cordova MD Work Phone: Start: 02-04-2020 End: 02-04-2020 Calc BMI out nrm soraya nof/u Nikos Cordova MD Work Phone: Start: 02-04-2020 End: 02-04-2020 Current tobacco non-user cad cap copd pv florian Cordova MD Work Phone: Start: 02-04-2020 End: 02-04-2020 Docrev cur meds by rebecca Cordova MD Work Phone: Start: 02-04-2020 End: 02-04-2020 Pain neg no plan Nikos Cordova MD Work Phone: Start: 02-04-2020 End: 02-04-2020 Patient encounter procedure Nikos Cordova MD Work Phone: Start: 10-16-2019 End: 10-16-2019 BP scrn no perf at interval Nikos Cordova MD Work Phone: Start: 10-16-2019 End: 10-16-2019 Calc BMI abv up soraya f/u Nikos Cordova MD Work Phone: Start: 10-16-2019 End: 10-16-2019 Current tobacco non-user cad cap copd pv florian Cordova MD Work Phone: Start: 10-16-2019 End: 10-16-2019 Docrev cur meds by rebecca Cordova MD Work Phone: Start: 10-16-2019 End: 10-16-2019 Pain neg no plan Nikos Cordova MD Work Phone: Start: 10-16-2019 End: 10-16-2019 Patient encounter procedure Nikos Cordova MD Work Phone: History of cataract extraction S/P cataract surgery Dr. Gini Aguilar Work Phone: History of operative procedure on knee S/P arthroscopic knee surgery Dr. Gini Aguilar Work Phone: History of tonsillectomy S/P tonsillectomy Dr. Gini Aguilar Work Phone: Investigation of transfusion reaction Dr. Gini Aguilar Work Phone: Investigation of transfusion reaction Dr. Gini Aguilar Work Phone: Nasopharyngeal Culture Dr. Fam Aguilar Work Phone: Nasopharyngeal Culture Dr. Fam Aguilar Work Phone: NEGATED: Highlighted rowStart: 02-04-2020 End: 02-04-2020 Documentation of current medications Ashtyn Herrera NEGATED: Highlighted rowStart: 10-16-2019 End: 10-16-2019 Documentation of current medications Michelle Wild LPN Plan of Treatment Date Care Activity Detail Author Start: 06-30-2032 DTaP/Tdap/Td Vaccines (4 - Td or Tdap) DTaP/Tdap/Td Vaccines (4 - Td or Tdap) [facility] Start: 06-30-2032 Urine microalbumin profile DTaP,Tdap,Td Vaccine (3 - Td or Tdap) [facility] Start: 09-21-2025 DIABETES SCREEN DIABETES SCREEN [facility] Start: 09-21-2025 Diabetes Screening Diabetes Screening [facility] Start: 05-08-2025 DIABETES SCREEN DIABETES SCREEN [facility] Start: 07-12-2024 DIABETES SCREEN DIABETES SCREEN [facility] Start: 09-22-2023 Thyroid stimulating hormone measurement TSH Level [facility] Start: 08-01-2023 Thyroid stimulating hormone measurement TSH Level [facility] Start: 06-27-2023 Urine microalbumin profile [facility] Comment on above: Postponed from 05/10/2022 (Declined at t his time) Start: 02-26-2023 Advance Directive Discussion Advance Directive Discussion [facility] Start: 02-26-2023 Depression Assessment Depression Assessment [facility] Start: 12-27-2022 ANNUAL PCP TEAM CHRONIC DISEASE VISIT ANNUAL PCP TEAM CHRONIC DISEASE VISIT [facility] Start: 11-01-2022 ANNUAL PCP TEAM CHRONIC DISEASE VISIT ANNUAL PCP TEAM CHRONIC DISEASE VISIT [facility] Start: 10-27-2022 Covid-19 Vaccine () Covid-19 Vaccine () [facility] Start: 10-27-2022 Influenza vaccination [facility] Start: 09-13-2022 End: 11-13-2022 Thyrotropin [Units/volume] in Serum or Plasma TSH BLD Lab Routine 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 Expected: 09/13/2022 (Approximate), Expires: 11/13/2022 [facility] Work Phone: Comment on above: Expected: 09/13/2022 (Approximate), Expi res: 11/13/2022 Start: 09-13-2022 End: 11-13-2022 Thyroxine (T4) free [Mass/volume] in Serum or Plasma T4 FREE/FREE THYROX Lab Routine 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 Expected: 09/13/2022 (Approximate), Expires: 11/13/2022 [facility] Work Phone: Comment on above: Expected: 09/13/2022 (Approximate), Expi res: 11/13/2022 Start: 09-13-2022 End: 11-13-2022 Triiodothyronine (T3) Free [Mass/volume] in Serum or Plasma T3 FREE BLD Lab Routine 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 Expected: 09/13/2022 (Approximate), Expires: 11/13/2022 [facility] Work Phone: Comment on above: Expected: 09/13/2022 (Approximate), Expi res: 11/13/2022 Start: 08-26-2022 BP CONTROLLED (<130/80) BP CONTROLLED (<130/80) [facility] Start: 08-21-2022 COVID-19 VACCINE (8 - Pfizer risk series) COVID-19 VACCINE (8 - Pfizer risk series) [facility] Start: 08-11-2022 End: 08-11-2022 Patient encounter procedure 08/11/2022 Office Visit Neurology El Perez MD [address] [place] [address] [facility] Start: 08-04-2022 BP CONTROLLED (<130/80) BP CONTROLLED (<130/80) [facility] Start: 07-21-2022 Adult depression screening assessment DEPRESSION SCREENING [facility] Start: 07-12-2022 HEMOGLOBIN/HEMATOCRIT HEMOGLOBIN/HEMATOCRIT [facility] Start: 07-12-2022 SERUM CREATININE SERUM CREATININE [facility] Start: 05-24-2022 ANNUAL PCP TEAM CHRONIC DISEASE VISIT ANNUAL PCP TEAM CHRONIC DISEASE VISIT [facility] Start: 05-10-2022 DTaP/Tdap/Td Vaccines (2 - Tdap) DTaP/Tdap/Td Vaccines (2 - Tdap) [facility] Start: 05-10-2022 Urine microalbumin profile DTAP,TDAP,TD (2 - Tdap) [facility] Start: 02-26-2022 ADVANCE DIRECTIVE DISCUSSION ADVANCE DIRECTIVE DISCUSSION [facility] Start: 02-26-2022 DEPRESSION ASSESSMENT DEPRESSION ASSESSMENT [facility] Start: 10-27-2021 Influenza vaccination INFLUENZA (#1) [facility] Start: 08-20-2021 COVID-19 VACCINE (5 - Booster for Pfizer series) COVID-19 VACCINE (5 - Booster for Pfizer series) [facility] Start: 06-17-2021 COVID-19 Vaccine (5 - Booster for Pfizer series) COVID-19 Vaccine (5 - Booster for Pfizer series) [facility] Start: 02-26-2021 ADVANCE DIRECTIVE DISCUSSION ADVANCE DIRECTIVE DISCUSSION [facility] Start: 02-26-2021 DEPRESSION ASSESSMENT DEPRESSION ASSESSMENT [facility] Start: 02-04-2020 End: 02-04-2020 Patient encounter procedure Appointment [facility] Work Phone: Start: 10-16-2019 End: 10-16-2019 Patient encounter procedure Appointment [facility] Work Phone: Start: 01-01-2017 End: 01-01-2017 Appointment Appointment [facility] Work Phone: Start: 2001 Hepatitis B Vaccines (1 of 3 - Risk 3-dose series) Hepatitis B Vaccines (1 of 3 - Risk 3-dose series) [facility] Start: 2001 RSV Vaccine (1 - 1-dose 60+ series) RSV Vaccine (1 - 1-dose 60+ series) [facility] Start: 1959 BP CONTROLLED (<130/80) BP CONTROLLED (<130/80) [facility] Start: 1953 Depression Screening Depression Screening [facility] Start: 1941 Lipid panel Lipid Panel [facility] Start: 1941 Medicare Annual Wellness (AWV) Medicare Annual Wellness (AWV) [facility] Start: 1941 Screening for osteoporosis Bone Density Scan [facility] PFIZER-DeepDyveNTECH COVI D-19 VACCINE, AGE 12+ YR (KIDD TOP) PFIZER-BIONTECH COVID-19 VACCINE, AGE 12+ YR (KIDD TOP) Immunization/Injection Routine Encounter for immunization 1 Occurrences starting 08/26/2021 [facility] Work Phone: Comment on above: 1 Occurrences starting 08/26/2021 End: 04-25-2023 Thyrotropin [Units/volume] in Serum or Plasma TSH BLD Lab Routine 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 Every 2 months for 6 Occurrences starting 04/25/2022 until 04/25/2023, 1 completed [facility] Work Phone: Comment on above: Every 2 months for 6 Occurrences startin g 04/25/2022 until 04/25/2023, 1 completed End: 04-25-2023 Thyroxine (T4) free [Mass/volume] in Serum or Plasma T4 FREE/FREE THYROX Lab Routine 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 Every 2 months for 6 Occurrences starting 04/25/2022 until 04/25/2023, 1 completed [facility] Work Phone: Comment on above: Every 2 months for 6 Occurrences startin g 04/25/2022 until 04/25/2023, 1 completed End: 04-25-2023 Triiodothyronine (T3) Free [Mass/volume] in Serum or Plasma T3 FREE BLD Lab Routine 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 Every 2 months for 6 Occurrences starting 04/25/2022 until 04/25/2023, 1 completed [facility] Work Phone: Comment on above: Every 2 months for 6 Occurrences startin g 04/25/2022 until 04/25/2023, 1 completed US SOFT TISSUE ABDOMEN US SOFT T ISSUE ABDOMEN Radiology Routine Skin lesion 08/04/2021 1:33 PM EDT [facility] Work Phone: [facility] Work Phone: [facility] Immunizations Immunization Date Immunization Notes Care Provider Fa cili 06-26-2022 COVID-19 vaccine, ag e 12+ yr, bivalent (PFIZER-BIONTECH) Gini Aguilar MD Work Phone: [facility] 11-09-2021 influenza, high dose seasonal, preservative-free Gini Aguilar MD Work Phone: [facility] 11-09-2021 influenza virus vaccine, unspecified formulation El Perez MD Work Phone: [facility] 11-08-2021 COVID-19 vaccine, ag e 12+ yr, bivalent booster (PFIZER-BIONTECH) Az Nurse Work Phone: [facility] Work Phone: 11-01-2021 influenza, high-dose , quadrivalent vaccine (FLUZONE HIGH DOSE QUADRIVALENT) Gini Aguilar MD Work Phone: [facility] 04-22-2021 COVID-19 vaccine, ag e 12+ yr (PFIZER-BIONTECH - KIDD TOP) 2 Work Phone: [facility] Work Phone: 04-19-2021 COVID-19 original vaccine, age 12+ yr, monovalent (PFIZER-BIONTECH - PURPLE TOP) Gini Aguilar MD Work Phone: [facility] 12-08-2020 influenza, high dose seasonal, preservative-free Gini Aguilar MD Work Phone: [facility] 11-27-2020 influenza, high-dose , quadrivalent vaccine (FLUZONE HIGH DOSE QUADRIVALENT) Us 2 Work Phone: [facility] Work Phone: 10-27-2020 COVID-19 vaccine, ag e 12+ yr (PFIZER-BIONTECH - PURPLE TOP) Us 2 Work Phone: [facility] 04-29-2020 COVID-19 vaccine, ag e 12+ yr (PFIZER-BIONTECH - PURPLE TOP) Us 2 Work Phone: [facility] Work Phone: 04-08-2020 COVID-19 vaccine, ag e 12+ yr (PFIZER-BIONTECH - PURPLE TOP) Us 2 Work Phone: [facility] Work Phone: 02-25-2020 zoster vaccine recombinant Us 2 Work Phone: [facility] 12-09-2019 zoster vaccine recombinant Us 2 Work Phone: [facility] 11-06-2019 influenza, high-dose , quadrivalent vaccine (FLUZONE HIGH DOSE QUADRIVALENT) Us 2 Work Phone: [facility] 11-26-2018 influenza, high dose seasonal, preservative-free Us 2 Work Phone: [facility] 12-10-2017 influenza, high dose seasonal, preservative-free Gini Aguilar MD Work Phone: [facility] 12-10-2017 pneumococcal polysaccharide vaccine, 23 valent Gini Aguilar MD Work Phone: [facility] 11-13-2017 influenza, high dose seasonal, preservative-free Gini Aguilar MD Work Phone: [facility] 10-31-2017 influenza, high dose seasonal, preservative-free Us 2 Work Phone: [facility] 12-05-2016 influenza, high dose seasonal, preservative-free Us 2 Work Phone: [facility] 12-05-2016 pneumococcal polysaccharide vaccine, 23 valent Gini Aguilar MD Work Phone: [facility] 11-19-2015 influenza, high dose seasonal, preservative-free Us 2 Work Phone: [facility] Work Phone: 12-02-2014 influenza, high dose seasonal, preservative-free Us 2 Work Phone: [facility] Work Phone: 05-05-2014 pneumococcal conjuga te vaccine, 13 valent Us 2 Work Phone: [facility] 01-20-[address] Gini Aguilar Work Phone: [facility] 12-10-2012 influenza virus vaccine, unspecified formulation Us 2 Work Phone: [facility] 05-10-2012 diphtheria, tetanus toxoids and acellular pertussis vaccine Us 2 Work Phone: [facility] Work Phone: 12-20-2011 influenza virus vaccine, unspecified formulation Us 2 Work Phone: [facility] Work Phone: 12-17-2010 influenza virus vaccine, unspecified formulation Us 2 Work Phone: [facility] Work Phone: 07-30-2009 zoster vaccine, live Us 2 Work Phone: [facility] 11-10-2008 pneumococcal polysaccharide vaccine, 23 valent Us 2 Work Phone: [facility] Work Phone: 08-19-[address] Melissa Aguilar Work Phone: [facility] Work Phone: 08-19-2006 pneumococcal vaccine , unspecified formulation Dr. Gini Aguilar Work Phone: [facility] 12-15-2004 influenza virus vaccine, unspecified formulation Us 2 Work Phone: [facility] Work Phone: 09-28-2003 hepatitis A vaccine, unspecified formulation Us 2 Work Phone: [facility] Work Phone: 03-05-2003 hepatitis A vaccine, unspecified formulation Us 2 Work Phone: [facility] Work Phone: 01-26-2003 tetanus and diphther ia toxoids, not adsorbed, for adult use Us 2 Work Phone: [facility] Work Phone: NEGATED: Highlighted row has not occurred!11-03-2008 influenza virus vaccine, unspecified formulation Us 2 Work Phone: [facility] Work Phone: Payers Date Payer Category Payer Self-pay [id number] 2017 Medicare [id number] 2015 Medicare MEDICARE MEDICAR E A AND B [id number] 2015-Present [phone] [address] [address] [place] [address] Medicare [id number] 2015 Private Health Insurance HUMANA HUMANA MEDICARE SUPPLEMENT [id number] 2015-Present [phone] [address] [address] [place] [address] Indemnity [id number] 2015 Private Health Insurance [id number] 2015 Private Health Insurance [id number] 2006 Medicare 2006 Medicare [id number] 1940 Unknown [id number] Unknown [id number] Social History Date Type Detail Facility Start: 12-08-2021 End: 01-26-2022 Assertion Unknown if ever smoked [facility] Work Phone: Start: 05-19-2011 End: 11-28-2021 Tobacco smoking status NHIS Never smoked tobacco [facility] Work Phone: Start: 08-04-2021 End: 06-26-2022 Alcohol intake Current non-drinker of alcohol (finding) [facility] Start: 11-09-2019 History SDOH Alcohol Std Drinks 98 [facility] Start: 11-09-2019 End: 04-22-2022 History SDOH Alcohol Binge 1 [facility] Start: 11-09-2019 End: 04-22-2022 History SDOH Social Connections Phone 5 [facility] Start: 11-09-2019 End: 04-22-2022 History SDOH Social Connections Get Together 2 [facility] Start: 11-09-2019 End: 04-22-2022 History SDOH Social Connections [facility] 3 [facility] Start: 11-09-2019 End: 04-22-2022 History SDOH Financial 4 [facility] Start: 11-09-2019 Education 18 [facility] Start: 1940 Sex Assigned At Female [facility] Start: 07-24-2021 End: 08-11-2022 Exposure to SARS-CoV-2 (event) Not sure [facility] Start: 05-19-2011 End: 11-28-2021 Tobacco use and exposure Smokeless tobacco non-user [facility] Work Phone: Start: 06-30-2020 Non-smoker [facility] Start: 04-22-2022 History SDOH Alcohol Std Drinks 0 [facility] Start: 07-22-2021 End: 08-11-2022 Alcohol intake Lifetime non-drinker (finding) [facility] Start: 1940 Sex Assigned At Not on file [facility] Start: 03-13-2022 End: 04-21-2022 Gender identity Not on file [facility] Start: 03-13-2022 End: 04-21-2022 History of Social function [facility] Active Member of [facility] bs or Organizations Not on file [facility] Are you now , , , , never or living with a partner? [facility] How often do you hav e 6 or more drinks on 1 occasion? Never [facility] How hard is it for y ou to pay for the very basics like food, housing, medical care, and heating Not very hard [facility] Do you feel stress - tense, restless, nervous, or anxious, or unable to sleep at night because your mind is troubled all the time - these days [OSQ] Only a little [facility] (I/We) worried wheth er (my/our) food would run out before (I/we) got money to buy more. Never true [facility] In the past 12 month s, was there a time when you were not able to pay the mortgage or rent on time? No [facility] Start: 06-29-2019 Gender identity Identifies as female gender (finding) [facility] Medical Equipment Procedure Code Equipment Code Equipment Origin al Text Equipment Identifier Dates Minimally invasive total replacement of hip joint by anterior approach ACCOLADE II ANGLE HIP STEM FDA Start: 07-14-2020 Minimally invasive total replacement of hip joint by anterior approach BIOLOX CERAMIC V40 FEM HEAD FDA Start: 07-14-2020 Minimally invasive total replacement of hip joint by anterior approach TRIDENT TRI ACET SHELL FDA Start: 07-14-2020 Minimally invasive total replacement of hip joint by anterior approach TRIDENT X3 POLY INSERT CS FDA Start: 07-14-2020 Minimally invasive total replacement of hip joint by anterior approach ACCOLADE II ANGLE HIP STEM FDA Start: 07-14-2020 Minimally invasive total replacement of hip joint by anterior approach BIOLOX CERAMIC V40 FEM HEAD FDA Start: 07-14-2020 Minimally invasive total replacement of hip joint by anterior approach TRIDENT TRI ACET SHELL FDA Start: 07-14-2020 Minimally invasive total replacement of hip joint by anterior approach TRIDENT X3 POLY INSERT CS FDA Start: 07-14-2020 Minimally invasive total replacement of hip joint by anterior approach ACCOLADE II ANGLE HIP STEM FDA Start: 07-14-2020 Minimally invasive total replacement of hip joint by anterior approach BIOLOX CERAMIC V40 FEM HEAD FDA Start: 07-14-2020 Minimally invasive total replacement of hip joint by anterior approach TRIDENT TRI ACET SHELL FDA Start: 07-14-2020 Minimally invasive total replacement of hip joint by anterior approach TRIDENT X3 POLY INSERT CS FDA Start: 07-14-2020 Minimally invasive total replacement of hip joint by anterior approach ACCOLADE II ANGLE HIP STEM FDA Start: 07-14-2020 Minimally invasive total replacement of hip joint by anterior approach BIOLOX CERAMIC V40 FEM HEAD FDA Start: 07-14-2020 Minimally invasive total replacement of hip joint by anterior approach TRIDENT TRI ACET SHELL FDA Start: 07-14-2020 Minimally invasive total replacement of hip joint by anterior approach TRIDENT X3 POLY INSERT CS FDA Start: 07-14-2020 Minimally invasive total replacement of hip joint by anterior approach ACCOLADE II ANGLE HIP STEM FDA Start: 07-14-2020 Minimally invasive total replacement of hip joint by anterior approach BIOLOX CERAMIC V40 FEM HEAD FDA Start: 07-14-2020 Minimally invasive total replacement of hip joint by anterior approach TRIDENT TRI ACET SHELL FDA Start: 07-14-2020 Minimally invasive total replacement of hip joint by anterior approach TRIDENT X3 POLY INSERT CS FDA Start: 07-14-2020 ([id number]) Endocardial paci ng lead ()[id number] FDA Start: 11-11-2020 ([id number]) Endocardial paci ng lead ()[id number] FDA Start: 11-11-2020 Clinical Notes 09-01-2019 to 04-03-2023 Telephone Encounter - Loretta De La Rosa LPN - 04/03/2023 9:45 AM ESTTelephone Encounter - Loretta De La Rosa LPN - 03/29/2023 4:30 PM Tiana Perez MD - 08/11/2022 11:00 AM EDT Note Date & Type Note Facility 04-03-2023 Miscellaneous Notes Closed encounter. Loretta De La Rosa LPN Spoke with patient and she has a new doctor where she lives now. I have put the new doctor in. She also has a Structural Iron Erector Dr. Ashley Eastman. Pt reports she thinks she will be okay till her apt in May to get refills on Synthroid. She wanted to Thank you for everything. No call back needed. Loretta De La Rosa LPN documented in this encounter [facility] 12-27-2022 Miscellaneous Notes Pt called in and she is getting lab work done at [facility] where they live. Results will come to Dr. Aguilar. PH: [phone] FAX: [phone] Done. Also updated pharmacy at pt's request. Loretta De La Rosa LPN documented in this encounter [facility] 11-24-2022 Miscellaneous Notes Glad she is doing well from thyroid standpoint. Wish she hadn't needed hospitalized for the anaphylactic reaction--okay if needing prednisone for now. Noted having surgery. Will give refills if/when needed prior to appointment with chainstitch pants outseamer. Phoned patient and given provider's message below. Patient reports she has plenty of synthroid right now, but will call back if needing anything. Reports she has appt with endo in [place] in April. Wants pcp to know the 25 mcg day and 50 mcg 2 days a week is doing well for her. Wanted pcp to know her will be having large hernia repair in Nov. 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 No needs at this time, but wants pcp to know she appreciates you. Noted. Can continue to help manage her care till establishes with chainstitch pants outseamer. Is there anything she needs at this time? Appreciate her kind words. Patient reports she and her have moved to [place] to be with their daughter. States she has found a new PCP, however would like Dr. Aguilar to still assist her with her thyroid until she can see Endo there, for the immediate time being, if agreeable. Patient also states she had wonderful care by Dr. Aguilar and it will take 10 people to replace her. Ama Deluna RN documented in this encounter [facility] 10-16-2022 Miscellaneous Notes OK Pt calls to report Dr. Aguilar sent generic for Synthroid and pt only uses brand. Pt reports she pays for it out of pocket since insurance will not cover brand. Pt reports she has too many problems with generic medications. Pt is requesting rx be resent to pharmacy. Pharmacy verified. Call pt when rx has been sent to the pharmacy. Patient has been identified by name and date of : Yes Requested Prescriptions Pending Prescriptions Disp Refills SYNTHROID 25 mcg tablet 180 tablet 1 Sig: Take 25 mcg daily except 2 days per week take 50 mcg (may take 2 pills on Sunday and Sunday and 1 pill the other 5 days of the week). Adjust dose as indicated by labs. Take on empty stomach. RX INSTRUCTIONS: Patient aware RX will be sent to pharmacy. Neha Rosario LPN documented in this encounter [facility] 10-11-2022 Miscellaneous Notes Pt called and is notified that prescription has been sent given provider's instructions. Pt voices understanding. Antonella Beavers, RN On a prior telephone encounter she said she was taking an extra 1/4 of a 50mcg tablet, so instead of having to keep taking 1/4 of a tablet, recommended changing to just taking 25 mcg tablets and stop cutting the 50 mcg tablets. I based the number of pills of 25 mg so would not need to be cutting anything in 1/4. She can use her 50 mcg pills to get same dosage--take 1 pill Sunday and Sunday and half pill the other 5 days of the week. I sent the 25mcg tablets so can fine tune the dose if needed. The following approved medication requests have been transmitted electronically. Requested Prescriptions Signed Prescriptions Disp Refills levothyroxine (SYNTHROID) 25 mcg tablet 180 tablet 1 Sig: Take 25 mcg daily except 2 days per week take 50 mcg (may take 2 pills on Sunday and Sunday and 1 pill the other 5 days of the week). Adjust dose as indicated by labs. Take on empty stomach. Authorizing Provider: GINI AGUILAR MD Patient calling back she would like to do the 9 day dosing for the Levothyroxine, but still needs clarification. Patient will be out for several hours with grand children can be reached this afternoon, she is one hour behind [place] time. Pending new Endocrinology referral also, needs diagnosis. Pt has moved to [place]. First she is completely out of her Synthroid 25 mcg. And she is calling back because she still needs some clarification on how she should be taking her Synthroid. See previous encounter of 09/28. Needs clarification on the following as she only takes her Synthroid once a day which would be 7 doses: If did 9 doses--25 mcg daily except 2 days take 50 mcg if did 10 doses, 25mcg daily except 3 days take 50 mcg. Not sure when and how much to take to make 9 or 10 doses. Double up in the morning on the 25 or take 25 in the morning and then another 25 a different time of day? Also needs a new RX for the 25 mcg Synthroid. Send new script to [facility] [address] Pt states she and her have moved to [place] and she can't get in to her new PCP for 6 weeks. She would like to get started on an appt with an Structural Iron Erector but needs a referral sent . Dr. Emeka Zambrano Fax # is [phone]. Patient has been identified by name and date of : Yes, Provider Date 10/09/22 Time 1245 Patient phones for refill(s): Requested Prescriptions Pending Prescriptions Disp Refills levothyroxine (SYNTHROID) 25 mcg tablet Sig: Take on empty stomach. Date of last office visit in primary care: 06/26/22 Last 2 Encounter Wt Readings: Date: Wt: 06/26/2022 62.1 kg (137 lb) 04/25/2022 63.5 kg (140 lb) Previous labs/tests for medication: Thyroid: TSH Date Value 07/31/2022 0.375 mIU/L 03/16/2021 0.679 uU/mL Please advise. Thank you. Antonella Beavers RN documented in this encounter [facility] 10-06-2022 Miscellaneous Notes Spoke with patient but she was not able to follow all of the calculations so has requested message be sent to her mychart which has been done. Patient will let us know what she would like to change anything. Lab orders have been mailed to address provided. Instead of cutting 50mcg pills in quarters, could cut them in halves If taking 1/4 of 50mcg daily--12.5 X 7 = 87.5 per week With 25 mcg 6 days per week = 150 per week Total 237.5 mcg per week divided by 25= 9.5 doses of 25mcg per week. Could take take the equivalent of 9 or 10 25mcg doses per week and still be lower than taking 37.5 mcg per day on average. If did 9 doses--25 mcg daily except 2 days take 50 mcg if did 10 doses, 25mcg daily except 3 days take 50 mcg. If prefers to take no more than 37.5 mcg per day, then could cut 50mcg pills in half instead of fourths and cut 25mcg pills in halves. Phoned patient and given provider's message below with verbalized understanding. Patient reports for the past month she has been taking 1/4 of a 50 mcg tab, plus a 25 mcg tab, to equal 37.5 mcg daily (and she felt better on this dose). Reports she decided to do this b/c she has been feeling very tired. Patient agreeable to try taking the 25 mcg daily, 6 days a week, and take none 1 day a week, then check labs in 6 weeks. [facility] [address] [place], [place] [address] Could not find results from mail, but was able to find on Care Everywhere. CBC fine. CMP all normal except BUN 30, Cr 1.09 and eGFR 51.1 Free T4 1.33 Free T3 3.2 TSH 0.50 (suppressed)--normal range 0.55-4.78 Note that at [facility] our range of normal us 0.270 to 4.200. Her TSH was 0.375 in July.So the TSH did go up with lowering the dose to 25 mcg daily. Since TSH is still below normal range at the lab there, could decrease the dose to taking 25 mcg just 6 days per week and recheck lab after 6 weeks. If does not feel like dose is too high, could just recheck the labs after 6 weeks. Need to know if should fax a lab order or just mail lab order. Will send Trippy Bandzt message--make sure sees it. Patient calling she has moved to [place] close to her daughter and has not gotten a new Dr yet. Patient said she had thyroid labs done 09/21/2022 and mailed copy of results to PCP. Patient said she did not feel good taking the Levothyroxine 25 mg so for several weeks prior to the lab work she had been taking Levothyroxine 25 mcg one tablet and one half tablet of the 25 mcg together. Patient said she wanted PCP to review them please. Aware PCP is out of office and not returning until 10/02/2022. Please advise documented in this encounter [facility] 10-04-2022 Telephone encounter Note Medical records request was sent to [facility]. [facility] 10-04-2022 Miscellaneous Notes Medical records request was sent to [facility]. Name of caller: Jennie Contact phone number: [phone] Relationship to Patient: patient Provider: Sam LESLIE Practice: [facility] Neurology [place] Chief Complaint/Reason for Call: Pt states she found a new provider and will need her medical records sent over to [facility] . Pt and her has moved out of state and have found new providers. Pt demographics have also been updated in chart. Please advise Best time of day caller can be reached: Any Patient advised that office/PCP has 24-48 business hours to return their call: N/A documented in this encounter [facility] 10-04-2022 Telephone encounter Note Name of caller: Jennie Contact phone number: [phone] Relationship to Patient: patient Provider: Sam LESLIE Practice: [facility] Neurology [place] Chief Complaint/Reason for Call: Pt states she found a new provider and will need her medical records sent over to [facility] . Pt and her has moved out of state and have found new providers. Pt demographics have also been updated in chart. Please advise Best time of day caller can be reached: Any Patient advised that office/PCP has 24-48 business hours to return their call: N/A [facility] 09-20-2022 Miscellaneous Notes PATIENT NOTIFIED OF SAME. I do not see that we have this blood work yet, can let patient know we have not received it but if feeling well on current synthroid dose can continue that and would recommend having labs done with first PCP visit when establishing. Spoke with pt and she will let us know is if there is any information needed for doctors where she is living now. She does not see her new pcp for several months and will continue with Dr. Aguilar until she sees them. She will let us know. Her new doctor will be Dr. Dennis Bowens PH: [phone] FAX: [phone] Again she will not be seeing him for a while. Pt also wanted Dr. Aguilar to know she has not had any energy. She increased her Synthroid. for the past 5 days. She takes her 25 mg and she had 50 mg left over and she cut this into 4 quarters and takes 1 quarter with her 25 mg and she is feeling much better and can see a difference. Pt just had lab work done her her Steam Shovelman and will have them fax a copy of her labs which did include thyroid. Loretta De La Rosa LPN Cannot find that name for filing the consult Please call number provided to verify name of provider so can file correct order and send Also verify if they need anything (wonder if they can connect to Care Everywhere and see our records). Pt called and she is moving to [place] within the next 2 weeks. Pt is asking for a referral the a Structural Iron Erector . FORM TAMPER OPERATOR not certain the 1st name but the last name is Ruben. PH: [phone] FAX:[phone] Requesting to have referral, lab, OV, Xays, and face sheet faxed to above. Please advise pt when done so she can call them to schedule apt. Loretta De La Rosa LPN documented in this encounter [facility] 08-11-2022 History of Present illness Narrative Images from the original note were not included. [facility] [address] [place] [address] [facility] [address] Dept: [phone] Dept Loc: [phone] Visit type: Established Patient Reason for Visit: Follow-up and Sleep Apnea Assessment and Plan 1. Obstructive sleep apnea 2. Right hip pain Subjective HPI: Per report today, the patient is wearing the positive airway pressure every night. The mask is not leaking. The patient is sleeping through the night with the mask on. The patient reports that the mask is providing refreshing sleep. I reviewed the on-line data from the patient's device today.Jennie Bangura 05/03/2022 - 08/09/2022 : 1940 Age: 82 years [address] [facility], [address] [place], [address] Email: [email or web address] Compliance Report Compliance Payor Standard Usage 05/03/2022 - 08/09/2022 Usage days 99/99 days (100%) >= 4 hours 92 days (93%) < 4 hours 7 days (7%) Usage hours 664 hours 2 minutes Average usage (total days) 6 hours 42 minutes Average usage (days used) 6 hours 42 minutes Median usage (days used) 7 hours 2 minutes Total used hours (value since last reset - 08/09/2022) 10,633 hours AirCurve 10 S Serial number [id number] Mode Spont IPAP 16.4 cmH2O EPAP 11.4 cmH2O Easy-Breathe On Therapy Leaks - L/min Median: 3.6 95th percentile: 35.9 Maximum: 77.1 Events per hour AI: 2.7 HI: 0.2 AHI: 2.9 Apnea Index Central: 0.3 Obstructive: 2.2 Unknown: 0.1 She had periods of bilateral leg weakness. She ended up being treated by Dr. Nelson for lumbar spinal stenosis with epidurals with some assistance. She has pain in the right hip where her total hip was done before. REVIEW OF SYSTEMS: Review of Systems Constitutional: Negative for appetite change, chills, diaphoresis, fever and unexpected weight change. HENT: Negative for dental problem and mouth sores. Eyes: Negative for discharge and itching. Respiratory: Negative for chest tightness. Cardiovascular: Negative for chest pain and leg swelling. Gastrointestinal: Negative for rectal pain and vomiting. Endocrine: Negative for polydipsia, polyphagia and polyuria. Genitourinary: Negative for decreased urine volume, flank pain and genital sores. Musculoskeletal: Negative for arthralgias. Skin: Negative for color change. Allergic/Immunologic: Negative for food allergies and immunocompromised state. Neurological: Positive for weakness. Hypersomnia Hematological: Negative for adenopathy. Does not bruise/bleed easily. Psychiatric/Behavioral: Negative for agitation, behavioral problems, decreased concentration, sleep disturbance and suicidal ideas. Allergies Allergen Reactions Benzocaine Other reaction(s): Intolerance, methemglobinemia, Other probable methemoglobinemia Codeine Other reaction(s): GI Upset, Nausea/Vom/Diarrhea, Unknown, Vomiting Conjugated Estrogens Other reaction(s): Shortness of breath, wheeze allergy to horses=wheezing Esomeprazole Other reaction(s): Other, Other: See Comments Headaches; only tolerates Prevacid Hydroxychloroquine Other reaction(s): liver reaction, Rash, Unknown liver reaction, rash and very ill liver reaction, rash and very ill Lanolin Other reaction(s): Rash allergy to sheep=rash Metoprolol Rash Other reaction(s): GI Upset, NEEDS FOLLOW-UP, Rash-itch, two falls Nausea,falling down, itchy rash Minocycline Other reaction(s): dizzy, Other vertigo Omeprazole Other reaction(s): Other, Other: See Comments headaches; only tolerates Prevacid Sulindac Other reaction(s): liver reaction, Rash, Unknown liver reaction, rash and very ill Tape Other reaction(s): Rash, Unknown Epinephrine bradycardia Gluten Meal Other reaction(s): Other, Other (See Comments) Hydrogenated Palm Oil Glycerides Other reaction(s): Hives, Hives, Intolerance Meloxicam liver reaction Meperidine Other reaction(s): Nausea/Vom/Diarrhea Nabumetone Other reaction(s): stomach upset Pantoprazole Other reaction(s): Other: See Comments headache; only tolerates Prevacid Current Outpatient Medications: apremilast (Otezla) 30 MG tablet, every 12 hours., Disp: , Rfl: aspirin 81 MG chewable tablet, Chew 81 mg in the morning., Disp: , Rfl: celecoxib (CeleBREX) 200 MG capsule, Take 200 mg by mouth 2 times daily., Disp: , Rfl: estradiol (Estrace) 0.1 MG/GM vaginal cream, , Disp: , Rfl: famotidine (Pepcid) 20 MG tablet, 1 tab(s), Disp: , Rfl: fluticasone (Flonase) 50 MCG/ACT nasal spray, Administer 2 sprays into each nostril daily., Disp: , Rfl: folic acid (Folvite) 1 MG tablet, take 2 tablets by mouth once daily, Disp: , Rfl: predniSONE (Deltasone) 5 MG tablet, 1-2 tabs, Disp: , Rfl: Qnasl 80 MCG/ACT aerosol solution, Administer 2 sprays into each nostril daily., Disp: , Rfl: spironolactone (Aldactone) 25 MG tablet, Take 25 mg by mouth daily., Disp: , Rfl: SUMAtriptan (Imitrex) 50 MG tablet, take 1 tablet by mouth if needed AT ONSET OF HEADACHE may repeat in 2 hours IF headache PERSISTS, Disp: , Rfl: Synthroid 25 MCG tablet, take 1 tablet by mouth once daily ON AN EMPTY STOMACH, Disp: , Rfl: verapamil SR (Calan SR) 120 MG ER tablet, Take 120 mg by mouth daily., Disp: , Rfl: Past Medical History: Diagnosis Date Arthritis Hypertension ROBERT (obstructive sleep apnea) Social History Tobacco Use Smoking status: Never Smokeless tobacco: Never Substance Use Topics Alcohol use: Never Past Surgical History: Procedure Laterality Date CARDIAC PACEMAKER PLACEMENT No family history on file. Objective Vitals: BP 120/73 (BP Location: Left arm) Pulse 74 Wt 131 lb (59.4 kg) BMI 23.96 kg/m General Appearance: Patient is in no apparent distress. Head is normocephalic, atraumatic Cardiovascular: Regular rate and rhythm. No heart murmurs. No carotid bruit Neurologic: Mentation: Alert and oriented x [address], [address] and time. Speech and Language: Speech and language normal Concentration and Attention: Concentration normal Memory: Memory normal Fund of Knowledge: Fund of knowledge normal Cranial Nerves: II, III, IV, V, , VII, VIII, IX, X, XI, XII examined and were intact. Motor: Strength: Strength 5 out of 5 with normal tone Alternating Movements: Normal Cogwheel Rigidity: None Tone: Tone is normal Tremor / Involuntary Movements: None Deep Tendon Reflexes: 1 out of 4 symmetrical in all four limbs. Coordination: Normal coordination upper and lower extremities Gait and Station: Station is normal. Gait is arthralgic Data Reviewed and Summarized DIAGNOSTIC TESTING CBC: No results found for: WBC, RBC, HGB, HCT, MCV, MCH, MCHC, RDW, PLT, MPV CMP: No results found for: NA, K, CL, CO2, BUN, CREATININE, AGRATIO, LABGLOM, GLUCOSE, GLU, PROT, CALCIUM, BILITOT, ALKPHOS, AST, ALT BMP: No results found for: NA, K, CL, CO2, BUN, CREATININE, CALCIUM, LABGLOM, GLUCOSE, GLU PT/INR: No results found for: PROTIME, INR PTT: No results found for: APTT, PTT[APTT} FLP: No results found for: CHLPL, TRIG, HDL, LDLCALC, LDLDIRECT TSH: No results found for: TSH VITAMIN B12: No results found for: [id number] No results found for: PHENYTOIN, PHENOBARB, VALPROATE, CBMZ No components found for: TOPIRA @RESULTINGLABINFO@ No results found for: LEVETIRACETA, FERRITIN, CRP, NIO, ANCA No results found for: DIANELYS, IMMUNOGLOBUL, OLIGOBANDS No results found for: [id number], HEPCAB No results found for: CRP, ANATITER, ANCA, ANCA FERRITIN: No results found for: FERRITIN ---- No image results found. IMPRESSION and PLAN: Diagnosis Plan 1. Obstructive sleep apnea 2. Right hip pain She is compliant and the PAP therapy is working. She is already undergoing evaluation. She will be moving soon to [place]. She has not had her migraine treatment from me. She was getting that from neuro at [facility] and they have been so few and far between that her PCP has been handling those. No problem-specific Assessment & Plan notes found for this encounter. EL PEREZ MD I spent 30 minutes caring for this patient today, reviewing labs, records, seeing the patient, documenting in the record and arranging for studies. @SIGNATURE@ documented in this encounter [facility] 08-10-2022 Miscellaneous Notes filed Patient called requesting a refill of estrace cream. Last appointment at office was 11/28/2021. documented in this encounter [facility] 08-02-2022 Miscellaneous Notes Reviewed that TSH still on low end of normal range. Feels better when TSH around 1.0 range. Lost weight over the years. Dose lower from 100mcg over the years. Will decrease dose. The following approved medication requests have been transmitted electronically. Requested Prescriptions Signed Prescriptions Disp Refills levothyroxine (SYNTHROID) 25 mcg tablet 90 tablet 3 Sig: Take 1 tablet by mouth once daily. Take on empty stomach. For thyroid. Authorizing Provider: GINI AGUILAR MD documented in this encounter [facility] 07-05-2022 Miscellaneous Notes Message left that referral has been faxed. Referral order has been signed, please fax and let patient know once sent. Thanks! Patient calling back with Dr freedman, Dr Ashley Eastman and Nathalie Bourne FORM TAMPER OPERATOR and phone number is [phone] if needed. Patient would like called when referral is faxed [phone]. Patient calling to make sure request was being sent to PCP. Pending consult, patient will call back with Dr freedman for Endocrinology. They will be moving to [place]. documented in this encounter [facility] 07-03-2022 Miscellaneous Notes noted documented in this encounter [facility] 06-30-2022 Telephone encounter Note Spoke with chloe and all questions have been answered [facility] 06-30-2022 Miscellaneous Notes Spoke with chloe and all questions have been answered Lm for Chloe to call the office back, please transfer her to the office when she does. Name of caller: Chloe Contact phone number: [phone] Relationship to Patient: [facility] Provider: Dr Perez Practice: neuro [facility] Chief Complaint/Reason for Call: [facility] is calling asking if pts referral and info can be faxed to them at F#[phone] Best time of day caller can be reached: AM Patient advised that office/PCP has 24-48 business hours to return their call: Yes Referrals have been faxed Spoke with Jennie and let her know, her and El would need an MIRANDA on file for us to be able to send the records, she understood miranda being mailed to patient home address and will be mailed back to us. Please advise on the referral needed Name of caller: Kiara Contact phone number: [phone] Relationship to Patient: patient and spouse/SO Provider: Sam Practice: neuro Chief Complaint/Reason for Call: the patient and their El Bangura 05/20/1937 need their records from 2 to 3 years and referrals for both sent to [facility] Neurology address is [address] [place] [address] [facility] [address] the patient and their are both Dr Perez's patients and they are moving to [place] to be close to their daughter. Patient would like a callback once the referrals and records have been faxed over so they can call the new neurology department to sent up appointments for them both. The patient states they are not moving until the end of July. Please advise and thank you Fax number [phone] Phone number [phone] Best time of day caller can be reached: any Patient advised that office/PCP has 24-48 business hours to return their call: Yes documented in this encounter [facility] 06-30-2022 Telephone encounter Note Lm for Chloe to call the office back, please transfer her to the office when she does. [facility] 06-30-2022 Telephone encounter Note Name of caller: Chloe Contact phone number: [phone] Relationship to Patient: [facility] Provider: Dr Perez Practice: neuro dein Chief Complaint/Reason for Call: [facility] is calling asking if pts referral and info can be faxed to them at F#[phone] Best time of day caller can be reached: AM Patient advised that office/PCP has 24-48 business hours to return their call: Yes [facility] 06-29-2022 Telephone encounter Note Referrals have been faxed T [facility] 06-29-2022 Telephone encounter Note Spoke with Jennie and let her know, her and El would need an MIRANDA on file for us to be able to send the records, she understood miranda being mailed to patient home address and will be mailed back to us. Please advise on the referral needed [facility] 06-29-2022 Telephone encounter Note Name of caller: Kiara Contact phone number: [phone] Relationship to Patient: patient and spouse/SO Provider: Sam Practice: neuro Chief Complaint/Reason for Call: the patient and their El Bangura 05/20/1937 need their records from 2 to 3 years and referrals for both sent to [facility] Neurology address is [address] [facility] [address] the patient and their are both Dr Perez's patients and they are moving to [place] to be close to their daughter. Patient would like a callback once the referrals and records have been faxed over so they can call the new neurology department to sent up appointments for them both. The patient states they are not moving until the end of July. Please advise and thank you Fax number [phone] Phone number [phone] Best time of day caller can be reached: any Patient advised that office/PCP has 24-48 business hours to return their call: Yes [facility] [employer] 06-26-2022 History of Present illness Narrative This note was created using [employer]. Subjective Jennie Bangura is a 82 year old female. Patient presents with: F/U 3 Month SUBJECTIVE: Jennie Bangura is a 82 year old year old lady here today for 3 month follow up appointment for review of medical conditions. Legs with less tight swelling with adding aldactone. Sockwell compression socks work best. Limits salt since a little too much causes swelling. Relocating to [place] where family lives. will be in [place] and she will be in independent living apartments there (still gets meals provided). She has providers lined up, including internal medicine provider (sees October 13), except neurologist (but Dr. Perez made referral). Wants booster for Covid Bivalent vaccine. Meets criteria. Back pain--will see Dr. Snyder for follow up. Psoriatic arthritis--will see Dr Robertson at [facility] . Celebrex still effective. Depression Screening 11/26/2018 11/09/2019 07/07/2020 06/26/2022 PHQ-2 Score 0 0 0 0 PHQ-9 Score - - 0 - YRN-2 Total Score - - 0 - YRN-7 Total Score - - 0 - Depression screening tool completed and reviewed. Based on score and interview, patient is not at risk for depression. Screening tool discussed with patient, and I recommended no further intervention at this time. 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 Johnson and Dr. 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 Ovalle ([facility]), dry mouth and eyes Sjogren's disease ([facility]) inflammatory arthritis and mucous membranes dry everywhere, right hand larger than left Symptomatic menopausal or female climacteric states Unspecified constipation Unspecified essential hypertension Urgency of urination frequency, related to Sjogren's Uterovaginal prolapse, incomplete Varicose veins of both lower extremities with pain 09/18/2011 Current Outpatient Medications Medication Sig spironolactone (ALDACTONE) 25 mg tablet Take 1 tablet by mouth once daily. SUMAtriptan (IMITREX) 50 mg tablet Take 1 tablet by mouth. at onset of migraine. Repeat after 2 hours if needed. folic acid 1 mg tablet Take 2 tablets by mouth once daily. verapamil SR (CALAN SR, ISOPTIN SR) 120 mg CR tablet Take 120 mg by mouth once daily. SYNTHROID 50 mcg tablet Take 1 tablet by mouth once daily. Sunday through Sunday or as directed (Patient taking differently: Take 50 mcg by mouth once daily. 25 mg on Sunday and Sunday and 50 mg other 5 days) celecoxib (CELEBREX) 200 mg capsule Take 1 capsule by mouth as directed. one or 2 times daily. estradiol (ESTRACE) 0.01 % (0.1 mg/gram) vaginal cream APPLY A PEA-SIZED AMOUNT TO LOWER VAGINA AT BEDTIME 3 TIMES PER WEEK famotidine (PEPCID ORAL) Take by mouth. Multivitamin capsule Take 1 capsule by mouth once daily. ivermectin (SOOLANTRA TOPICAL) Apply to affected area. OTEZLA 30 mg tablet Take 2 tablets by mouth once daily. Takes 1 tablet in am and 1 tablet in pm cyclobenzaprine (FLEXERIL) 10 mg tablet Take 0.5-1 tablets by mouth twice daily as needed. benzonatate (TESSALON PERLE) 100 mg capsule Take 1 capsule by mouth three times daily as needed. Halobetasol Propionate (ULTRAVATE) 0.05 % cream Apply selectively to spots//plaques of eczema and possible psoriasis on elbows and hands twice per day for up to 4-6 weeks or less as needed until clear and then try to stop or taper off to a bland emollient cream such as CeraVe cream or Cetaphil cream applied twice per day to other dry skin. diclofenac sodium (VOLTAREN) 1 % topical gel Apply moderate amount to painful areas on hands (2g) & knees (4g) up to three times daily as needed. Don't exceed a total of 32g daily. ACETAMINOPHEN (TYLENOL 8 HOUR ORAL) Take 650 mg by mouth twice daily. beclomethasone dipropionate 80 mcg/actuation Use in each nostril. COMPOUNDED PRESCRIPTION Citracal slow release 1200 (2 caplets daily = 1000 IU vitamin D, 1200 mg calcium, 80 mg magnesium) SYSTANE 0.4 %-0.3 % EYE DROPS daily as directed ASPIRIN 81 MG TAB Take one (1) tablet daily . predniSONE (DELTASONE) 5 mg tablet Take 2.5 mg by mouth every other day. cimetidine (TAGAMET ORAL) Take by mouth. (Patient not taking: No sig reported) SYNTHROID 75 mcg tablet Take 1 tablet by mouth every Sunday. (taking 50mcg Sunday through Sunday) No current facility-administered medications for this visit. Review of Systems Objective BP 98/62 Pulse 85 Temp 36.4 C (97.6 F) Resp 18 Wt 62.1 kg (137 lb) SpO2 98% BMI 25.47 kg/m Physical Exam Constitutional: Appearance: Normal appearance. HENT: Head: Normocephalic. Eyes: Conjunctiva/sclera: Conjunctivae normal. Cardiovascular: Rate and Rhythm: Normal rate and regular rhythm. Heart sounds: Normal heart sounds. Pulmonary: Effort: Pulmonary effort is normal. Breath sounds: Normal breath sounds. Skin: General: Skin is warm and dry. Neurological: General: No focal deficit present. Mental Status: She is alert and oriented to person, place, and time. Psychiatric: Mood and Affect: Mood normal. Behavior: Behavior normal. Thought Content: Thought content normal. Judgment: Judgment normal. Component Latest Ref Rng & Units 12/20/2021 05/08/2022 05/29/2022 Protein, Total 6.3 - 8.0 g/dL 6.8 Albumin 3.9 - 4.9 g/dL 4.5 Calcium 8.5 - 10.2 mg/dL 10.4 (H) Bilirubin, Total 0.2 - 1.3 mg/dL 0.4 Alkaline Phosphatase 34 - 123 U/L 89 AST 13 - 35 U/L 21 ALT 7 - 38 U/L 14 Glucose 74 - 99 mg/dL 93 BUN 7 - 21 mg/dL 25 (H) Creatinine 0.58 - 0.96 mg/dL 1.39 (H) Sodium 136 - 144 mmol/L 138 Potassium 3.7 - 5.1 mmol/L 4.1 Chloride 97 - 105 mmol/L 99 CO2 22 - 30 mmol/L 28 Anion Gap 9 - 18 mmol/L 11 eGFR >=60 mL/min/1.73m 38 (L) TSH 0.270 - 4.200 mIU/L 0.882 0.861 0.711 Free T4 0.9 - 1.7 ng/dL 1.2 1.3 1.6 Free T3 2.3 - 4.1 pg/mL 3.0 3.1 2.7 Vitamin D 25 Hydroxy 31.0 - 80.0 ng/mL 73.8 Component Latest Ref Rng & Units 11/23/2017 07/26/2018 10/29/2019 12/09/2019 06/18/2020 07/12/2021 05/08/2022 Protein, Total 6.3 - 8.0 g/dL 7.2 6.7 7.0 6.8 6.8 Albumin 3.9 - 4.9 g/dL 4.5 4.3 4.5 4.4 4.5 Calcium 8.5 - 10.2 mg/dL 9.9 10.2 9.8 9.8 10.5 (H) 9.8 10.4 (H) Bilirubin, Total 0.2 - 1.3 mg/dL 0.6 0.4 0.3 0.2 0.4 Alkaline Phosphatase 34 - 123 U/L 76 108 84 91 89 AST 13 - 35 U/L 27 17 22 20 21 Glucose 74 - 99 mg/dL 85 99 98 92 93 94 93 BUN 7 - 21 mg/dL 15 21 18 21 17 21 25 (H) Creatinine 0.58 - 0.96 mg/dL 1.05 (H) 0.97 (H) 0.89 0.94 1.05 (H) 1.00 (H) 1.39 (H) Sodium 136 - 144 mmol/L 139 141 139 140 138 138 138 Potassium 3.7 - 5.1 mmol/L 4.0 3.9 4.0 4.2 4.0 4.0 4.1 Chloride 97 - 105 mmol/L 100 104 104 103 103 101 99 CO2 22 - 30 mmol/L 27 26 26 27 30 23 28 Anion Gap 9 - 18 mmol/L 12 11 9 10 5 (L) 14 11 ALT 7 - 38 U/L 17 10 15 14 14 eGFR- >60 >60 >60 >60 >60 eGFR-All Other Races . 51 56 >60 58 51 eGFR >=60 mL/min/1.73m 57 (L) 38 (L) Assessment and Plan Encounter Diagnosis ICD-10-CM 1. 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 Bilateral lower extremity edema R60.0 Controlled well now 3. Vitamin D deficiency E55.9 4. S/P placement of cardiac pacemaker Z95.0 5. ROBERT treated with BiPAP G47.33 Will establish with neurologist with sleep medicine certification in [place] per Dr. Perez referral 6. Stage 3a chronic kidney disease (HCC) N18.31 7. Need for second booster dose of COVID-19 vaccine Z[employer] COVID-19 BIVALENT VACCINE, AGE 12+ YR 8. SVT (supraventricular tachycardia) ([facility]) I47.1 Controlled with current meds and pacemaker 9. Psoriatic arthritis ([facility]) L40.50 Fair control with current med; Dr Robertson at [facility] fas been managing. Has appointment prior to move Above issues addressed with patient. Patient involved in shared decision making for management of medical issues. History and medications reviewed. Epic updated as needed Refills and/or prescriptions taken care of and meds adjusted as indicated after reviewed history, exam and labs. Needs to stay hydrated with taking diuretics. Noted last Cr up to 1.39. May of last year was close to normal range. Encouraged to stay hydrated and update BMP prior to leaving for [place]. Clinically euthyroid on current dose of levothyroxine. Continue present management. Health Maintenance reviewed. Updated record and/or ordered tests as recorded. Encouraged on efforts at healthy diet and regular exercise and adequate sleep. I spent a total of 50 minutes on the date of the service which included [id number] patient care, completing clinical documentation, performing a medically appropriate examination, counseling and educating the patient/family/caregiver, and ordering medications, tests, or procedures. Discussed transitioning care to new providers in [place]. Will cover meds till establishes with new PCP. Should still have access to [employer] to share record with new providers. Gini Aguilar MD documented in this encounter [facility] 06-14-2022 Telephone encounter Note Message released to patient as written. Patient verbalized understanding. Patient's further questions if applicable: N/A Were all questions from office addressed or relayed to the patient from encounter: N/A [facility] 06-14-2022 Miscellaneous Notes Message released to patient as written. Patient verbalized understanding. Patient's further questions if applicable: N/A Were all questions from office addressed or relayed to the patient from encounter: N/A Referral and notes faxed. I do not know Dr. Allen personally, I just searched for someone close to [place] who is both board certified in sleep medicine and neurology Message was relayed to pt. Pt stated that she is okay with a referral being placed for Dr. Allen. Pt also stated that she would like more information on the doctor. Does she know much about this doctor? I do not see that he is Board Certified in Sleep Medicine. If she is going to be more in the [place] area there is a Dr. Allen who is like me board certified in neurology and sleep medicine. Ask her what she knows about Dr. Pacheco and if she will be on the [place] side of [place] or the [facility] ([place]) Name of caller: Jennie Relationship to patient: Patient Contact phone number: [phone] Speciality referral requested for: Pt is moving out of state in August and is asking for a referral for Dr John Corrales. to continue her treatment for her Sleep Apnea. Diagnosis or reason for referral: Establishing with new Neurologist out of State. Name of specialist: Dr. Corrales Name of group/practice: Neurology Patient verified insurance covers referral: Yes Patient insurance: [employer] Has patient seen this specialist in the past: No Estimated time/date patient last saw the specialist: NA documented in this encounter [facility] 06-14-2022 Telephone encounter Note Referral and notes faxed. [facility] 06-14-2022 Note Message was relayed to pt. Pt stated that she is okay with a referral being placed for Dr. Allen. Pt also stated that she would like more information on the doctor. [facility] 06-14-2022 Telephone encounter Note I do not know Dr. Allen personally, I just searched for someone close to [place] who is both board certified in sleep medicine and neurology [facility] [employer] Work Phone: 06-14-2022 Telephone encounter Note Message was relayed to pt. Pt stated that she is okay with a referral being placed for Dr. Allen. Pt also stated that she would like more information on the doctor. [facility] 06-13-2022 Telephone encounter Note Does she know much about this doctor? I do not see that he is Board Certified in Sleep Medicine. If she is going to be more in the [facility] there is a Dr. Allen who is like me board certified in neurology and sleep medicine. Ask her what she knows about Dr. Pacheco and if she will be on the [place] side of [place] or the [facility] ([place]) [facility] 06-13-2022 Telephone encounter Note Name of caller: Jennie Relationship to patient: Patient Contact phone number: [phone] Speciality referral requested for: Pt is moving out of state in August and is asking for a referral for Dr John Corrales. to continue her treatment for her Sleep Apnea. Diagnosis or reason for referral: Establishing with new Neurologist out of State. Name of specialist: Dr. Corrales Name of group/practice: Neurology Patient verified insurance covers referral: Yes Patient insurance: [employer] Has patient seen this specialist in the past: No Estimated time/date patient last saw the specialist: NA [facility] 05-25-2022 Discharge summary Note Date/Time May 25, 2022 11:11am [facility] Physical Therapy [facility] [address] [place] [address] [address] [place] [address] / REHABILITATION SERVICES DISCHARGE SUMMARY MR#: [id number] Acct: [id number] Name: JENNIE BANGURA Rep #: [id number] : [id number] 82 From: Shila Medina PT, Cert. MDT Referring Dr.: Dr. Javed Johnson, DO Status: REG RCR Insurance: MEDICARE PART A B [employer] JENNIE BANGURA was seen in my office for initial evaluation on 02/01/22. The following Plan of Care was established for this patient: Initial Frequency: 2-3x /Week Initial Duration: 4-6 Weeks Patient/Client Instruction: Educate patient on: Condition, Plan of Care, Risk Factors For the Purpose of:: To improve self management Therapeutic Exercise to Include: Strength training, Body mechanics, Postural training, Flexibilty training, Gait and locomotor training, Neuromotor development, In an aquatic setting, Dynamic Lumbar Stabilization For the Purpose of:: To decrease pain, To improve muscle performance and motor function, To increase tolerance to activity/condition/position, To improve ability of physical actions for home/community/work/leisure, To improve gait andlocomotor functions This patient was last seen in our office 03/01/22. Pertinent comments regardingtheir Physical therapy will appear below: This patient has not returned to Physical Therapy and is appropriate to return to MD for further follow-up as needed. At this point I will be discontinuing this patient from physical therapy. I would be happy to see this patient again in the future if found appropriate by the physician. Thank you! Shila Medina PT, Cert MDT Balance/Gait/Functional tests - Balance/Special Test Scores Oswestry Low Back Score: 21 TUG Test Time Seconds: 13.28 Tug Test: <20 sec.=mostly independent 30 Second Chair Rise Test Seconds: 9 <Electronically signed by Shila Medina PT, Cert. MDT> 05/25/22 1111 CC: Dr. Javed Johnson, DO; Dr. Gini Aguilar MD ~ AKIN Signed [facility] Work Phone: 1(113) 842-561402-28-2023 Instructions* Patient Instructions* Gini Aguilar MD - 04/25/2022 6:58 PM EST Can take spironolactone daily then once swelling down, can try taking less often--maybe Sunday , Sunday, Sunday or twice weekly. If 25 mg not enough, can increase to 50 mg daily after get labs. [facility] History of Present illness Narrative* Gini Aguilar MD - 04/25/2022 6:41 PM EST This note was created using [employer]. Subjective Jennie Bangura is a 82 year old female. Patient presents with: F/U 3 Month SUBJECTIVE: Jennie Bangura is a 82 year old year old lady here today for 3 month follow up appointment for review of medical conditions. Still taking Otezla. Simponi helped but too sedating. Increased allergies and triggering migraines. Has enough sumatriptan for now. Pays for out of pocket. Noted had parathyroid surgery yesterday.Was a lot of tasks for her to do. Cardiology told her needs to stay on verapamil despite swelling/fluid retention. Cannot take beta norma (caused rash). Swelling in legs not severe to cause pitting but she feels fullness in legs an socks leave calderon. Was on diuretics for 30 years but stopped after was on spironolactone for about a year. Was stopped when had issues with a fib. Spinal stenosis, scoliosis and arthritis of spine caused the episode of trouble walking and could not move when got out of bed. Lasted 3 days; would have to work her way out of being stuck. Saw Dr. Ferrara at [facility]. MRI ordered and done January. Was referred to Dr. Snyder. Did have injectionthat helped. Pain coming back--will see Dr. Snyder for another shot. Noted had issues with frequency and constipation when pain was severe. Had eczematous dermatitis of lids--Dr. Cedeno had her use OTC steroid and Aquaphor. Needed form for AEP sent. 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 Johnson and Dr. 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 Ovalle ([facility]), dry mouth and eyes Sjogren's disease ([facility]) inflammatory arthritis and mucous membranes dry everywhere, right hand larger than left Symptomatic menopausal or female climacteric states Unspecified constipation Unspecified essential hypertension Urgency of urination frequency, related to Sjogren's Uterovaginal prolapse, incomplete Varicose veins of both lower extremities with pain 09/18/2011 Current Outpatient Medications Medication Sig SUMAtriptan (IMITREX) 50 mg tablet Take 1 tablet by mouth. at onset of migraine. Repeat after 2 hours if needed. folic acid 1 mg tablet Take 2 tablets by mouth once daily. verapamil SR (CALAN SR, ISOPTIN SR) 120 mg CR tablet Take 120 mg by mouth once daily. SYNTHROID 50 mcg tablet Take 1 tablet by mouth once daily. Sunday through Sunday or as directed celecoxib (CELEBREX) 200 mg capsule Take 1 capsule by mouth as directed. one or 2 times daily. estradiol (ESTRACE) 0.01 % (0.1 mg/gram) vaginal cream APPLY A PEA-SIZED AMOUNT TO LOWER VAGINA AT BEDTIME 3 TIMES PER WEEK famotidine (PEPCID ORAL) Take by mouth. Multivitamin capsule Take 1 capsule by mouth once daily. ivermectin (SOOLANTRA TOPICAL) Apply to affected area. OTEZLA 30 mg tablet Take 2 tablets by mouth once daily. cyclobenzaprine (FLEXERIL) 10 mg tablet Take 0.5-1 tablets by mouth twice daily as needed. benzonatate (TESSALON PERLE) 100 mg capsule Take 1 capsule by mouth three times daily as needed. Halobetasol Propionate (ULTRAVATE) 0.05 % cream Apply selectively to spots//plaques of eczema and possible psoriasis on elbows and hands twice per day for up to 4-6 weeks or less as needed until clear and then try to stop or taper off to a bland emollient cream such as CeraVe cream or Cetaphil cream applied twice per day to other dry skin. diclofenac sodium (VOLTAREN) 1 % topical gel Apply moderate amount to painful areas on hands (2g) & knees (4g) up to three times daily as needed. Don't exceed a total of 32g daily. ACETAMINOPHEN (TYLENOL 8 HOUR ORAL) Take 650 mg by mouth twice daily. beclomethasone dipropionate 80 mcg/actuation Use in each nostril. COMPOUNDED PRESCRIPTION Citracal slow release 1200 (2 caplets daily = 1000 IU vitamin D, 1200 mg calcium, 80 mg magnesium) SYSTANE 0.4 %-0.3 % EYE DROPS daily as directed ASPIRIN 81 MG TAB Take one (1) tablet daily . predniSONE (DELTASONE) 5 mg tablet Take 2.5 mg by mouth every other day. golimumab (SIMPONI ARIA INTRAVENOUS) cimetidine (TAGAMET ORAL) Take by mouth. (Patient not taking: No sig reported) SYNTHROID 75 mcg tablet Take 1 tablet by mouth every Sunday. (taking 50mcg Sunday through Sunday) No current facility-administered medications for this visit. Review of Systems Objective BP 118/72 Pulse 83 Temp (!) 35.9 C (96.6 F) Resp 18 Wt 63.5 kg (140 lb) SpO2 96% BMI 26.03 kg/m Physical Exam Constitutional: Appearance: Normal appearance. HENT: Head: Normocephalic. Eyes: Conjunctiva/sclera: Conjunctivae normal. Cardiovascular: Rate and Rhythm: Normal rate and regular rhythm. Heart sounds: Normal heart sounds. Pulmonary: Effort: Pulmonary effort is normal. Breath sounds: Normal breath sounds. Musculoskeletal: Right lower leg: Edema (Mild with slight pitting) present. Left lower leg: Edema (mild with slight pitting) present. Skin: General: Skin is warm and dry. Neurological: General: No focal deficit present. Mental Status: She is alert and oriented to person, place, and time. Psychiatric: Mood and Affect: Mood normal. Behavior: Behavior normal. Thought Content: Thought content normal. Judgment: Judgment normal. Spine Lumbar (Routine) [facility] [address] [place] [address] Spine Lumbar (Routine) MR#: [id number] Acct: [id number] Name: JENNIE BANGURA Rep #: [id number] : 1940 F 81 From: To Monique PCP: Dr. Gini Aguilar MD Status: REG CLI Study: Spine Lumbar (Routine) Date of Exam: 01/26/22 Exam# [id number] Ordering Dr: Javed Johnson DO STUDY: MRI LUMBAR SPINE WITHOUT CONTRAST REASON FOR EXAM: Female, 81 years old. SPINAL STENOSIS. Leg weakness with lying down. TECHNIQUE: Standardized fat and water weighted pulse sequences were obtained in the sagittal and axial planes. COMPARISON: No relevant priors. FINDINGS: No fracture or acute osseous abnormality. Sagittal alignment anatomic. Mild left scoliosis centered at L3. Mildly heterogenous marrow signal probably blood marrow reconversion or other benign etiology. Multilevel disc space loss and degenerative endplate irregularity and signal changes. Pseudoarticulation between the spinous processes of L3-4 and L4-5 and associated degenerative changes. CONUS terminates the level of the L2 superior endplate with normal contour and signal. At L1-2, diffuse disc bulge and moderate facet degeneration causes only mild spinal canal narrowing. Disc and osteophyte extend into and moderately narrows the left foramen. Only mild right foraminal narrowing. At L2-3, diffuse disc bulge with underlying osteophytes and moderate bilateral facet degeneration with degenerative buckling of the ligamentum flavum causes only mild narrowing of the spinal canal and foramina. At L3-4, larger diffuse disc bulge and marked bilateral facet degeneration with degenerative buckling of the ligamentum flavum causes moderate narrowing of the spinal canal with crowding of the cauda equina. Disc and osteophyte extend into and, combining with scoliotic curvature, cause moderate to severe narrowing of the right foramen with mild mass effect upon the exiting right L4 nerve root. At L4-5, diffuse disc bulge and moderate bilateral facet degeneration causes only mild narrowing of the spinal canal and foramina. At L5-S1, diffuse disc bulge and mild facet degeneration causes only mild narrowing of the spinal canal. Disc and osteophyte extend into and causes mild right and moderate left foraminal narrowing with mild mass effect upon the exiting left L5 nerve root. The paraspinal soft tissues show no acute finding. 2.9 cm cyst in the liver is benign and does not require follow-up. MRI/Spine Lumbar (Routine) IMPRESSION: Extensive multilevel degenerative changes. Diffuse severe disc and facet degeneration throughout the lumbar spine could cause discogenic or facet type pain. Pseudoarticulation between the spinous processes at L4-5 and L5-S1 can also cause pain (Hondo''s disease). Potential sources for radiculopathy include L3-4 where there is moderate spinal canal narrowing with crowding of the cauda equina and moderate narrowing of the right foramen with some mass effect upon the exiting right L4 nerve root. At L5-S1 there is moderate narrowing of the exiting left L5 nerve root in the left foramen. Electronically Signed: To Mckeon MD at 0:33 EST Reading Location ID and State: [facility] / [place] Tel , Service support , CC: Dr. Javed Johnson, DO; Dr. Gini Aguilar MD [employer]: Signed Assessment and Plan Encounter Diagnosis ICD-10-CM 1. Encounter for long-term current use of medication Z79.899 COMP METABOLIC PANEL 2. 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 Vitamin D deficiency E55.9 VITAMIN D 25 HYDROXY 4. Bilateral lower extremity edema R60.0 spironolactone (ALDACTONE) 25 mg tablet Above issues addressed with patient. Patient involved in shared decision making for management of medical issues. History and medications reviewed. Epic updated as needed Refills and/or prescriptions taken care of and meds adjusted as indicated after reviewed history, exam and labs. Health Maintenance reviewed. Updated record and/or ordered tests as recorded. Encouraged on efforts at healthy diet and regular exercise and adequate sleep. Gini Aguilar MD documented in this [facility]23 Miscellaneous Notes* Telephone Encounter - Zoie Del Cid LPN - 03/13/2022 1:45 PM EST Patient has been identified by name and date of : Yes, Provider Lauren Date 03/13/22 Time 1:46p Patient's mychart message: Dr. Aguilar, please refill the Sumatriptan for 27 tablets. I do self pay for this. Thank you! Patient phones for refill(s): Requested Prescriptions Pending Prescriptions Disp Refills SUMAtriptan (IMITREX) 50 mg tablet 27 tablet 3 Sig: Take 1 tablet by mouth. at onset of migraine. Repeat after 2 hours if needed. Date of last office visit in primary care: 12/27/21 Last 2 Encounter Wt Readings: Date: Wt: 12/27/2021 62.1 kg (137 lb) 11/28/2021 61.7 kg (136 lb) Please advise. Thank you. Zoie Del Cid LPN documented in this encounter[facility]11-02-2022 Miscellaneous Notes* Telephone Encounter - Elva Gandhi APRN.CNP - 12/28/2021 2:40 PM EDT Addressed at appointment Elva Gandhi APRN.CNP * Telephone Encounter - Dara Bowen RN - 12/19/2021 12:48 PM EDT Patient reports she has been having numbness / tingling in hands and feet for a few weeks-not all the time. Reports the last time this happened she was found to have not enough folic acid in her system. Reports she has an appt with pcp next Tu, and aware pcp is out this week, and wondering if pcpwants to order any labs and add folic acid to the orders? States this can wait until appt if needed. documented in this encounterMain [facility] Center11-01-2022 History of Present illness Narrative* Gini Aguilar MD - 12/27/2021 11:55 AM EDT This note was created using DiViNetworksriter. Subjective Jennie Bangura is a 81 year old female. Patient presents with: F/U 3 Month SUBJECTIVE: Jennie Bangura is a 81 year old year old lady here today for 3 month follow up appointment for review of medical conditions. Since started on Simponi, exhausted. 2 doses so far. Noted TSH <1. Will decrease to 50mc daily. Discussed issues with ears pulsing. Working with Dr. Hooks. Wrote down symptoms whem was feeling really poorly. Looked up symptoms of Simponi on internet. Had most of the adverse effects. Called office of Dr. Garcia. Talked to nurse. Will have appointment with him to discuss what to donext--whether to stay off or do trial off then try again. Also wonders about trying MTX since tolerated in the past but just could not titrate up dose. Still on Otezla. PAST MEDICAL HISTORY Diagnosis Date Acute gastritis without mention of hemorrhage Arthritis Cataracts, bilateral Cervical spondylosis without myelopathy 04/03/2005 Congenital subaortic stenosis Cystocele, midline Cystocele, midline 04/28/2008 Degenerative arthritis of lumbar spine 12/13/12 XRay hypertrophic changes of the L4-S1 facet joints Diffuse cystic mastopathy 01/13/2008 Diverticulosis of large intestine 06/06/2017 Fibrocystic breast 12/22/2010 Patel's thyroiditis 01/17/2010 Hip pain 02/13/2013 hypothyroid 2006 Internal hemorrhoids without mention of complication Lumbar degenerative disc disease 12/13/12 XRay Vacuum disc phenomenon is seen at L1-L2, L2-L3, and L5-S1 Migraine with aura 11/04/2007 Mitral valve disorders(424.0) Myalgia and myositis, unspecified ROBERT treated with BiPAP 11/06/2018 Is on BiPAP nightly, 11/02, Osteoarthrosis, unspecified whether generalized or localized, other specified sites Osteoarthritis--viji SI joint (Dr. Johnson and Dr. 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 Ovalle ([facility]), dry mouth and eyes Sjogren's disease ([facility]) inflammatory arthritis and mucous membranes dry everywhere, right hand larger than left Symptomatic menopausal or female climacteric states Unspecified constipation Unspecified essential hypertension Urgency of urination frequency, related to Sjogren's Uterovaginal prolapse, incomplete Varicose veins of both lower extremities with pain 09/18/2011 Current Outpatient Medications Medication Sig predniSONE (DELTASONE) 5 mg tablet Take 2.5 mg by mouth every other day. golimumab (SIMPONI ARIA INTRAVENOUS) verapamil SR (CALAN SR, ISOPTIN SR) 120 mg CR tablet Take 120 mg by mouth once daily. SYNTHROID 50 mcg tablet Take 1 tablet by mouth once daily. Sunday through Sunday or as directed cimetidine (TAGAMET ORAL) Take by mouth. (Patient not taking: Reported on 11/28/2021) celecoxib (CELEBREX) 200 mg capsule Take 1 capsule by mouth as directed. one or 2 times daily. SYNTHROID 75 mcg tablet Take 1 tablet by mouth every Sunday. (taking 50mcg Sunday through Sunday) SUMAtriptan (IMITREX) 50 mg tablet Take 1 tablet by mouth. at onset of migraine. Repeat after 2 hours if needed. estradiol (ESTRACE) 0.01 % (0.1 mg/gram) vaginal cream APPLY A PEA-SIZED AMOUNT TO LOWER VAGINA AT BEDTIME 3 TIMES PER WEEK famotidine (PEPCID ORAL) Take by mouth. Multivitamin capsule Take 1 capsule by mouth once daily. ivermectin (SOOLANTRA TOPICAL) Apply to affected area. OTEZLA 30 mg tablet Take 2 tablets by mouth once daily. cyclobenzaprine (FLEXERIL) 10 mg tablet Take 0.5-1 tablets by mouth twice daily as needed. benzonatate (TESSALON PERLE) 100 mg capsule Take 1 capsule by mouth three times daily as needed. Halobetasol Propionate (ULTRAVATE) 0.05 % cream Apply selectively to spots//plaques of eczema and possible psoriasis on elbows and hands twice per day for up to 4-6 weeks or less as needed until clear and then try to stop or taper off to a bland emollient cream such as CeraVe cream or Cetaphil cream applied twice per day to other dry skin. diclofenac sodium (VOLTAREN) 1 % topical gel Apply moderate amount to painful areas on hands (2g) & knees (4g) up to three times daily as needed. Don't exceed a total of 32g daily. ACETAMINOPHEN (TYLENOL 8 HOUR ORAL) Take 650 mg by mouth twice daily. beclomethasone dipropionate 80 mcg/actuation Use in each nostril. COMPOUNDED PRESCRIPTION Citracal slow release 1200 (2 caplets daily = 1000 IU vitamin D, 1200 mg calcium, 80 mg magnesium) SYSTANE 0.4 %-0.3 % EYE DROPS daily as directed ASPIRIN 81 MG TAB Take one (1) tablet daily . No current facility-administered medications for this visit. Review of Systems Constitutional: Positive for fatigue (tired even with BiPAP routinely). HENT: Pulsing in ears. Has seen ENT ([facility]--all 3). Not sure what is causing the symptoms. Dr. Hooks considering placing tubes in ears. In the past taking chlortrimeton and pseudoephedrine helped but not allowed to take decongestant since had pacemaker. Eyes: Positive for pain (Eye burning sensation for a week or so. Was very painful and none of her eyedrops helps. Resovled spontaneously). Cardiovascular: Positive for leg swelling (Bilateral; was worse last night. Not pitting today but feels swollen to her). Gastrointestinal: Positive for constipation. Skin: Redness of cheeks with swelling and pain. Happened when was outside at [place] in the sun for a little bit. Was nice and sue; had make up with sunscreen. Too painful to wear BiPAP mask one night. Neurological: Positive for dizziness (Not vertigo twirling; a little unstable sensation. Intermittent) and headaches (Gets worse as day progresses; headache daily; resolves with Imitrex, whole head pressure. If takes Imitrex at night, resolves so can sleep.Does not need imitrex every night. Rarely needs a second pill). Hematological: Bruises/bleeds easily (Noted bruise on left hand and no known trauma; not bleeding noted). Objective BP 136/82 Pulse 72 Wt 62.1 kg (137 lb) SpO2 98% BMI 25.47 kg/m Physical Exam Constitutional: Appearance: Normal appearance. HENT: Head: Normocephalic. Eyes: Conjunctiva/sclera: Conjunctivae normal. Cardiovascular: Rate and Rhythm: Normal rate and regular rhythm. Heart sounds: Normal heart sounds. Comments: No pitting edema but feels like some puffiness in both legs in calves Pulmonary: Effort: Pulmonary effort is normal. Breath sounds: Normal breath sounds. Skin: General: Skin is warm and dry. Neurological: General: No focal deficit present. Mental Status: She is alert and oriented to person, place, and time. Psychiatric: Mood and Affect: Mood normal. Behavior: Behavior normal. Thought Content: Thought content normal. Judgment: Judgment normal. noted bruise top of left hand Assessment and Plan Encounter Diagnosis ICD-10-CM 1. Fatigue, unspecified type R53.83 2. Other complicated headache syndrome G44.59 migraine like but other symptoms associated 3. Psoriatic arthritis (HCC) L40.50 4. 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 Patient involved in shared decision making for management of medical issues. Further evaluation and treatment as indicated. History and medications reviewed. Epic updated as needed Refills and/or prescriptions taken care of and meds adjusted as indicated after reviewed history, exam and labs. Health Maintenance reviewed. Updated record and/or ordered tests as recorded. Encouraged on efforts at healthy diet and regular exercise and adequate sleep. Follow up with glassware maker as discussed. Further evaluation and treatment as indicated. Gini Aguilar MD documented in this encounterMain [facility] Center09-13-2022 History of Present illness Narrative* Ana Luisa Kincaid LPN - 11/08/2021 1:04 PM EDT Patient here for the new bivalent COVID 19 booster. Tolerated injection well. documented in this encounterMain [facility] Center09-06-2022 History of Present illness Narrative* Gini Aguilar MD - 11/01/2021 3:20 PM EDT Requested flu shot while in with for his appointment. Discussed on Simponi and in between doses. Also stable on prednisone dose--been on a few months so would not be able to stop just for vaccine. documented in this encounterMain [facility] Center07-01-2022 History of Present illness Narrative* Luz Marquez APRN.GOPHERMAN - 08/26/2021 9:28 AM EDT Images from the original note were not included. SUBJECTIVE: ADVANCE DIRECTIVE DISCUSSION Never done COVID-19 VACCINE(5 - Booster for Pfizer series) due on 08/20/2021 HPI Jennie Bangura is a 81 year old female. PMH significant for ACTIVE PROBLEM LIST Mvp (Mitral Valve Prolapse) Hypothyroidism FATTY INFILTRATION LIVER Osteopenia Esophageal Reflux Multiple Thyroid Nodules Gerd (Gastroesophageal Reflux Disease) Psoriatic Arthritis (Hcc) Vitamin D Deficiency Long-Term Use of Immunosuppressant Medication Generalized Osteoarthrosis Psoriasis Irritable Bowel Syndrome With Diarrhea Sjogren Syndrome (Hcc) Robert Treated With Bipap Svt (Supraventricular Tachycardia) (Hcc) Labile Hypertension Pre-Operative Cardiovascular Examination Stage 3a Chronic Kidney Disease (Hcc) S/P Placement of Cardiac Pacemaker HPI excerpted from previous visit. Presents today regarding Jennie Bangura is a 81 year old female who presents with complaint of frequency, urgency. No dysuria. No Afebrile. No abdominal or back pain. Some perineal discomfort, not pruritic.. Notes using topical estrogen. She notes that she underwent pacemaker placement, dual-chamber at [facility] per Dr. Ingram 10/2020. [facility]/follow-up care. Notes had LHC that showed normal coronaries. Presents today with area of concern on her right upper abdomen near her umbilicus. Notes this has been present for 2 days. Purple in color. Notes no injury. Small mass noted beneath the lesion. Reports has had recurrent small lesion in his area for a couple of years but never this big. Notes she does see a bee producer at [facility]. Since last here she notes the skin lesion is looking improved. Ultrasound completed and showed complex nodule.Seen by Dr Simone Jeffers for abdominal lesion, considering surgery in August 2021, reviewed ultrasound and believes this is an AVM on her abdomen. Seen by Dr. Perez 06/2021 for sleep apnea. ROBERT using BiPap Followed by [facility] Dr. Cortez and Jaylen To MD electrophysiology [facility]. Recently seen at [facility] for carpal tunnel syndrome, noting improvement with current treatment. 6-week follow-up recommended Notes daughter is surrogate on Advanced Directives. Review of Systems Constitutional: Negative. Objective BP 120/62 Pulse 68 Resp 14 Wt 60.3 kg (133 lb) BMI 24.73 kg/m Physical Exam Vitals and nursing note reviewed. Constitutional: Appearance: Normal appearance. HENT: Head: Normocephalic and atraumatic. Eyes: Conjunctiva/sclera: Conjunctivae normal. Cardiovascular: Rate and Rhythm: Normal rate. Pulmonary: Effort: Pulmonary effort is normal. Skin: General: Skin is warm and dry. Comments: Oval lesion approximately 1x2, oval-shaped, dark purple color, small mass palpated beneath approximately 1/2 x 1 inch, Neurological: General: No focal deficit present. Mental Status: She is alert and oriented to person, place, and time. ALLERGIES Allergen Reactions Toprol Xl [Metoprol* Rash, GI Upset Nausea,falling down, itchy rash Seasonal Allergies Other: See Comments Sinus infections Adhesive Tape (Renetta* Rash Benzocaine Intolerance probable methemoglobinemia Clinoril [Sulindac] liver reaction, rash and very ill Codeine GI Upset Epinephrine bradycardia Horse Serum [Other] wheezing Lanolin allergy to sheep=rash Minocycline vertigo Mobic [Meloxicam] liver reaction Nexium [Esomeprazol* Other: See Comments Headaches; only tolerates Prevacid Opioids - Morphine * Vomiting Can tolerate Ultram Palm Oil Intolerance Plaquenil [Hydroxyc* liver reaction, rash and very ill Premarin [Conjugate* allergy to horses=wheezing Prilosec [Omeprazol* Other: See Comments headaches; only tolerates Prevacid Protonix [Pantopraz* Other: See Comments headache; only tolerates Prevacid Sheep/Ovine Contain* rash Medications SYNTHROID 50 mcg tablet Take 1 tablet by mouth once daily. Sunday through Sunday or as directed cimetidine (TAGAMET ORAL) Take by mouth. celecoxib (CELEBREX) 200 mg capsule Take 1 capsule by mouth as directed. one or 2 times daily. SYNTHROID 75 mcg tablet Take 1 tablet by mouth every Sunday. (taking 50mcg Sunday through Sunday) SUMAtriptan (IMITREX) 50 mg tablet Take 1 tablet by mouth. at onset of migraine. Repeat after 2 hours if needed. estradiol (ESTRACE) 0.01 % (0.1 mg/gram) vaginal cream APPLY A PEA-SIZED AMOUNT TO LOWER VAGINA AT BEDTIME 3 TIMES PER WEEK famotidine (PEPCID ORAL) Take by mouth. Multivitamin capsule Take 1 capsule by mouth once daily. ivermectin (SOOLANTRA TOPICAL) Apply to affected area. OTEZLA 30 mg tablet Take 2 tablets by mouth once daily. cyclobenzaprine (FLEXERIL) 10 mg tablet Take 0.5-1 tablets by mouth twice daily as needed. benzonatate (TESSALON PERLE) 100 mg capsule Take 1 capsule by mouth three times daily as needed. Halobetasol Propionate (ULTRAVATE) 0.05 % cream Apply selectively to spots//plaques of eczema and possible psoriasis on elbows and hands twice per day for up to 4-6 weeks or less as needed until clear and then try to stop or taper off to a bland emollient cream such as CeraVe cream or Cetaphil cream applied twice per day to other dry skin. diclofenac sodium (VOLTAREN) 1 % topical gel Apply moderate amount to painful areas on hands (2g) & knees (4g) up to three times daily as needed. Don't exceed a total of 32g daily. ACETAMINOPHEN (TYLENOL 8 HOUR ORAL) Take 650 mg by mouth twice daily. beclomethasone dipropionate (QNASL) 80 mcg/actuation HFAA Use in each nostril. COMPOUNDED PRESCRIPTION Citracal slow release 1200 (2 caplets daily = 1000 IU vitamin D, 1200 mg calcium, 80 mg magnesium) SYSTANE 0.4 %-0.3 % EYE DROPS daily as directed ASPIRIN 81 MG TAB Take one (1) tablet daily . 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 Johnson and Dr. 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 Ovalle ([facility]), dry mouth and eyes Sjogren's disease ([facility]) inflammatory arthritis and mucous membranes dry everywhere, right hand larger than left Symptomatic menopausal or female climacteric states Unspecified constipation Unspecified essential hypertension Urgency of urination frequency, related to Sjogren's Uterovaginal prolapse, incomplete Varicose veins of both lower extremities with pain 09/18/2011 Social History Tobacco Use Smoking status: Never Smoker Smokeless tobacco: Never Used Vaping Use Vaping Use: Never used Substance Use Topics Alcohol use: No Drug use: No Component Latest Ref Rng & Units 07/12/2021 Protein, Total 6.3 - 8.0 g/dL 6.8 Albumin 3.9 - 4.9 g/dL 4.4 Calcium 8.5 - 10.2 mg/dL 9.8 Bilirubin, Total 0.2 - 1.3 mg/dL 0.2 Alkaline Phosphatase 34 - 123 U/L 91 AST 13 - 35 U/L 20 ALT 7 - 38 U/L 14 Glucose 74 - 99 mg/dL 94 BUN 7 - 21 mg/dL 21 Creatinine 0.58 - 0.96 mg/dL 1.00 (H) Sodium 136 - 144 mmol/L 138 Potassium 3.7 - 5.1 mmol/L 4.0 Chloride 97 - 105 mmol/L 101 CO2 22 - 30 mmol/L 23 Anion Gap 9 - 18 mmol/L 14 eGFR >=60 mL/min/1.73m 57 (L) WBC 3.70 - 11.00 k/uL 6.65 RBC 3.90 - 5.20 m/uL 4.52 Hemoglobin 11.5 - 15.5 g/dL 13.3 Hematocrit 36.0 - 46.0 % 40.2 MCV 80.0 - 100.0 fL 88.9 MCH 26.0 - 34.0 pg 29.4 MCHC 30.5 - 36.0 g/dL 33.1 RDW-CV 11.5 - 15.0 % 12.4 Platelet Count 150 - 400 k/uL 319 MPV 9.0 - 12.7 fL 8.8 (L) Absolute nRBC <0.01 k/uL <0.01 TSH 0.270 - 4.200 mIU/L 0.952 Free T4 0.9 - 1.7 ng/dL 1.6 Free T3 2.3 - 4.1 pg/mL 3.1 Vitamin B6, Plasma 20.0 - 125.0 nmol/L 127.1 (H) Creatinine Date Value Ref Range Status 07/12/2021 1.00 (H) 0.58 - 0.96 mg/dL Final 06/18/2020 1.05 (H) 0.58 - 0.96 mg/dL Final 12/09/2019 0.94 0.58 - 0.96 mg/dL Final 10/29/2019 0.89 0.58 - 0.96 mg/dL Final ASSESSMENT/PLAN: 1. Encounter for immunization - ICD9: V03.89, ICD10: Z23 (primary diagnosis) - [employer] COVID-19 VACCINE, AGE 12+ YR (KIDD TOP) 2. Stage 3a chronic kidney disease (HCC) - ICD9: 585.3, ICD10: N18.31 Stable Recommend avoidance of nephrotoxic medication Creatinine Date Value Ref Range Status 07/12/2021 1.00 (H) 0.58 - 0.96 mg/dL Final 06/18/2020 1.05 (H) 0.58 - 0.96 mg/dL Final 12/09/2019 0.94 0.58 - 0.96 mg/dL Final 10/29/2019 0.89 0.58 - 0.96 mg/dL Final 3. ROBERT treated with BiPAP - ICD9: 327.23, ICD10: G47.[address] Perez 4. 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 5. Gastroesophageal reflux disease, unspecified whether esophagitis present - ICD9: 530.81, ICD10: K21.9 Stable, currently controlled, continue to monitor. 6. Skin lesion - ICD9: 709.9, ICD10: L98.[address] Jeffers 7. 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 * Telephone Encounter - Stella Haywood LPN - 08/15/2021 10:02 AM EDT Patient wanted to let know that the bruise on her abdomen that Luz Marquez seen for this problem. 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 with be taking caring of this. Please review Stella Haywood LPN [facility] Miscellaneous Notes* Telephone Encounter - Gini Aguilar MD - 08/15/2021 3:41 PM EDT The following approved medication requests have been transmitted electronically. Signed Prescriptions Disp Refills SYNTHROID 50 mcg tablet 90 tablet 3 Sig: Take 1 tablet by mouth once daily. Sunday through Sunday or as directed LATASHA: Yes Authorizing Provider: GINI AGUILAR MD * Telephone Encounter - Ade Romero Ma - 08/15/2021 1:30 PM EDT Notified patient, she states she has to have brand name only for Synthroid, which is what shes always been on. LATASHA not marked for this rx * Telephone Encounter - Gini Aguilar MD - 08/15/2021 1:08 PM EDT I wrote for Sunday through Sunday since 75mcg on medlist says Sundays except 50 mcg Sunday through Sunday). She may continue taking however was last instructed or how she has been taking till next Thyroid labs then will adjust accordingly. The following approved medication requests have been transmitted electronically. Signed Prescriptions Disp Refills levothyroxine (SYNTHROID) 50 mcg tablet 90 tablet 3 Sig: Take 1 tablet by mouth once daily. Sunday through Sunday or as directed LATASHA: No Authorizing Provider: GINI AGUILAR MD * Telephone Encounter - Stella Haywood LPN - 08/15/2021 9:57 AM EDT Patient is out of the 50 mcg of meds Patient has been identified by name and date of : Yes Patient phones for refill(s): Pending Prescriptions Disp Refills LEVOTHYROXINE 50 MCG TABLET Sig: Take 1 tablet by mouth once daily. Sunday through Sunday LATASHA: No Date of last office visit in primary care: 08/04/2021 Last 2 Encounter Wt Readings: Date: Wt: 08/04/2021 59.9 kg (132 lb) 07/21/2021 60.3 kg (133 lb) Previous labs/tests for medication: Thyroid: TSH Date Value 07/12/2021 0.952 mIU/L 03/16/2021 0.679 uU/mL Please advise. Thank you. Stella Haywood LPN [facility] Miscellaneous Notes* Telephone Encounter - Luz Marquez APRN.CNS - 08/05/2021 4:30 PM EDT Ultrasound of the soft tissue/skin of her abdomen showed: There is a complex nodule corresponding to the palpable abnormality. Consultation with Dermatology recommended. Recommend appointment be scheduled with her bee producer at her earliest convenience if she has not already done so. [facility] has [facility] bee producer [facility] the past. documented [facility] History of Present illness Narrative* RT Mejia(R) - 08/04/2021 1:00 PM EDT Radiology Service Progress Note PATIENT NAME: Jennie Bangura DATE OF SERVICE: August 04, 2021 TIME: 2:44 PM PATIENT IDENTITY VERIFICATION COMPLETED USING TWO (2) IDENTIFIERS: Name and Date of confirmedby patient verbally. FALL SCREENING: Has the patient had 2 falls in the last year or 1 fall with injury or currently using an Ambulatory Assistive Device (Walker, Cane, Wheelchair, Crutches, etc.)? No PATIENT GENDER DATA: Female. status: : No status: NO. PATIENT RELEVANT IMPLANT DATA REVIEWED: Not Applicable RADIOLOGY DEPARTMENT: Ultrasound PERIPHERAL IV DATA: Not applicable SIGNED BY: RT Mejia(R) August 04, 2021 2:44 PM documented in this [facility] Evaluation note* Diagnosis Onset Date Resolution Status Mobitz type 2 second degree AV block acute Presence of permanent cardiac pacemaker October, 1 acute SVT (supraventricular tachycardia) acute Ventricular tachycardia acut e Chest pain acute Mobitz type 2 second degree AV block acute Nonrheumatic mitral (valve) prolapse acute Presence of permanent cardiac pacemaker October, 1 acute SVT (supraventricular tachycardia) acute Syncope acute Ventricular tachycardia acut e [facility] Work Phone: 1([phone]) 114-309009-01-2021 Evaluation note* Diagnosis Onset Date Resolution Status Presence of permanent cardiac pacemaker October, 1 acute Mobitz type 2 second degree AV block chronic SVT (supraventricular tachycardia) chronic Ventricular tachycardia 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 Chest pain acute Presence of permanent cardiac pacemaker October, 1 acute Mobitz type 2 second degree AV block chronic Nonrheumatic mitral (valve) prolapse chronic SVT (supraventricular tachycardia) chronic Syncope chronic Ventricular tachycardia 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 Premature ventricular contraction acute Presence of permanent cardiac pacemaker October, 1 acute Mobitz type 2 second degree AV block chronic SVT (supraventricular tachycardia) chronic Ventricular tachycardia 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 Presence of permanent cardiac pacemaker October, acute Mobitz type 2 second degree AV block chronic Nonrheumatic mitral (valve) prolapse chronic SVT (supraventricular tachycardia) chronic Syncope chronic Ventricular tachycardia 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 [facility] Work Phone: 1(446) 943-270909-01-2021 Evaluation note* Diagnosis Onset Date Resolution Status Chest pain acute Presence of permanent cardiac pacemaker October, 1 acute Mobitz type 2 second degree AV block chronic Nonrheumatic mitral (valve) prolapse chronic SVT (supraventricular tachycardia) chronic Syncope chronic Ventricular tachycardia 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 Premature ventricular contraction acute Presence of permanent cardiac pacemaker October, 1 acute Mobitz type 2 second degree AV block chronic SVT (supraventricular tachycardia) chronic Ventricular tachycardia 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 Presence of permanent cardiac pacemaker October, 1 acute Mobitz type 2 second degree AV block chronic Nonrheumatic mitral (valve) prolapse chronic SVT (supraventricular tachycardia) chronic Syncope chronic Ventricular tachycardia 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 [facility] Work Phone: 1(705) 737-216709-01-2021 Evaluation note* Diagnosis Onset Date Resolution Status Premature ventricular contraction acute Presence of permanent cardiac pacemaker October, acute Mobitz type 2 second degree AV block chronic SVT (supraventricular tachycardia) chronic Ventricular tachycardia 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 Presence of permanent cardiac pacemaker October, 1 acute Mobitz type 2 second degree AV block chronic Nonrheumatic mitral (valve) prolapse chronic SVT (supraventricular tachycardia) chronic Syncope chronic Ventricular tachycardia 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 Presence of permanent cardiac pacemaker October, 1 acute Mobitz type 2 second degree AV block chronic Ventricular tachycardia 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 [facility] Work Phone: 1(668) 528-193607-06-2020 History of Past illness Narrative* Problem Noted Date Resolved Date Dyspnea on exertion 09/01/2019 12/01/2019 Diverticulosis of large intestine 06/06/2017 11/06/2018 Fibrocystic breast 12/31/2015 11/22/2016 Labial abscess 02/23/2015 11/24/2015 Hypercalcemia 10/31/2013 11/03/2014 Hip pain 02/13/2013 11/22/2016 Sebaceous cyst 08/07/2011 11/24/2015 Anemia 04/05/2011 04/28/2013 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 Symptomatic menopausal or female climacteric sta rozina 07/16/2009 08/07/2011 Urgency of urination 04/28/2008 08/07/2011 Uterovaginal prolapse, incomplete 04/28/2008 11/22/2016 Cystocele, midline 04/28/2008 11/22/2016 Migraine with aura 11/04/2007 11/22/2016 MASS IN BREAST 05/28/2006 11/24/2015 Lumbago 03/05/2006 11/22/2016 Cervical spondylosis without myelopathy 04/03/1911/06/2018 Cervicalgia 04/03/2005 11/22/2016 Sicca syndrome 05/20/2021 Congenital subaortic stenosis Essential hypertension 9 Unspecified constipation 016 Acute gastritis without mention of hemorrhage 11/24/2015 Hemorrhage of gastrointestinal tract, unspecifie d 11/24/2015 Polyarthritis 11/24/2015 documented as of this encounter (statuses as of 08/05/2021) [facility] Narrative* Problem Noted Date Resolved Date Dyspnea on exertion 09/01/2019 12/01/2019 Diverticulosis of large intestine 06/06/2017 11/06/2018 Fibrocystic breast 12/31/2015 11/22/2016 Labial abscess 02/23/2015 11/24/2015 Hypercalcemia 10/31/2013 11/03/2014 Hip pain 02/13/2013 11/22/2016 Sebaceous cyst 08/07/2011 11/24/2015 Anemia 04/05/2011 04/28/2013 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 Symptomatic menopausal or female climacteric sta rozina 07/16/2009 08/07/2011 Urgency of urination 04/28/2008 08/07/2011 Uterovaginal prolapse, incomplete 04/28/2008 11/22/2016 Cystocele, midline 04/28/2008 11/22/2016 Migraine with aura 11/04/2007 11/22/2016 MASS IN BREAST 05/28/2006 11/24/2015 Lumbago 03/05/2006 11/22/2016 Cervical spondylosis without myelopathy 04/03/1911/06/2018 Cervicalgia 04/03/2005 11/22/2016 Sicca syndrome 05/20/2021 Congenital subaortic stenosis Essential hypertension 9 Unspecified constipation 016 Acute gastritis without mention of hemorrhage 11/24/2015 Hemorrhage of gastrointestinal tract, unspecifie d 11/24/2015 Polyarthritis 11/24/2015 documented as of this encounter (statuses as of 08/08/2021) [facility] Narrative* Problem Noted Date Resolved Date Dyspnea on exertion 09/01/2019 12/01/2019 Diverticulosis of large intestine 06/06/2017 11/06/2018 Fibrocystic breast 12/31/2015 11/22/2016 Labial abscess 02/23/2015 11/24/2015 Hypercalcemia 10/31/2013 11/03/2014 Hip pain 02/13/2013 11/22/2016 Sebaceous cyst 08/07/2011 11/24/2015 Anemia 04/05/2011 04/28/2013 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 Symptomatic menopausal or female climacteric sta rozina 07/16/2009 08/07/2011 Urgency of urination 04/28/2008 08/07/2011 Uterovaginal prolapse, incomplete 04/28/2008 11/22/2016 Cystocele, midline 04/28/2008 11/22/2016 Migraine with aura 11/04/2007 11/22/2016 MASS IN BREAST 05/28/2006 11/24/2015 Lumbago 03/05/2006 11/22/2016 Cervical spondylosis without myelopathy 04/03/1911/06/2018 Cervicalgia 04/03/2005 11/22/2016 Sicca syndrome 05/20/2021 Congenital subaortic stenosis Essential hypertension 9 Unspecified constipation 016 Acute gastritis without mention of hemorrhage 11/24/2015 Hemorrhage of gastrointestinal tract, unspecifie d 11/24/2015 Polyarthritis 11/24/2015 documented as of this encounter (statuses as of 08/15/2021) [facility] Narrative* Problem Noted Date Resolved Date Dyspnea on exertion 09/01/2019 12/01/2019 Diverticulosis of large intestine 06/06/2017 11/06/2018 Fibrocystic breast 12/31/2015 11/22/2016 Labial abscess 02/23/2015 11/24/2015 Hypercalcemia 10/31/2013 11/03/2014 Hip pain 02/13/2013 11/22/2016 Sebaceous cyst 08/07/2011 11/24/2015 Anemia 04/05/2011 04/28/2013 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 Symptomatic menopausal or female climacteric sta rozina 07/16/2009 08/07/2011 Urgency of urination 04/28/2008 08/07/2011 Uterovaginal prolapse, incomplete 04/28/2008 11/22/2016 Cystocele, midline 04/28/2008 11/22/2016 Migraine with aura 11/04/2007 11/22/2016 MASS IN BREAST 05/28/2006 11/24/2015 Lumbago 03/05/2006 11/22/2016 Cervical spondylosis without myelopathy 04/03/1911/06/2018 Cervicalgia 04/03/2005 11/22/2016 Sicca syndrome 05/20/2021 Congenital subaortic stenosis Essential hypertension 9 Unspecified constipation 016 Acute gastritis without mention of hemorrhage 11/24/2015 Hemorrhage of gastrointestinal tract, unspecifie d 11/24/2015 Polyarthritis 11/24/2015 documented as of this encounter (statuses as of 08/15/2021) [facility] Narrative* Problem Noted Date Resolved Date Dyspnea on exertion 09/01/2019 12/01/2019 Diverticulosis of large intestine 06/06/2017 11/06/2018 Fibrocystic breast 12/31/2015 11/22/2016 Labial abscess 02/23/2015 11/24/2015 Hypercalcemia 10/31/2013 11/03/2014 Hip pain 02/13/2013 11/22/2016 Sebaceous cyst 08/07/2011 11/24/2015 Anemia 04/05/2011 04/28/2013 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 Symptomatic menopausal or female climacteric sta rozina 07/16/2009 08/07/2011 Urgency of urination 04/28/2008 08/07/2011 Uterovaginal prolapse, incomplete 04/28/2008 11/22/2016 Cystocele, midline 04/28/2008 11/22/2016 Migraine with aura 11/04/2007 11/22/2016 MASS IN BREAST 05/28/2006 11/24/2015 Lumbago 03/05/2006 11/22/2016 Cervical spondylosis without myelopathy 04/03/19 06 11/06/2018 Cervicalgia 04/03/2005 11/22/2016 Sicca syndrome 05/20/2021 Congenital subaortic stenosis Essential hypertension 9 Unspecified constipation 016 Acute gastritis without mention of hemorrhage 11/24/2015 Hemorrhage of gastrointestinal tract, unspecifie d 11/24/2015 Polyarthritis 11/24/2015 documented as of this encounter (statuses as of 08/26/2021) [facility] Narrative* Problem Noted Date Resolved Date Dyspnea on exertion 09/01/2019 12/01/2019 Diverticulosis of large intestine 06/06/2017 11/06/2018 Fibrocystic breast 12/31/2015 11/22/2016 Labial abscess 02/23/2015 11/24/2015 Hypercalcemia 10/31/2013 11/03/2014 Hip pain 02/13/2013 11/22/2016 Sebaceous cyst 08/07/2011 11/24/2015 Anemia 04/05/2011 04/28/2013 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 Symptomatic menopausal or female climacteric sta rozina 07/16/2009 08/07/2011 Urgency of urination 04/28/2008 08/07/2011 Uterovaginal prolapse, incomplete 04/28/2008 11/22/2016 Cystocele, midline 04/28/2008 11/22/2016 Migraine with aura 11/04/2007 11/22/2016 MASS IN BREAST 05/28/2006 11/24/2015 Lumbago 03/05/2006 11/22/2016 Cervical spondylosis without myelopathy 04/03/1911/06/2018 Cervicalgia 04/03/2005 11/22/2016 Sicca syndrome 05/20/2021 Congenital subaortic stenosis Essential hypertension 9 Unspecified constipation 016 Acute gastritis without mention of hemorrhage 11/24/2015 Hemorrhage of gastrointestinal tract, unspecifie d 11/24/2015 Polyarthritis 11/24/2015 documented as of this encounter (statuses as of 10/01/2021) [facility]* Problem Noted Date Resolved Date Dyspnea on exertion 09/01/2019 12/01/2019 Diverticulosis of large intestine 06/06/2017 11/06/2018 Fibrocystic breast 12/31/2015 11/22/2016 Labial abscess 02/23/2015 11/24/2015 Hypercalcemia 10/31/2013 11/03/2014 Hip pain 02/13/2013 11/22/2016 Sebaceous cyst 08/07/2011 11/24/2015 Anemia 04/05/2011 04/28/2013 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 Symptomatic menopausal or female climacteric sta rozina 07/16/2009 08/07/2011 Urgency of urination 04/28/2008 08/07/2011 Uterovaginal prolapse, incomplete 04/28/2008 11/22/2016 Cystocele, midline 04/28/2008 11/22/2016 Migraine with aura 11/04/2007 11/22/2016 MASS IN BREAST 05/28/2006 11/24/2015 Lumbago 03/05/2006 11/22/2016 Cervical spondylosis without myelopathy 04/03/19 06 11/06/2018 Cervicalgia 04/03/2005 11/22/2016 Sicca syndrome 05/20/2021 Congenital subaortic stenosis Essential hypertension 9 Unspecified constipation 016 Acute gastritis without mention of hemorrhage 11/24/2015 Hemorrhage of gastrointestinal tract, unspecifie d 11/24/2015 Polyarthritis 11/24/2015 documented as of this encounter (statuses as of 11/01/2021) [facility]* Problem Noted Date Resolved Date Dyspnea on exertion 09/01/2019 12/01/2019 Diverticulosis of large intestine 06/06/2017 11/06/2018 Fibrocystic breast 12/31/2015 11/22/2016 Labial abscess 02/23/2015 11/24/2015 Hypercalcemia 10/31/2013 11/03/2014 Hip pain 02/13/2013 11/22/2016 Sebaceous cyst 08/07/2011 11/24/2015 Anemia 04/05/2011 04/28/2013 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 Symptomatic menopausal or female climacteric sta rozina 07/16/2009 08/07/2011 Urgency of urination 04/28/2008 08/07/2011 Uterovaginal prolapse, incomplete 04/28/2008 11/22/2016 Cystocele, midline 04/28/2008 11/22/2016 Migraine with aura 11/04/2007 11/22/2016 MASS IN BREAST 05/28/2006 11/24/2015 Lumbago 03/05/2006 11/22/2016 Cervical spondylosis without myelopathy 04/03/1911/06/2018 Cervicalgia 04/03/2005 11/22/2016 Sicca syndrome 05/20/2021 Congenital subaortic stenosis Essential hypertension 9 Unspecified constipation 016 Acute gastritis without mention of hemorrhage 11/24/2015 Hemorrhage of gastrointestinal tract, unspecifie d 11/24/2015 Polyarthritis 11/24/2015 documented as of this encounter (statuses as of 11/08/2021) [facility]* Problem Noted Date Resolved Date Dyspnea on exertion 09/01/2019 12/01/2019 Diverticulosis of large intestine 06/06/2017 11/06/2018 Fibrocystic breast 12/31/2015 11/22/2016 Labial abscess 02/23/2015 11/24/2015 Hypercalcemia 10/31/2013 11/03/2014 Hip pain 02/13/2013 11/22/2016 Sebaceous cyst 08/07/2011 11/24/2015 Anemia 04/05/2011 04/28/2013 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 Symptomatic menopausal or female climacteric sta rozina 07/16/2009 08/07/2011 Urgency of urination 04/28/2008 08/07/2011 Uterovaginal prolapse, incomplete 04/28/2008 11/22/2016 Cystocele, midline 04/28/2008 11/22/2016 Migraine with aura 11/04/2007 11/22/2016 MASS IN BREAST 05/28/2006 11/24/2015 Lumbago 03/05/2006 11/22/2016 Cervical spondylosis without myelopathy 04/03/1911/06/2018 Cervicalgia 04/03/2005 11/22/2016 Sicca syndrome 05/20/2021 Congenital subaortic stenosis Essential hypertension 9 Unspecified constipation 016 Acute gastritis without mention of hemorrhage 11/24/2015 Hemorrhage of gastrointestinal tract, unspecifie d 11/24/2015 Polyarthritis 11/24/2015 documented as of this encounter (statuses as of 12/28/2021) [facility]* Problem Noted Date Resolved Date Dyspnea on exertion 09/01/2019 12/01/2019 Diverticulosis of large intestine 06/06/2017 11/06/2018 Fibrocystic breast 12/31/2015 11/22/2016 Labial abscess 02/23/2015 11/24/2015 Hypercalcemia 10/31/2013 11/03/2014 Hip pain 02/13/2013 11/22/2016 Sebaceous cyst 08/07/2011 11/24/2015 Anemia 04/05/2011 04/28/2013 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 Symptomatic menopausal or female climacteric sta rozina 07/16/2009 08/07/2011 Urgency of urination 04/28/2008 08/07/2011 Uterovaginal prolapse, incomplete 04/28/2008 11/22/2016 Cystocele, midline 04/28/2008 11/22/2016 Migraine with aura 11/04/2007 11/22/2016 MASS IN BREAST 05/28/2006 11/24/2015 Lumbago 03/05/2006 11/22/2016 Cervical spondylosis without myelopathy 04/03/1911/06/2018 Cervicalgia 04/03/2005 11/22/2016 Sicca syndrome 05/20/2021 Congenital subaortic stenosis Essential hypertension 9 Unspecified constipation 016 Acute gastritis without mention of hemorrhage 11/24/2015 Hemorrhage of gastrointestinal tract, unspecifie d 11/24/2015 Polyarthritis 11/24/2015 documented as of this encounter (statuses as of 01/23/2022) [facility]* Problem Noted Date Resolved Date Dyspnea on exertion 09/01/2019 12/01/2019 Diverticulosis of large intestine 06/06/2017 11/06/2018 Fibrocystic breast 12/31/2015 11/22/2016 Labial abscess 02/23/2015 11/24/2015 Hypercalcemia 10/31/2013 11/03/2014 Hip pain 02/13/2013 11/22/2016 Sebaceous cyst 08/07/2011 11/24/2015 Anemia 04/05/2011 04/28/2013 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 Symptomatic menopausal or female climacteric sta rozina 07/16/2009 08/07/2011 Urgency of urination 04/28/2008 08/07/2011 Uterovaginal prolapse, incomplete 04/28/2008 11/22/2016 Cystocele, midline 04/28/2008 11/22/2016 Migraine with aura 11/04/2007 11/22/2016 MASS IN BREAST 05/28/2006 11/24/2015 Lumbago 03/05/2006 11/22/2016 Cervical spondylosis without myelopathy 04/03/1911/06/2018 Cervicalgia 04/03/2005 11/22/2016 Sicca syndrome 05/20/2021 Congenital subaortic stenosis Essential hypertension 9 Unspecified constipation 016 Acute gastritis without mention of hemorrhage 11/24/2015 Hemorrhage of gastrointestinal tract, unspecifie d 11/24/2015 Polyarthritis 11/24/2015 documented as of this encounter (statuses as of 03/13/2022) [facility]* Problem Noted Date Resolved Date Dyspnea on exertion 09/01/2019 12/01/2019 Diverticulosis of large intestine 06/06/2017 11/06/2018 Fibrocystic breast 12/31/2015 11/22/2016 Labial abscess 02/23/2015 11/24/2015 Hypercalcemia 10/31/2013 11/03/2014 Hip pain 02/13/2013 11/22/2016 Sebaceous cyst 08/07/2011 11/24/2015 Anemia 04/05/2011 04/28/2013 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 Symptomatic menopausal or female climacteric sta rozina 07/16/2009 08/07/2011 Urgency of urination 04/28/2008 08/07/2011 Uterovaginal prolapse, incomplete 04/28/2008 11/22/2016 Cystocele, midline 04/28/2008 11/22/2016 Migraine with aura 11/04/2007 11/22/2016 MASS IN BREAST 05/28/2006 11/24/2015 Lumbago 03/05/2006 11/22/2016 Cervical spondylosis without myelopathy 04/03/1911/06/2018 Cervicalgia 04/03/2005 11/22/2016 Sicca syndrome 05/20/2021 Congenital subaortic stenosis Essential hypertension 9 Unspecified constipation 016 Acute gastritis without mention of hemorrhage 11/24/2015 Hemorrhage of gastrointestinal tract, unspecifie d 11/24/2015 Polyarthritis 11/24/2015 documented as of this encounter (statuses as of 05/22/2022) [facility]* Problem Noted Date Resolved Date Dyspnea on exertion 09/01/2019 12/01/2019 Diverticulosis of large intestine 06/06/2017 11/06/2018 Fibrocystic breast 12/31/2015 11/22/2016 Labial abscess 02/23/2015 11/24/2015 Hypercalcemia 10/31/2013 11/03/2014 Hip pain 02/13/2013 11/22/2016 Sebaceous cyst 08/07/2011 11/24/2015 Anemia 04/05/2011 04/28/2013 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 Symptomatic menopausal or female climacteric sta rozina 07/16/2009 08/07/2011 Urgency of urination 04/28/2008 08/07/2011 Uterovaginal prolapse, incomplete 04/28/2008 11/22/2016 Cystocele, midline 04/28/2008 11/22/2016 Migraine with aura 11/04/2007 11/22/2016 MASS IN BREAST 05/28/2006 11/24/2015 Lumbago 03/05/2006 11/22/2016 Cervical spondylosis without myelopathy 04/03/1911/06/2018 Cervicalgia 04/03/2005 11/22/2016 Sicca syndrome 05/20/2021 Congenital subaortic stenosis Essential hypertension 9 Unspecified constipation 016 Acute gastritis without mention of hemorrhage 11/24/2015 Hemorrhage of gastrointestinal tract, unspecifie d 11/24/2015 Polyarthritis 11/24/2015 documented as of this encounter (statuses as of 06/26/2022) [facility] History of Past illness Narrative* Problem Noted Date Resolved Date Dyspnea on exertion 09/01/2019 12/01/2019 Diverticulosis of large intestine 06/06/2017 11/06/2018 Fibrocystic breast 12/31/2015 11/22/2016 Labial abscess 02/23/2015 11/24/2015 Hypercalcemia 10/31/2013 11/03/2014 Hip pain 02/13/2013 11/22/2016 Sebaceous cyst 08/07/2011 11/24/2015 Anemia 04/05/2011 04/28/2013 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 Symptomatic menopausal or female climacteric sta rozina 07/16/2009 08/07/2011 Urgency of urination 04/28/2008 08/07/2011 Uterovaginal prolapse, incomplete 04/28/2008 11/22/2016 Cystocele, midline 04/28/2008 11/22/2016 Migraine with aura 11/04/2007 11/22/2016 MASS IN BREAST 05/28/2006 11/24/2015 Lumbago 03/05/2006 11/22/2016 Cervical spondylosis without myelopathy 04/03/19 06 11/06/2018 Cervicalgia 04/03/2005 11/22/2016 Sicca syndrome 05/20/2021 Congenital subaortic stenosis Essential hypertension 9 Unspecified constipation 016 Acute gastritis without mention of hemorrhage 11/24/2015 Hemorrhage of gastrointestinal tract, unspecifie d 11/24/2015 Polyarthritis 11/24/2015 documented as of this encounter (statuses as of 07/03/2022) [facility] of Past illness Narrative* Problem Noted Date Resolved Date Dyspnea on exertion 09/01/2019 12/01/2019 Diverticulosis of large intestine 06/06/2017 11/06/2018 Fibrocystic breast 12/31/2015 11/22/2016 Labial abscess 02/23/2015 11/24/2015 Hypercalcemia 10/31/2013 11/03/2014 Hip pain 02/13/2013 11/22/2016 Sebaceous cyst 08/07/2011 11/24/2015 Anemia 04/05/2011 04/28/2013 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 Symptomatic menopausal or female climacteric sta rozina 07/16/2009 08/07/2011 Urgency of urination 04/28/2008 08/07/2011 Uterovaginal prolapse, incomplete 04/28/2008 11/22/2016 Cystocele, midline 04/28/2008 11/22/2016 Migraine with aura 11/04/2007 11/22/2016 MASS IN BREAST 05/28/2006 11/24/2015 Lumbago 03/05/2006 11/22/2016 Cervical spondylosis without myelopathy 04/03/19 06 11/06/2018 Cervicalgia 04/03/2005 11/22/2016 Sicca syndrome 05/20/2021 Congenital subaortic stenosis Essential hypertension 9 Unspecified constipation 016 Acute gastritis without mention of hemorrhage 11/24/2015 Hemorrhage of gastrointestinal tract, unspecifie d 11/24/2015 Polyarthritis 11/24/2015 documented as of this encounter (statuses as of 07/05/2022) [facility] of Past illness Narrative* Problem Noted Date Resolved Date Dyspnea on exertion 09/01/2019 12/01/2019 Diverticulosis of large intestine 06/06/2017 11/06/2018 Fibrocystic breast 12/31/2015 11/22/2016 Labial abscess 02/23/2015 11/24/2015 Hypercalcemia 10/31/2013 11/03/2014 Hip pain 02/13/2013 11/22/2016 Sebaceous cyst 08/07/2011 11/24/2015 Anemia 04/05/2011 04/28/2013 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 Symptomatic menopausal or female climacteric sta rozina 07/16/2009 08/07/2011 Urgency of urination 04/28/2008 08/07/2011 Uterovaginal prolapse, incomplete 04/28/2008 11/22/2016 Cystocele, midline 04/28/2008 11/22/2016 Migraine with aura 11/04/2007 11/22/2016 MASS IN BREAST 05/28/2006 11/24/2015 Lumbago 03/05/2006 11/22/2016 Cervical spondylosis without myelopathy 04/03/1911/06/2018 Cervicalgia 04/03/2005 11/22/2016 Sicca syndrome 05/20/2021 Congenital subaortic stenosis Essential hypertension 9 Unspecified constipation 016 Acute gastritis without mention of hemorrhage 11/24/2015 Hemorrhage of gastrointestinal tract, unspecifie d 11/24/2015 Polyarthritis 11/24/2015 documented as of this encounter (statuses as of 08/10/2022) [facility] of Past illness Narrative* Problem Noted Date Resolved Date Dyspnea on exertion 09/01/2019 12/01/2019 Diverticulosis of large intestine 06/06/2017 11/06/2018 Fibrocystic breast 12/31/2015 11/22/2016 Labial abscess 02/23/2015 11/24/2015 Hypercalcemia 10/31/2013 11/03/2014 Hip pain 02/13/2013 11/22/2016 Sebaceous cyst 08/07/2011 11/24/2015 Anemia 04/05/2011 04/28/2013 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 Symptomatic menopausal or female climacteric sta rozina 07/16/2009 08/07/2011 Urgency of urination 04/28/2008 08/07/2011 Uterovaginal prolapse, incomplete 04/28/2008 11/22/2016 Cystocele, midline 04/28/2008 11/22/2016 Migraine with aura 11/04/2007 11/22/2016 MASS IN BREAST 05/28/2006 11/24/2015 Lumbago 03/05/2006 11/22/2016 Cervical spondylosis without myelopathy 04/03/1911/06/2018 Cervicalgia 04/03/2005 11/22/2016 Sicca syndrome 05/20/2021 Congenital subaortic stenosis Essential hypertension 9 Unspecified constipation 016 Acute gastritis without mention of hemorrhage 11/24/2015 Hemorrhage of gastrointestinal tract, unspecifie d 11/24/2015 Polyarthritis 11/24/2015 documented as of this encounter (statuses as of 08/28/2022) [facility] of Past illness Narrative* Problem Noted Date Diagnosed Date Resolved Date Dyspnea on exertion 09/01/2019 12/01/19 20 Diverticulosis of large intestine 06/06/2017 11/06/2018 Fibrocystic breast 12/31/2015 7 Labial abscess 02/23/2015 11/24/2015 Hypercalcemia 10/31/2013 11/03/2014 Hip pain 02/13/2013 11/22/2016 Sebaceous cyst 08/07/2011 11/24/2015 Anemia 04/05/2011 04/28/2013 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/23/19 17 Symptomatic menopausal or fe male climacteric states 07/16/2009 08/07/2011 Urgency of urination 04/28/2008 012 Uterovaginal prolapse, incomplete 04/28/2008 11/22/2016 Cystocele, midline 04/28/2008 7 Migraine with aura 11/04/2007 7 MASS IN BREAST 05/28/2006 11/24/2015 Lumbago 03/05/2006 11/22/2016 Cervical spondylosis without myelopathy 04/03/2005 11/06/2018 Cervicalgia 04/03/2005 11/22/2016 Sicca syndrome 05/20/2021 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 Essential hypertension 11/06 Unspecified constipation Acute gastritis without mention of hemorrhage 11/24/2015 Hemorrhage of gastrointestin al tract, unspecified 11/24/2015 Polyarthritis 11/24/2015 documented as of this encounter (statuses as of 09/22/2022) [facility] of Past illness Narrative* Problem Noted Date Diagnosed Date Resolved Date Dyspnea on exertion 09/01/2019 12/01/19 20 Diverticulosis of large intestine 06/06/2017 11/06/2018 Fibrocystic breast 12/31/2015 7 Labial abscess 02/23/2015 11/24/2015 Hypercalcemia 10/31/2013 11/03/2014 Hip pain 02/13/2013 11/22/2016 Sebaceous cyst 08/07/2011 11/24/2015 Anemia 04/05/2011 04/28/2013 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/23/19 17 Symptomatic menopausal or fe male climacteric states 07/16/2009 08/07/2011 Urgency of urination 04/28/2008 012 Uterovaginal prolapse, incomplete 04/28/2008 11/22/2016 Cystocele, midline 04/28/2008 7 Migraine with aura 11/04/2007 7 MASS IN BREAST 05/28/2006 11/24/2015 Lumbago 03/05/2006 11/22/2016 Cervical spondylosis without myelopathy 04/03/2005 11/06/2018 Cervicalgia 04/03/2005 11/22/2016 Sicca syndrome 05/20/2021 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 Essential hypertension 11/06 Unspecified constipation Acute gastritis without mention of hemorrhage 11/24/2015 Hemorrhage of gastrointestin al tract, unspecified 11/24/2015 Polyarthritis 11/24/2015 documented as of this encounter (statuses as of 10/06/2022) [facility] of Past illness Narrative* Problem Noted Date Diagnosed Date Resolved Date Dyspnea on exertion 09/01/2019 12/01/19 20 Diverticulosis of large intestine 06/06/2017 11/06/2018 Fibrocystic breast 12/31/2015 7 Labial abscess 02/23/2015 11/24/2015 Hypercalcemia 10/31/2013 11/03/2014 Hip pain 02/13/2013 11/22/2016 Sebaceous cyst 08/07/2011 11/24/2015 Anemia 04/05/2011 04/28/2013 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/23/19 17 Symptomatic menopausal or fe male climacteric states 07/16/2009 08/07/2011 Urgency of urination 04/28/2008 012 Uterovaginal prolapse, incomplete 04/28/2008 11/22/2016 Cystocele, midline 04/28/2008 7 Migraine with aura 11/04/2007 7 MASS IN BREAST 05/28/2006 11/24/2015 Lumbago 03/05/2006 11/22/2016 Cervical spondylosis without myelopathy 04/03/2005 11/06/2018 Cervicalgia 04/03/2005 11/22/2016 Sicca syndrome 05/20/2021 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 Essential hypertension 11/06 Unspecified constipation Acute gastritis without mention of hemorrhage 11/24/2015 Hemorrhage of gastrointestin al tract, unspecified 11/24/2015 Polyarthritis 11/24/2015 documented as of this encounter (statuses as of 10/12/2022) [facility] of Past illness Narrative* Problem Noted Date Diagnosed Date Resolved Date Dyspnea on exertion 09/01/2019 12/01/19 20 Diverticulosis of large intestine 06/06/2017 11/06/2018 Fibrocystic breast 12/31/2015 7 Labial abscess 02/23/2015 11/24/2015 Hypercalcemia 10/31/2013 11/03/2014 Hip pain 02/13/2013 11/22/2016 Sebaceous cyst 08/07/2011 11/24/2015 Anemia 04/05/2011 04/28/2013 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/23/19 17 Symptomatic menopausal or fe male climacteric states 07/16/2009 08/07/2011 Urgency of urination 04/28/2008 012 Uterovaginal prolapse, incomplete 04/28/2008 11/22/2016 Cystocele, midline 04/28/2008 7 Migraine with aura 11/04/2007 7 MASS IN BREAST 05/28/2006 11/24/2015 Lumbago 03/05/2006 11/22/2016 Cervical spondylosis without myelopathy 04/03/2005 11/06/2018 Cervicalgia 04/03/2005 11/22/2016 Sicca syndrome 05/20/2021 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 Essential hypertension 11/06 Unspecified constipation Acute gastritis without mention of hemorrhage 11/24/2015 Hemorrhage of gastrointestin al tract, unspecified 11/24/2015 Polyarthritis 11/24/2015 documented as of this encounter (statuses as of 10/16/2022) [facility] of Past illness Narrative* Problem Noted Date Diagnosed Date Resolved Date Dyspnea on exertion 09/01/2019 12/01/19 20 Diverticulosis of large intestine 06/06/2017 11/06/2018 Fibrocystic breast 12/31/2015 7 Labial abscess 02/23/2015 11/24/2015 Hypercalcemia 10/31/2013 11/03/2014 Hip pain 02/13/2013 11/22/2016 Sebaceous cyst 08/07/2011 11/24/2015 Anemia 04/05/2011 04/28/2013 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/23/19 17 Symptomatic menopausal or fe male climacteric states 07/16/2009 08/07/2011 Urgency of urination 04/28/2008 012 Uterovaginal prolapse, incomplete 04/28/2008 11/22/2016 Cystocele, midline 04/28/2008 7 Migraine with aura 11/04/2007 7 MASS IN BREAST 05/28/2006 11/24/2015 Lumbago 03/05/2006 11/22/2016 Cervical spondylosis without myelopathy 04/03/2005 11/06/2018 Cervicalgia 04/03/2005 11/22/2016 Sicca syndrome 05/20/2021 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 Essential hypertension 11/06 Unspecified constipation Acute gastritis without mention of hemorrhage 11/24/2015 Hemorrhage of gastrointestin al tract, unspecified 11/24/2015 Polyarthritis 11/24/2015 documented as of this encounter (statuses as of 11/25/2022) [facility] of Past illness Narrative* Problem Noted Date Diagnosed Date Resolved Date Dyspnea on exertion 09/01/2019 12/01/19 20 Diverticulosis of large intestine 06/06/2017 11/06/2018 Fibrocystic breast 12/31/2015 7 Labial abscess 02/23/2015 11/24/2015 Hypercalcemia 10/31/2013 11/03/2014 Hip pain 02/13/2013 11/22/2016 Sebaceous cyst 08/07/2011 11/24/2015 Anemia 04/05/2011 04/28/2013 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/23/19 17 Symptomatic menopausal or fe male climacteric states 07/16/2009 08/07/2011 Urgency of urination 04/28/2008 012 Uterovaginal prolapse, incomplete 04/28/2008 11/22/2016 Cystocele, midline 04/28/2008 7 Migraine with aura 11/04/2007 7 MASS IN BREAST 05/28/2006 11/24/2015 Lumbago 03/05/2006 11/22/2016 Cervical spondylosis without myelopathy 04/03/2005 11/06/2018 Cervicalgia 04/03/2005 11/22/2016 Sicca syndrome 05/20/2021 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 Essential hypertension 11/06 Unspecified constipation Acute gastritis without mention of hemorrhage 11/24/2015 Hemorrhage of gastrointestin al tract, unspecified 11/24/2015 Polyarthritis 11/24/2015 documented as of this encounter (statuses as of 12/28/2022) [facility] History of Past illness Narrative* Problem Noted Date Diagnosed Date Resolved Date Dyspnea on exertion 09/01/2019 12/01/19 20 Diverticulosis of large intestine 06/06/2017 11/06/2018 Fibrocystic breast 12/31/2015 7 Labial abscess 02/23/2015 11/24/2015 Hypercalcemia 10/31/2013 11/03/2014 Hip pain 02/13/2013 11/22/2016 Sebaceous cyst 08/07/2011 11/24/2015 Anemia 04/05/2011 04/28/2013 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/23/19 17 Symptomatic menopausal or fe male climacteric states 07/16/2009 08/07/2011 Urgency of urination 04/28/2008 012 Uterovaginal prolapse, incomplete 04/28/2008 11/22/2016 Cystocele, midline 04/28/2008 7 Migraine with aura 11/04/2007 7 MASS IN BREAST 05/28/2006 11/24/2015 Lumbago 03/05/2006 11/22/2016 Cervical spondylosis without myelopathy 04/03/2005 11/06/2018 Cervicalgia 04/03/2005 11/22/2016 Sicca syndrome 05/20/2021 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 Essential hypertension 11/06 Unspecified constipation Acute gastritis without mention of hemorrhage 11/24/2015 Hemorrhage of gastrointestin al tract, unspecified 11/24/2015 Polyarthritis 11/24/2015 documented as of this encounter (statuses as of 12/28/2022) [facility] of Past illness Narrative* Problem Noted Date Diagnosed Date Resolved Date Dyspnea on exertion 09/01/2019 12/01/19 20 Diverticulosis of large intestine 06/06/2017 11/06/2018 Fibrocystic breast 12/31/2015 7 Labial abscess 02/23/2015 11/24/2015 Hypercalcemia 10/31/2013 11/03/2014 Hip pain 02/13/2013 11/22/2016 Sebaceous cyst 08/07/2011 11/24/2015 Anemia 04/05/2011 04/28/2013 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/23/19 17 Symptomatic menopausal or fe male climacteric states 07/16/2009 08/07/2011 Urgency of urination 04/28/2008 012 Uterovaginal prolapse, incomplete 04/28/2008 11/22/2016 Cystocele, midline 04/28/2008 7 Migraine with aura 11/04/2007 7 MASS IN BREAST 05/28/2006 11/24/2015 Lumbago 03/05/2006 11/22/2016 Cervical spondylosis without myelopathy 04/03/2005 11/06/2018 Cervicalgia 04/03/2005 11/22/2016 Sicca syndrome 05/20/2021 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 Essential hypertension 11/06 Unspecified constipation Acute gastritis without mention of hemorrhage 11/24/2015 Hemorrhage of gastrointestin al tract, unspecified 11/24/2015 Polyarthritis 11/24/2015 documented as of this encounter (statuses as of 04/03/2023) [facility] noteThere may be information available, but it has not been provided by the sender.[facility] Work Phone: Evaluation note* Diagnosis Skin lesion Unspecified disorder of skin and subcutaneous tissue documented in this encounter [facility] note* Diagnosis Need for vaccination- Primary Need for prophylactic vaccination and inoculation against unspecified single disease documented in this encounter [facility] note* Diagnosis Encounter for immunization- Primary Need for other specified prophylactic vaccination against single bacterial disease documented in this encounter [facility] note* Diagnosis Need for COVID-19 vaccine- Primary documented in this encounter [facility] note* Diagnosis Fatigue, unspecified type- Primary Other complicated headache syndrome Psoriatic arthritis (HCC) Psoriatic arthropathy 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 documented in this encounter [facility] note* Diagnosis Encounter for long-term current use of medication documented in this encounter [facility] note* Diagnosis Encounter for long-term current use of medication- Primary 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 Vitamin D deficiency Unspecified vitamin D deficiency Bilateral lower extremity edema Edema documented in this encounter [facility] note* Diagnosis Obstructive sleep apnea- Primary Obstructive sleep apnea (adult) (pediatric) [facility] Diagnosis 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- Primary Bilateral lower extremity edema Edema Vitamin D deficiency Unspecified vitamin D deficiency S/P placement of cardiac pacemaker Cardiac pacemaker in situ ROBERT treated with BiPAP Stage 3a chronic kidney disease (HCC) Need for second booster dose of COVID-19 vaccine SVT (supraventricular tachycardia) (HCC) Other specified cardiac dysrhythmias Psoriatic arthritis (HCC) Psoriatic arthropathy [facility] Diagnosis 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- Primary [facility] Diagnosis Vaginal atrophy Postmenopausal atrophic vaginitis documented in this encounter [facility] note* Diagnosis Obstructive sleep apnea- Primary Obstructive sleep apnea (adult) (pediatric) Right hip pain Pain in joint, pelvic region and thigh documented in this encounter [facility] note* Diagnosis 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- Primary [facility] Diagnosis History of primary hyperparathyroidism- Primary S/P subtotal parathyroidectomy (HCC) Other postprocedural status [facility]* Diagnosis 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 [facility] Work Phone: InstructionsNo information available.[facility] Work Phone: Reason for referral (narrative)* Diagnostic Procedure Only (Routine) - Closed Specialty Diagnoses / Procedures Referred By Krista betancourt Referred To Contact US IMAGING Diagnoses Skin lesion Procedures US SOFT TISSUE ABDOMEN US ABDOMINAL REAL TIME W/IMAGE LIMITED Luz Marquez APRN.CNS [address] [place] [address] Us Imaging Referral ID Status Reason Start Date Expiration Date V isits Requested Visits Authorized [id number] Closed Auto-Generate d Referral 08/04/2021 09/03/2022 1 1 [facility] for referral (narrative)* Consultation (Routine) - Pending Review Specialty Diagnoses / Procedures Referred By Krista betancourt Referred To Contact Neurology Diagnoses Obstructive sleep apnea Procedures NC OFFICE/OUTPATIENT [facility] 60-74 MINUTES El Perez MD [address] [place] [address] Referral ID Status Reason Start Date Expiration Date Visits Requested Visits Authorized [id number] Pending Review Specialty Services Required 06/14/2022 06/14/2023 [address] Carisa [facility] [address] [place] [address] [address] [place], [place] [address] [facility] Summary Purpose Family History No Family History Records Found Relationship Condition Age at Onset Recorded Date/T adrian mother Congestive heart failure Unknown Hypertension Unknown Graves' disease Unknown father Diabetes mellitus Unknown Advance Directives No Advanced Directives Records FoundDocuments on File Type Date Recorded Patient Child Day Care Provider Expl anation Advance Directive(s) 11/25/2020 3:00 PM Advance Directive(s) 02/03/2020 4:03 PM Advance Directive(s) 08/21/2016 12:24 PM Advance Directive(s) 01/18/2016 6:49 AM Advance Directive(s) 04/13/2014 12:53 PM Documents on File Type Date Recorded Patient Child Day Care Provider Expl anation Advance Directive(s) 11/25/2020 3:00 PM Advance Directive(s) 02/03/2020 4:03 PM Advance Directive(s) 08/21/2016 12:24 PM Advance Directive(s) 01/18/2016 6:49 AM Advance Directive(s) 04/13/2014 12:53 PM Documents on File Type Date Recorded Patient Child Day Care Provider Expl anation Advance Directive(s) 02/03/2020 4:03 PM Advance Directive(s) 04/13/2014 12:53 PM Advance Directive Response Recorded Date/ Time Advance Directives Yes October 11:12am Living Will Yes November 11, 2020 11:12am Power of Seat Maker Yes October 11:12am Advance Directive Response Recorded Date/ Time Advance Directives Yes October 10:12am Living Will Yes November 11, 2020 10:12am Power of Seat Maker Yes October 10:12am Documents on File Type Date Recorded Patient Child Day Care Provider Expl anation Advance Directive(s) 02/03/2020 4:03 PM Advance Directive(s) 04/13/2014 12:53 PM Chief Complaint Chief Complaint Description Start Date right wrist pain Preliminary chief co mplaint data, not yet signed by the author as of Chief Complaint Description Start Date right wrist pain Preliminary chief co mplaint data, not yet signed by the author as of Chief Complaint and Reason for Visit Chief Complaint 3 mos remote PPM f/u Jabbing chest pains Jennifer NONRHEUMATIC MITRAL PROLAPSE Reason for Visit Mobitz type 2 second degree AV block Presence of permanent cardiac pacemaker SVT (supraventricular tachycardia) Ventricular tachycardia Chest pain Mobitz type 2 second degree AV block Nonrheumatic mitral (valve) prolapse Presence of permanent cardiac pacemaker SVT (supraventricular tachycardia) Syncope Ventricular tachycardia Chief Complaint 3 mos remote PPM f/u Jabbing chest pains Jennifer NONRHEUMATIC MITRAL PROLAPSE SINUSITIS Reason for Visit Mobitz type 2 second degree AV block Presence of permanent cardiac pacemaker SVT (supraventricular tachycardia) Ventricular tachycardia Chest pain Mobitz type 2 second degree AV block Nonrheumatic mitral (valve) prolapse Presence of permanent cardiac pacemaker SVT (supraventricular tachycardia) Syncope Ventricular tachycardia Chief Complaint 3 mos remote PPM f/u Jabbing chest pains Jennifer NONRHEUMATIC MITRAL PROLAPSE SINUSITIS SCREENING 3 mos remote PPM f/u PFM pt, wanted to do on day of MRI L.L. Spinal stenosis, lumbar region without neurogenic SPINAL STENOSIS RX HERE Reason for Visit Presence of permanen t cardiac pacemaker Mobitz type 2 second degree AV block SVT (supraventricular tachycardia) Ventricular tachycardia Chest pain Presence of permanent cardiac pacemaker Mobitz type 2 second degree AV block Nonrheumatic mitral (valve) prolapse SVT (supraventricular tachycardia) Syncope Ventricular tachycardia Premature ventricular contraction Presence of permanent cardiac pacemaker Mobitz type 2 second degree AV block SVT (supraventricular tachycardia) Ventricular tachycardia Presence of permanent cardiac pacemaker Mobitz type 2 second degree AV block Nonrheumatic mitral (valve) prolapse SVT (supraventricular tachycardia) Syncope Ventricular tachycardia Chief Complaint Jabbing chest pains Jennifer NONRHEUMATIC MITRAL PROLAPSE SINUSITIS SCREENING 3 mos remote PPM f/u PFM pt, wanted to do on day of MRI L.L. Spinal stenosis, lumbar region without neurogenic Other chronic sinusitis SPINAL STENOSIS RX HERE Reason for Visit Chest pain Presence of permanent cardiac pacemaker Mobitz type 2 second degree AV block Nonrheumatic mitral (valve) prolapse SVT (supraventricular tachycardia) Syncope Ventricular tachycardia Premature ventricular contraction Presence of permanent cardiac pacemaker Mobitz type 2 second degree AV block SVT (supraventricular tachycardia) Ventricular tachycardia Presence of permanent cardiac pacemaker Mobitz type 2 second degree AV block Nonrheumatic mitral (valve) prolapse SVT (supraventricular tachycardia) Syncope Ventricular tachycardia Chief Complaint SCREENING 3 mos remote PPM f/u PFM pt, wanted to do on day of MRI L.L. Spinal stenosis, lumbar region without neurogenic Other chronic sinusitis SPINAL STENOSIS RX HERE 3 mos remote PPM f/u Reason for Visit Premature ventricula r contraction Presence of permanent cardiac pacemaker Mobitz type 2 second degree AV block SVT (supraventricular tachycardia) Ventricular tachycardia Presence of permanent cardiac pacemaker Mobitz type 2 second degree AV block Nonrheumatic mitral (valve) prolapse SVT (supraventricular tachycardia) Syncope Ventricular tachycardia Presence of permanent cardiac pacemaker Mobitz type 2 second degree AV block Ventricular tachycardia Reason for Referral Specialty Diagnoses / Procedures Referred By Krista betancourt Referred To Contact Endocrinology Diagnoses 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 Procedures CONSULT TO ENDOCRINOLOGY OFFICE/OUTPATIENT [facility] 60-74 MINUTES Britt Moreno APRN.CNP [address] [id number] Referral ID Status Reason Start Date Expiration Date Visits Requested Visits Authorized [id number] Authorized PCP Requested Referral 07/05/2022 06/30/2023 1 1 Specialty Diagnoses / Procedures Referred By Krista betancourt Referred To Contact Endocrinology Diagnoses 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 Procedures CONSULT TO ENDOCRINOLOGY OFFICE/OUTPATIENT [facility] 60-74 MINUTES Gini Aguilar MD [address] [place] [address] Referral ID Status Reason Start Date Expiration Date Visits Requested Visits Authorized [id number] Authorized PCP Requested Referral 10/11/2022 10/11/2023 1 1 Additional Source Comments INFORMATION SOURCE (unrecogn ized section and content) DATE CREATED AUTHOR 08/16/2017 [facility] DATE CREATED AUTHOR AUTHOR'S ORGANIZ ATION 08/24/2017 [facility] DATE CREATED AUTHOR AUTHOR'S ORGANIZ ATION 08/30/2017 [facility] DATE CREATED AUTHOR AUTHOR'S ORGANIZ ATION 09/02/2017 [facility] DATE CREATED AUTHOR AUTHOR'S ORGANIZ ATION 10/18/2017 [facility] DATE CREATED AUTHOR AUTHOR'S ORGANIZ ATION 07/13/2019 [facility] ([place]) DATE CREATED AUTHOR AUTHOR'S ORGANIZ ATION 05/29/2020 [facility] DATE CREATED AUTHOR AUTHOR'S ORGANIZ ATION 11/14/2020 [facility] DATE CREATED AUTHOR AUTHOR'S ORGANIZ ATION 10/01/2021 [facility] DATE CREATED AUTHOR AUTHOR'S ORGANIZ ATION 10/05/2022 [facility] DATE CREATED AUTHOR AUTHOR'S ORGANIZ ATION 10/11/2023 [facility] DATE CREATED AUTHOR AUTHOR'S ORGANIZ ATION 08/25/2024 [facility] Reason for Visit (unrecogniz ed section and content) Reason For Visit Description New Complaint Preliminary reason f or visit data, not yet signed by the author as of right wrist pain Reason For Visit Description Start Date Follow-up by complaint Preliminary reason f or visit data, not yet signed by the author as of right wrist pain Reason Comments Radiology US Specialty Diagnoses / Procedures Referred By Krista betancourt Referred To Contact US IMAGING Diagnoses Skin lesion Procedures US SOFT TISSUE ABDOMEN US ABDOMINAL REAL TIME W/IMAGE LIMITED Luz Marquez, HAZMAT TANKER DRIVER.GOPHERMAN [address] [place] [address] Us Imaging Referral ID Status Reason Start Date Expiration Date V isits Requested Visits Authorized [id number] Closed Auto-Generate d Referral 08/04/2021 09/03/2022 1 1 Reason Comments Results US Reason Onset Date Comments Refill Request 08/15/2021 Reason Comments FYI-No Action Needed bruise on abdome n Reason Comments F/U 3 Month Reason Comments Results Reason Comments Patient Question Reason Onset Date Comments Refill Request 03/13/2022 Reason Onset Date Comments Release of Information 06/13/2022 Reason Onset Date Comments records 06/29/2022 Referral 06/29/2022 Reason Onset Date Comments Refill Request 08/09/2022 Reason Comments Follow-up Sleep Apnea Reason Comments Referral Request Reason Onset Date Comments medical records 10/04/2022 Reason Comments mailed copy of thyroid lab results Reason Comments Medication Problem Refill Request Consult Reason Onset Date Comments Refill Request 10/16/2022 Reason Comments Patient Update Reason Comments fax lab orders to outside Source Comments (unrecognize d section and content) In the event this informatio n is protected by the Federal Confidentiality of Alcohol and Drug Abuse Patient Records regulations: The Federal rules restrict any use of the information to criminally investigate or prosecute any alcohol or drug abuse patient.[facility] the event this information is protected by the Federal Confidentiality of Alcohol and Drug Abuse Patient Records regulations: The Federal rules restrict any use of the information to criminally investigate or prosecute any alcohol or drug abuse patient.[facility] CenterIn the event this information is protected by the Federal Confidentiality of Alcohol and Drug Abuse Patient Records regulations: The Federal rules restrict any use of the information to criminally investigate or prosecute any alcohol or drug abuse patient.[facility] CenterIn the event this information is protected by the Federal Confidentiality of Alcohol and Drug Abuse Patient Records regulations: The Federal rules restrict any use of the information to criminally investigate or prosecute any alcohol or drug abuse patient.[facility] CenterIn the event this information is protected by the Federal Confidentiality of Alcohol and Drug Abuse Patient Records regulations: The Federal rules restrict any use of the information to criminally investigate or prosecute any alcohol or drug abuse patient.[facility] CenterIn the event this information is protected by the Federal Confidentiality of Alcohol and Drug Abuse Patient Records regulations: The Federal rules restrict any use of the information to criminally investigate or prosecute any alcohol or drug abuse patient.[facility] Center[facility] the event this information is protected by the Federal Confidentiality of Alcohol and Drug Abuse Patient Records regulations: The Federal rules restrict any use of the information to criminally investigate or prosecute any alcohol or drug abuse patient.[facility] CenterIn the event this information is protected by the Federal Confidentiality of Alcohol and Drug Abuse Patient Records regulations: The Federal rules restrict any use of the information to criminally investigate or prosecute any alcohol or drug abuse patient.[facility] CenterIn the event this information is protected by the Federal Confidentiality of Alcohol and Drug Abuse Patient Records regulations: The Federal rules restrict any use of the information to criminally investigate or prosecute any alcohol or drug abuse patient.[facility] Center[facility] the event this information is protected by the Federal Confidentiality of Alcohol and Drug Abuse Patient Records regulations: The Federal rules restrict any use of the information to criminally investigate or prosecute any alcohol or drug abuse patient.[facility] CenterIn the event this information is protected by the Federal Confidentiality of Alcohol and Drug Abuse Patient Records regulations: The Federal rules restrict any use of the information to criminally investigate or prosecute any alcohol or drug abuse patient.[facility] CenterIn the event this information is protected by the Federal Confidentiality of Alcohol and Drug Abuse Patient Records regulations: The Federal rules restrict any use of the information to criminally investigate or prosecute any alcohol or drug abuse patient.[facility] CenterIn the event this information is protected by the Federal Confidentiality of Alcohol and Drug Abuse Patient Records regulations: The Federal rules restrict any use of the information to criminally investigate or prosecute any alcohol or drug abuse patient.[facility] CenterIn the event this information is protected by the Federal Confidentiality of Alcohol and Drug Abuse Patient Records regulations: The Federal rules restrict any use of the information to criminally investigate or prosecute any alcohol or drug abuse patient.[facility] CenterIn the event this information is protected by the Federal Confidentiality of Alcohol and Drug Abuse Patient Records regulations: The Federal rules restrict any use of the information to criminally investigate or prosecute any alcohol or drug abuse patient.[facility] CenterIn the event this information is protected by the Federal Confidentiality of Alcohol and Drug Abuse Patient Records regulations: The Federal rules restrict any use of the information to criminally investigate or prosecute any alcohol or drug abuse patient.[facility] CenterIn the event this information is protected by the Federal Confidentiality of Alcohol and Drug Abuse Patient Records regulations: The Federal rules restrict any use of the information to criminally investigate or prosecute any alcohol or drug abuse patient.[facility] CenterIn the event this information is protected by the Federal Confidentiality of Alcohol and Drug Abuse Patient Records regulations: The Federal rules restrict any use of the information to criminally investigate or prosecute any alcohol or drug abuse patient.[facility] CenterIn the event this information is protected by the Federal Confidentiality of Alcohol and Drug Abuse Patient Records regulations: The Federal rules restrict any use of the information to criminally investigate or prosecute any alcohol or drug abuse patient.[facility] CenterIn the event this information is protected by the Federal Confidentiality of Alcohol and Drug Abuse Patient Records regulations: The Federal rules restrict any use of the information to criminally investigate or prosecute any alcohol or drug abuse patient.[facility] CenterIn the event this information is protected by the Federal Confidentiality of Alcohol and Drug Abuse Patient Records regulations: The Federal rules restrict any use of the information to criminally investigate or prosecute any alcohol or drug abuse patient.[facility] CenterIn the event this information is protected by the Federal Confidentiality of Alcohol and Drug Abuse Patient Records regulations: The Federal rules restrict any use of the information to criminally investigate or prosecute any alcohol or drug abuse patient.[facility] CenterIn the event this information is protected by the Federal Confidentiality of Alcohol and Drug Abuse Patient Records regulations: The Federal rules restrict any use of the information to criminally investigate or prosecute any alcohol or drug abuse patient.[facility] CenterIn the event this information is protected by the Federal Confidentiality of Alcohol and Drug Abuse Patient Records regulations: The Federal rules restrict any use of the information to criminally investigate or prosecute any alcohol or drug abuse patient.[facility] CenterIn the event this information is protected by the Federal Confidentiality of Alcohol and Drug Abuse Patient Records regulations: The Federal rules restrict any use of the information to criminally investigate or prosecute any alcohol or drug abuse patient.[facility] CenterIn the event this information is protected by the Federal Confidentiality of Alcohol and Drug Abuse Patient Records regulations: The Federal rules restrict any use of the information to criminally investigate or prosecute any alcohol or drug abuse patient.[facility] Care Teams (unrecognized sec tion and content) City 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 Relationship Specialty Start Date End Date Gini Aguilar MD [address] [place] [address] PCP - General Internal Medicine 04/07/10 Robert Kaur Jr., MD [address] [place] [address] Physician Neurology 05/27/20 City 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 Relationship Specialty Start Date End Date Gini Aguilar MD [address] [place] [address] PCP - General Internal Medicine 04/07/10 Robert Kaur Jr., MD [address] [place] [address] Physician Neurology 05/27/20 City 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 Relationship Specialty Start Date End Date Gini Aguilar MD [address] [place] [address] PCP - General Internal Medicine 04/07/10 Robert Kaur Jr., MD [address] [place] [address] Physician Neurology 05/27/20 City 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 Relationship Specialty Start Date End Date Gini Aguilar MD [address] [place] [address] PCP - General Internal Medicine 04/07/10 Robert Kaur Jr., MD [address] [place] [address] Physician Neurology 05/27/20 City 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 Relationship Specialty Start Date End Date Gini Aguilar MD [address] [place] [address] PCP - General Internal Medicine 04/07/10 Robert Kaur Jr., MD [address] [place] [address] Physician Neurology 05/27/20 City 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 Relationship Specialty Start Date End Date Gini Aguilar MD [address] [place] [address] PCP - General Internal Medicine 04/07/10 Robert Kaur Jr., MD [address] [place] [address] Physician Neurology 05/27/20 City 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 Relationship Specialty Start Date End Date Gini Aguilar MD [address] [place] [address] PCP - General Internal Medicine 04/07/10 Robert Kaur Jr., MD [address] [place] [address] Physician Neurology 05/27/20 City 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 Relationship Specialty Start Date End Date Gini Aguilar MD [address] [place] [address] PCP - General Internal Medicine 04/07/10 Robert Kaur Jr., MD [address] [place] [address] Physician Neurology 05/27/20 City 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 Relationship Specialty Start Date End Date Gini Aguilar MD [address] [place] [address] PCP - General Internal Medicine 04/07/10 Robert Kaur Jr., MD [address] [place] [address] Physician Neurology 05/27/20 City 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 Relationship Specialty Start Date End Date Gini Aguilar MD [address] [place] [address] PCP - General Internal Medicine 04/07/10 Robert Kaur Jr., MD [address] [place] [address] Physician Neurology 05/27/20 City 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 Relationship Specialty Start Date End Date Gini Aguilar MD [address] [place], [place] [id number] PCP - General Internal Medicine 04/07/10 Robert Kaur Jr., MD [address] [place], [place] [address] Physician Neurology 05/27/20 Team Status: Active Member Role Status Dates Dr. Gini Aguilar MD Family Provider Active Dr. Gini Aguilar MD Primary Care Provider Active Team Status: Inactive Member Role Status Dates Dr. Gini Aguilar MD Primary Care Provider, Referr ing Provider Active Melida Rose Active Dr. Bong Cortez MD Attending Provider Active Team Status: Inactive Member Role Status Dates Dr. Gini Aguilar MD Primary Care Provider, Referr ing Provider Active Lino Barragan FORM TAMPER OPERATOR, FORM TAMPER OPERATOR-C Attending Provider Active Team Status: Inactive Member Role Status Dates Dr. Gini Aguilar MD Primary Care Provider, Referr ing Provider Active Melida Rose Attending Provider Active Team Status: Inactive Member Role Status Dates Dr. Gini Aguilar MD Primary Care Provider Active Dr. Julissa Morrissey DO Attending Provider Active Team Status: Inactive Member Role Status Dates Dr. Gini Aguilar MD Primary Care Provider Active Dr. Javed Johnson DO Attending Provider Active Team Status: Inactive Member Role Status Dates Dr. Gini Aguilar MD Primary Care Provider Active Dr. Javed Johnson DO Attending Provider, Referring P rovider Active Team Status: Inactive Member Role Status Dates Dr. Gini Aguilar MD Primary Care Provider Active Dr. 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 Relationship Specialty Start Date End Date Gini Aguilar [address] [place] [address] PCP - General 10/29/19 City 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 Relationship Specialty [place] [address] [place] [address] PCP - General Internal Medicine 04/07/10 Robert Kaur Jr., MD [address] [place] [address] Physician Neurology 05/27/20 City 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 Relationship Specialty [place] [address] [place] [address] PCP - General Internal Medicine 04/07/10 Robert Kaur Jr., MD [employer] [place] [address] Physician Neurology 05/27/20 City 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 Relationship Specialty Start Date End Date Gini Aguilar [address] [place] [address] PCP - General 10/29/19 City 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 Relationship Specialty Start Date End Date Gini Aguilar MD [address] [facility] [place] [address] PCP - General Internal Medicine 04/07/10 Robert Kaur Jr., MD [employer] [place] [address] Physician Neurology 05/27/20 City 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 Relationship Specialty Start Date End Date Gini Aguilar MD [address] [place] [address] PCP - General Internal Medicine 04/07/10 Robert Kaur Jr., MD [address] [place] [address] Physician Neurology 05/27/20 City 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 Relationship Specialty Start Date End Date Gini Aguilar [address] [place] [address] PCP - General 10/29/19 City 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 Relationship Specialty Start Date End Date Gini Aguilar MD [address] [place] [address] PCP - General Internal Medicine 04/07/10 Robert Kaur Jr., MD [address] [place] [address] Physician Neurology 05/27/20 City 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 Relationship Specialty Start Date End Date Gini Aguilar MD [address] [place] [address] PCP - General Internal Medicine 04/07/10 Robert Kaur Jr., MD [address] [place] [address] Physician Neurology 05/27/20 City 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 Relationship Specialty Start Date End Date Gini Aguilar MD [address] [place] [address] PCP - General Internal Medicine 04/07/10 Robert Kaur Jr., MD [address] [place] [address] Physician Neurology 05/27/20 City 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 Relationship Specialty Start Date End Date Dennis Bowens MD [address] [facility] [address] [place] [address] PCP - General Internal Medicine 03/29/23 Robert Kaur Jr., MD [address] [place] [address] Physician Neurology 05/27/20 Goals (unrecognized section and content) Goals may be documented in a n alternate sectionGoals may be documented in an alternate sectionGoals may be documented in an alternate sectionGoals may be documented in an alternate sectionGoals may be documented in an alternate section FOR RECORDS PERTAINING TO PATIENTS WHO ARE OR HAVE BEEN ENROLLED IN A CHEMICAL DEPENDENCY/SUBSTANCEABUSE PROGRAM, SOME INFORMATION MAY BE OMITTED. This clinical summary was aggregated from multiple sources. Caution should be exercised in using it in the provision of clinical care. This summary normalizes information from multiple sources, and as a consequence, information in this document may materially change the coding, format and clinical context of patient data. In addition, data may be omitted in some cases. CLINICAL DECISIONS SHOULD BE BASED ON THE PRIMARY CLINICAL RECORDS. [employer] provides no warranty or guarantee of the accuracy or completeness of information in this document.
[2024-08-25 01:31] LABS: Color, Urine Yellow (Yellow); Glucose, Dipstick Normal (Normal); Ketone-Dipstick 15 mg/dl (Negative); Leukocyte Esterase-Dipstick Negative /ul (Negative); Nitrite-Dipstick Negative (Negative); Occult Blood-Urine Negative /ul (Negative); Protein-Dipstick 15 mg/dl (Negative); Urine Bilirubin Dipstick Negative (Negative); Urine Clarity Clear (Clear); Urine Urobilinogen Normal (Normal)
[2024-08-25 02:10] LABS: Bacteria RARE /hpf (None Seen); White Blood Cells 0-5 SEEN /hpf (0-5)
[2024-08-25 02:22] VITALS: BP 106/57; PULSE 82; RESP 16; TEMP 36.6; O2SAT 91
[2024-08-25 02:23] LABS: Troponin T High Sens 2 HR 14 ng/L (<=14)
== END 2024-08-25 02:36 | disposition home or self-care (01) ==
PROVIDERS: Emergency Provider Emergency Medicine; PCP Internal Medicine; Visit Provider Emergency Medicine
DX: H81.10 Benign paroxysmal vertigo, unspecified ear (principal); Z95.0 Presence of cardiac pacemaker
CPT/HCPCS: 70450; 80048; 81001; 84484; 85025; 85379; 93005; 96361; 96374; 99285; A4216; J2405